=== PATIENT | male | born 1945 | race Caucasian/White ===

== ENCOUNTER 2023-06-21 08:40 | Outpatient (RCR) | payer MEDICARE, SELFPAY | END 2023-06-21 23:59 | disposition home or self-care (01) | LOC: RPT 08:40 | PROVIDERS: ATTENDING PHYSICIAN Internal Medicine | DX: M54.51 Vertebrogenic low back pain (principal); R29.6 Repeated falls; Z73.6 Limitation of activities due to disability | CPT/HCPCS: 97110; 97162 ==

== ENCOUNTER 2023-07-19 06:30 | Outpatient (RCR) | payer MEDICARE, SELFPAY | END 2023-07-19 23:59 | disposition home or self-care (01) | LOC: RPT 06:30 | PROVIDERS: ATTENDING PHYSICIAN Internal Medicine | DX: R29.6 Repeated falls (principal); M54.51 Vertebrogenic low back pain; Z73.6 Limitation of activities due to disability | CPT/HCPCS: 97110; 97112 ==

== ENCOUNTER → 2023-09-07 | Outpatient (REF) | payer MEDICARE, SELFPAY | LOC: DHSLP | PROVIDERS: ATTENDING PHYSICIAN Internal Medicine Critical Care Medicine; FAMILY PHYSICIAN Internal Medicine | DX: G47.33 Obstructive sleep apnea (adult) (pediatric) (principal) | CPT/HCPCS: 95811 ==

== ENCOUNTER → 2023-09-30 07:05 | Outpatient (REF) | payer MEDICARE, SELFPAY ==
[2023-09-30 08:20] LABS: ALT (SGPT) 47 U/L (0-50); AST (SGOT) 38 U/L (17-59); Albumin 4.3 g/dl (3.5-5.0); Alkaline Phosphatase 113 U/L (38-126); Blood Urea Nitrogen 30 mg/dl (9-20); Calcium 9.4 mg/dl (8.4-10.2); Carbon Dioxide 27 mmol/L (22-30); Chloride 102 mmol/L (98-107); Glucose 157 mg/dl (70-99); HDL Cholesterol 38 mg/dl; LDL Cholesterol, Calculated 48 mg/dl; Potassium 4.3 mmol/L (3.5-5.1); Sodium 137 mmol/L (135-145); Total Bilirubin 0.6 mg/dl (0.2-1.3); Total Cholesterol 132 mg/dl (50-199); Total Protein 7.2 g/dl (6.3-8.2); Triglyceride 230 mg/dl (10-149); Very Low Density Lipoprotein 46 mg/dl (0-30); eGFR > 60.00
== END ==
LOC: REG 07:05
PROVIDERS: ATTENDING PHYSICIAN Family Medicine
DX: E11.22 Type 2 diabetes mellitus with diabetic chronic kidney disease (principal); N18.31 Chronic kidney disease, stage 3a; E78.00 Pure hypercholesterolemia, unspecified
CPT/HCPCS: 36415; 80053; 80061; 83036

== ENCOUNTER → 2023-10-26 09:30 | Outpatient (REF) | payer MEDICARE, SELFPAY ==
[2023-10-26 11:29] LABS: NT-proBNP 474 pg/ml
[2023-10-26 11:57] LABS: TSH 3.25 uIU/ml (0.47-4.68)
== END ==
LOC: RAD 09:30
PROVIDERS: ATTENDING PHYSICIAN Internal Medicine Cardiovascular Disease; FAMILY PHYSICIAN Family Medicine
DX: R06.09 Other forms of dyspnea (principal); Z79.899 Other long term (current) drug therapy
CPT/HCPCS: 36415; 71046; 83880; 84443

== ENCOUNTER 2023-10-31 12:11 | Inpatient (IN) | payer MEDICARE, SELFPAY ==
[2023-10-31] VITALS (63 sets, daily range): BP systolic 71–160; BP diastolic 32–100; PULSE 62; BMI 29.6
--- NOTE | 2023-10-31 08:27 | ED.GENMED ---
History of Present Illness
<Bismark Damico PA-C - Last Filed: 11/01/23 09:04>
General
Chief Complaint: Dizziness
Source: patient
Exam Limitations: none
Time Seen by Provider: 10/31/23 08:15
Travel History
Have you had any contact with someone who has COVID-19?: No
Do you have any symptoms of coronavirus? Fever > 100 degrees, chills, cough, shortness of breath, sore throat, loss of taste or smell, muscle aches, or headache?: No
History of Present Illness
History of Present Illness:
77-year-old male presents from home after a fall. He has a history of valve replacement with pacer defibrillator on Coumadin follows with cardiology. He has been compliant diabetic. He states he fell forward hitting his head. He complains of
bilateral knee pain and generalized weakness. He was lightheaded prior to the fall. This fall happened after getting out of bed. His daughter notes that his color is off. Patient denies any dark or tarry stools. He notes recent chills but no
measurable fever. He denies a cough. He denies a spinning sensation. No other complaints at this time
Past History
<Bismark Damico PA-C - Last Filed: 11/01/23 09:04>
Past History
ED Past Medical History: Arrthythmia (Atrial fib/flutter), CAD, Cancer (bladder), HTN, Hypercholesterolemia, NIDDM, Valvular disease (/MR), Psychiatric (schizophrenia, Depression) and Other (AAA, GI bleeding, PVD, Diabetic neuropathy, TIA, Tardive
Dyskinesia, Sleep apnea, Diverticulitis, C-diff)
ED Past Surgical History: Bowel resection, Cardiac (Aortic and Mitral VR, Stent, Pacer/defibulator), Urological (Bladder cancer with resection) and Other (AAA, partial colectomy, bladder CA resection, Hernia, Aortic and iliac stent, Cataracts, )
Social History
Tobacco: Former smoker
Alcohol: None
Drug: None
Personal:
Living: with family
Family History
Family History: Other (Father with MO, mother with COPD)
Phy Exam
<Bismark Damico PA-C - Last Filed: 11/01/23 09:04>
Physical Exam
Physical Exam:
General: Somewhat pale appearing male no acute respiratory distress
HEENT: Normocephalic atraumatic
Heart: Regular rate and rhythm mechanical valve auscultated
Lungs: Clear no wheeze or Rales
Abdomen: Soft nontender nondistended
MSK: Bilateral knees with abrasions anteriorly and tender.
Neurologic: Alert and oriented x 3 no facial asymmetry or drift. Finger-nose intact.
Extremities: No cyanosis
Course
<Bismark Damico PA-C - Last Filed: 11/01/23 09:04>
Orders/Labs/Results
Orders:
Orders
10/31/23 08:20
Electrocardiogram (*1) Urgent
Reason for Study: Fatigue / Weakness
10/31/23 08:25
CT Head W/o Iv Contrast Urgent
Comment:
Reason For Exam: fall
10/31/23 08:34
0.9% Sodium Chloride 1000 ml [Nss] 1,000 ml IV BOLUS
10/31/23 08:35
COVID-19 Antigen Urgent
Source: Nasal Swab
Complete Blood Count/With Diff Urgent
Manual Differential Urgent
Prothrombin Time Urgent
10/31/23 08:36
Comprehensive Metabolic Panel Urgent
Creatine Phosphokinase Urgent
Comment: ADD ON
Lipase Urgent
Comment: ADD ON
Magnesium Urgent
Comment: ADD
Phosphorus Urgent
Comment: ADD
10/31/23 08:38
Blood Culture Q30M
LIYAH Source: Blood/Venous
Specimen Description:
10/31/23 08:53
CT Abd/pelvis W Iv Cont Urgent
Comment:
Reason For Exam: fall, hypotension
10/31/23 09:15
Lactic Acid Urgent
Blood Culture Q30M
LIYAH Source: Blood/Venous
Specimen Description:
10/31/23 09:23
Add On- LAB Urgent
Tests Added?: lipase
10/31/23 09:28
Piperacillin/Tazo 3.375 Gram [Zosyn] 3.375 gram in 50 ml IV NOW
10/31/23 09:33
0.9% Sodium Chloride 500 ml [Nss] 500 ml IV BOLUS
10/31/23 09:34
0.9% Sodium Chloride 1000 ml [Nss] 1,000 ml IV BOLUS
10/31/23 09:44
Urinalysis Reflex To Culture Urgent
Date Specimen was Collected: 10/31/23
Time Specimen was Collected: 09:39
Urine Microscopic Reflex Cult Urgent
Urine Culture Urgent
LIYAH Source: U
Specimen Description:
Date Specimen was Collected: 10/31/23
Time Specimen was Collected: 09:39
10/31/23 Lunch
NPO
Allow oral meds: Yes
Allow clear liquids: Sips of Clears
NPO with Ice Chips: Yes
10/31/23 10:21
Influenza A+B Rapid Molecular Routine
LIYAH Source: [facility]
Specimen Description:
Comment: recollect
10/31/23 10:49
Admit/Transfer Patient As Directed
Co-Sign Provider:
Level of Care: Inpatient admission
Assign to:: ICU
Physician / Group: hospitalist
Transfer to: ICU
Diagnosis: septic shock
Reason for Hospitalization: IV fluids, IV antibiotics, ICU management
Expected length of stay greater than two midnights?: Yes
ELOS- Estimated Length of Stay in days: 4
I certify the patient meets the requirements for IP care: Yes
10/31/23 11:15
Code Status As Directed
Resuscitation Status: Full Code
10/31/23 12:40
0.9% Sodium Chloride 1000 ml [Nss] 1,000 ml IV 125 mls/hr
Acetaminophen [Tylenol] 325 mg PO Q4HPRN PRN
NORepinephrine 4 MG/250 ML [Levophed] 4 mg in 250 ml IV PER PROTOCOL
Initial dose in mcg/min, then titrate:: 2
Titrate to keep:: MAP > 65 mmHg
Titrate by mcg/min:: 1-2 mcg/min
Frequency of titrations (minutes):: 5
Maximum dose in ICU in mcg/min:: 30
Maximum dose in IMU in mcg/min:: 8
Maximum dose in IVU in mcg/min:: 4
Begin to taper infusion when:: Remained at goal for 4hrs
Taper by mcg/min:: 1-2 mcg/min
Frequency of taper (minutes) if patient maintains goal:: 30
Taper to off?: Yes
If infusion off & no longer maintaining goal:: Contact Provider
Pantoprazole [Protonix IV] 40 mg IV DAILY
10/31/23 12:40
GASTROINTESTINAL CONSULT Routine
Consulting Provider: Miranda Betancourt
Was physician already notified: Yes
Comptometrist Consult Routine
Consulting Provider: Shira Soliman
Was physician already notified: Yes
Activity As Directed
Activity Level: Bedrest
Intake/ Output As Directed
Frequency: Per unit guidelines
Pneumatic Compression Sleeves As Directed
Type: Knee high
Vital Signs As Directed
Frequency: Per unit guidelines
DX Deep Vein Thrombosis Video Routine
10/31/23 14:05
Lactic Acid Q4H
Comment: repeat q4 hours x 4 or until less than 2 mmol/L
10/31/23 16:00
Piperacillin/Tazo 3.375 Gram [Zosyn] 3.375 gram in 50 ml IV Q6H
10/31/23 18:11
Lactic Acid Q4H
Comment: repeat q4 hours x 4 or until less than 2 mmol/L
10/31/23 22:00
Finasteride [Proscar] 5 mg PO HS
Risperidone [Risperdal] 2 mg PO HS
11/01/23 00:21
Complete Blood Count/With Diff IN AM
Comprehensive Metabolic Panel IN AM
Glycohemoglobin (HgbA1c) IN AM
11/01/23 05:25
Protime/PTT IN AM
Abnormal Lab Results
10/31/23 10/31/23 10/31/23
08:35 08:36 08:43
WBC 14.7 H 10^3/uL
(4.8-10.8)
RBC 3.99 L 10^6/uL
(4.70-6.10)
Hct 38.9 L %
(39.0-52.0)
MCV 97.5 H fL
(80.0-94.0)
MCH 33.1 H pg
(27.0-31.0)
RDW 16.2 H %
(11.5-14.5)
Plt Count 106 L 10^3/uL
(130-400)
MPV 11.7 H fL
(7.4-10.4)
Abs Neuts (Manual) 14.1 H 10^3/uL
(1.4-6.5)
Segmented Neutrophils 83 H %
(42-75)
Band Neutrophils 13 H %
(0-3)
Lymphocytes (Manual) 2 L %
(20-51)
PT 29.4 H Sec
(11.4-14.6)
Sodium 134 L mmol/L
(135-145)
Carbon Dioxide 16 L mmol/L
(22-30)
BUN 38 H mg/dl
(9-20)
Creatinine 2.1 H mg/dL
(0.7-1.3)
Glucose 307 H mg/dl
(70-99)
Lactic Acid
Total Bilirubin 6.6 H mg/dl
(0.2-1.3)
AST 1681 H* U/L
(17-59)
ALT 1909 H* U/L
(0-50)
Alkaline Phosphatase 620 H U/L
(38-126)
Creatine Kinase 341 H U/L
(55-170)
Urine Ketones
Ur Occult Blood Reflex
Urine Bilirubin
Urine Urobilinogen
Leukocyte Esterase Rfl
Urine WBC (Reflex)
Urine Bacteria (Reflex)
Urine Glucose
Urine Albumin (Reflex)
POC Glucose 316 H mg/dl
(70-99)
24 10/31/23
09:15 09:44
WBC
RBC
Hct
MCV
MCH
RDW
Plt Count
MPV
Abs Neuts (Manual)
Segmented Neutrophils
Band Neutrophils
Lymphocytes (Manual)
PT
Sodium
Carbon Dioxide
BUN
Creatinine
Glucose
Lactic Acid 8.2 H* mmol/L
(0.7-2.0)
Total Bilirubin
AST
ALT
Alkaline Phosphatase
Creatine Kinase
Urine Ketones 1+ A
(Negative)
Ur Occult Blood Reflex 2+ A
(Negative)
Urine Bilirubin 2+ A
(Negative)
Urine Urobilinogen 3+ A
(Neg - 1+)
Leukocyte Esterase Rfl Trace A
(Negative)
Urine WBC (Reflex) 11-15 A /HPF
(0-5)
Urine Bacteria (Reflex) Many A
(Negative)
Urine Glucose 2+ A
(Negative)
Urine Albumin (Reflex) 1+ A
(Neg - Trace)
POC Glucose
10/31/23 08:35
10/31/23 08:36
Vital Signs
Initial and Last Documented VS:
Initial Vital Signs
Temp Pulse Resp BP Pulse Ox
97.8 F 95 26 160/100 96
10/31/23 08:05 10/31/23 08:05 10/31/23 08:05 10/31/23 08:05 10/31/23 08:05
Last Documented Vital Signs
Temp Pulse Resp BP Pulse Ox
98.3 F 84 15 126/66 96
11/01/23 07:19 11/01/23 08:45 11/01/23 08:45 11/01/23 08:03 11/01/23 08:45
<Herman Randle MD - Last Filed: 10/31/23 09:38>
Orders/Labs/Results
Orders:
Orders
10/31/23 08:20
Electrocardiogram (*1) Urgent
Reason for Study: Fatigue / Weakness
10/31/23 08:25
CT Head W/o Iv Contrast Urgent
Comment:
Reason For Exam: fall
10/31/23 08:34
0.9% Sodium Chloride 1000 ml [Nss] 1,000 ml IV BOLUS
10/31/23 08:35
COVID-19 Antigen Urgent
Source: Nasal Swab
Complete Blood Count/With Diff Urgent
Manual Differential Urgent
Prothrombin Time Urgent
10/31/23 08:36
Comprehensive Metabolic Panel Urgent
Creatine Phosphokinase Urgent
Comment: ADD ON
Lipase Urgent
Comment: ADD ON
Magnesium Urgent
Comment: ADD
Phosphorus Urgent
Comment: ADD
10/31/23 08:38
Blood Culture Q30M
LIYAH Source: Blood/Venous
Specimen Description:
10/31/23 08:53
CT Abd/pelvis W Iv Cont Urgent
Comment:
Reason For Exam: fall, hypotension
10/31/23 09:15
Lactic Acid Urgent
Blood Culture Q30M
LIYAH Source: Blood/Venous
Specimen Description:
10/31/23 09:23
Add On- LAB Urgent
Tests Added?: lipase
10/31/23 09:28
Piperacillin/Tazo 3.375 Gram [Zosyn] 3.375 gram in 50 ml IV NOW
10/31/23 09:33
0.9% Sodium Chloride 500 ml [Nss] 500 ml IV BOLUS
10/31/23 09:34
0.9% Sodium Chloride 1000 ml [Nss] 1,000 ml IV BOLUS
10/31/23 09:44
Urinalysis Reflex To Culture Urgent
Date Specimen was Collected: 10/31/23
Time Specimen was Collected: 09:39
Urine Microscopic Reflex Cult Urgent
Urine Culture Urgent
LIYAH Source: U
Specimen Description:
Date Specimen was Collected: 10/31/23
Time Specimen was Collected: 09:39
10/31/23 Lunch
NPO
Allow oral meds: Yes
Allow clear liquids: Sips of Clears
NPO with Ice Chips: Yes
10/31/23 10:21
Influenza A+B Rapid Molecular Routine
LIYAH Source: [facility]
Specimen Description:
Comment: recollect
10/31/23 10:49
Admit/Transfer Patient As Directed
Co-Sign Provider:
Level of Care: Inpatient admission
Assign to:: ICU
Physician / Group: hospitalist
Transfer to: ICU
Diagnosis: septic shock
Reason for Hospitalization: IV fluids, IV antibiotics, ICU management
Expected length of stay greater than two midnights?: Yes
ELOS- Estimated Length of Stay in days: 4
I certify the patient meets the requirements for IP care: Yes
10/31/23 11:15
Code Status As Directed
Resuscitation Status: Full Code
10/31/23 12:40
0.9% Sodium Chloride 1000 ml [Nss] 1,000 ml IV 125 mls/hr
Acetaminophen [Tylenol] 325 mg PO Q4HPRN PRN
NORepinephrine 4 MG/250 ML [Levophed] 4 mg in 250 ml IV PER PROTOCOL
Initial dose in mcg/min, then titrate:: 2
Titrate to keep:: MAP > 65 mmHg
Titrate by mcg/min:: 1-2 mcg/min
Frequency of titrations (minutes):: 5
Maximum dose in ICU in mcg/min:: 30
Maximum dose in IMU in mcg/min:: 8
Maximum dose in IVU in mcg/min:: 4
Begin to taper infusion when:: Remained at goal for 4hrs
Taper by mcg/min:: 1-2 mcg/min
Frequency of taper (minutes) if patient maintains goal:: 30
Taper to off?: Yes
If infusion off & no longer maintaining goal:: Contact Provider
Pantoprazole [Protonix IV] 40 mg IV DAILY
10/31/23 12:40
GASTROINTESTINAL CONSULT Routine
Consulting Provider: Miranda Betancourt
Was physician already notified: Yes
Comptometrist Consult Routine
Consulting Provider: Shira Soliman
Was physician already notified: Yes
Activity As Directed
Activity Level: Bedrest
Intake/ Output As Directed
Frequency: Per unit guidelines
Pneumatic Compression Sleeves As Directed
Type: Knee high
Vital Signs As Directed
Frequency: Per unit guidelines
DX Deep Vein Thrombosis Video Routine
10/31/23 14:05
Lactic Acid Q4H
Comment: repeat q4 hours x 4 or until less than 2 mmol/L
10/31/23 16:00
Piperacillin/Tazo 3.375 Gram [Zosyn] 3.375 gram in 50 ml IV Q6H
10/31/23 18:11
Lactic Acid Q4H
Comment: repeat q4 hours x 4 or until less than 2 mmol/L
10/31/23 22:00
Finasteride [Proscar] 5 mg PO HS
Risperidone [Risperdal] 2 mg PO HS
11/01/23 00:21
Complete Blood Count/With Diff IN AM
Comprehensive Metabolic Panel IN AM
Glycohemoglobin (HgbA1c) IN AM
11/01/23 05:25
Protime/PTT IN AM
Abnormal Lab Results
10/31/23 10/31/23 10/31/23
08:35 08:36 08:43
WBC 14.7 H 10^3/uL
(4.8-10.8)
RBC 3.99 L 10^6/uL
(4.70-6.10)
Hct 38.9 L %
(39.0-52.0)
MCV 97.5 H fL
(80.0-94.0)
MCH 33.1 H pg
(27.0-31.0)
RDW 16.2 H %
(11.5-14.5)
Plt Count 106 L 10^3/uL
(130-400)
MPV 11.7 H fL
(7.4-10.4)
Abs Neuts (Manual) 14.1 H 10^3/uL
(1.4-6.5)
Segmented Neutrophils 83 H %
(42-75)
Band Neutrophils 13 H %
(0-3)
Lymphocytes (Manual) 2 L %
(20-51)
PT 29.4 H Sec
(11.4-14.6)
Sodium 134 L mmol/L
(135-145)
Carbon Dioxide 16 L mmol/L
(22-30)
BUN 38 H mg/dl
(9-20)
Creatinine 2.1 H mg/dL
(0.7-1.3)
Glucose 307 H mg/dl
(70-99)
Lactic Acid
Total Bilirubin 6.6 H mg/dl
(0.2-1.3)
AST 1681 H* U/L
(17-59)
ALT 1909 H* U/L
(0-50)
Alkaline Phosphatase 620 H U/L
(38-126)
Creatine Kinase 341 H U/L
(55-170)
Urine Ketones
Ur Occult Blood Reflex
Urine Bilirubin
Urine Urobilinogen
Leukocyte Esterase Rfl
Urine WBC (Reflex)
Urine Bacteria (Reflex)
Urine Glucose
Urine Albumin (Reflex)
POC Glucose 316 H mg/dl
(70-99)
24 10/31/23
09:15 09:44
WBC
RBC
Hct
MCV
MCH
RDW
Plt Count
MPV
Abs Neuts (Manual)
Segmented Neutrophils
Band Neutrophils
Lymphocytes (Manual)
PT
Sodium
Carbon Dioxide
BUN
Creatinine
Glucose
Lactic Acid 8.2 H* mmol/L
(0.7-2.0)
Total Bilirubin
AST
ALT
Alkaline Phosphatase
Creatine Kinase
Urine Ketones 1+ A
(Negative)
Ur Occult Blood Reflex 2+ A
(Negative)
Urine Bilirubin 2+ A
(Negative)
Urine Urobilinogen 3+ A
(Neg - 1+)
Leukocyte Esterase Rfl Trace A
(Negative)
Urine WBC (Reflex) 11-15 A /HPF
(0-5)
Urine Bacteria (Reflex) Many A
(Negative)
Urine Glucose 2+ A
(Negative)
Urine Albumin (Reflex) 1+ A
(Neg - Trace)
POC Glucose
10/31/23 08:35
10/31/23 08:36
Vital Signs
Initial and Last Documented VS:
Initial Vital Signs
Temp Pulse Resp BP Pulse Ox
97.8 F 95 26 160/100 96
10/31/23 08:05 10/31/23 08:05 10/31/23 08:05 10/31/23 08:05 10/31/23 08:05
Last Documented Vital Signs
Temp Pulse Resp BP Pulse Ox
98.3 F 84 15 126/66 96
11/01/23 07:19 11/01/23 08:45 11/01/23 08:45 11/01/23 08:03 11/01/23 08:45
<Bismark Damico PA-C - Last Filed: 11/01/23 09:04>
MDM/Problems Addressed
Differential Diagnosis Includes:
Weakness with fall. Question underlying infection versus anemia versus electrolyte abnormality. No unilateral deficit to suggest stroke. EKG shows sinus rhythm with first-degree block. No obvious acute ischemic changes
Trauma on Coumadin. Head CT pending. X-rays both knees and right hip pending.
Will check labs, blood cultures urinalysis
<Bismark Damico PA-C - Last Filed: 11/01/23 09:04>
*Critical Care Note
Total Time (30-74mins, 75-104mins- exclusive of procedures): Not Applicable
<Bismark Damico PA-C - Last Filed: 11/01/23 09:04>
Update Note
Update Note:
Patient update. Was told by nurse patient was hypotensive with a systolic in the 90s. Fluids were ordered. Shortly after this recheck and blood pressure shows systolic in the 70s. Patient sent to CT scan while getting fluids of the head and
abdomen with IV contrast. Further review of heart provides but he has had AAA repair most recently in 2020. Hemoglobin is 13.2.
9:41 AM: CT head negative for acute traumatic injury. CT of abdomen overall negative for acute findings other than diffuse dilatation of the common bile duct with possible ampullary lesion. Patient's blood pressure is responding to IV fluid. Labs
demonstrate sick acidosis with a lactic of 8 white blood cell count of 14 and a left shift. Total bilirubin is 6.6 and transaminases are pending. Lipase added. Question possible cholangitis versus choledocholithiasis versus neoplastic process.
On top of fluids he received Zosyn. Will admit to hospitalist with GI consult. ICU admit
ED Attending Note
<Bismark Damico PA-C - Last Filed: 11/01/23 09:04>
-
Portions of this chart may have been created with voice recognition software.� Occasional wrong word or��sound alike� substitutions may have occurred due to the inherent limitations of voice recognition software.
<Herman Randle MD - Last Filed: 10/31/23 09:38>
ED Attending Note
Patient seen and examined by attending physician: Yes
ED Attending Note:
Patient presents to ED secondary to 4-day history of persistent generalized weakness, associated with body ache and decreased appetite. This morning, as he was walking to restroom, patient felt lightheaded and fell to the floor. Patient required
multiple family members to assist in getting him up. Denies headache. Denies blurred vision. Denies loss of sensation or weakness. Denies coughing. Denies abdominal pain. Denies nausea, vomiting, or diarrhea. Denies difficulty urination.
Denies back pain. Denies recent travel. Denies recent illness. Denies recent change in medications or diet.
Physical Exam
General: moderate distress, acutely ill. afebrile. weak appearing
Head: nc/at. eomi
Neck: supple. no meningeal signs.
Heart: s1/s2 regular rate and rhythm, no murmur. equal radial pulses.
Lungs: no acute respiratory distress. clear bilaterally
Abdomen: normal bowel sounds. not tender.
Neuro: alert and oriented. no focal neurological deficits
Skin: no rash. jaundiced.
Psychiatric: well kept. interactive and cooperative
Extremities: no edema. no calf tenderness.
Blood work reviewed, significant for leukocytosis, thrombocytopenia as well as acute renal failure, likely secondary to potential infection associated with dehydration.
CT head: No acute findings.
Blood culture pending.
CT report reviewed.
Zosyn ordered empirically with concern for potential cholangitis. GI will be contacted via [employer]. Pt may require pressor support, if BP does not improve with IVFs.
Critical care statement: A total of 40 minutes of critical care time was provided for this patient. This includes management of unstable vital signs, evaluation of the patient at bedside, reviewing the patient's pertinent medical records, discussion
with consultants, review of old EKGs and review of pertinent medical records. This time with separate from time utilized to perform the aforementioned documented procedures
Discharge Plan
Departure
Patient Disposition: Admit
Date of Disposition: 10/31/23
Time of Disposition: 09:42
Admit to: ICU
Presentation/result/management discussed w/ accepting MD/DO: Hospitalist
Discharge Problem:
Hypotension, Elevated LFTs
Interventions
Interventions:
*General Assessment Last Done: 10/31/23 08:05
*Neglect/Abuse Screening Last Done: 10/31/23 08:05
ED- Fall Risk Assessment Last Done: 10/31/23 12:40
*ED COVID-19 Vaccine History Last Done: 10/31/23 13:12
*Nursing Disposition Last Done: 10/31/23 12:40
ED-Skin Assessment Last Done: 10/31/23 09:38
ED- Neurological Assessment Last Done: 10/31/23 09:38
ED-Musculoskeletal Assessment Last Done: 10/31/23 09:38
ED- Cardiac Assessment Last Done: 10/31/23 12:40
ED Swallowing Screen Last Done: 10/31/23 13:20
Discharge Date and Time
Discharge Date/Time: 10/31/23 12:40
[2023-10-31 08:44] LABS: Glucose - Point of Care 316 mg/dl (70-99)
[2023-10-31] MEDS: NSS 1000 IV ×4 (08:45→21:06)
[2023-10-31 08:46] LABS: Hematocrit 38.9 % (39.0-52.0); Hemoglobin 13.2 g/dL (13.0-18.0); Mean Corp Hgb Conc. 33.9 g/dL (33.0-37.0); Mean Corpuscular Hgb 33.1 pg (27.0-31.0); Mean Corpuscular Volume 97.5 fL (80.0-94.0); Mean Platelet Volume 11.7 fL (7.4-10.4); Platelet Count 106 10^3/uL (130-400); Red Blood Cell Count 3.99 10^6/uL (4.70-6.10); Red Cell Dist. Width 16.2 % (11.5-14.5); White Blood Cell Count 14.7 10^3/uL (4.8-10.8)
[2023-10-31 08:55] LABS: INR 2.79; PT 29.4 Sec (11.4-14.6)
[2023-10-31 09:09] LABS: Albumin 3.9 g/dl (3.5-5.0); Alkaline Phosphatase 620 U/L (38-126); Blood Urea Nitrogen 38 mg/dl (9-20); Calcium 8.9 mg/dl (8.4-10.2); Carbon Dioxide 16 mmol/L (22-30); Chloride 104 mmol/L (98-107); Estimated Creatinine Clearance 29 ml/min; Glucose 307 mg/dl (70-99); Potassium 4.6 mmol/L (3.5-5.1); Sodium 134 mmol/L (135-145); Total Bilirubin 6.6 mg/dl (0.2-1.3); Total Protein 6.7 g/dl (6.3-8.2); eGFR 31.43
[2023-10-31 09:14] LABS: Absolute Neutrophils -Man Diff 14.1 10^3/uL (1.4-6.5); Band Neutrophils 13 % (0-3); Lymphocytes 2 % (20-51); Monocytes 2 % (2-9); Normal RBC Morphology Yes; Platelets Checked Yes; Segmented Neutrophils 83 % (42-75); Total Cells Counted 100
[2023-10-31 09:42] LABS: COVID-19 Antigen Negative (Negative)
[2023-10-31 09:42] LABS: Lactic Acid 8.2 mmol/L (0.7-2.0)
[2023-10-31 09:52] LABS: ALT (SGPT) 1909 U/L (0-50)
[2023-10-31 09:57] LABS: Urine Albumin 1+ (Neg - Trace); Urine Bilirubin 2+ (Negative); Urine Character Clear (Clear); Urine Color Amber; Urine Glucose 2+ (Negative); Urine Ketone 1+ (Negative); Urine Leukocyte Trace (Negative); Urine Nitrite Negative (Negative); Urine Occult Blood 2+ (Negative); Urine Specific Gravity 1.015 (<1.030); Urine Urobilinogen 3+ (Neg - 1+)
[2023-10-31 10:07] LABS: Urine Bacteria Many (Negative)
[2023-10-31 10:08] LABS: Urine Red Blood Cell 0-2 /HPF (0-2)
[2023-10-31 10:09] LABS: AST (SGOT) 1681 U/L (17-59)
[2023-10-31] MEDS: ZOSYN 50 IV ×3 (10:23→22:22)
[2023-10-31 10:43] LABS: Lipase 73 U/L (23-300)
--- NOTE | 2023-10-31 13:00 | PTCARENOTE ---
Received patient from ER. Patient AAOx3, confused as to time, asked if he came to the hospital this morning, just unclear of events leading to hospitalization. Patient is able to state where he is and that it is October of 2023. Able to move all
extremities, generally weak, fell this morning and was found face down by family. Patient states he has neuropathy of lower extremities, feet are numb and tingling at baseline. Patient is on room air, clear but is a bit dyspneic on exertion. He
is sinus rhythm on monitor, AICD to left chest wall. Patient ordered SCDs. Patient is generally very yellow, some abrasions noted on right knee and hayes and will be documented in focused shift assessment. Patient has brief on, incontinence pad
in place, skin cleansed with CHG wipes. Patient is NPO, last bowel movement Monday, has been having issues with constipation. NSS started at 125 through right hand INT. will review orders and resend lactic at 1330.
--- NOTE | 2023-10-31 13:18 | HPS.HSE ---
Addendum entered and electronically signed by Luz Marina Suh MD 10/31/23 14:36:
pt seen and examined independently--agree with plan as set forth by Dr. Capellan--spoke with pt daughter at bedside
GENERAL: well developed, well nourished, male in no apparent distress--jaundiced
HEENT: NC/AT--lying on the stretcher with a towel over his eyes
HEART: regular rate and rhythm, +S1, +S2--MARGIE with click
LUNGS : clear to auscultation bilaterally
ABDOM: soft, nontender, nondistended, + bowel sounds
EXT: no cyanosis, clubbing, or edema
NEUROLOGIC: sleeping
Septic shock with lactic acidosis--likely due to cholangitis, choledocholithiasis--doubt cholecystitis--received IV bolus sepsis doses--cont maintenance IVF--pressors if needed--consult kitchen porter and GI--agree with zosyn--follow cultures--trend
lactates
Acute transaminitis--likely due to cholangitis and choledocholithiasis--ERCP vs MRCP--await GI input
Hyperbilirubinemia--Diffuse common bile duct dilation--related to obstruction at ampulla most likely--will need ERCP, biopsy and possible stent
CAD--Hold metoprolol for now--Can start on IV Lopressor
Paroxysmal afib/aneurysms/valve replacement--hold coumadin--do not reverse--will start IV heparin if needed once INR < 1.5--follow INR--hold metoprolol--IV lopressor with parameters if needed
GERD--hold famotidine--Started on IV Protonix 40
IDDM--Decreased to 5 units of Levemir given NPO status--Insulin sliding scale--Hold metformin
Essential Hypertension--hold BP meds--supportive care to keep MBP > 65
SANKET--likely due to prerenal causes given hypotension--post renal possible given finasteride--may need santos for accurate I/Os
Hyperlipidemia--Hold rosuvastatin due to elevated LFTs
Schizophrenia--Continue risperidone
DVT prophylaxis--SCD
Code status -- FULL CODE
Total Critical Care Time 45 minutes. I was immediately available to the patient and staff. I personally examined, reviewed labs, diagnostic images/reports, interpretations, treatment plans, discussed patient care with other providers and family
or caregivers (if patient is unable to make decisions), entered orders as appropriate and documented the medical record.
Original Note:
Family Physician
-
Family Physician: Driss Hendricks Jr.
Chief Complaint
-
IV fluids
IV Zosyn
Levophed
Admit to ICU
History of Present Illness
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
today from home after a fall. He fell forward hitting his head while he was going to the restroom from his bedroom. Patient has a valve replacement and a defibrillator. He has been on Coumadin for 20 years for aneurysms and arrhythmia. Patient
is in the room with his daughter today. Patient's daughter states that he has not been feeling well since Monday. He reports of decreased appetite, fatigue. Daughter states that she noted that the patient's color was off and he looked pale.
Denies any blood in the stool. No fever but admits to chills, mild abdominal pain. Denies shortness of breath chest pain palpitations.
Medical History
Past Medical History
Past Medical History: Reports Arrhythmia
Additional Past Medical History:
Arrthythmia (Atrial fib/flutter), CAD, Cancer (bladder), HTN, Hypercholesterolemia, NIDDM, Valvular disease (/MR), Psychiatric (schizophrenia, Depression) and Other (AAA, GI bleeding, PVD, Diabetic neuropathy, TIA, Tardive Dyskinesia, Sleep apnea,
Diverticulitis, C-diff), aortic aneurysm
Past Surgical History: Reports Cardiac and Orthopedic
Additional Past Surgical History:
Bowel resection, Cardiac (Aortic and Mitral VR, Stent, Pacer/defibulator), Urological (Bladder cancer with resection) and Other (AAA, partial colectomy, bladder CA resection, Hernia, Aortic and iliac stent, Cataracts, )
Social History
Tobacco: Former Smoker
Alcohol: None
Drug: None
Personal:
Living: With Family
Employment: Retired
Family History
Family History: Not pertinent
Allergies / Home Medications
Allergies reflects when Allergies were last updated in [facility].
Home Medications with original date entered in [facility]
Allergy/Medication List:
codiene - rash
Review of Systems
-
History Source: Patient and Family
Constitutional: Reports Fatigue
Cardiac: Denies Chest Pain, Diaphoresis or Palpitations
Abdomen/GI: Reports Abdominal Pain
Physical Exam
Vital Signs
Vital Signs
Temp Pulse Resp BP Pulse Ox
100.5 F H 87 13 95/64 93
10/31/23 09:36 10/31/23 12:00 10/31/23 12:00 10/31/23 12:00 10/31/23 11:45
Physical Exam
General: Other (Pale, mild drowsiness but alert and oriented)
HEENT: NormoCephalic and Anicteric
Cardiac: S1/S2 and Murmur (Systolic murmur with a click)
GI: Soft, Normal Bowel Sounds and Tender (Mild tenderness on the right side of the abdomen)
Skin: Other (Pale)
Neuro: Alert, Oriented and Other (Drowsy)
Psych: Calm
Laboratory Results
-
10/31/23 08:35
10/31/23 08:36
Laboratory Results
PT 29.4 Sec (11.4-14.6) H 10/31/23 08:35
INR 2.79 10/31/23 08:35
APTT Cancelled 10/31/23 08:35
Lactic Acid 8.2 mmol/L (0.7-2.0) H* 10/31/23 09:15
Total Bilirubin 6.6 mg/dl (0.2-1.3) H 10/31/23 08:36
AST 1681 U/L (17-59) H* 10/31/23 08:36
ALT 1909 U/L (0-50) H* 10/31/23 08:36
Alkaline Phosphatase 620 U/L (38-126) H 10/31/23 08:36
Lipase 73 U/L (23-300) 10/31/23 08:36
Data Reviewed
-
Medical Tests (Nuc Med, Echo, EKG etc): Report Reviewed by me and Discussed with Physician
Impression/Plan
-
IMPRESSION:
Septic shock secondary to infection
Lactic acidosis secondary to sepsis
Fever
Acute transaminitis
Hyperbilirubinemia
CAD
Arrhythmia / aneurysms/valve replacement
GERD
Urinary retention/BPH
IDDM
Hypertension
Hyperlipidemia
Schizophrenia
77-year-old male presented with septic shock and hypotension, baseline mental status. Patient is alert and oriented however he is drowsy .
PLAN:
Septic shock secondary to infection
Admit to ICU
Sepsis protocol
NSS maintenance dose
Levophed 2 mg to maintain blood pressure
IV Zosyn
Blood and urine culture pending
Monitor blood pressure
Trend WBC, monitor temperature curve
Lactic acidosis secondary to sepsis
Continue to monitor lactic acid levels
Continue IV antibiotics, fluids, pressors
Fever
Hold Tylenol as LFTs are elevated
Acute transaminitis
No history of personal alcohol use
Suspect 1. acute cholangitis 2. Choledocholithiasis which could be contributing to increased LFTs
Consult GI
Abdominal/pelvis CT
Diffuse common bile duct dilatation with questionable ampullary lesion. Recommend outpatient workup with dedicated MRI/MRCP abdomen without and with gadolinium contrast, versus ERCP.
Hyperbilirubinemia
Diffuse common bile duct dilation
Suspect infection or a mass
Consult GI
CAD
Hold metoprolol for now
Can start on IV Lopressor
Arrhythmia / aneurysms/valve replacement
Hold metoprolol, Coumadin
As patient's INR is 2.79 we will hold Coumadin for further risk of bleeding
As the INR is less than 1.5 then we will start patient on heparin drip
GERD
hold famotidine
Started on IV Protonix 40
IDDM
Decreased to 5 units of Levemir
Insulin sliding scale
Hold metformin
Hypertension
Currently patient is hypotensive
Creatinine 2.1
Hold TONG/ARB
Hyperlipidemia
Hold rosuvastatin due to elevated LFTs
Schizophrenia
Continue risperidone
DVT prophylaxis-SCD
--- NOTE | 2023-10-31 13:24 | CON.INTV ---
Consultation
Consultation Request
Date/Time Consultation Requested: 10/30
Date/Time Consultation Performed: 10/30
Reason for Consultation: Critical care
Medical History
-
History of Present Illness:
History obtained from the patient, outpatient records, inpatient records, and daughter. Patient with extremely complex medical history including coronary disease with stent in the past, mechanical mitral valve and aortic valve replacement, history
of ventricular tachycardia-with ICD/pacemaker on amiodarone, on Coumadin therapy. According to the patient, he has been feeling more fatigued over the past few days. Reports suggest he was found on the floor by his daughter this morning which was
confirmed by his daughter but patient cannot recall this. Patient does admit to history of falls, last fell in May. Appetite has been somewhat poor over the past few days. He denies any chest pain, nausea, abdominal pain. He started
Metamucil due to stool incontinence and has not had a bowel movement for the last few days. Upon arrival to [facility], afebrile, pulse 95, breathing at 26, blood pressure 160/100, 96%. He was found to have a hemoglobin 13.2, creatinine
2.1, white count 14.7. He subsequently developed hypotension with systolic pressure in the 70s despite IV fluids. CT abdomen was obtained which suggested possible biliary infection. He was given additional IV fluids, Zosyn therapy, admitted to
ICU for further management. Presently he feels he is much improved, less fatigued. Daughter also confirmed that he is clinically improved since being in the ED.
.
PMH: Obstructive sleep apnea with nocturnal hypoxia failed CPAP/BiPAP, requiring ASV, hx of TIAs, coronary disease, diabetes, GERD, BPH, hypertension, hypercholesterolemia, VT/atrial fibrillation on anticoagulation/amiodarone therapy, history of GI
bleed, pacemaker with ICD, chronic back pain, chronic kidney disease stage III, macular degeneration, history of's depression/schizophrenia
Past Medical History
Past Medical History: None (See above)
Past Surgical History: None (See above)
Social History
Tobacco: Former Smoker (25+ pack-year history of smoking, quit 1989)
Alcohol: None
Drug: None
Personal:
Living: With Family
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
Family History
Family History: Other (1 daughter from sarcoma at age 27. Mother with lung disease, details unclear. Father from heart attack age 55)
Allergies / Home Medications
Allergies
Allergy/AdvReac Type Severity Reaction Status Date / Time
codeine [Codeine] Allergy Itching Verified 06/13/23 15:29
acetaminophen [From Tylenol] AdvReac liver Verified 06/13/23 15:29
problems
Home Medications
�Medication �Instructions �Recorded �Confirmed �Last Taken �Type
B-complex with vitamin C 1 cap PO PURCELL Supplement 04/22/21 10/31/23 10/29/23 History
amitriptyline 50 mg tablet 100 mg PO HS Mental Health/sleep 04/22/21 10/31/23 10/30/23 History
ascorbic acid (vitamin C) 500 mg 1,000 mg PO DAILY Supplement 04/22/21 10/31/23 10/30/23 History
tablet (Vitamin C)
cholecalciferol (vitamin D3) 50 2,000 units PO SUWE Supplement 04/22/21 10/31/23 10/29/23 History
mcg (2,000 unit) tablet
famotidine 40 mg tablet 40 mg PO HS Gastrointestinal issue 04/22/21 10/31/23 10/30/23 History
magnesium oxide 400 mg PO HS Supplement 04/22/21 10/31/23 10/30/23 History
metoprolol succinate 50 mg 50 mg PO HS Blood pressure 04/22/21 10/31/23 10/30/23 History
tablet,extended release 24 hr
multivitamin with folic acid 400 1 tab PO DAILY Supplement 04/22/21 10/31/23 10/30/23 History
mcg tablet (Tab-A-David)
risperidone 2 mg tablet 2 mg PO HS Mental Health 04/22/21 10/31/23 10/30/23 History
finasteride 5 mg tablet 5 mg PO HS Urinary issue 04/28/21 10/31/23 10/30/23 History
amiodarone 200 mg tablet (Pacerone) 200 mg PO HS Arrhythmia 01/10/22 10/31/23 10/30/23 History
lecithin 518 mg capsule 518 mg PO DAILY Supplement 01/10/22 10/31/23 10/30/23 History
coenzyme Q10 100 mg capsule 100 mg PO DAILY Supplement 04/22/22 10/31/23 10/30/23 History
(CoQ-10)
rosuvastatin 5 mg tablet 5 mg PO HS High cholesterol 09/02/22 10/31/23 10/30/23 History
melatonin 10 mg tablet 10 mg PO HS Sleep #0 tabs 09/15/22 10/31/23 10/30/23 Rx
warfarin 2 mg tablet (Jantoven) 2 mg PO QPM Blood clot 09/16/22 10/31/23 10/30/23 Rx
prevention/tx #1 tab
Saccharomyces boulardii 250 mg 250 mg PO QPM probiotic 10/31/23 10/31/23 10/30/23 History
capsule (Florastor)
acetaminophen 500 mg tablet 1,000 mg PO BIDPRN PRN headaches 10/31/23 10/31/23 10/30/23 History
(Acetaminophen Extra Strength)
docusate sodium 100 mg capsule 100 mg PO DAILY Constipation 10/31/23 10/31/23 10/30/23 History
insulin detemir U-100 100 unit/mL 10 unit SC DAILY Diabetes 10/31/23 10/31/23 10/31/23 History
subcutaneous solution (Levemir
U-100 Insulin)
metformin 500 mg tablet,extended 500 mg PO DAILY Diabetes 10/31/23 10/31/23 10/30/23 History
release 24 hr
sennosides 8.6 mg tablet (senna) 17.2 mg PO HS Constipation 10/31/23 10/31/23 10/30/23 History
vitamins A,C,M-kvzd-annqfi 2,148 1 tab PO BID Supplement 05/01/1610/31/23 10/30/23 History
mcg-113 mg-45 mg-17.4 mg tablet
(PreserVision AREDS)
Review of Systems
-
History Source: Family
All other systems: Negative unless noted
Vitals / Labs / Diagnostic Testing
Vital Signs
Temp Pulse Resp BP Pulse Ox
100.5 F H 87 13 95/64 93
10/31/23 09:36 10/31/23 12:00 10/31/23 12:00 10/31/23 12:00 10/31/23 11:45
Lab Data
10/31/23 08:35
10/31/23 08:36
Laboratory Results
10/31/23
08:35
PT 29.4 H
INR 2.79
APTT Cancelled
Microbiology
10/31/23 10:21 Nasal Swab Influenza Types A & B (OZ) - Final
Negative for Influenza A & B, NAAT
Negative results must be combined with clinical observations
and patient history.
Nucleic Acid Amplification test (NAAT)performed on the
[employer] platform.
Diagnostic Testing:
Physical Exam
-
HEENT: Normocephalic and Other (Mild jaundice)
Cardiovascular: S1/S2, Irregular Rhythm, Murmur (n), Rub (n), Peripheral Edema (tr) and Other (Mechanical S1, S2)
Respiratory: Wheeze (n), Rales (Mild at base), Rhonchi (n) and Non-Labored Respirations
GI: Soft, Non Distended and Non Tender
Neurology: Awake, Alert and Oriented (Oriented to hospital)
Skin: Other (Mild jaundice) and Other (No rash)
General: Comfortable
Assessment
-
77-year-old male with complex medical history including mechanical aortic and mitral valve on chronic Coumadin therapy, history of coronary disease with coronary stent, AAA repair for aortic aneurysm, sleep apnea recently on ASV per outpatient sleep
study (failed CPAP/BiPAP), presents with fatigue, presyncope, hypotension. Workup suggest possible biliary infection. We are asked to help from critical care standpoint
Sepsis, hypotension
Responded to IV fluids
Jaundiced, biliary infection
Cholelithiasis, choledocholithiasis
Questionable biliary lesion
Leukocytosis
Elevated lactate
Acute renal insufficiency, creatinine 2.1
History of CKD
Hyperglycemia
Acute transaminitis
Prolonged QT
Conditions present prior to admission
History of ventricular tachycardia, dual-chamber ICD
On amiodarone therapy
AAA endovascular repair in the past
Status post open explant with replacement July 2019
Atrial fibrillation/atrial flutter
History of coronary disease, nonobstructive
Peripheral arterial disease
Obstructive sleep apnea
Intolerant to CPAP/BiPAP, improved with ASV per titration study
Diabetes
History of bladder cancer
Hypertension/hyperlipidemia
BPH
Macular degeneration
History of schizophrenia/depression
30+ pack-year history of smoking, quit 1999
Plan/recommendations
At this time, patient remains critically ill with marginal blood pressure, mild lethargy. History obtained from daughter by phone
Salient features include acute transaminitis with evidence of biliary dilatation, questionable ampullary lesion
Patient describes some chronic symptoms such as nausea, fatigue for few months.
Daughter states he was doing okay last week but patient has been more fatigued over the past few days. Patient also suggest possible fevers
There is no clear history of nausea/emesis, blood in urine or stool or dark tarry stool
Moving forward
Continue with supportive care, broad-spectrum antibiotics. Remains on Zosyn therapy
Continue IV fluids, follow cultures
Hyperglycemia noted. Continue insulin therapy at this time.
History of complex cardiac history including VT, ICD, mechanical mitral and aortic valve with normal biventricular function per echo 2021
He also has significant sleep apnea, has failed CPAP and BiPAP, currently awaiting initiation of ASV mode. According to daughter, has not been using his CPAP recently
EKG today with normal sinus rhythm, prolonged QT at 531
Follow daily EKG. Patient on amiodarone
GI consult has been requested given transaminitis and questionable ampullary lesion
Reviewed CODE STATUS with daughter by phone. She is not sure. She will clarify with her mother
DVT prophylaxis: Remains on Coumadin therapy, therapeutic
GI prophylaxis: Remains on Protonix
Reviewed with critical care nursing
TCCT 40 min
We will follow
[2023-10-31 13:29] LABS: Magnesium 1.9 mg/dl (1.6-2.3)
[2023-10-31] MEDS: NSS (PRESERVATIVE FREE) 10 ML IV (13:55)
[2023-10-31] MEDS: PROTONIX IV 40 MG IV (13:55)
[2023-10-31 14:29] LABS: APTT 57.3 Sec (23.4-35.0)
--- NOTE | 2023-10-31 14:31 | CON.GI ---
Addendum entered and electronically signed by Miranda Betancourt DO 10/31/23 16:07:
Discussed case again with Dr. Barber. Ideally, INR 2.0 or less for procedure, understandably, due to his mechanical aortic and mechanical valve, needs to be on the higher side. I reached out to hospitalist, Dr. Suh to discuss with cardiology if
okay with INR goal of 2.0, holding heparin gtt 6 hours prior to planned ERCP +/- EUS tomorrow.
Original Note:
Consultation
-
Date/Time Consultation Requested: 10/31/23
Date/Time Consultation Performed: 10/31/23
Requesting Provider: Bismark Damico
Performing Provider: Marge Betancourt
Reason for Consultation: Elevated LFTs, CBD Dilation, Altered mental status
Medical History
Chief Complaint / HPI
Chief Complaint: jaundice, febrile, elevated LFTs
History of Present Illness:
Sharif is a 77-year-old gentleman with past medical history of Marfan syndrome complicated by multiple aneurysms, history of AAA status post endovascular repair then expanding aneurysmal sac secondary to type II endoleak followed by open explant
with replacement in July 2019, CKD III, history of paroxysmal A-fib and flutter, history of mechanical aortic and mitral valve replacement on Coumadin, type 2 diabetes, nonobstructive CAD, hypertension, COPD, INOCENCIO, history of bladder cancer who
presents with and daughter from home after suffering a mechanical fall. History mostly provided from daughter who was at bedside. She states she saw her dad on Monday for lunch, appeared slightly jaundice, but otherwise in normal state of
health. Patient's states she found him down on the ground after falling, he has been suffering from worsening ambultatory dysfunction. notes slightly less of an appetite since monday, no unintentional weight loss over the last few months.
Recently started metamucil due to fecal incontinence, worsening constipation over the last few days.
Upon arrival, patient noted to be hypotensive, as low as 73/37, with improvement to systolics maintaining in the low 90s. Tmax 100.5 He was started on low dose lephophed.
WBC 14.7, hemoglobin 13.2, platelets 106, 13% bands, INR 2.79, sodium 134, potassium 4.6, chloride 104, CO2 16, BUN 38, creatinine 2.1, glucose 307, lactate 8.2, total bilirubin 6.6, AST 1681, ALT 1909, alk phos 620, lipase 73
-CXR: No acute disease in the chest, considering limited inspiration. Mild elevation in right hemidiaphragm, stable. Left-sided cardiac device. Postsurgical change in sternum and mediastinum.
-CT A/P w/ IV Contrast: Diffuse hepatic steatosis. Bilateral hypoattenuating renal lesions, some which are compatible with simple cysts and others that are too small to characterize. Gallbladder is without calcified stones. Diffuse common bile
duct dilation measuring up to 1.3 cm, progressed from prior. Questionable ill-defined soft tissue density at the ampulla. Aortoiliac stent graft redemonstrated without overt complication. Grossly stable bilateral proximal common iliac artery
excluded aneurysm sac measuring up to 4.6 cm on the right and 3.7 cm on the left. Mild diffuse colonic stool burden.
Past Medical History
Past Medical History: Arrhythmias, CAD, Cancer, COPD, CVA, HTN, IDDM and Valvular Disease
Past Surgical History: Cardiac
Social History
Tobacco: Former Smoker
Alcohol: None
Drug: None
Personal:
Living: With Family
Employment: Retired
Family History
Family History: Reviewed & Not Pertinent
Allergies / Home Medications
Allergy/AdvReac Type Severity Reaction Status Date / Time
codeine [Codeine] Allergy Itching Verified 06/13/23 15:29
acetaminophen [From Tylenol] AdvReac liver Verified 06/13/23 15:29
problems
�Medication �Instructions �Recorded
B-complex with vitamin C 1 cap PO PURCELL Supplement 04/22/21
amitriptyline 50 mg tablet 100 mg PO HS Mental Health/sleep 04/22/21
ascorbic acid (vitamin C) 500 mg 1,000 mg PO DAILY Supplement 04/22/21
tablet (Vitamin C)
cholecalciferol (vitamin D3) 50 2,000 units PO SUWE Supplement 04/22/21
mcg (2,000 unit) tablet
famotidine 40 mg tablet 40 mg PO HS Gastrointestinal issue 04/22/21
magnesium oxide 400 mg PO HS Supplement 04/22/21
metoprolol succinate 50 mg 50 mg PO HS Blood pressure 04/22/21
tablet,extended release 24 hr
multivitamin with folic acid 400 1 tab PO DAILY Supplement 04/22/21
mcg tablet (Tab-A-David)
risperidone 2 mg tablet 2 mg PO HS Mental Health 04/22/21
finasteride 5 mg tablet 5 mg PO HS Urinary issue 04/28/21
amiodarone 200 mg tablet (Pacerone) 200 mg PO HS Arrhythmia 01/10/22
lecithin 518 mg capsule 518 mg PO DAILY Supplement 01/10/22
coenzyme Q10 100 mg capsule 100 mg PO DAILY Supplement 04/22/22
(CoQ-10)
rosuvastatin 5 mg tablet 5 mg PO HS High cholesterol 09/02/22
melatonin 10 mg tablet 10 mg PO HS Sleep #0 tabs 09/15/22
warfarin 2 mg tablet (Jantoven) 2 mg PO QPM Blood clot 09/16/22
prevention/tx #1 tab
Saccharomyces boulardii 250 mg 250 mg PO QPM probiotic 10/31/23
capsule (Florastor)
acetaminophen 500 mg tablet 1,000 mg PO BIDPRN PRN headaches 10/31/23
(Acetaminophen Extra Strength)
docusate sodium 100 mg capsule 100 mg PO DAILY Constipation 10/31/23
insulin detemir U-100 100 unit/mL 10 unit SC DAILY Diabetes 10/31/23
subcutaneous solution (Levemir
U-100 Insulin)
metformin 500 mg tablet,extended 500 mg PO DAILY Diabetes 10/31/23
release 24 hr
sennosides 8.6 mg tablet (senna) 17.2 mg PO HS Constipation 10/31/23
vitamins A,C,Z-hmqy-sdqbxo 2,148 1 tab PO BID Supplement 10/31/23
mcg-113 mg-45 mg-17.4 mg tablet
(PreserVision AREDS)
Review of Systems
-
Unable to obtain full review of systems at this time due to: Acuity
History Source: Family
Vital Signs
Temp Pulse Resp BP Pulse Ox
100.5 F H 87 13 95/64 93
10/31/23 09:36 10/31/23 12:00 10/31/23 12:00 10/31/23 12:00 10/31/23 11:45
Physical Exam
Exam
GENERAL: Appears uncomfortable, falling asleep during exam but easily aroused
HEENT: +scleral icterus
RESP: Nonlabored respirations, clear to auscultation, b/l
CV: irregular; +mechanical S1/S2
ABDOMEN: hypoactive BS; mild distension, tender to palpation in epigastrium and LUQ >RUQ
EXT: No LE edema, b/l
SKIN: Dry, warm, +jaundice
Results
WBC 14.7 10^3/uL (4.8-10.8) H 10/31/23 08:35
Hgb 13.2 g/dL (13.0-18.0) 10/31/23 08:35
Hct 38.9 % (39.0-52.0) L 10/31/23 08:35
MCV 97.5 fL (80.0-94.0) H 10/31/23 08:35
Plt Count 106 10^3/uL (130-400) L 10/31/23 08:35
PT 29.4 Sec (11.4-14.6) H 10/31/23 08:35
INR 2.79 10/31/23 08:35
APTT 57.3 Sec (23.4-35.0) H 10/31/23 14:05
Sodium 134 mmol/L (135-145) L 10/31/23 08:36
Potassium 4.6 mmol/L (3.5-5.1) 10/31/23 08:36
Chloride 104 mmol/L (98-107) 10/31/23 08:36
Carbon Dioxide 16 mmol/L (22-30) L 10/31/23 08:36
BUN 38 mg/dl (9-20) H 10/31/23 08:36
Creatinine 2.1 mg/dL (0.7-1.3) H 10/31/23 08:36
Calcium 8.9 mg/dl (8.4-10.2) 10/31/23 08:36
Total Bilirubin 6.6 mg/dl (0.2-1.3) H 10/31/23 08:36
AST 1681 U/L (17-59) H* 10/31/23 08:36
ALT 1909 U/L (0-50) H* 10/31/23 08:36
Alkaline Phosphatase 620 U/L (38-126) H 10/31/23 08:36
Lipase 73 U/L (23-300) 10/31/23 08:36
Diagnostic Image Results:
Prior GI Procedures:
EGD:
Colonoscopy:
Assessment / Plan
-
77-year-old gentleman with past medical history of Marfan syndrome complicated by multiple aneurysms, history of AAA status post endovascular repair then expanding aneurysmal sac secondary to type II endoleak followed by open explant with
replacement in July 2019, CKD III, history of paroxysmal A-fib and flutter, hx colon resection (sigmoid resection), history of mechanical aortic and mitral valve replacement on Coumadin, type 2 diabetes, nonobstructive CAD, hypertension, COPD,
INOCENCIO, history of bladder cancer admitted after a mechanical fall with complaints of fatigue and anorexia found to have markedly elevated liver enzymes and CBD dilation with concerns for biliary sepsis.
#Elevated liver enzymes, altered mental status, fever, hypotension and CBD dilation and metabolic lactic acidosis-- clinical picture consistent with ascending cholangitis
-BP in 70/30s on arrival with subsequent improvement with IVF, maintaining pressures in 90/60s on low dose leveophed
-Lactate elevated >8 on admission -->3.8
-leukocytosis with WBC 14K, bandemia
-BCx pending, continue with zosyn
-LFTs elevated in hepatocellular pattern with transaminases >1,000, Tbili 6.6; suspect elevation is multifactorial with some degree of ischemic hepatopathy due to the degree of elevation, additionally, may have a component of DILI (patient on
chronic amiodarone) as well as takes acetaminophen regularly at home
-check acetaminophen level
-check salicylate level
-check abdominal US w/ dopplers-- no mention of vasculature on CT scan; patient has a history of acalculous cholecystitis (2020)
-INR elevated in setting of chronic coumadin for mechanical AV/MV, last dose on 10/29
-Discussed case with advanced endoscopist--please keep NPO, plan for ERCP +/- EUS with Dr. Barber tomorrow-- >check INR in AM, if subtherapeutic, okay to start heparin gtt, please d/c 4 hours prior to procedure (tenatively planned for 3 pm)
Data Reviewed
-
Radiology: Report Reviewed by me
CT Scan: Report Reviewed by me and Discussed with Family
-
-
Thank you for consultation and allowing me to participate in the patient's care. Please call the hydraulic elevator constructor GI physician during the after hours with any questions or concerns.
[2023-10-31 14:36] LABS: Lactic Acid 3.8 mmol/L (0.7-2.0)
[2023-10-31 14:50] LABS: INR 2.77; PT 29.2 Sec (11.4-14.6)
[2023-10-31 14:58] LABS: Creatine Phosphokinase 341 U/L (55-170); Phosphorus 4.2 mg/dl (2.5-4.5)
[2023-10-31] MEDS: LEVOPHED 250 IV (15:08)
[2023-10-31 15:40] LABS: Acetaminophen < 10 ug/ml (10-30); Salicylate < 1.0 mg/dl (2.0-20.0)
--- NOTE | 2023-10-31 17:19 | PTCARENOTE ---
Spoke with Dr. Suh. Because of patient's mechanical valve, will start on heparin gtt is PT INR falls below 2.5
--- NOTE | 2023-10-31 17:40 | W.PN.UPDATE ---
Update Note
Progress Note Update
Talked to Dr. Gomez about starting heparin drip with INR 2.77. As the patient has mechanical valve replacement the goal INR is between 2.5-3.5. When the INR is less than 2.5 then we could start on heparin drip. Monitor PT/INR. Discussed with
Dr. Suh
[2023-10-31 17:52] LABS: Glucose - Point of Care 184 mg/dl (70-99)
--- NOTE | 2023-10-31 18:01 | VATNOTE ---
Picc order on hold. Levophed just started. Adequate iv lines placed per primary RN. Will continue the needs for the picc placement.
[2023-10-31 18:29] LABS: Lactic Acid 1.6 mmol/L (0.7-2.0)
[2023-10-31] MEDS: NOVOLOG FLEXPEN-LOW RESISTANCE 1 UNITS SC (18:31)
--- NOTE | 2023-10-31 20:08 | PTCARENOTE ---
Pt received at 19:00. Pt lethargic, on RA. Home CPAP ineffective, pt placed on our CPAP machine with his own mask, tolerating well. Pt with multiple vtach runs--converted to paced rhythm with frequent PVCs. EKG completed, no futher runs noted. Pt
remains lethargic, responds to loud verbal stimuli, oriented to self. Respirations shallow, pulse ox 98%. Bedside Abd U/S being completed at this time.
[2023-10-31] MEDS: RISPERDAL PO (22:13)
[2023-10-31] MEDS: PROSCAR PO (22:13)
[2023-10-31 22:48] LABS: INR 3.14; PT 32.2 Sec (11.4-14.6)
[2023-11-01] VITALS (35 sets, daily range): BP systolic 112–166; BP diastolic 48–81; PULSE 73; BMI 30.3
[2023-11-01 00:46] LABS: Hematocrit 36.9 % (39.0-52.0); Hemoglobin 11.9 g/dL (13.0-18.0); Mean Corp Hgb Conc. 32.2 g/dL (33.0-37.0); Mean Corpuscular Hgb 32.7 pg (27.0-31.0); Mean Corpuscular Volume 101.4 fL (80.0-94.0); Nucleated Red Blood Cells % 0 % (-); Red Blood Cell Count 3.64 10^6/uL (4.70-6.10); Red Cell Dist. Width 16.8 % (11.5-14.5); White Blood Cell Count 11.8 10^3/uL (4.8-10.8)
[2023-11-01 00:56] LABS: Magnesium 2.3 mg/dl (1.6-2.3)
[2023-11-01 00:57] LABS: Alkaline Phosphatase 435 U/L (38-126); Blood Urea Nitrogen 39 mg/dl (9-20); Calcium 7.9 mg/dl (8.4-10.2); Carbon Dioxide 22 mmol/L (22-30); Chloride 111 mmol/L (98-107); Estimated Creatinine Clearance 42 ml/min; Glucose 124 mg/dl (70-99); Sodium 139 mmol/L (135-145); Total Bilirubin 5.6 mg/dl (0.2-1.3); Total Protein 5.7 g/dl (6.3-8.2); eGFR 43.56
[2023-11-01 01:10] LABS: ALT (SGPT) 1268 U/L (0-50); AST (SGOT) 773 U/L (17-59)
[2023-11-01] MEDS: NOVOLOG FLEXPEN-LOW RESISTANCE SC ×3 (01:39→11:53)
[2023-11-01 02:11] LABS: Mean Platelet Volume 11.2 fL (7.4-10.4); Platelet Count 82 10^3/uL (130-400)
[2023-11-01 02:12] LABS: Segmented Neutrophils 55 % (42-75)
[2023-11-01 02:13] LABS: Absolute Neutrophils -Man Diff 10.2 10^3/uL (1.4-6.5); Band Neutrophils 32 % (0-3); Lymphocytes 6 % (20-51); Metamyelocytes 3 % (-); Monocytes 4 % (2-9)
[2023-11-01 02:18] LABS: Normal RBC Morphology No; Platelets Checked Yes
[2023-11-01 02:19] LABS: Anisocytosis 1+; Macrocytosis 1+; Total Cells Counted 100; Vacuolated Segs 1+
[2023-11-01] MEDS: NSS 1000 IV ×2 (05:12→15:59)
[2023-11-01] MEDS: ZOSYN 50 IV ×4 (05:12→22:25)
[2023-11-01 05:45] LABS: INR 3.06; PT 31.6 Sec (11.4-14.6)
[2023-11-01 05:46] LABS: APTT 56.1 Sec (23.4-35.0)
[2023-11-01 05:56] LABS: Glucose - Point of Care 122 mg/dl (70-99)
--- NOTE | 2023-11-01 06:23 | PTCARENOTE ---
Pt orientation and mentation improved. Awake and alert, Ox3, pleasant. Levophed titrated off, MAP goal >65 maintained.
--- NOTE | 2023-11-01 06:51 | W.PN.INTV ---
Addendum entered and electronically signed by Shira Soliman MD 11/01/23 16:25:
Continue with nocturnal BiPAP
Recommend outpatient follow-up in sleep clinic
Patient transferred out of ICU. We will sign off. Please call with questions
Addendum entered and electronically signed by Shira Soliman MD 11/01/23 12:23:
ECG reviewed Qtc 511
continue with daily ECG
Original Note:
Today's Communication / Plan
Recommendations
Continue broad-spectrum antibiotics
Coumadin held, follow INR
Amiodarone also held, transaminitis improving
Follow-up platelets
Creatinine improved, urine output adequate
Continue IV fluids
Assessment
-
77-year-old male with complex medical history including mechanical aortic and mitral valve on chronic Coumadin therapy, history of coronary disease with coronary stent, AAA repair for aortic aneurysm, sleep apnea recently on ASV per outpatient sleep
study (failed CPAP/BiPAP), presents with fatigue, presyncope, hypotension. Workup suggest possible biliary infection. We are asked to help from critical care standpoint
Sepsis, hypotension
Responded to IV fluids
Jaundiced, biliary infection
Cholelithiasis, choledocholithiasis
Questionable biliary lesion
Leukocytosis
Elevated lactate
Acute renal insufficiency, creatinine 2.1
History of CKD
Hyperglycemia
Acute transaminitis
Prolonged QT
Thrombocytopenia
Conditions present prior to admission
History of ventricular tachycardia, dual-chamber ICD
On amiodarone therapy
AAA endovascular repair in the past
Status post open explant with replacement July 2019
Atrial fibrillation/atrial flutter
History of coronary disease, nonobstructive
Peripheral arterial disease
Obstructive sleep apnea
Intolerant to CPAP/BiPAP, improved with ASV per titration study
Diabetes
History of bladder cancer
Hypertension/hyperlipidemia
BPH
Macular degeneration
History of schizophrenia/depression
30+ pack-year history of smoking, quit 1999
Plan/recommendations
At this time, patient appears to be improved objectively and subjectively. He required norepinephrine over night, this has been weaned off this morning
Appears to be less lethargic, less jaundiced on exam
Total bilirubin 5.6
INR remains elevated at 3.06
Salient features include acute transaminitis with evidence of biliary dilatation, questionable ampullary lesion
Patient describes some chronic symptoms such as nausea, fatigue, headaches for few months.
Daughter states he was doing okay last week but patient has been more fatigued over the past few days. Patient also suggest possible fevers
There is no clear history of nausea/emesis, blood in urine or stool or dark tarry stool
Moving forward
Continue with supportive care, broad-spectrum antibiotics. Remains on Zosyn therapy
Continue IV fluids, follow cultures
Clinically appears to be improved
Initially he required norepinephrine, this has been weaned off overnight
PICC line was not placed for this reason
Lactate now normalized
Hyperglycemia noted. Continue insulin therapy at this time.
History of complex cardiac history including VT, ICD, mechanical mitral and aortic valve with normal biventricular function per echo 2021
Coumadin therapy has been held. Will start heparin therapy once INR subtherapeutic
Amiodarone as outpatient noted. This is currently being held. Transaminitis noted
EF 50% per echocardiogram 2021
He also has significant sleep apnea, has failed CPAP and BiPAP, currently awaiting initiation of ASV mode. According to daughter, has not been using his CPAP recently
His home CPAP did not work overnight, transition to hospital BiPAP, using patient's mask
This will continue during hospital stay
EKG today with normal sinus rhythm, prolonged QT at 531
Follow daily EKG. Patient on amiodarone, this is currently held
Creatinine improved from 2.1 down to 1.6
Baseline appears to be 1.2
Urine output adequate. Continue to follow
GI consult has been requested given transaminitis and questionable ampullary lesion
Eventual ERCP with ultrasound pending INR less than 2
Reviewed CODE STATUS with daughter by phone. She is not sure. She will clarify with her mother
DVT prophylaxis: Remains on Coumadin therapy, therapeutic
GI prophylaxis: Remains on Protonix
Reviewed with critical care nursing, reviewed with primary service
TCCT 31 min
Subjective Dataa
Subjective Data
Date of Service:
Date of Service: November 01, 2023
Subjective:
Patient has a variety complaints including headaches, mild chest discomfort, fatigue, abdominal pain. Overall however appears to be comfortable, currently on room air. Low-grade fever overnight noted.
Objective Data
Data Reviewed
Vital Signs / I&O / Oxygen:
Vital Signs
Temp Pulse Resp BP Pulse Ox
98.4 F 82 19 117/60 97
11/01/23 01:00 11/01/23 06:15 11/01/23 06:15 11/01/23 06:00 11/01/23 06:15
Intake and Output
10/30/23 10/31/23 11/01/23
06:59 06:59 06:59
Intake Total 2416.5 / 2416.5
Output Total 1295 / 1295
Balance 1121.5 / 1121.5
SaO2 97
Physical Exam
General: Comfortable
HEENT: Normocephalic and Other (Icterus seems to be improved)
Cardiovascular: S1-S2, Regular Rhythm, Murmur (n), Rub (n), Peripheral Edema (tr) and Calf Tenderness (n)
Respiratory: Wheeze (n), Crackles (n), Rhonchi (n) and Non-Labored Respirations
GI: Soft, Distended and Tender (Mild but no rebound or guarding)
Neurology: Awake, Alert, Oriented (Oriented to place. Gives long-winded answer for why he is here) and No Motor Deficits (Moves all extremities)
Skin: Good Color (n), Cyanosis (n) and Jaundice (Mild, improved)
Labs/Micro/Reports
Lab Data
11/01/23 00:21
11/01/23 00:21
Laboratory Results
10/31/23 10/31/23 10/31/23
08:35 14:05 16:28
PT 29.4 H 29.2 H
INR 2.79 2.77
APTT Cancelled 57.3 H Cancelled
10/31/23 11/01/23
22:21 05:25
PT 32.2 H 31.6 H
INR 3.14 3.06
APTT 56.1 H
Microbiology
10/31/23 09:15 Blood/Venous Blood Culture - Preliminary
Positive culture in progress
10/31/23 09:15 Blood/Venous Gram Stain - Preliminary
10/31/23 08:38 Blood/Venous Blood Culture - Preliminary
Positive culture in progress
10/31/23 08:38 Blood/Venous Gram Stain - Preliminary
10/31/23 10:21 Nasal Swab Influenza Types A & B (OZ) - Final
Negative for Influenza A & B, NAAT
Negative results must be combined with clinical observations
and patient history.
Nucleic Acid Amplification test (NAAT)performed on the
DDN platform.
[2023-11-01] MEDS: PROTONIX IV 40 MG IV (07:51)
[2023-11-01] MEDS: NSS (PRESERVATIVE FREE) 10 ML IV (07:51)
--- NOTE | 2023-11-01 07:52 | W.PN.HOSP.TC ---
Addendum entered and electronically signed by Edwar Capellan MD, Resident 11/01/23 17:03:
Physical exam
S1 S2 heard with mechanical valve murmur
Lungs clear to ausculate bilaterally
Abdomen - soft, tenderness present most in the epigastrium, no rebound tenderness, no guarding
No edema
Addendum entered and electronically signed by Luz Marina Suh MD 11/01/23 13:39:
pt seen and examined independently--agree with plan as set forth by Dr. Capellan--spoke with pt daughter at bedside
GENERAL: well developed, well nourished, male in no apparent distress--jaundiced
HEENT: NC/AT--lying on the stretcher with a towel over his eyes
HEART: regular rate and rhythm, +S1, +S2--MARGIE with click
LUNGS : clear to auscultation bilaterally
ABDOM: soft, nontender, nondistended, + bowel sounds
EXT: no cyanosis, clubbing, or edema
NEUROLOGIC: sleeping
Septic shock with lactic acidosis--resolved---likely due to E. coli cholangitis, choledocholithiasis--doubt cholecystitis--cont maintenance IVF--off pressors-- apprec automatic typewriter inspector and GI--agree with zosyn--follow cultures
Acute transaminitis--improved--likely due to cholangitis and choledocholithiasis--ERCP vs MRCP--apprec GI input
Hyperbilirubinemia--Diffuse common bile duct dilation--related to obstruction at ampulla most likely--will need ERCP, biopsy and possible stent
CAD--Hold metoprolol for now--Can start on IV Lopressor
Paroxysmal afib/aneurysms/valve replacement--hold coumadin--do not reverse--will start IV heparin if needed once INR < 2.5--follow INR--hold metoprolol--IV lopressor with parameters if needed
GERD--hold famotidine--Started on IV Protonix 40
IDDM--Decreased to 5 units of Levemir given NPO status--Insulin sliding scale--Hold metformin
Essential Hypertension--hold BP meds--supportive care to keep MBP > 65
SANKET--likely due to prerenal causes given hypotension--post renal possible given finasteride--improving
Hyperlipidemia--Hold rosuvastatin due to elevated LFTs
Schizophrenia--Continue risperidone
DVT prophylaxis--SCD
Code status -- FULL CODE
Ok for transfer out of ICU
Original Note:
Today's Communication/Plan
-
ERCP this afternoon mostly around 3 pm
Assessment / Plan
Assessment / Plan
IMPRESSION:
Septic shock secondary to infection
Lactic acidosis secondary to sepsis
Fever
Acute transaminitis
SANKET
Hyperbilirubinemia
CAD
Arrhythmia / aneurysms/valve replacement
GERD
Urinary retention/BPH
IDDM
Hypertension
Hyperlipidemia
Schizophrenia
77-year-old male presented with septic shock and hypotension, baseline mental status. Patient is alert and oriented however he is drowsy .
PLAN:
Septic shock secondary to infection-likely acute cholangitis
Off pressors. Blood pressure has improved
Continue IV Zosyn
Plan for ERCP this afternoon regardless of INR (3.06)
Blood blood cultures positive for E. coli
Repeat blood cultures, wait for final results
Urine culture pending
Monitor blood pressure
Trend WBC, monitor temperature curve
Downgrade to telemetry
Lactic acidosis secondary to sepsis
Lactic acid level improved-1.6
Continue IV antibiotics, fluids
Fever - resolved
Acute transaminitis
No history of personal alcohol use
Suspect 1. acute cholangitis 2. Choledocholithiasis which could be contributing to increased LFTs
AST, ALT improving
Patient complains of abdominal pain-will start on 325 mg Tylenol
Consult GI
SANKET
Suspect due to infection
Creatinine improving 1.6
Hyperbilirubinemia
Diffuse common bile duct dilation
Suspect infection or a mass
Consult GI
CAD
Hold metoprolol for now
IV Lopressor 5 mg as needed
Arrhythmia / aneurysms/valve replacement
Hold metoprolol, Coumadin
INR 3.06
Plan for ERCP this afternoon regardless
GERD
hold famotidine
Started on IV Protonix 40
IDDM
Decreased to 5 units of Levemir, continue until the procedure is done
Once the patient starts diet then we will increase Levemir to 10 units to be taken at night
Insulin sliding scale
Hold metformin
Hypertension
Hold TONG/ARB
Hyperlipidemia
Hold rosuvastatin due to elevated LFTs
Schizophrenia
Continue risperidone
DVT prophylaxis-SCD
IMAGING
Abdominal/pelvis CT
Diffuse common bile duct dilatation with questionable ampullary lesion. Recommend outpatient workup with dedicated MRI/MRCP abdomen without and with gadolinium contrast, versus ERCP.
Doppler study ultrasound of the abdomen
IMPRESSION: Duplex evaluation of the upper abdominal vasculature is within normal limits. Cholelithiasis as well as sludge. No evidence for gallbladder wall thickening or pericholecystic edema, and the patient has a negative sonographic Ibarra's
sign.
Common bile duct measures up to 8.8 mm, which is considered mildly dilated. Limited visualization of the common bile duct with no evidence for bile duct calculus.
Hepatomegaly with diffuse fatty ratio of the liver. No evidence for a focal hepatic mass lesion. The pancreas is unable to be adequately visualized. The upper abdominal aorta and the upper abdominal IVC are unable to be adequately visualized.
Anticipated Discharge: > 48 hours
Subjective/Interval History
-
Date of Service: November 01, 2023
Objective Data
-
Labs:
Laboratory Results
10/31/23 11/01/23 11/01/23
22:21 00:21 05:25
WBC 11.8 H
Hgb 11.9 L
Hct 36.9 L
Plt Count 82 L D
PT 32.2 H 31.6 H
INR 3.14 3.06
APTT 56.1 H
Sodium 139
Potassium 4.0
Chloride 111 H
Carbon Dioxide 22
BUN 39 H
Creatinine 1.6 H
Glucose 124 H
Calcium 7.9 L
Total Bilirubin 5.6 H
AST 773 H*
ALT 1268 H*
Alkaline Phosphatase 435 H
Vital Signs:
Vital Signs
Temp Pulse Resp BP Pulse Ox
98.3 F 82 19 117/60 97
11/01/23 07:19 11/01/23 06:15 11/01/23 06:15 11/01/23 06:00 11/01/23 06:15
I&O
10/31/23 11/01/23 11/02/23
06:59 06:59 06:59
Intake Total 2416.5 / 2416.5
Output Total 1295 / 1295
Balance 1121.5 / 1121.5
[2023-11-01 09:24] LABS: Glycohemoglobin (HgbA1c) 7.3 % (4.0-5.6)
--- NOTE | 2023-11-01 11:02 | CM ---
CM following re: discharge planning.
Discussed in Rounds, reviewed pt's chart, met with pt.
Pt is a 77 year old male, admitted with primary dx of Septic shock. per Rounds meeting, pt is off pressors, PT and OT to evaluate and pt will be downgraded from ICU level of care.
Pt reports he lives with spouse in a 2SH, 2 steps to enter, has 2 supportive living children, one daughter . Emotional support offered and provided. Pt reports he mostly ambulates with a cane, has 2 walkers, grab bars and Trilogy machine.
Pt reports he is known to [facility]. Pt expressed his desire to return back home at discharge with [facility].
PT and OT will evaluate the pt to determine a level of care at discharge.
PCP: Shira Cobian
Pharmacy: [facility].
D/C plan: pt feels home with [facility] and family support. PT and OT evaluations pending.
CM will follow with discharge plan updates as hospitalization progresses
[2023-11-01 11:50] LABS: Glucose - Point of Care 128 mg/dl (70-99)
--- NOTE | 2023-11-01 13:45 | W.PN.UPDATE ---
Update Note
Progress Note Update
Patient seen this morning, appears significantly improved compared to yesterday's exam, awake, alert, and oriented. He required pressors overnight which were weaned off this morning. He was afebrile overnight. He endorses diffuse myalgias and a
headache, states this is something he noticed over the last few days.
Labs are improving with T. bili 5.6, AST 773, ALT 1268, alk phos 432 WBC 11.8, hemoglobin 11.9, platelet count 82, increase in bands from 13-32 overnight. Blood cultures returned positive in 2/2 bottles for E. coli.
US w/ dopplers obtained shows patent vasculature, interestingly, CBD only mildly dilated on this imaging study to 8.8, compared to 1.[address] scan yesterday. Additionally, findings of cholelithiasis and sludge, no evidence of
cholecystitis.
INR elevated to 3.0-- discussed case with Dr. Barber. Given discordance in imaging studies, unclear if clinical picture truly represents ascending cholangitis. Plan for EUS +/- ERCP today. Plan discussed with patient and ICU team.
--- NOTE | 2023-11-01 13:54 | PTCARENOTE ---
Recd pt, assessed, aware of plans for procedure in GI lab. report given to gi lab. Pt verbalizing well, asking about constipation and about repeat CXR. Instructed about plan for the day and will follow on these issues after procedure. NPO. VS
noted. Awaiting tele bed. Malin emptied. Taken to GI lab via stretcher at 1355.
--- NOTE | 2023-11-01 15:35 | PTCARENOTE ---
report given to next nursing unit, belongings sent to new room 2121.
[2023-11-01 15:41] LABS: Glucose - Point of Care 175 mg/dl (70-99)
--- NOTE | 2023-11-01 16:35 | PTCARENOTE ---
Received patient from GI s/p ERCP into room 2121. Patient AAOx3, VSS, NSS infusing at 125 ml/hr in L wrist IV. Clear liquid diet entered for patient, blood sugar 213. Patient denies any pain at this time other than mild AZEVEDO, not new complaint per GI
nurse. Cool wet cloth provided to patient for head, patient states improvement after application. Patient oriented to room and call doolye, states no concerns at this time.
[2023-11-01 16:59] LABS: Glucose - Point of Care 213 mg/dl (70-99)
[2023-11-01] MEDS: NOVOLOG FLEXPEN-LOW RESISTANCE 2 UNITS SC (17:24)
[2023-11-01 21:31] LABS: Glucose - Point of Care 281 mg/dl (70-99)
[2023-11-01] MEDS: PROSCAR 5 MG PO (22:24)
[2023-11-01] MEDS: LANTUS 0.0500000000000000028 UNITS SC (22:24)
[2023-11-01] MEDS: RISPERDAL 2 MG PO (22:25)
[2023-11-01] MEDS: MELATONIN 10 MG PO (23:22)
[2023-11-02] VITALS (9 sets, daily range): BP systolic 135–150; BP diastolic 67–75; PULSE 68–80; O2SAT 97; BMI 29.8
[2023-11-02] MEDS: NSS 1000 IV ×3 (01:21→21:18)
[2023-11-02] MEDS: ZOSYN 50 IV ×4 (05:00→21:20)
[2023-11-02 06:56] LABS: Hematocrit 33.6 % (39.0-52.0); Mean Corp Hgb Conc. 32.7 g/dL (33.0-37.0); Mean Corpuscular Hgb 33.2 pg (27.0-31.0); Mean Corpuscular Volume 101.5 fL (80.0-94.0); Mean Platelet Volume 12.5 fL (7.4-10.4); Nucleated Red Blood Cells % 0 % (-); Platelet Count 78 10^3/uL (130-400); Red Blood Cell Count 3.31 10^6/uL (4.70-6.10); Red Cell Dist. Width 16.2 % (11.5-14.5); White Blood Cell Count 5.4 10^3/uL (4.8-10.8)
[2023-11-02 07:18] LABS: AST (SGOT) 288 U/L (17-59); Albumin 2.8 g/dl (3.5-5.0); Alkaline Phosphatase 368 U/L (38-126); Blood Urea Nitrogen 35 mg/dl (9-20); Calcium 7.9 mg/dl (8.4-10.2); Carbon Dioxide 20 mmol/L (22-30); Chloride 111 mmol/L (98-107); Estimated Creatinine Clearance 43 ml/min; Glucose 233 mg/dl (70-99); Magnesium 2.4 mg/dl (1.6-2.3); Potassium 4.6 mmol/L (3.5-5.1); Sodium 136 mmol/L (135-145); Total Bilirubin 2.2 mg/dl (0.2-1.3); Total Protein 5.3 g/dl (6.3-8.2); eGFR 51.13
[2023-11-02 07:25] LABS: INR 2.48; PT 27.2 Sec (11.4-14.6)
[2023-11-02 07:33] LABS: ALT (SGPT) 924 U/L (0-50)
[2023-11-02 07:45] LABS: Glucose - Point of Care 231 mg/dl (70-99)
[2023-11-02] MEDS: NSS (PRESERVATIVE FREE) 10 ML IV (08:55)
[2023-11-02] MEDS: PROTONIX IV 40 MG IV (08:55)
[2023-11-02] MEDS: NSS IV (08:56)
[2023-11-02] MEDS: NOVOLOG FLEXPEN-LOW RESISTANCE 2 UNITS SC ×2 (08:56→16:57)
--- NOTE | 2023-11-02 08:57 | W.PN.GI.CBS2 ---
Addendum entered and electronically signed by Miranda Betancourt DO 11/02/23 09:41:
Discussed findings from procedure and overall care plan with daughter. Office follow-up changed due to daughter's availability, now scheduled with Dr. Barber on 12/26 @ 11:30 AM. Discharge paperwork updated to reflect change.
Original Note:
Today's Communication / Plan
-
s/p diagnostic EUS followed by ERCP with sphincterotomy and plastic stent placed in CBD. Surgical consult vs. IR perc geneva? Clinically improving, repeat Bcx 1/2+. GI will sign off, please call with questions.
Assessment / Plan
-
77-year-old gentleman with past medical history of Marfan syndrome complicated by multiple aneurysms, history of AAA status post endovascular repair then expanding aneurysmal sac secondary to type II endoleak followed by open explant with
replacement in July 2019, CKD III, history of paroxysmal A-fib and flutter, hx colon resection (sigmoid resection), history of mechanical aortic and mitral valve replacement on Coumadin, type 2 diabetes, nonobstructive CAD, hypertension, COPD,
INOCENCIO, history of bladder cancer admitted after a mechanical fall with complaints of fatigue and anorexia found to have markedly elevated liver enzymes and CBD dilation with concerns for biliary sepsis.
#Elevated liver enzymes, altered mental status, fever, hypotension and CBD dilation and metabolic lactic acidosis--2/2 ascending cholangitis in setting of choledocholithiasis
-s/p diagnostic EUS followed by ERCP with sphincterotomy and placement of plastic stent in CBD w/ Dr. Barber on 10/31
-Bcx 2/2 positive for E.coli, repeat Bcx on 10/31 with 1/2 prelim positive for gram neg. bacilli--clinically improving and now with source control, t/c discussion with ID on abx
-Outpatient follow-up with Dr. Barber in 6 weeks, scheduled on 12/17 @ 10 AM
-LFTs improving, continue to trend
-recommend surgical consult-- likely not a candidate for cholecystectomy, may require perc geneva, however, difficult with INR
Subjective
Subjective
Date of Service: November 02, 2023
Sharif seen in follow-up today. Clinically, looks well, endorses resolution of headache and myalgias he was experiencing over the last few days. All labs improving. He is s/p diagnostic EUS followed by ERCP with Dr. Barber yesterday, with findings of
choledocholithiasis and successful sphincterotomy and balloon extraction w/ placement of a plastic stent into the CBD.
Objective
Data Reviewed
Laboratory Data:
Laboratory Results
11/02/23 05:16
11/02/23 05:16
Laboratory Results
PT 27.2 Sec (11.4-14.6) H 11/02/23 07:06
INR 2.48 11/02/23 07:06
APTT 56.1 Sec (23.4-35.0) H 11/01/23 05:25
Phosphorus 4.2 mg/dl (2.5-4.5) 10/31/23 08:36
Magnesium 2.4 mg/dl (1.6-2.3) H 11/02/23 05:16
Total Bilirubin 2.2 mg/dl (0.2-1.3) H D 11/02/23 05:16
AST 288 U/L (17-59) H 11/02/23 05:16
ALT 924 U/L (0-50) H* 11/02/23 05:16
Alkaline Phosphatase 368 U/L (38-126) H 11/02/23 05:16
Lipase 73 U/L (23-300) 10/31/23 08:36
Vital Signs and I&O:
Vital Signs
Temp Pulse Resp BP Pulse Ox
98.2 F 69 20 141/73 98
11/02/23 08:00 11/02/23 08:00 11/02/23 08:00 11/02/23 08:00 11/02/23 08:00
I&O
11/01/23 11/02/23 11/03/23
06:59 06:59 06:59
Intake Total 2416.5 / 2541.5 3105 / 3105
Output Total 1295 / 1295 1825 / 1825
Balance 1121.5 / 1246.5 1280 / 1280
Physical Exam
Physical Exam
GEN: Appears comfortable, nontoxic
HEENT: +scleral icterus
RESP: Nonlabored respirations, clear to auscultation, b/l
CV: irregular; +mechanical S1/S2
ABDOMEN: +BS. Mild TTP in epigastrium, no rebound or guarding
EXT: No LE edema, b/l
SKIN: Dry, warm, +jaundice
--- NOTE | 2023-11-02 09:37 | W.PN.HOSP.TC ---
Addendum entered and electronically signed by Luz Marina Suh MD 11/02/23 15:39:
pt seen and examined independently--agree with plan as set forth by Dr. Capellan
GENERAL: well developed, well nourished, male in no apparent distress
HEENT: NC/AT--much brighter and improved
HEART: regular rate and rhythm, +S1, +S2--MARGIE with click
LUNGS : clear to auscultation bilaterally
ABDOM: soft, nontender, nondistended, + bowel sounds
EXT: no cyanosis, clubbing, or edema
NEUROLOGIC: grossly intact
Septic shock with lactic acidosis--resolved---likely due to E. coli cholangitis, choledocholithiasis--doubt cholecystitis--cont maintenance IVF--off pressors-- apprec tie inspector and GI--agree with zosyn--blood culture 10/30 positive for E. coli, Kleb
pneumonia, Enterococcus and 10/31 positive for gm neg bacilli--cont zosyn
Acute transaminitis--improved--likely due to cholangitis and choledocholithiasis--s/p ERCP and EUS--apprec GI input--consult surgery
Hyperbilirubinemia--improving--Diffuse common bile duct dilation--related to obstruction at ampulla and choledocholithiasis
CAD--restart meds
Paroxysmal afib/aneurysms/valve replacement--hold coumadin--do not reverse--will start IV heparin if needed once INR < 2.5--follow INR--hold metoprolol--IV lopressor with parameters if needed
GERD--hold famotidine--Started on IV Protonix 40
IDDM--Decreased to 5 units of Levemir given NPO status--Insulin sliding scale--Hold metformin
Essential Hypertension--hold BP meds--supportive care to keep MBP > 65
SANKET--likely due to prerenal causes given hypotension--post renal possible given finasteride--improving--d/c santos
Hyperlipidemia--Hold rosuvastatin due to elevated LFTs
Schizophrenia--Continue risperidone
DVT prophylaxis--SCD
Code status -- FULL CODE
Original Note:
Today's Communication/Plan
-
Consult general surgery
Heparin drip
Santos out
Assessment / Plan
Assessment / Plan
IMPRESSION:
Septic shock secondary to infection
Choledocholithiasis s/p ERCP with sphincterectomy, placement of stent in the common bile duct
Lactic acidosis secondary to sepsis
Fever
Acute transaminitis
SANKET
Hyperbilirubinemia
CAD
Arrhythmia / aneurysms/valve replacement
GERD
Urinary retention/BPH
IDDM
Hypertension
Hyperlipidemia
Schizophrenia
77-year-old male presented with septic shock and hypotension, baseline mental status. Patient is alert and oriented however he is drowsy .
PLAN:
Septic shock secondary to infection likely acute cholangitis --- resolved
off pressors. Blood pressure has improved
Continue IV Zosyn , GI agree
Appreciate GI input
2/2 BC positive for E. coli, Klebsiella pneumonia, Enterococcus . 1/2 BC positive for gram-negative bacilli
Repeat blood cultures until they are negative
Urine culture no growth
Plan to discharge
Choledocholithiasis s/p ERCP with sphincterectomy, placement of stent in the common bile duct
Follow-up outpatient with GI, scheduled on 12/[address] Barber
Will continue IV Zosyn
Plan to discharge oral antibiotics continue
Patient would need percutaneous cholecystotomy, poor candidate for cholecystectomy due to difficult INR
Consults general surgery
Remove Santos
Lactic acidosis secondary to sepsis--resolved
Lactic acid level improved-1.6
Continue IV antibiotics, fluids
Fever - resolved
Acute transaminitis--improving
No history of personal alcohol use
Suspect 1. acute cholangitis 2. Choledocholithiasis which could be contributing to increased LFTs
AST, ALT improving
Patient complains of abdominal pain-will start on 325 mg Tylenol
Appreciate GI input
SANKET
Suspect due to infection
Creatinine improving 1.6
Hyperbilirubinemia
Diffuse common bile duct dilation
Suspect infection or a mass
Consult GI
CAD
Hold metoprolol for now
IV Lopressor 5 mg as needed
Arrhythmia / aneurysms/valve replacement
Hold metoprolol, Coumadin
INR 2.48, restart heparin
Will order Echo with history of mechanical valve, bacteremia with positive Enterococcus there are chances of endocarditis
GERD
hold famotidine
Started on IV Protonix 40
IDDM
Increase to 10 units of Levemir
Once the patient starts diet then we will increase Levemir to 10 units to be taken at night
Insulin sliding scale
Hold metformin
Hypertension
Hold TONG/ARB
Hyperlipidemia
Hold rosuvastatin due to elevated LFTs
Schizophrenia
Continue risperidone
DVT prophylaxis-SCD
IMAGING
Abdominal/pelvis CT
Diffuse common bile duct dilatation with questionable ampullary lesion. Recommend outpatient workup with dedicated MRI/MRCP abdomen without and with gadolinium contrast, versus ERCP.
Doppler study ultrasound of the abdomen
IMPRESSION: Duplex evaluation of the upper abdominal vasculature is within normal limits. Cholelithiasis as well as sludge. No evidence for gallbladder wall thickening or pericholecystic edema, and the patient has a negative sonographic Ibarra's
sign.
Common bile duct measures up to 8.8 mm, which is considered mildly dilated. Limited visualization of the common bile duct with no evidence for bile duct calculus.
Hepatomegaly with diffuse fatty ratio of the liver. No evidence for a focal hepatic mass lesion. The pancreas is unable to be adequately visualized. The upper abdominal aorta and the upper abdominal IVC are unable to be adequately visualized.
Anticipated Discharge: > 48 hours
Subjective/Interval History
-
Date of Service: November 02, 2023
Patient denies abdominal pain, chest pain, shortness of breath. He feels better than yesterday
Objective Data
-
Labs:
Laboratory Results
11/02/23 11/02/23 11/02/23
05:16 07:06 09:19
WBC 5.4
Hgb 11.0 L
Hct 33.6 L
Plt Count 78 L
PT 27.2 H
INR 2.48
APTT Pending
Sodium 136
Potassium 4.6
Chloride 111 H
Carbon Dioxide 20 L
BUN 35 H
Creatinine 1.4 H
Glucose 233 H
Calcium 7.9 L
Total Bilirubin 2.2 H D
AST 288 H
ALT 924 H*
Alkaline Phosphatase 368 H
Vital Signs:
Vital Signs
Temp Pulse Resp BP Pulse Ox
98.2 F 69 20 141/73 98
11/02/23 08:00 11/02/23 08:00 11/02/23 08:00 11/02/23 08:00 11/02/23 08:00
I&O
11/01/23 11/02/23 11/03/23
06:59 06:59 06:59
Intake Total 2416.5 / 2541.5 3105 / 3105
Output Total 1295 / 1295 1825 / 1825
Balance 1121.5 / 1246.5 1280 / 1280
Review of Systems
-
History Source: Patient
All other systems: Reviewed and negative
Physical Exam
-
General: Comfortable and Conversant
HEENT: Normocephalic and Atraumatic
Respiratory: Clear to Auscultation
Cardiac: Regular Rhythm, S1/S2 and Murmur (Mechanical valve click)
GI: Soft, Nondistended, Normal Bowel Sounds and Tender (Very mild)
Genito-urinary: Santos
Musculoskeletal: No Edema
Neuro: AO x 3
Psych: Calm
Data Reviewed
-
Medical Tests (Nuc Med, Echo etc): Report Reviewed by me and Discussed with Physician
Labs: Labs Reviewed by me and Discussed with Physician
[2023-11-02 10:16] LABS: APTT 59.6 Sec (23.4-35.0)
[2023-11-02] MEDS: HEPARIN 25000 UNITS/250 ML IV (10:45)
[2023-11-02 10:51] LABS: Absolute Neutrophils -Man Diff 4.8 10^3/uL (1.4-6.5); Band Neutrophils 13 % (0-3); Lymphocytes 7 % (20-51); Monocytes 4 % (2-9); Segmented Neutrophils 76 % (42-75)
[2023-11-02 10:52] LABS: Anisocytosis Slight; Normal RBC Morphology No; Platelets Checked YES
[2023-11-02 10:53] LABS: Macrocytosis Slight; Ovalocytes FEW
[2023-11-02 10:54] LABS: Total Cells Counted 100
[2023-11-02 11:01] LABS: Glucose - Point of Care 293 mg/dl (70-99)
[2023-11-02] MEDS: NOVOLOG FLEXPEN-LOW RESISTANCE 3 UNITS SC (12:15)
--- NOTE | 2023-11-02 13:30 | CON.GS ---
Addendum entered and electronically signed by Daron Burdick MD 11/02/23 17:02:
Patient seen and examined with surgical nurse practitioner. Agree with documented consultation.
HPI: 77-year-old male with multiple medical comorbidities/significant past surgical history including diabetes mellitus, marfanoid, mechanical aortic valve and mitral valve replacement on Coumadin, open AAA repair 2019, PAF, CAD, previous history of
bladder cancer who was admitted with weakness and worsening abdominal pain. Admitted with ascending cholangitis found to have choledocholithiasis. He underwent ERCP sphincterotomy and stone extraction yesterday which she tolerated well and is now
on the medical surgical floors.
Patient states that overall he is feeling better. Some mild lingering abdominal discomfort but no significant pain. No nausea. His diet is advancing as tolerated.
He was unaware of the presence of gallstones.
AFVSS
ABD: Soft, protuberant but not distended. Minimal tenderness epigastrium right side. No rebound rigidity or guarding. Negative Ibarra's
Ultrasound confirms stones and sludge. CT with distended gallbladder and pericholecystic inflammatory changes.
Assessment/plan: 77-year-old male admitted with cholangitis, bacteremia and choledocholithiasis with confirmed gallstones. Clinically improving status post ERCP.
Reviewed with patient indications for cholecystectomy. Offered patient cholecystectomy although clearly he would be of higher risk. Risks as outlined below estimated with the [employer] NSQIP risk calculator score. Without
cholecystectomy would suggest about a 30% or possibly higher risk for recurrent gallstone mediated complications after ERCP alone for choledocholithiasis.
Patient would like to proceed with cholecystectomy.
Updated hospitalist and requested preoperative cardiovascular risk assessment with cardiology.
Continue to allow INR to normalize with drift
Monitor thrombocytopenia
Currently on Zosyn
Timing of laparoscopic cholecystectomy to be determined pending cardiac evaluation, normalization of INR and stable thrombocytopenia. Given the above factors he would likely be early next week rather than in the next 24 to 48 hours.
ACS NSQIP risk calculator for laparoscopic cholecystectomy
Patient risk factors: Age 77, partially dependent functional status, ASA 4, diabetes, dyspnea with exertion, hypertension, BMI 29, mobility 8, supported at home, history of falls
Risk of any complication 18%
Risk of cardiac complication 4%
Readmission 17.2%
Return to the OR 1.6%
30-day mortality 3.4%
Discharged to nursing, rehab facility 35%
Postoperative delirium 11.6%
Mobility aid use 42%
Discussed in detail with pts as well via phone call.
Original Note:
Consultation
-
Date/Time Consultation Requested: 11/02/23 8094
Requesting Provider: alejandra
Medical History
-
Chief Complaint: Abdominal pain
History of Present Illness:
This is a 77 yo male with a history of NIDDM, marfanoid syndrome, mechanical AV and MV replacement on chronic warfarin, AAA repair, PAF, COPD, CAD, bladder ca with TURBT, and diverticulitis with prior partial colectomy who presents with several
weeks of worsening abdominal pain. He notes that his pain acutely worsened on Monday but denies nausea or vomiting although he had no appetite. He was feeling weaker as time went on and he eventually fell on his way to the restroom causing him to
present for evaluation. He was admitted for septic shock and cholangitis with SANKET to the ICU. Blood cx positive x1 set with GNB with leukocytosis and LFT's noted to be markedly elevated on presentation with CT showing with cbd dilation and
questionable ampullary lesion. He is now post ERCP with gastroenterology yesterday with choledocholithiasis noted at the area of concern with stone removed and stent placement. Labs and pain much improved post procedure. He is now stable and
transferred out of the ICU with continued treatment in the telemetry unit. Grossly nontender on exam, abdomen is distended with c/o constipation. Notes his last BM was >4-5 days ago.
Past Medical History
Past Medical History: Arrhythmias (pAfib, VT (ICD placed)), CAD, Cancer (bladder), COPD, CVA, Diverticulitis, HTN, Hypercholesterolemia, NIDDM, Psychiatric (depression, schizophrenia, tardive dyskinesia), Valvular Disease and Other (INOCENCIO, Marfanoid
syndrome)
Past Surgical History: Bowel Resection (partial colectomy 2000), Cardiac (Mechanical AV & MV 2001, ICD), Hernia Repair (inguinal as a child), Orthopedic (Right JESSICA), Urological (TURBT and cystolitholopaxy) and Other (AAA endovascular repair 2018,
subsequent open repair 2019, iliac stent 2005)
Social History
Tobacco: Non-Smoker (quit 1985)
Drug: None
Personal:
Living: With Family
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
Family History
Family History: Early CAD (Father passed at 55 yo)
Allergies / Home Medications
Allergy/AdvReac Type Severity Reaction Status Date / Time
codeine [Codeine] Allergy Itching Verified 06/13/23 15:29
acetaminophen [From Tylenol] AdvReac liver Verified 06/13/23 15:29
problems
�Medication �Instructions �Recorded �Confirmed �Type
B-complex with vitamin C 1 cap PO PURCELL Supplement 04/22/21 10/31/23 History
amitriptyline 50 mg tablet 100 mg PO HS Mental Health/sleep 04/22/21 10/31/23 History
ascorbic acid (vitamin C) 500 mg 1,000 mg PO DAILY Supplement 04/22/21 10/31/23 History
tablet (Vitamin C)
cholecalciferol (vitamin D3) 50 2,000 units PO SUWE Supplement 04/22/21 10/31/23 History
mcg (2,000 unit) tablet
famotidine 40 mg tablet 40 mg PO HS Gastrointestinal issue 04/22/21 10/31/23 History
magnesium oxide 400 mg PO HS Supplement 04/22/21 10/31/23 History
metoprolol succinate 50 mg 50 mg PO HS Blood pressure 04/22/21 10/31/23 History
tablet,extended release 24 hr
multivitamin with folic acid 400 1 tab PO DAILY Supplement 04/22/21 10/31/23 History
mcg tablet (Tab-A-David)
risperidone 2 mg tablet 2 mg PO HS Mental Health 04/22/21 10/31/23 History
finasteride 5 mg tablet 5 mg PO HS Urinary issue 04/28/21 10/31/23 History
amiodarone 200 mg tablet (Pacerone) 200 mg PO HS Arrhythmia 01/10/22 10/31/23 History
lecithin 518 mg capsule 518 mg PO DAILY Supplement 01/10/22 10/31/23 History
coenzyme Q10 100 mg capsule 100 mg PO DAILY Supplement 04/22/22 10/31/23 History
(CoQ-10)
rosuvastatin 5 mg tablet 5 mg PO HS High cholesterol 09/02/22 10/31/23 History
melatonin 10 mg tablet 10 mg PO HS Sleep #0 tabs 09/15/22 10/31/23 Rx
warfarin 2 mg tablet (Jantoven) 2 mg PO QPM Blood clot 09/16/22 10/31/23 Rx
prevention/tx #1 tab
Saccharomyces boulardii 250 mg 250 mg PO QPM probiotic 10/31/23 10/31/23 History
capsule (Florastor)
acetaminophen 500 mg tablet 1,000 mg PO BIDPRN PRN headaches 10/31/23 10/31/23 History
(Acetaminophen Extra Strength)
docusate sodium 100 mg capsule 100 mg PO DAILY Constipation 10/31/23 10/31/23 History
insulin detemir U-100 100 unit/mL 10 unit SC DAILY Diabetes 10/31/23 10/31/23 History
subcutaneous solution (Levemir
U-100 Insulin)
metformin 500 mg tablet,extended 500 mg PO DAILY Diabetes 10/31/23 10/31/23 History
release 24 hr
sennosides 8.6 mg tablet (senna) 17.2 mg PO HS Constipation 10/31/23 10/31/23 History
vitamins A,C,D-meii-fhffzb 2,148 1 tab PO BID Supplement 10/31/23 10/31/23 History
mcg-113 mg-45 mg-17.4 mg tablet
(PreserVision AREDS)
Metamucil 11/01/23 History
Review of Systems
-
History Source: Patient
All other systems: Negative unless noted
A 10 point review of systems was completed, and was negative except as per HPI.
Physical Exam
Vital Signs
Temp Pulse Resp BP Pulse Ox
97.8 F 64 18 135/72 96
11/02/23 11:00 11/02/23 11:00 11/02/23 11:00 11/02/23 11:00 11/02/23 11:00
11/01/23 11/02/23 11/03/23
06:59 06:59 06:59
Actual Weight 93 kg 91.399 kg
Body Mass Index (BMI) 29.8
Lab Results
11/02/23 05:16
11/02/23 05:16
WBC 5.4 10^3/uL (4.8-10.8) 11/02/23 05:16
Hgb 11.0 g/dL (13.0-18.0) L 11/02/23 05:16
Hct 33.6 % (39.0-52.0) L 11/02/23 05:16
Plt Count 78 10^3/uL (130-400) L 11/02/23 05:16
Physical Exam
General: Well Developed, Well Nourished and No Apparent Distress
HEENT: Moist Mucous Membranes
Respiratory: Non Labored Respirations
GI: Soft, Tender (mild epigastric tenderness) and Distended
Skin: Warm
Neuro: Awake, Alert and AO x 3
Psych: Calm
Data Reviewed
-
CT Scan: Image Personally Visualized and interpreted, Report Reviewed by me, Discussed with Physician and Discussed with Patient
Labs: Labs Reviewed by me, Discussed with Physician and Discussed with Patient
Old Records: Reviewed
Assessment / Plan
-
Assessment:
77 yo male with history of NIDDM, marfanoid syndrome, mechanical AV and MV replacement on chronic warfarin, AAA repair, PAF, COPD, CAD, bladder ca with TURBT, and diverticulitis with prior partial colectomy who presents with several weeks of
worsening abdominal pain. Septic shock present on admission now resolved. Blood cultures initially positive for ecoli, klebsiella and enterococcus species. Repeat cultures yesterday positive x1 bottle for GNR. Clinic picture consistent with
cholangitis. CT showing with cbd dilation and questionable ampullary lesion on presentation. US with cholelithiasis without cholecystitis. Now PPD #1 ERCP with stone removal and stent placement. No fevers since ERCP. SANKET on admission, now improving
with hydration. LFT's trending down s/p ERCP. No further leukocytosis. INR is 2.48 today, on Heparin gtt as bridge.
Plan:
Would recommend cholecystectomy to prevent future occurrence
Will follow INR trend, continue to hold warfarin for tentative OR later this admission. Goal <1.6 prior to OR. Continue heparin gtt.
Cardiac clearance prior to surgery
Continue abx
Add bowel regimen with miralax
[2023-11-02] MEDS: MIRALAX 17 GRAMS PO (15:15)
--- NOTE | 2023-11-02 15:59 | CM ---
Discharge Plan of Care: Therapy recommendation for STR. Will discuss with patient and provide [employer] list.
--- NOTE | 2023-11-02 16:00 | PTCARENOTE ---
Malin removed per MD order, patient tolerated procedure, brief placed on patient and patient assisted into chair with x1 assist and RW. Patient due to void by 2140 tonight.
[2023-11-02 16:21] LABS: Glucose - Point of Care 229 mg/dl (70-99)
[2023-11-02 16:47] LABS: Folate > 20.0 ng/ml (2.76-20); Vitamin B12 967 pg/ml (239-931)
[2023-11-02] MEDS: FLORASTOR 250 MG PO (17:01)
[2023-11-02 17:17] LABS: APTT 124.9 Sec (23.4-35.0)
[2023-11-02] MEDS: RISPERDAL 2 MG PO (21:12)
[2023-11-02] MEDS: PROSCAR 5 MG PO (21:12)
[2023-11-02] MEDS: TOPROL XL 50 MG PO (21:19)
[2023-11-02] MEDS: ELAVIL 100 MG PO (21:19)
[2023-11-02] MEDS: PACERONE 200 MG PO (21:20)
[2023-11-02 21:35] LABS: Glucose - Point of Care 189 mg/dl (70-99)
[2023-11-02] MEDS: LANTUS 0.100000000000000006 UNITS SC (21:37)
[2023-11-03] VITALS (7 sets, daily range): BP systolic 144–159; BP diastolic 72–81; PULSE 77; BMI 31.6
[2023-11-03 01:00] LABS: Hepatitis B Surface Antigen Negative (Negative)
[2023-11-03 01:02] LABS: Hepatitis A IgM Antibody Negative (Negative); Hepatitis B Core Ab, IgM Negative (Negative)
[2023-11-03 01:17] LABS: Hepatitis B Surface Antibody Negative; Hepatitis C Antibody Negative (Negative)
[2023-11-03 01:19] LABS: Hepatitis A Antibody, Total Negative (Negative)
[2023-11-03 02:23] LABS: Hepatitis B Core Ab, Total Negative (Negative)
[2023-11-03] MEDS: NSS 1000 IV ×3 (04:04→23:48)
[2023-11-03] MEDS: ZOSYN 50 IV ×4 (04:04→23:01)
[2023-11-03 06:16] LABS: Glucose - Point of Care 143 mg/dl (70-99)
[2023-11-03] MEDS: NOVOLOG FLEXPEN-LOW RESISTANCE SC ×3 (06:36→16:38)
--- NOTE | 2023-11-03 07:37 | W.PN.HOSP.TC ---
Addendum entered and electronically signed by Luz Marina Suh MD 11/03/23 14:27:
pt seen and examined independently--agree with plan as set forth by Dr. Capellan
GENERAL: well developed, well nourished, male in no apparent distress
HEENT: NC/AT--much brighter and improved
HEART: regular rate and rhythm, +S1, +S2--MARGIE with click
LUNGS : clear to auscultation bilaterally
ABDOM: soft, nontender, nondistended, + bowel sounds
EXT: no cyanosis, clubbing, or edema
NEUROLOGIC: grossly intact
Septic shock with lactic acidosis--resolved---likely due to E. 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 coli, Kleb
pneumonia, Enterococcus and /8 positive for Klebsiella, 5/9 pending-cont zosyn
hypocalcemia/anemia/thrombocytopenia--suspect lab error as blood drawn above IVF infusion--repeat
Acute transaminitis--improved--likely due to cholangitis and choledocholithiasis--s/p ERCP and EUS--apprec GI input--apprec surgery
Hyperbilirubinemia--improving--Diffuse common bile duct dilation--related to obstruction at ampulla and choledocholithiasis
CAD--restart meds
Paroxysmal afib/aneurysms/valve replacement--hold coumadin--do not reverse--IV heparin INR < 2.5--follow INR--hold metoprolol--IV lopressor with parameters if needed
GERD--hold famotidine--Started on IV Protonix 40
IDDM--Decreased to 5 units of Levemir given NPO status--Insulin sliding scale--Hold metformin--adjust as needed
Essential Hypertension--hold BP meds--supportive care to keep MBP > 65
SANKET--likely due to prerenal causes given hypotension--post renal possible given finasteride--improving--d/c santos
Hyperlipidemia--Hold rosuvastatin due to elevated LFTs
Schizophrenia--Continue risperidone
DVT prophylaxis--SCD
Code status -- FULL CODE
Original Note:
Today's Communication/Plan
-
Planning for lap [place]
Patient is n.p.o.
waiting for cardiac evaluation
Continue IV Zosyn
Repeat blood cultures until negative
On heparin
Monitor INR
Assessment / Plan
Assessment / Plan
IMPRESSION:
Septic shock secondary to infection
Choledocholithiasis s/p ERCP with sphincterectomy, placement of stent in the common bile duct
Lactic acidosis secondary to sepsis
Fever
Acute transaminitis
SANKET
Hyperbilirubinemia
CAD
Arrhythmia / aneurysms/valve replacement
GERD
Urinary retention/BPH
IDDM
Hypertension
Hyperlipidemia
Schizophrenia
77-year-old male presented with septic shock and hypotension, baseline mental status. Patient is alert and oriented however he is drowsy .
PLAN:
Septic shock secondary to infection likely acute cholangitis --- resolved
off pressors. Blood pressure has improved
Continue IV Zosyn , GI agree
Appreciate GI input
2/2 BC positive for E. coli, Klebsiella pneumonia, Enterococcus . 1/2 BC positive for gram-negative bacilli
Repeat blood cultures until they are negative
Urine culture no growth
Plan to discharge
Choledocholithiasis s/p ERCP with sphincterectomy, placement of stent in the common bile duct
Follow-up outpatient with GI, scheduled on 12/[address] Barber
N.p.o. for lap geneva
Will continue IV Zosyn until the blood cultures are negative
Timing of laparoscopic cholecystectomy to be determined pending cardiac evaluation, normalization of INR and stable thrombocytopenia. Given the above factors he would likely be early next week rather than in the next 24 to 48 hours.
Would continue to monitor INR--on heparin
Appreciate general surgery input
Santos out
Lactic acidosis secondary to sepsis--resolved
Lactic acid level improved-1.6
Continue IV antibiotics, fluids
Fever - resolved
Acute transaminitis--improving
No history of personal alcohol use
Suspect 1. acute cholangitis 2. Choledocholithiasis which could be contributing to increased LFTs
AST, ALT improving
Patient complains of abdominal pain-will start on 325 mg Tylenol
Appreciate GI input
SANKET
Suspect due to infection
Creatinine improving 1.6
Hyperbilirubinemia
Diffuse common bile duct dilation
Suspect infection or a mass
Consult GI
CAD
Hold metoprolol for now
IV Lopressor 5 mg as needed
Arrhythmia / aneurysms/valve replacement
Hold metoprolol, Coumadin
INR 2.48, restart heparin
Will order Echo with history of mechanical valve, bacteremia with positive Enterococcus there are chances of endocarditis
GERD
hold famotidine
Started on IV Protonix 40
IDDM
Increase to 10 units of Levemir
Once the patient starts diet then we will increase Levemir to 10 units to be taken at night
Insulin sliding scale
Hold metformin
Hypertension
Hold TONG/ARB
Hyperlipidemia
Hold rosuvastatin due to elevated LFTs
Schizophrenia
Continue risperidone
DVT prophylaxis-SCD
IMAGING
Abdominal/pelvis CT
Diffuse common bile duct dilatation with questionable ampullary lesion. Recommend outpatient workup with dedicated MRI/MRCP abdomen without and with gadolinium contrast, versus ERCP.
Doppler study ultrasound of the abdomen
IMPRESSION: Duplex evaluation of the upper abdominal vasculature is within normal limits. Cholelithiasis as well as sludge. No evidence for gallbladder wall thickening or pericholecystic edema, and the patient has a negative sonographic Ibarra's
sign.
Common bile duct measures up to 8.8 mm, which is considered mildly dilated. Limited visualization of the common bile duct with no evidence for bile duct calculus.
Hepatomegaly with diffuse fatty ratio of the liver. No evidence for a focal hepatic mass lesion. The pancreas is unable to be adequately visualized. The upper abdominal aorta and the upper abdominal IVC are unable to be adequately visualized.
Anticipated Discharge: > 48 hours
Subjective/Interval History
-
Date of Service: November 03, 2023
Patient denies abdominal pain, chest pain. He had a bowel movement yesterday
Objective Data
-
Labs:
Laboratory Results
11/03/23 11/03/23 11/03/23
00:21 05:00 07:10
WBC Pending
Hgb Pending
Hct Pending
Plt Count Pending
PT Cancelled Pending
INR Cancelled Pending
APTT 58.0 H Pending
Sodium Pending
Potassium Pending
Chloride Pending
Carbon Dioxide Pending
BUN Pending
Creatinine Pending
Glucose Pending
Calcium Pending
Total Bilirubin Pending
AST Pending
ALT Pending
Alkaline Phosphatase Pending
Vital Signs:
Vital Signs
Temp Pulse Resp BP Pulse Ox
97.6 F 61 18 152/81 98
11/03/23 03:16 11/03/23 03:16 11/03/23 03:16 11/03/23 03:16 11/03/23 03:16
I&O
11/02/23 11/03/23 11/04/23
06:59 06:59 06:59
Intake Total 3105 / 3105 5215 / 5215
Output Total 1825 / 1825 3400 / 3400
Balance 1280 / 1280 1815 / 1815
Review of Systems
-
History Source: Patient
All other systems: Reviewed and negative
Physical Exam
-
General: Comfortable, Conversant and Obese
HEENT: Normocephalic and Atraumatic
Cardiac: Regular Rhythm, S1/S2 and Murmur
GI: Soft, Nontender, Nondistended and Normal Bowel Sounds
Genito-urinary: Negative Santos
Musculoskeletal: No Edema
Neuro: AO x 3
Psych: Calm
Data Reviewed
-
Labs: Labs Reviewed by me and Discussed with Physician
[2023-11-03 07:43] LABS: Glucose - Point of Care 132 mg/dl (70-99)
--- NOTE | 2023-11-03 07:55 | CON.CAR ---
Addendum entered and electronically signed by Tanja Brantley DO 11/03/23 15:40:
I saw and examined the patient.
The [employer] Professor's note was reviewed and I agree with the note.
Comment: Patient seen and examined with cardiac PA. Sharif is a 77 year old male with PMH of nonobstructive CAD, ICD, paroxysmal atrial fibrillation, atrial flutter, NSVT, mechanical MVR/AVR, PAD, Type 2 DM, HTN, HLD, COPD, INOCENCIO, and bladder cancer
who presented to [facility] for evaluation after a fall. He was in septic shock on arrival and was noted to have acute transaminitis and was diagnosed with acute cholangitis. He was found to have choledocholithiasis and underwent ERCP with placement of
stent in the common bile duct. He was then seen by general surgery and plan is for eventual cholecystectomy. Timing is TBD. Cardiology consulted for preop evaluation. Patient reports he has been feeling well from a cardiac standpoint and denies any
chest pain, palpitations, or SOB currently. He has history of mechanical MVR/AVR and his coumadin has been on hold, bridging with heparin. INR pending this AM. Echo was completed 11/01 and showed EF stable at 50% with stable valves. At this time he
notes his only complaint is mild abdominal pain when he presses on his stomach. He has had no fevers. BP and HR are stable.
General: No acute distress, AAOX3
Heart: Regular, Negative S3 positive S1/S2, + click of ACVR/MVR,07/01 SM. +device
Lungs: CTA b/l, negative wheezes/rales/rhonchi
Abd: Positive BS, NT/ND, neg rebound/rigidity/guarding
Ext: No edema
Neuro: nonfocal
Echo 11/02/2023: EF 50% mild cLVH, thickened mechanical MVR w/ peak/mean gradients 12/7 mmHg, mechanical AVR w/ peak/mean gradients 18/10 mmHg, mild possible paravalvular AI, mild TR, estimated PAP 30 mmHg
Plan:
-Presented with septic shock in the setting of acute choledocholithiasis
-Blood cultures positive for Klebsiella pneumonia 11/01/2023. Blood culture positive for E. coli and Klebsiella pneumonia 10/31/2023. Urine culture no growth to date. Influenza negative. Blood cultures from 11/01 pending
-Continue broad-spectrum IV antibiotics
-Follow blood cultures
-Briefly required ICU level care with norepinephrine weaned off 11/01/2023
-s/p ERCP w/ stent placement in common bile duct 11/01/2023
-General surgery and GI consulted and plans reviewed. Plan is for eventual cholecystectomy, probably early next week
-Warfarin discontinued, INR today 2.44. Patient requires bridge off warfarin therapy; currently on IV heparin drip
-Hemoglobin drop with labs today; repeat CBC pending
-Cardiology asked for preop evaluation.
-He has been feeling well from a cardiac standpoint and denies any chest pain or SOB.
-Echo 11/01 with EF 50%.
-Stable mechanical mitral and aortic valves.
-He had recent cardiac catheterization 07/2021 which revealed stable coronary aneurysms with no obstructive coronary disease.
-EKG reviewed. SR with 1st degree AV block; monitor telemetry
-He has known h/o VT status post Medtronic ICD in 2021: Device interrogation last on October 26, 2023 in the office. Normal function and good battery life. No atrial fibrillation. He does have slow VT and VT detection settings were decreased to 140
bpm. From March to October he had 8 episodes of slow VT which were asymptomatic and terminated by [facility]. He has never had any shocks. His most recent episode of VT was October 03, 2023.
-He has increased cardiovascular risk factors however he is stable and may proceed with surgery as planned
History of slow VT status post Medtronic ICD July 2021
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
-Continue amiodarone 200 mg nightly and metoprolol succinate 50 mg nightly.
-Keep K greater than 4, mag greater than 2
-Monitor on telemetry
History of [place] mechanical MVR/AVR in 2001
-Stable AVR/MVR on recent echocardiogram
-On Coumadin anticoagulation with goal INR 2.5�3.5 monitored by [facility] Coumadin clinic.
-Requires IV heparin bridge
-Coumadin discontinued with plans for surgery next week. INR today 2.44. Will allow INR to drift down for goal INR less than 1.6 for surgery
History of paroxysmal atrial fibrillation/flutter with no recent atrial fibrillation by device interrogation
PAD with history of iliac stent in 2005�no active symptoms
AAA s/p endograft with persistent type [address] 11/2018, with open AAA repair (revision from previous endovascular repair) 08/01/2019. CT scan 10/31/2023' aortobiiliac stent graft redemonstrated without overt complication. Grossly stable
bilateral proximal common iliac artery excluded aneurysm sacs measuring up to 4.6 cm on the right and 3.7 cm on the left.'
-Outpatient vascular follow-up
Diabetes mellitus on insulin with hemoglobin A1c 7.3% on 11/01/2023
-Management per hospitalist
Will follow with you
Original Note:
Consultation
Consultation Request
Date/Time Consultation Requested: 11/02/2023
Date/Time Consultation Performed: 11/03/2023 at 0745
Requesting Provider: Dr. Suh
Performing Provider: Dr. Brantley
Reason for Consultation: Preop eval
Medical History
-
History of Present Illness:
HPI: Sharif is a 77 year old male with PMH of nonobstructive CAD, ICD, paroxysmal atrial fibrillation, atrial flutter, NSVT, mechanical MVR/AVR, PAD, Type 2 DM, HTN, HLD, COPD, INOCENCIO, and bladder cancer who presented to [facility] for evaluation after a
fall. He was in septic shock on arrival and was noted to have acute transaminitis and was diagnosed with acute cholangitis. He was found to have choledocholithiasis and underwent ERCP with placement of stent in the common bile duct. He was then seen
by general surgery and plan is for eventual cholecystectomy. Timing is TBD. Cardiology consulted for preop evaluation. Patient reports he has been feeling well from a cardiac standpoint and denies any chest pain, palpitations, or SOB currently. He
has history of mechanical MVR/AVR and his coumadin has been on hold, bridging with heparin. INR pending this AM. Echo was completed 11/01 and showed EF stable at 50% with stable valves. At this time he notes his only complaint is mild abdominal pain
when he presses on his stomach. He has had no fevers. BP and HR are stable.
PMH:
h/o sustained monomorphic ventricular tachycardia
Chronic amiodarone therapy
Nonobstructive CAD by cath 07/2021
Coronary aneurysms are unchanged angiographically from cath in 2009
Medtronic DC ICD 07/2021
Paroxysmal atrial fibrillation/atrial flutter
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
Chronic Coumadin anticoagulation (goal INR 2.5-3.5)
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
PAD with h/o iliac stent 2005
Type 2 diabetes
COPD
orthostatic hypotension
PVCs
HTN
HLD
INOCENCIO on CPAP
depression
schizophrenia
h/o bladder cancer s/p TURBT and cystolitholapaxy 2009
spinal stenosis
h/o large bowel resection 2000 in setting of diverticulitis per pt
Charcot joint
anemia
h/o epistaxis
Past Medical History
Past Medical History: Other (In HPI)
Past Surgical History: Bowel Resection, Cardiac (mechanical MVR/AVR 2001, ICD implant 2021) and Other (inguinal hernia, TURBT, AAA repair, cataract surgery, R JESSICA)
Social History
Tobacco: Former Smoker
Alcohol: None
Drug: None
Living: With Family
Employment: Retired
Family History
Family History: CAD and Cancer
Allergies / Home Medications
Allergy/AdvReac Type Severity Reaction Status Date / Time
codeine [Codeine] Allergy Itching Verified 06/13/23 15:29
acetaminophen [From Tylenol] AdvReac liver Verified 06/13/23 15:29
problems
�Medication �Instructions �Recorded �Confirmed �Type
B-complex with vitamin C 1 cap PO PURCELL Supplement 04/22/21 10/31/23 History
amitriptyline 50 mg tablet 100 mg PO HS Mental Health/sleep 04/22/21 10/31/23 History
ascorbic acid (vitamin C) 500 mg 1,000 mg PO DAILY Supplement 04/22/21 10/31/23 History
tablet (Vitamin C)
cholecalciferol (vitamin D3) 50 2,000 units PO SUWE Supplement 04/22/21 10/31/23 History
mcg (2,000 unit) tablet
famotidine 40 mg tablet 40 mg PO HS Gastrointestinal issue 04/22/21 10/31/23 History
magnesium oxide 400 mg PO HS Supplement 04/22/21 10/31/23 History
metoprolol succinate 50 mg 50 mg PO HS Blood pressure 04/22/21 10/31/23 History
tablet,extended release 24 hr
multivitamin with folic acid 400 1 tab PO DAILY Supplement 04/22/21 10/31/23 History
mcg tablet (Tab-A-David)
risperidone 2 mg tablet 2 mg PO HS Mental Health 04/22/21 10/31/23 History
finasteride 5 mg tablet 5 mg PO HS Urinary issue 04/28/21 10/31/23 History
amiodarone 200 mg tablet (Pacerone) 200 mg PO HS Arrhythmia 01/10/22 10/31/23 History
lecithin 518 mg capsule 518 mg PO DAILY Supplement 01/10/22 10/31/23 History
coenzyme Q10 100 mg capsule 100 mg PO DAILY Supplement 04/22/22 10/31/23 History
(CoQ-10)
rosuvastatin 5 mg tablet 5 mg PO HS High cholesterol 09/02/22 10/31/23 History
melatonin 10 mg tablet 10 mg PO HS Sleep #0 tabs 09/15/22 10/31/23 Rx
warfarin 2 mg tablet (Jantoven) 2 mg PO QPM Blood clot 09/16/22 10/31/23 Rx
prevention/tx #1 tab
Saccharomyces boulardii 250 mg 250 mg PO QPM probiotic 10/31/23 10/31/23 History
capsule (Florastor)
acetaminophen 500 mg tablet 1,000 mg PO BIDPRN PRN headaches 10/31/23 10/31/23 History
(Acetaminophen Extra Strength)
docusate sodium 100 mg capsule 100 mg PO DAILY Constipation 10/31/23 10/31/23 History
insulin detemir U-100 100 unit/mL 10 unit SC DAILY Diabetes 10/31/23 10/31/23 History
subcutaneous solution (Levemir
U-100 Insulin)
metformin 500 mg tablet,extended 500 mg PO DAILY Diabetes 10/31/23 10/31/23 History
release 24 hr
sennosides 8.6 mg tablet (senna) 17.2 mg PO HS Constipation 10/31/23 10/31/23 History
vitamins A,C,P-jett-qzljye 2,148 1 tab PO BID Supplement 10/31/23 10/31/23 History
mcg-113 mg-45 mg-17.4 mg tablet
(PreserVision AREDS)
Metamucil 11/01/23 History
Review of Systems
-
History Source: Patient
All other systems: Negative unless noted
Physical Exam
Vital Signs
Temp Pulse Resp BP Pulse Ox
97.6 F 61 18 152/81 98
11/03/23 03:16 11/03/23 03:16 11/03/23 03:16 11/03/23 03:16 11/03/23 03:16
Physical Exam
General: Well Developed, Well Nourished and No Apparent Distress
HEENT: Normocephalic, Anicteric and Moist Mucous Membranes
Respiratory: Clear and Non Labored Respirations
Cardiac: S1/S2, Regular Rhythm and Murmur (mechanical click)
Musculoskeletal: No Clubbing, No Cyanosis and Edema
Skin: Warm and Dry
Neuro: AO x 3 and Nonfocal/Grossly Intact
Psych: Calm
Impression / Plan
-
PCP: Dr. Hendricks
Wedding Planning Internship: Dr. SHANNON Mcintyre
Impression:
Septic shock, resolved
Acute cholangitis
choledocholithiasis s/p ERCP w/ sphincterectomy and placement of stent in common bile duct
h/o sustained monomorphic ventricular tachycardia
Chronic amiodarone therapy
Medtronic DC ICD 07/2021
Nonobstructive CAD by cath 07/2021
Coronary aneurysms are unchanged angiographically from cath in 2009
Paroxysmal atrial fibrillation/atrial flutter
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
Chronic Coumadin anticoagulation (goal INR 2.5-3.5)
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
PAD with h/o iliac stent 2005
Type 2 diabetes
COPD
orthostatic hypotension
PVCs
HTN
HLD
INOCENCIO on CPAP
depression
schizophrenia
h/o bladder cancer s/p TURBT and cystolitholapaxy 2009
spinal stenosis
h/o large bowel resection 2000 in setting of diverticulitis per pt
Charcot joint
anemia
h/o epistaxis
Echo 11/02/2023: EF 50% mild cLVH, thickened mechanical MVR w/ peak/mean gradients 12/7 mmHg, mechanical AVR w/ peak/mean gradients 18/10 mmHg, mild possible paravalvular AI, mild TR, estimated PAP 30 mmHg
Plan:
-Presented with septic shock in the setting of acute choledocholithiasis. s/p ERCP w/ stent placement in common bile duct.
-General surgery following and plan is for eventual cholecystectomy. Timing TBD.
-Cardiology asked for preop evaluation. He has been feeling well from a cardiac standpoint and denies any chest pain or SOB.
-Echo 11/01 with EF 50%. Stable mechanical mitral and aortic valves.
-He had recent cardiac catheterization 07/2021 which revealed coronary aneurysms with no obstructive coronary disease.
-EKG reviewed. SR with 1st degree AV block.
-INR trending down to 2.44 11/02. Continue to follow.
-Continue heparin drip. Hgb down to 8.9, follow for now.
-BP and HR stable.
-He has known h/o VT. Continue to follow on telemetry perioperatively.
HPI: Sharif is a 77 year old male with PMH of nonobstructive CAD, ICD, paroxysmal atrial fibrillation, atrial flutter, NSVT, mechanical MVR/AVR, PAD, Type 2 DM, HTN, HLD, COPD, INOCENCIO, and bladder cancer who presented to [facility] for evaluation after a
fall. He was in septic shock on arrival and was noted to have acute transaminitis and was diagnosed with acute cholangitis. He was found to have choledocholithiasis and underwent ERCP with placement of stent in the common bile duct. He was then seen
by general surgery and plan is for eventual cholecystectomy. Timing is TBD. Cardiology consulted for preop evaluation. Patient reports he has been feeling well from a cardiac standpoint and denies any chest pain, palpitations, or SOB currently. He
has history of mechanical MVR/AVR and his coumadin has been on hold, bridging with heparin. INR pending this AM. Echo was completed 11/01 and showed EF stable at 50% with stable valves. At this time he notes his only complaint is mild abdominal pain
when he presses on his stomach. He has had no fevers. BP and HR are stable.
Data Reviewed
-
EKG: Tracing Personally Visualized and interpreted
Radiology: Report Reviewed by me
CT Scan: Report Reviewed by me
Ultrasound: Report Reviewed by me
Medical Tests (Nuc Med, Echo etc): Report Reviewed by me
Labs: Labs Reviewed by me
Old Records: Reviewed
--- NOTE | 2023-11-03 08:10 | W.PN.GS2 ---
Today's Communication / Plan
-
Await am labs, timing of surgery TBD
Assessment / Plan
-
77-year-old male with multiple medical comorbidities/significant past surgical history including diabetes mellitus, marfanoid, mechanical aortic valve and mitral valve replacement on Coumadin, open AAA repair 2019, PAF, CAD, previous history of
bladder cancer who was admitted with weakness and worsening abdominal pain with noted bacteremia, ascending cholangitis and choledocholithiasis. Ultrasound confirms stones and sludge. CT with distended gallbladder and pericholecystic inflammatory
changes. Clinically improving since ERCP.
PPD #2 ERCP sphincterotomy
Plan for cholecystectomy, timing TBD. Await INR drift to <1.6 and cardiac clearance. Anticipate early next week, NPO this am pending INR level.
AFVSS
Labs this am
--Medical management as per primary team
--Continued on Zosyn
--Await Am labs, if INR remains too high for surgery ok to ADAT
Subjective Data
-
Date of Service: November 03, 2023
Patient seen and examined at bedside. Mild epigastric discomfort, otherwise comfortable. Denies n/v.
Objective Data
-
Intake and Output
11/02/23 11/03/23 11/04/23
06:59 06:59 06:59
Intake Total 3105 / 3105 5215 / 5215
Output Total 1825 / 1825 3400 / 3400
Balance 1280 / 1280 1815 / 1815
Intake:
Oral fluids 480 / 480 2140 / 2140
IV fluids (Total) 2475 / 2475 2875 / 2875
Levo 0 / 0
Nss 1,000 ml @ 125 mls/hr IV . 875 / 875
Q8H GENEVA Rx#:[id number]
normal saline 100 / 100
IV piggybacks 150 / 150 200 / 200
Output:
Urine, Malin 1825 / 1825 1300 / 1300
Urine, Voided 2099 / 2099
Other:
Number of approximated LARGE 2
amounts of urine
Number of unmeasured liquid
stools
Rectum 1
Vital Signs
Temp Pulse Resp BP Pulse Ox
97.6 F 61 18 152/81 98
11/03/23 03:16 11/03/23 03:16 11/03/23 03:16 11/03/23 03:16 11/03/23 03:16
Calcium Cancelled 11/03/23 07:10
Phosphorus 4.2 mg/dl (2.5-4.5) 10/31/23 08:36
Magnesium 2.4 mg/dl (1.6-2.3) H 11/02/23 05:16
Total Bilirubin Cancelled 11/03/23 07:10
AST Cancelled 11/03/23 07:10
ALT Cancelled 11/03/23 07:10
Alkaline Phosphatase Cancelled 11/03/23 07:10
Total Protein Cancelled 11/03/23 07:10
Albumin Cancelled 11/03/23 07:10
Physical Exam
-
NAD
ABD soft, mild epigastric tenderness, ND
[2023-11-03] MEDS: MIRALAX PO (08:14)
[2023-11-03] MEDS: PROTONIX IV 40 MG IV (08:15)
[2023-11-03] MEDS: NSS (PRESERVATIVE FREE) 10 ML IV (08:18)
[2023-11-03 08:40] LABS: % Basophils 0.2 % (0-2); % Eosinophils 1.2 % (0-6); % Immature Granulocytes 0.8 % (0-0.5); % Lymphocytes 9.5 % (20.5-51.1); % Monocytes 6.9 % (1.7-9.3); % Neutrophils 81.4 % (42.2-75.2); Absolute Eosinophils 0.1 10^3/uL (0-0.7); Absolute Lymphocytes 0.5 10^3/uL (1.2-3.4); Absolute Monocytes 0.3 10^3/uL (0.1-0.6); Hematocrit 26.2 % (39.0-52.0); Hemoglobin 8.9 g/dL (13.0-18.0); Mean Corpuscular Hgb 33.5 pg (27.0-31.0); Mean Corpuscular Volume 98.5 fL (80.0-94.0); Mean Platelet Volume 11.7 fL (7.4-10.4); Nucleated Red Blood Cells % 0 % (-); Platelet Count 80 10^3/uL (130-400); Red Blood Cell Count 2.66 10^6/uL (4.70-6.10); Red Cell Dist. Width 16.1 % (11.5-14.5); White Blood Cell Count 4.9 10^3/uL (4.8-10.8)
[2023-11-03 08:50] LABS: INR 2.44; PT 26.4 Sec (11.4-14.6)
[2023-11-03 08:52] LABS: APTT 104.8 Sec (23.4-35.0)
[2023-11-03 09:06] LABS: ALT (SGPT) 449 U/L (0-50); AST (SGOT) 83 U/L (17-59); Albumin 2.1 g/dl (3.5-5.0); Alkaline Phosphatase 266 U/L (38-126); Blood Urea Nitrogen 22 mg/dl (9-20); Calcium 6.7 mg/dl (8.4-10.2); Carbon Dioxide 21 mmol/L (22-30); Chloride 115 mmol/L (98-107); Estimated Creatinine Clearance 69 ml/min; Glucose 110 mg/dl (70-99); Potassium 3.5 mmol/L (3.5-5.1); Sodium 138 mmol/L (135-145); Total Bilirubin 1.3 mg/dl (0.2-1.3); Total Protein 4.4 g/dl (6.3-8.2); eGFR > 60.00
[2023-11-03] MEDS: HEPARIN 25000 UNITS/250 ML IV (10:31)
[2023-11-03 12:17] LABS: Glucose - Point of Care 148 mg/dl (70-99)
[2023-11-03 14:51] LABS: APTT 109.5 Sec (23.4-35.0)
[2023-11-03 15:12] LABS: % Basophils 0.4 % (0-2); % Immature Granulocytes 1.3 % (0-0.5); % Lymphocytes 10.3 % (20.5-51.1); % Monocytes 7.6 % (1.7-9.3); % Neutrophils 78.4 % (42.2-75.2); Absolute Eosinophils 0.1 10^3/uL (0-0.7); Absolute Immature Granulocytes 0.1 10^3/uL (0-0.05); Absolute Lymphocytes 0.6 10^3/uL (1.2-3.4); Absolute Monocytes 0.4 10^3/uL (0.1-0.6); Absolute Neutrophils 4.3 10^3/uL (1.4-6.5); Hematocrit 33.5 % (39.0-52.0); Hemoglobin 10.7 g/dL (13.0-18.0); Mean Corp Hgb Conc. 31.9 g/dL (33.0-37.0); Mean Corpuscular Hgb 31.9 pg (27.0-31.0); Nucleated Red Blood Cells % 0 % (-); Platelet Count 88 10^3/uL (130-400); Red Blood Cell Count 3.35 10^6/uL (4.70-6.10); Red Cell Dist. Width 15.8 % (11.5-14.5); White Blood Cell Count 5.4 10^3/uL (4.8-10.8)
--- NOTE | 2023-11-03 15:36 | CM ---
Therapy has recommended STR for patient. This CM provided [employer] list to patient. We discussed today and he does not want STR services. His is an RN and cares for him at home. He prefers to have outpatient PT which he has had in the
past. Will notify therapy and MD.
[2023-11-03 16:17] LABS: Glucose - Point of Care 127 mg/dl (70-99)
[2023-11-03 16:30] LABS: ALT (SGPT) 473 U/L (0-50); AST (SGOT) 107 U/L (17-59); Albumin 2.9 g/dl (3.5-5.0); Alkaline Phosphatase 329 U/L (38-126); Blood Urea Nitrogen 27 mg/dl (9-20); Calcium 8.5 mg/dl (8.4-10.2); Carbon Dioxide 22 mmol/L (22-30); Chloride 107 mmol/L (98-107); Estimated Creatinine Clearance 57 ml/min; Glucose 129 mg/dl (70-99); Potassium 4.2 mmol/L (3.5-5.1); Sodium 135 mmol/L (135-145); Total Bilirubin 1.6 mg/dl (0.2-1.3); Total Protein 5.5 g/dl (6.3-8.2); eGFR > 60.00
[2023-11-03] MEDS: FLORASTOR 250 MG PO (17:38)
[2023-11-03] MEDS: RISPERDAL 2 MG PO (20:45)
[2023-11-03] MEDS: ELAVIL 100 MG PO (20:48)
[2023-11-03] MEDS: PACERONE 200 MG PO (20:53)
[2023-11-03] MEDS: TOPROL XL 50 MG PO (20:54)
[2023-11-03] MEDS: PROSCAR 5 MG PO (20:54)
[2023-11-03 21:30] LABS: Glucose - Point of Care 118 mg/dl (70-99)
[2023-11-03] MEDS: LANTUS 0.100000000000000006 UNITS SC (23:01)
[2023-11-04 00:29] VITALS: BMI 30.5
[2023-11-04 03:15] VITALS: BP 153/76
[2023-11-04] MEDS: ZOSYN 50 IV ×4 (04:58→21:25)
[2023-11-04 06:00] VITALS: BMI 30.5
[2023-11-04 07:05] VITALS: BP 150/70
[2023-11-04 07:13] LABS: Glucose - Point of Care 109 mg/dl (70-99)
--- NOTE | 2023-11-04 07:31 | W.PN.HOSP.TC ---
Addendum entered and electronically signed by Luz Marina Suh MD 11/04/23 13:31:
pt seen and examined independently--agree with plan as set forth by Dr. Capellan
GENERAL: well developed, well nourished, male in no apparent distress
HEENT: NC/AT--much brighter and improved
HEART: regular rate and rhythm, +S1, +S2--MARGIE with click
LUNGS : clear to auscultation bilaterally
ABDOM: soft, nontender, nondistended, + bowel sounds
EXT: no cyanosis, clubbing, or edema
NEUROLOGIC: grossly intact
Septic shock with lactic acidosis--resolved---likely due to E. coli cholangitis, choledocholithiasis--stop maintenance IVF--off pressors-- apprec caption writer and GI--cont zosyn--blood culture 10/30 positive for E. coli, Kleb pneumonia, Enterococcus
and 10/31 positive for Klebsiella, 11/01 negative--apprec surgery, likely lap [place] Monday
hypocalcemia/anemia/thrombocytopenia--suspect lab error as blood drawn above IVF infusion--repeat normal
Acute transaminitis--improved--likely due to cholangitis and choledocholithiasis--s/p ERCP and EUS--apprec GI input--apprec surgery
Hyperbilirubinemia--improving--Diffuse common bile duct dilation--related to obstruction at ampulla and choledocholithiasis
CAD--restart meds
Paroxysmal afib/aneurysms/valve replacement--hold coumadin--do not reverse--IV heparin INR < 2.5--follow INR--hold metoprolol--IV lopressor with parameters if needed
GERD--hold famotidine--Started on IV Protonix 40
IDDM--Decreased to 5 units of Levemir given NPO status--Insulin sliding scale--Hold metformin--adjust as needed
Essential Hypertension--hold BP meds--supportive care to keep MBP > 65
SANKET--likely due to prerenal causes given hypotension--post renal possible given finasteride--improving--d/c santos
Hyperlipidemia--Hold rosuvastatin due to elevated LFTs
Schizophrenia--Continue risperidone
DVT prophylaxis--SCD
Code status -- FULL CODE
Original Note:
Today's Communication/Plan
-
Hold fluids for today
Monitor INR
Advance diet to low-fat
Continue IV Zosyn
Assessment / Plan
Assessment / Plan
IMPRESSION:
Septic shock secondary to infection
Choledocholithiasis s/p ERCP with sphincterectomy, placement of stent in the common bile duct
Lactic acidosis secondary to sepsis
Fever
Acute transaminitis
SANKET
Hyperbilirubinemia
CAD
Arrhythmia / aneurysms/valve replacement
GERD
Urinary retention/BPH
IDDM
Hypertension
Hyperlipidemia
Schizophrenia
77-year-old male presented with septic shock and hypotension, baseline mental status. Patient is alert and oriented however he is drowsy .
PLAN:
Septic shock secondary to infection likely acute cholangitis --- resolved
off pressors. Blood pressure has improved
Continue IV Zosyn , GI agree
Appreciate GI input2/2 BC positive for E. coli, Klebsiella pneumonia, Enterococcus . 1/2 BC positive for gram-negative bacilli
Repeat blood cultures negative prelim
Urine culture no growth
Choledocholithiasis s/p ERCP with sphincterectomy, placement of stent in the common bile duct
Follow-up outpatient with GI, scheduled on 12/[address] Barber
Will continue IV Zosyn until the blood cultures are negative
Timing of laparoscopic cholecystectomy to be determined.
Goal INR for surgery 1.6.
Would continue to monitor INR--on heparin
Appreciate general surgery input and cardiology input
Hypercalcemia/anemia/thrombocytopenia -suspect lab�suspect lab error�repeat labs normal
Lactic acidosis secondary to sepsis--resolved
Lactic acid level improved-1.6
Continue IV antibiotics, fluids
Fever - resolved
Acute transaminitis--improving
No history of personal alcohol use
Suspect 1. acute cholangitis 2. Choledocholithiasis which could be contributing to increased LFTs
AST, ALT improving
SANKET-- resolved
Suspect due to infection
Creatinine 1.2
Hyperbilirubinemia
Diffuse common bile duct dilation
Suspect infection or a mass
Consult GI
CAD
Resume metoprolol
Arrhythmia / aneurysms/valve replacement
Hold metoprolol, Coumadin
Continue heparin, waiting for the INR to reach 1.6 for surgery
Echo 11/01 mild concentric left ventricle hypertrophy, left ventricular ejection fraction 50%, mildly dilated right atrium, mild possible paravalvular AR, mild TR, PA pressure 30 mmHg.
GERD
hold famotidine
Started on IV Protonix 40
IDDM
Increase to 10 units of Levemir
Once the patient starts diet then we will increase Levemir to 10 units to be taken at night
Insulin sliding scale
Hold metformin
Hypertension
Hold TONG/ARB
Hyperlipidemia
Hold rosuvastatin due to elevated LFTs
Schizophrenia
Continue risperidone
-Advance diet to low-fat
-Hold fluids for today
DVT prophylaxis-SCD
IMAGING
Abdominal/pelvis CT
Diffuse common bile duct dilatation with questionable ampullary lesion. Recommend outpatient workup with dedicated MRI/MRCP abdomen without and with gadolinium contrast, versus ERCP.
Doppler study ultrasound of the abdomen
IMPRESSION: Duplex evaluation of the upper abdominal vasculature is within normal limits. Cholelithiasis as well as sludge. No evidence for gallbladder wall thickening or pericholecystic edema, and the patient has a negative sonographic Ibarra's
sign.
Common bile duct measures up to 8.8 mm, which is considered mildly dilated. Limited visualization of the common bile duct with no evidence for bile duct calculus.
Hepatomegaly with diffuse fatty ratio of the liver. No evidence for a focal hepatic mass lesion. The pancreas is unable to be adequately visualized. The upper abdominal aorta and the upper abdominal IVC are unable to be adequately visualized.
Anticipated Discharge: > 48 hours
Subjective/Interval History
-
Date of Service: November 04, 2023
Patient is complaining of increased urinary frequency almost every hour. He denies feeling of not emptying the bladder. He denies burning with urination or pain.
Objective Data
-
Labs:
Laboratory Results
11/04/23 11/04/23
05:14 07:23
WBC Pending
Hgb Pending
Hct Pending
Plt Count Pending
PT Pending
INR Pending
APTT Pending
Vital Signs:
Vital Signs
Temp Pulse Resp BP Pulse Ox
99.3 F 67 18 153/76 96
11/04/23 03:15 11/04/23 03:15 11/04/23 03:15 11/04/23 03:15 11/04/23 03:15
I&O
11/03/23 11/04/23 11/05/23
06:59 06:59 06:59
Intake Total 5215 / 5215 3513 / 3513
Output Total 3400 / 3400 900 / 900
Balance 1815 / 1815 2613 / 2613
Review of Systems
-
All other systems: Reviewed and negative (Except mentioned)
Genitourinary: Reports Frequency; Denies Urgency
Physical Exam
-
General: Comfortable and Conversant
HEENT: Normocephalic and Atraumatic
Respiratory: Clear to Auscultation
Cardiac: Regular Rhythm, S1/S2 and Murmur
GI: Soft, Nondistended and Tender (Very mild tenderness on palpation)
Musculoskeletal: No Edema
Neuro: AO x 3
Psych: Calm
Data Reviewed
-
Labs: Labs Reviewed by me and Discussed with Physician
[2023-11-04] MEDS: NSS IV (08:16)
[2023-11-04 08:18] LABS: Hematocrit 28.4 % (39.0-52.0); Hemoglobin 9.4 g/dL (13.0-18.0); Mean Corp Hgb Conc. 33.1 g/dL (33.0-37.0); Mean Corpuscular Hgb 32.8 pg (27.0-31.0); Mean Platelet Volume 11.2 fL (7.4-10.4); Platelet Count 86 10^3/uL (130-400); Red Blood Cell Count 2.87 10^6/uL (4.70-6.10); Red Cell Dist. Width 15.9 % (11.5-14.5); White Blood Cell Count 4.3 10^3/uL (4.8-10.8)
[2023-11-04] MEDS: MIRALAX 17 GRAMS PO (08:18)
[2023-11-04] MEDS: NOVOLOG FLEXPEN-LOW RESISTANCE SC ×3 (08:18→17:13)
[2023-11-04] MEDS: NSS (PRESERVATIVE FREE) 10 ML IV (08:18)
[2023-11-04] MEDS: PROTONIX IV 40 MG IV (08:18)
[2023-11-04 08:20] LABS: APTT 107.9 Sec (23.4-35.0)
[2023-11-04] MEDS: HEPARIN 25000 UNITS/250 ML IV (08:51)
[2023-11-04 09:19] LABS: INR 1.86; PT 21.3 Sec (11.4-14.6)
[2023-11-04] MEDS: FLUSH (NSS) 2 FLUSH IV ×2 (11:03→17:06)
[2023-11-04 11:05] VITALS: BP 143/66
[2023-11-04 11:38] LABS: Glucose - Point of Care 137 mg/dl (70-99)
[2023-11-04 12:24] LABS: Magnesium 1.7 mg/dl (1.6-2.3)
[2023-11-04 15:05] VITALS: BP 135/63
[2023-11-04] MEDS: FLORASTOR 250 MG PO (17:06)
[2023-11-04 17:12] LABS: Glucose - Point of Care 129 mg/dl (70-99)
[2023-11-04] MEDS: RISPERDAL 2 MG PO (20:11)
[2023-11-04 21:24] LABS: Glucose - Point of Care 173 mg/dl (70-99)
[2023-11-04] MEDS: ELAVIL 100 MG PO (21:25)
[2023-11-04] MEDS: PROSCAR 5 MG PO (21:25)
[2023-11-04] MEDS: LANTUS 0.100000000000000006 UNITS SC (21:26)
[2023-11-04] MEDS: PACERONE 200 MG PO (21:28)
[2023-11-04] MEDS: TOPROL XL 50 MG PO (21:28)
[2023-11-04 22:15] VITALS: PULSE 84
[2023-11-04 23:16] VITALS: BP 137/75
[2023-11-05] VITALS (7 sets, daily range): BP systolic 119–157; BP diastolic 57–80; PULSE 80; BMI 30.7
[2023-11-05] MEDS: ZOSYN 50 IV ×4 (03:49→22:22)
--- NOTE | 2023-11-05 07:12 | W.PN.HOSP.TC ---
Addendum entered and electronically signed by Luz Marina Suh MD 11/05/23 13:05:
pt seen and examined independently--agree with plan as set forth by Dr. Capellan
GENERAL: well developed, well nourished, male in no apparent distress
HEENT: NC/AT--much brighter and improved
HEART: regular rate and rhythm, +S1, +S2--MARGIE with click
LUNGS : clear to auscultation bilaterally
ABDOM: soft, nontender, nondistended, + bowel sounds
EXT: no cyanosis, clubbing, or edema
NEUROLOGIC: grossly intact
Septic shock with lactic acidosis--resolved---likely due to E. coli cholangitis, choledocholithiasis--stop maintenance IVF--off pressors-- apprec linux devops engineer and GI--cont zosyn--blood culture 10/30 positive for E. coli, Kleb pneumonia, Enterococcus
and 10/31 positive for Klebsiella-- repeat negative--apprec surgery, likely lap [place] Monday, heparin to stop by surgery
hypocalcemia/anemia/thrombocytopenia--suspect lab error as blood drawn above IVF infusion--repeat normal
Acute transaminitis--improved--likely due to cholangitis and choledocholithiasis--s/p ERCP and EUS--apprec GI input--apprec surgery
Hyperbilirubinemia--improving--Diffuse common bile duct dilation--related to obstruction at ampulla and choledocholithiasis
CAD--restart meds
Paroxysmal afib/aneurysms/valve replacement--hold coumadin--do not reverse--IV heparin INR 1.38--follow INR--hold metoprolol--IV lopressor with parameters if needed
GERD--hold famotidine--Started on IV Protonix 40
IDDM--cont lantus 10 units SC--5 units if NPO--Insulin sliding scale--Hold metformin--adjust as needed
Essential Hypertension--hold BP meds--supportive care to keep MBP > 65
SANKET--likely due to prerenal causes given hypotension--post renal possible given finasteride--improving--d/c santos
Hyperlipidemia--Hold rosuvastatin due to elevated LFTs
Schizophrenia--Continue risperidone
DVT prophylaxis--SCD
Code status -- FULL CODE
Original Note:
Today's Communication/Plan
-
lap [place] possibly on Monday
INR today 1.38
off fluids
would stop heparin 4 hours prior to procedure
Assessment / Plan
Assessment / Plan
IMPRESSION:
Septic shock secondary to infection
Choledocholithiasis s/p ERCP with sphincterectomy, placement of stent in the common bile duct
Lactic acidosis secondary to sepsis
Fever
Acute transaminitis
SANKET
Hyperbilirubinemia
CAD
Arrhythmia / aneurysms/valve replacement
GERD
Urinary retention/BPH
IDDM
Hypertension
Hyperlipidemia
Schizophrenia
77-year-old male presented with septic shock and hypotension, baseline mental status. Patient is alert and oriented however he is drowsy .
PLAN:
Septic shock secondary to infection likely acute cholangitis --- resolved
off pressors. Blood pressure has improved
Continue IV Zosyn , GI agree
Appreciate GI input2/2 BC positive for E. coli, Klebsiella pneumonia, Enterococcus . 1/2 BC positive for gram-negative bacilli
Repeat blood cultures negative prelim
Urine culture no growth
Choledocholithiasis s/p ERCP with sphincterectomy, placement of stent in the common bile duct
Follow-up outpatient with GI, scheduled on 12/[address] Barber
Will continue IV Zosyn until the blood cultures are negative
Plan of surgery possibly on Monday , INR 1.38 today
Goal INR for surgery 1.6.
Would continue to monitor INR--on heparin
Appreciate general surgery input and cardiology input
Would stop heparin 4 hours prior to the procedure
Hypercalcemia/anemia/thrombocytopenia -suspect lab error�repeat labs normal
Lactic acidosis secondary to sepsis--resolved
Fever - resolved
Acute transaminitis--improving
No history of personal alcohol use
Suspect 1. acute cholangitis 2. Choledocholithiasis which could be contributing to increased LFTs
AST, ALT improving
SANKET-- resolved
Suspect due to infection
Creatinine 1.2
Hyperbilirubinemia
Diffuse common bile duct dilation
Suspect infection or a mass
Consult GI
CAD
Resume metoprolol
Arrhythmia / aneurysms/valve replacement
Hold metoprolol, Coumadin
Continue heparin, waiting for the INR to reach 1.6 for surgery
Echo 11/01 mild concentric left ventricle hypertrophy, left ventricular ejection fraction 50%, mildly dilated right atrium, mild possible paravalvular AR, mild TR, PA pressure 30 mmHg.
GERD
hold famotidine
Started on IV Protonix 40
IDDM
Increase to 10 units of Levemir
Once the patient starts diet then we will increase Levemir to 10 units to be taken at night
Insulin sliding scale
Hold metformin
Hypertension
Hold TONG/ARB
Hyperlipidemia
Hold rosuvastatin due to elevated LFTs
Schizophrenia
Continue risperidone
Polyuria -- improved
BG 132
Possibly due to fluids
-Advance diet to low-fat
-Hold fluids for today---- improved urine frequency.
DVT prophylaxis-SCD
IMAGING
Abdominal/pelvis CT
Diffuse common bile duct dilatation with questionable ampullary lesion. Recommend outpatient workup with dedicated MRI/MRCP abdomen without and with gadolinium contrast, versus ERCP.
Doppler study ultrasound of the abdomen
IMPRESSION: Duplex evaluation of the upper abdominal vasculature is within normal limits. Cholelithiasis as well as sludge. No evidence for gallbladder wall thickening or pericholecystic edema, and the patient has a negative sonographic Ibarra's
sign.
Common bile duct measures up to 8.8 mm, which is considered mildly dilated. Limited visualization of the common bile duct with no evidence for bile duct calculus.
Hepatomegaly with diffuse fatty ratio of the liver. No evidence for a focal hepatic mass lesion. The pancreas is unable to be adequately visualized. The upper abdominal aorta and the upper abdominal IVC are unable to be adequately visualized.
Anticipated Discharge: > 48 hours
Subjective/Interval History
-
Date of Service: November 05, 2023
Patient's urine frequency improved
Objective Data
-
Labs:
Laboratory Results
11/05/23 11/05/23
06:46 06:47
PT Pending
INR Pending
APTT Pending
Sodium Pending
Potassium Pending
Chloride Pending
Carbon Dioxide Pending
BUN Pending
Creatinine Pending
Glucose Pending
Calcium Pending
Total Bilirubin Pending
AST Pending
ALT Pending
Alkaline Phosphatase Pending
Vital Signs:
Vital Signs
Temp Pulse Resp BP Pulse Ox
98.1 F 61 16 141/74 96
11/05/23 03:28 11/05/23 03:28 11/05/23 03:28 11/05/23 03:28 11/05/23 03:28
I&O
11/04/23 11/05/23 11/06/23
06:59 06:59 06:59
Intake Total 3513 / 3513 1870 / 1870
Output Total 900 / 900 1275 / 1275
Balance 2613 / 2613 595 / 595
Review of Systems
-
All other systems: Reviewed and negative
Physical Exam
-
General: Comfortable
HEENT: Normocephalic and Atraumatic
Respiratory: Clear to Auscultation
Cardiac: Regular Rhythm, S1/S2 and Murmur
GI: Soft, Nontender and Nondistended
Musculoskeletal: No Edema
Neuro: AO x 3
Psych: Calm
Data Reviewed
-
Labs: Labs Reviewed by me and Discussed with Physician
[2023-11-05 07:19] LABS: INR 1.38; PT 16.8 Sec (11.4-14.6)
[2023-11-05 07:21] LABS: APTT 71.2 Sec (23.4-35.0)
[2023-11-05 07:30] LABS: ALT (SGPT) 282 U/L (0-50); AST (SGOT) 59 U/L (17-59); Albumin 2.7 g/dl (3.5-5.0); Alkaline Phosphatase 249 U/L (38-126); Blood Urea Nitrogen 26 mg/dl (9-20); Calcium 8.3 mg/dl (8.4-10.2); Carbon Dioxide 26 mmol/L (22-30); Chloride 107 mmol/L (98-107); Estimated Creatinine Clearance 52 ml/min; Glucose 132 mg/dl (70-99); Potassium 4.4 mmol/L (3.5-5.1); Sodium 134 mmol/L (135-145); Total Bilirubin 1.2 mg/dl (0.2-1.3); Total Protein 5.4 g/dl (6.3-8.2); eGFR 55.88
[2023-11-05] MEDS: HEPARIN 25000 UNITS/250 ML IV (07:43)
[2023-11-05 08:22] LABS: Glucose - Point of Care 131 mg/dl (70-99)
[2023-11-05] MEDS: NSS (PRESERVATIVE FREE) 10 ML IV (08:23)
[2023-11-05] MEDS: PROTONIX IV 40 MG IV (08:23)
[2023-11-05] MEDS: MIRALAX 17 GRAMS PO (08:23)
[2023-11-05] MEDS: FLUSH (NSS) 2 FLUSH IV ×2 (08:24→10:25)
[2023-11-05] MEDS: NOVOLOG FLEXPEN-LOW RESISTANCE SC ×2 (08:31→16:52)
[2023-11-05 10:59] LABS: Glucose - Point of Care 228 mg/dl (70-99)
[2023-11-05] MEDS: NOVOLOG FLEXPEN-LOW RESISTANCE 2 UNITS SC (11:02)
[2023-11-05 11:17] LABS: Glycohemoglobin (HgbA1c) 7.4 % (4.0-5.6)
--- NOTE | 2023-11-05 13:40 | W.PN.GS2 ---
Today's Communication / Plan
-
NPO after MN for tentative OR tomorrow
Assessment / Plan
-
77-year-old male with multiple medical comorbidities/significant past surgical history including diabetes mellitus, marfanoid, mechanical aortic valve and mitral valve replacement on chronic Coumadin, open AAA repair 2019, PAF, CAD, previous history
of bladder cancer who was admitted with weakness and worsening abdominal pain with noted bacteremia, ascending cholangitis and choledocholithiasis. Ultrasound confirms stones and sludge. CT with distended gallbladder and pericholecystic
inflammatory changes. Clinically improving since ERCP.
PPD #4 ERCP sphincterotomy
INR has drifted down to 1.38, No leukocytosis. Bilirubin normalized.
AFVSS
Laparoscopic cholecystectomy this admission. Appreciate cardiology for evaluating patient preop. He has increased but not prohibitive cardiovascular risk factors
--Medical management as per primary team
--Continued on Zosyn
--NPO after MN for tentative OR in the afternoon
--Hold heparin gtt 6 hours preop
Subjective Data
-
Date of Service: November 05, 2023
Patient seen and examined at bedside. Denies n/v. Poor appetite. Denies pain.
Objective Data
-
Intake and Output
11/04/23 11/05/23 11/06/23
06:59 06:59 06:59
Intake Total 3513 / 3513 1870 / 1870
Output Total 900 / 900 1275 / 1275
Balance 2613 / 2613 595 / 595
Intake:
Oral fluids 1950 / 1950 1470 / 1470
IV fluids (Total) 1563 / 1563 100 / 100
IV piggybacks 300 / 300
Output:
Urine, Voided 900 / 900 1275 / 1275
Other:
How many times incontinent 1
SMALL amount urine
How many times incontinent 1
MODERATE amount urine
How many times incontinent 1
SATURATED amount urine
Vital Signs
Temp Pulse Resp BP Pulse Ox
98 F 61 16 119/57 97
11/05/23 11:05 11/05/23 11:05 11/05/23 11:05 11/05/23 11:05 11/05/23 11:05
Lab Results
11/05/23 08:42
11/05/23 06:47
Calcium 8.3 mg/dl (8.4-10.2) L 11/05/23 06:47
Phosphorus 4.2 mg/dl (2.5-4.5) 10/31/23 08:36
Magnesium 1.7 mg/dl (1.6-2.3) 11/04/23 05:14
Total Bilirubin 1.2 mg/dl (0.2-1.3) 11/05/23 06:47
AST 59 U/L (17-59) 11/05/23 06:47
ALT 282 U/L (0-50) H 11/05/23 06:47
Alkaline Phosphatase 249 U/L (38-126) H 11/05/23 06:47
Total Protein 5.4 g/dl (6.3-8.2) L 11/05/23 06:47
Albumin 2.7 g/dl (3.5-5.0) L 11/05/23 06:47
Physical Exam
-
NAD
ABD soft, mild epigastric tenderness, ND
--- NOTE | 2023-11-05 15:57 | PTCARENOTE ---
Report given to [facility] RUBINA Berg. Pt transferred in his bed to room 2106 with all his belongings and cpap machine.
[2023-11-05 16:48] LABS: Glucose - Point of Care 127 mg/dl (70-99)
[2023-11-05] MEDS: FLORASTOR 250 MG PO (17:00)
--- NOTE | 2023-11-05 19:18 | W.PN.CARDCBS ---
Today's Communication / Plan
-
On heparin, INR 1.3 today
Tentative OR tomorrow with general surgery
Monitor on telemetry, will follow
Impression / Plan
-
PCP: Dr. Hendricks
Shot Examiner: Dr. SHANNON Mcintyre
Impression:
Septic shock, resolved
Acute cholangitis
choledocholithiasis s/p ERCP w/ sphincterectomy and placement of stent in common bile duct
h/o sustained monomorphic ventricular tachycardia
Chronic amiodarone therapy
Medtronic DC ICD 07/2021
Nonobstructive CAD by cath 07/2021
Coronary aneurysms are unchanged angiographically from cath in 2009
Paroxysmal atrial fibrillation/atrial flutter
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
Chronic Coumadin anticoagulation (goal INR 2.5-3.5)
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
PAD with h/o iliac stent 2005
Type 2 diabetes
COPD
orthostatic hypotension
PVCs
HTN
HLD
INOECNCIO on CPAP
depression
schizophrenia
h/o bladder cancer s/p TURBT and cystolitholapaxy 2009
spinal stenosis
h/o large bowel resection 2000 in setting of diverticulitis per pt
Charcot joint
anemia
h/o epistaxis
Echo 11/02/2023: EF 50% mild cLVH, thickened mechanical MVR w/ peak/mean gradients 12/7 mmHg, mechanical AVR w/ peak/mean gradients 18/10 mmHg, mild possible paravalvular AI, mild TR, estimated PAP 30 mmHg
Plan:
-Presented with septic shock in the setting of acute choledocholithiasis. s/p ERCP w/ stent placement in common bile duct.
-General surgery following and plan is for eventual cholecystectomy. Timing TBD, tentatively 11/06/2023
-Cardiology asked for preop evaluation. He has been feeling well from a cardiac standpoint and denies any chest pain or SOB. He has increased cardiovascular risk factors however he is stable and may proceed with surgery as planned
-Echo 11/01 with EF 50%. Stable mechanical mitral and aortic valves.
-He had recent cardiac catheterization 07/2021 which revealed coronary aneurysms with no obstructive coronary disease.
-EKG reviewed. SR with 1st degree AV block.
-INR trending down to 2.44 11/02 -> 1.38 11/04
-Continue heparin drip. Hgb down to 8.9, follow for now.
-BP and HR stable.
-He has known h/o VT status post Medtronic ICD in 2021: Device interrogation last on October 26, 2023 in the office. Normal function and good battery life. No atrial fibrillation. He does have slow VT and VT detection settings were decreased to 140
bpm. From March to October he had 8 episodes of slow VT which were asymptomatic and terminated by [employer]. He has never had any shocks. His most recent episode of VT was October 03, 2023. Continue to follow on telemetry perioperatively.
HPI: Sharif is a 77 year old male with PMH of nonobstructive CAD, ICD, paroxysmal atrial fibrillation, atrial flutter, NSVT, mechanical MVR/AVR, PAD, Type 2 DM, HTN, HLD, COPD, INOCENCIO, and bladder cancer who presented to [facility] for evaluation after a
fall. He was in septic shock on arrival and was noted to have acute transaminitis and was diagnosed with acute cholangitis. He was found to have choledocholithiasis and underwent ERCP with placement of stent in the common bile duct. He was then seen
by general surgery and plan is for eventual cholecystectomy. Timing is TBD. Cardiology consulted for preop evaluation. Patient reports he has been feeling well from a cardiac standpoint and denies any chest pain, palpitations, or SOB currently. He
has history of mechanical MVR/AVR and his coumadin has been on hold, bridging with heparin. INR pending this AM. Echo was completed 11/01 and showed EF stable at 50% with stable valves. At this time he notes his only complaint is mild abdominal pain
when he presses on his stomach. He has had no fevers. BP and HR are stable.
Progress Note - Shot Examiner
Subjective
Date of Service: November 05, 2023
Patient seen and examined. No acute events overnight. Patient resting comfortably in bed. Patient denies chest pain, shortness of breath, palpitations, or weakness. Notes mild abdominal discomfort with palpation.
Objective
Labs:
11/05/23 08:42
11/05/23 06:47
Labs
Hgb 9.4 g/dL (13.0-18.0) L 11/04/23 05:14
Hct 33.0 % (39.0-52.0) L 11/05/23 08:42
Plt Count 86 10^3/uL (130-400) L 11/04/23 05:14
PT 16.8 Sec (11.4-14.6) H 11/05/23 06:46
INR 1.38 11/05/23 06:46
APTT 55.0 Sec (23.4-35.0) H 11/05/23 14:52
Sodium 134 mmol/L (135-145) L 11/05/23 06:47
Potassium 4.4 mmol/L (3.5-5.1) 11/05/23 06:47
BUN 26 mg/dl (9-20) H 11/05/23 06:47
Creatinine 1.3 mg/dL (0.7-1.3) 11/05/23 06:47
Glucose 132 mg/dl (70-99) H 11/05/23 06:47
Vital Signs and I&O:
Vital Signs
Temp Pulse Resp BP Pulse Ox
97.9 F 64 18 144/70 97
11/05/23 15:47 11/05/23 15:47 11/05/23 15:47 11/05/23 15:47 11/05/23 15:47
Vital Signs
Temp Pulse Resp BP Pulse Ox
97.9 F 64 18 144/70 97
11/05/23 15:47 11/05/23 15:47 11/05/23 15:47 11/05/23 15:47 11/05/23 15:47
Intake & Output
11/03/23 11/04/23 11/05/23 11/06/23
06:59 06:59 06:59 06:59
Intake Total 5215 / 5215 3513 / 3513 1870 / 1870 300 / 300
Output Total 3400 / 3400 900 / 900 1275 / 1275 550 / 550
Balance 1815 / 1815 2613 / 2613 595 / 595 -250 / -250
Physical Exam
Physical Exam
General: No acute distress, AAOX3
Heart: Regular, Negative S3 positive S1/S2, + click of ACVR/MVR,/6 SM. +device
Lungs: CTA b/l, negative wheezes/rales/rhonchi
Abd: Positive BS, NT/ND, neg rebound/rigidity/guarding
Ext: No edema
Neuro: nonfocal
[2023-11-05 21:53] LABS: Glucose - Point of Care 124 mg/dl (70-99)
[2023-11-05] MEDS: RISPERDAL 2 MG PO (22:18)
[2023-11-05] MEDS: PROSCAR 5 MG PO (22:18)
[2023-11-05] MEDS: TOPROL XL 50 MG PO (22:20)
[2023-11-05] MEDS: ELAVIL 100 MG PO (22:20)
[2023-11-05] MEDS: LANTUS 0.100000000000000006 UNITS SC (22:21)
[2023-11-05] MEDS: PACERONE 200 MG PO (22:21)
[2023-11-05 22:25] LABS: APTT 57.7 Sec (23.4-35.0)
[2023-11-06] VITALS (16 sets, daily range): BP systolic 115–149; BP diastolic 49–73; PULSE 62
[2023-11-06] MEDS: ZOSYN 50 IV ×4 (04:03→22:23)
[2023-11-06] MEDS: HEPARIN 25000 UNITS/250 ML IV ×2 (04:37→22:24)
[2023-11-06 05:44] LABS: Hematocrit 32.2 % (39.0-52.0); Hemoglobin 10.8 g/dL (13.0-18.0); Mean Corp Hgb Conc. 33.5 g/dL (33.0-37.0); Mean Corpuscular Hgb 33.3 pg (27.0-31.0); Mean Corpuscular Volume 99.4 fL (80.0-94.0); Mean Platelet Volume 11.3 fL (7.4-10.4); Platelet Count 140 10^3/uL (130-400); Red Blood Cell Count 3.24 10^6/uL (4.70-6.10); White Blood Cell Count 7.2 10^3/uL (4.8-10.8)
[2023-11-06 05:59] LABS: INR 1.23; PT 15.3 Sec (11.4-14.6)
[2023-11-06 06:00] LABS: APTT 58.5 Sec (23.4-35.0); INR 1.23; PT 15.3 Sec (11.4-14.6)
[2023-11-06 06:01] LABS: APTT 60.2 Sec (23.4-35.0)
[2023-11-06 06:15] LABS: ALT (SGPT) 193 U/L (0-50); AST (SGOT) 51 U/L (17-59); Albumin 2.8 g/dl (3.5-5.0); Alkaline Phosphatase 225 U/L (38-126); Blood Urea Nitrogen 23 mg/dl (9-20); Calcium 8.6 mg/dl (8.4-10.2); Carbon Dioxide 23 mmol/L (22-30); Chloride 107 mmol/L (98-107); Estimated Creatinine Clearance 49 ml/min; Glucose 119 mg/dl (70-99); Potassium 4.4 mmol/L (3.5-5.1); Sodium 137 mmol/L (135-145); Total Bilirubin 1.4 mg/dl (0.2-1.3); Total Protein 5.6 g/dl (6.3-8.2); eGFR 51.13
[2023-11-06 08:31] LABS: Glucose - Point of Care 131 mg/dl (70-99)
[2023-11-06] MEDS: NOVOLOG FLEXPEN-LOW RESISTANCE SC ×3 (08:31→17:21)
[2023-11-06] MEDS: PROTONIX IV 40 MG IV (08:33)
[2023-11-06] MEDS: NSS (PRESERVATIVE FREE) 10 ML IV (08:33)
[2023-11-06] MEDS: FLUSH (NSS) 2 FLUSH IV (08:34)
[2023-11-06] MEDS: MIRALAX 17 GRAMS PO (08:34)
--- NOTE | 2023-11-06 09:04 | W.PN.CARDCBS ---
Today's Communication / Plan
-
Pt remains compensated from cardiac standpoint for cholecystectomy 11/06/2023
Cardiac risk remains but he is compensated to proceed.
Recent cardiac catheterization 07/2021 revealed coronary aneurysms with no obstructive coronary disease.
Recent echo reviewed and EF is stable from november 01 with well functioning mech MVR and AVR [facility]
Remains SR
Resume IV heparin post op when ok with surgery and then eventually resume coumadin.
Impression / Plan
-
.
PCP: Dr. Hendricks
Logistics Assistant: Dr. SHANNON Mcintyre
Impression:
s/p Septic shock, resolved
Acute cholangitis
choledocholithiasis s/p ERCP w/ sphincterectomy and placement of stent in common bile duct
Hx sustained monomorphic ventricular tachycardia
Chronic amiodarone therapy
Medtronic DC ICD 07/2021
Nonobstructive CAD by cath 07/2021
Coronary aneurysms are unchanged angiographically from cath in 2009
Paroxysmal atrial fibrillation/atrial flutter
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
Chronic Coumadin anticoagulation (goal INR 2.5-3.5)
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
PAD with h/o iliac stent 2005
Type 2 diabetes
COPD
orthostatic hypotension
PVCs
HTN
HLD
INOCENCIO on CPAP
depression
schizophrenia
h/o bladder cancer s/p TURBT and cystolitholapaxy 2009
spinal stenosis
h/o large bowel resection 2000 in setting of diverticulitis per pt
Charcot joint
anemia
h/o epistaxis
Echo 11/02/2023: EF 50% mild cLVH, thickened mechanical MVR w/ peak/mean gradients 12/7 mmHg, mechanical AVR w/ peak/mean gradients 18/10 mmHg, mild possible paravalvular AI, mild TR, estimated PAP 30 mmHg
Plan:
-Presented with septic shock in the setting of acute choledocholithiasis. s/p ERCP w/ stent placement in common bile duct.
Pt remains compensated from cardiac standpoint for cholecystectomy 11/06/2023
Cardiac risk remains but he is compensated to proceed.
Recent cardiac catheterization 07/2021 revealed coronary aneurysms with no obstructive coronary disease.
Recent echo reviewed and EF is stable from november 01 with well functioning [facility] MVR and AVR [facility]
Remains SR
Resume IV heparin post op when ok with surgery and then eventually resume coumadin.
Monitor H/H
HR and bp remains stable
Pt has known h/o VT status post Medtronic ICD in 2021: Device interrogation last on October 26, 2023 in the office. Normal function and good battery life. No atrial fibrillation. He does have slow VT and VT detection settings were decreased to 140
bpm. From March to October he had 8 episodes of slow VT which were asymptomatic and terminated by ATP. He has never had any shocks. His most recent episode of VT was October 03, 2023. Continue to follow on telemetry perioperatively.
HPI: Sharif is a 77 year old male with PMH of nonobstructive CAD, ICD, paroxysmal atrial fibrillation, atrial flutter, NSVT, mechanical MVR/AVR, PAD, Type 2 DM, HTN, HLD, COPD, INOCENCIO, and bladder cancer who presented to [facility] for evaluation after a
fall. He was in septic shock on arrival and was noted to have acute transaminitis and was diagnosed with acute cholangitis. He was found to have choledocholithiasis and underwent ERCP with placement of stent in the common bile duct. He was then seen
by general surgery and plan is for eventual cholecystectomy. Timing is TBD. Cardiology consulted for preop evaluation. Patient reports he has been feeling well from a cardiac standpoint and denies any chest pain, palpitations, or SOB currently. He
has history of mechanical MVR/AVR and his coumadin has been on hold, bridging with heparin. INR pending this AM. Echo was completed 11/01 and showed EF stable at 50% with stable valves. At this time he notes his only complaint is mild abdominal pain
when he presses on his stomach. He has had no fevers. BP and HR are stable.
Progress Note - Logistics Assistant
Subjective
Date of Service: November 06, 2023
Pt seen and examined. No cp or dyspnea.
Objective
Labs:
11/06/23 04:57
11/06/23 04:57
Labs
Hgb 10.8 g/dL (13.0-18.0) L 11/06/23 04:57
Hct 32.2 % (39.0-52.0) L 11/06/23 04:57
Plt Count 140 10^3/uL (130-400) D 11/06/23 04:57
PT 15.3 Sec (11.4-14.6) H 11/06/23 04:57
PT 15.3 Sec (11.4-14.6) H 11/06/23 04:57
INR 1.23 11/06/23 04:57
INR 1.23 11/06/23 04:57
APTT 58.5 Sec (23.4-35.0) H 11/06/23 04:57
APTT 60.2 Sec (23.4-35.0) H 11/06/23 04:57
Sodium 137 mmol/L (135-145) 11/06/23 04:57
Potassium 4.4 mmol/L (3.5-5.1) 11/06/23 04:57
BUN 23 mg/dl (9-20) H 11/06/23 04:57
Creatinine 1.4 mg/dL (0.7-1.3) H 11/06/23 04:57
Glucose 119 mg/dl (70-99) H 11/06/23 04:57
Vital Signs and I&O:
Vital Signs
Temp Pulse Resp BP Pulse Ox
98.5 F 62 17 149/70 95
11/06/23 07:20 11/06/23 07:20 11/06/23 07:20 11/06/23 07:20 11/06/23 07:20
Vital Signs
Temp Pulse Resp BP Pulse Ox
98.5 F 62 17 149/70 95
11/06/23 07:20 11/06/23 07:20 11/06/23 07:20 11/06/23 07:20 11/06/23 07:20
Intake & Output
11/04/23 11/05/23 11/06/23 11/07/23
06:59 06:59 06:59 06:59
Intake Total 3513 / 3513 1870 / 1870 810 / 810
Output Total 900 / 900 1275 / 1275 2030 / 2030
Balance 2613 / 2613 595 / 595 -1220 / -1220
Physical Exam
Physical Exam
General: No acute distress, AAOX3
Neck: Negative JVD
Heart: Regular, Negative S3 positive metallic click S1/S2, Negative S4, No murmur
Lungs: CTA b/l, negative wheezes/rales/rhonchi
Abd: Positive BS, NT/ND, neg rebound/rigidity/guarding
Ext: Negative cyanosis/clubbing/edema
Neuro: nonfocal
--- NOTE | 2023-11-06 09:31 | W.PN.GS2 ---
Addendum entered and electronically signed by Alessio Emanuel MD 11/06/23 14:44:
I saw and examined the patient independently.
The Commercial Specialist's note was reviewed and I agree with the note, assessment and plan except where noted below.
Comment: This is a 77-year-old male with multiple medical comorbidities including mechanical mitral and aortic valves on Coumadin, open AAA repair in 2019, previous bowel resection, bladder cancer, presents with abdominal pain and bacteremia found
to have ascending cholangitis with choledocholithiasis status post ERCP (PPD #5). INR has normalized.
Will plan for laparoscopic cholecystectomy today.
Heparin drip turned off at 6 AM will plan for surgery around noon
Risks/Benefits/Alternatives, expected postoperative course and possible complications (bleeding, infection, injury to surrounding structures, acute/chronic pain) discussed at length. Patient wishes to proceed with surgery. All questions answered.
Consent obtained.
I spent roughly 60 minutes in total for the care of this patient today including direct patient care and counseling, reviewing labs, imaging, coordination of care, as well as documentation.
Original Note:
Today's Communication / Plan
-
OR today
Assessment / Plan
-
77-year-old male with multiple medical comorbidities/significant past surgical history including diabetes mellitus, marfanoid, mechanical aortic valve and mitral valve replacement on chronic Coumadin, open AAA repair 2019, PAF, CAD, previous history
of bladder cancer who was admitted with weakness and worsening abdominal pain with noted bacteremia, ascending cholangitis and choledocholithiasis. Ultrasound confirms stones and sludge. CT with distended gallbladder and pericholecystic
inflammatory changes. Clinically improving since ERCP.
PPD #5 ERCP sphincterotomy
INR has drifted down to 1.23, No leukocytosis. LFT's.
AFVSS
OR today Laparoscopic cholecystectomy,
Appreciate cardiology for evaluating patient preop. He has increased but not prohibitive cardiovascular risk factors
--Medical management as per primary team
--Continued on Zosyn
--NPO for tentative OR in the afternoon
--Hold heparin gtt preop
Subjective Data
-
Date of Service: November 06, 2023
Patient seen and examined at bedside with Dr. Philip. Man pain. No n/v.
Objective Data
-
Intake and Output
11/05/23 11/06/23 11/07/23
06:59 06:59 06:59
Intake Total 1870 / 1870 810 / 810
Output Total 1275 / 1275 2029
Balance 595 / 595 -1220 / -1220
Intake:
Oral fluids 1470 / 1470 540 / 540
IV fluids (Total) 100 / 100 170 / 170
IV piggybacks 300 / 300 100 / 100
Output:
Urine, Voided 1275 / 1275 2029
Other:
How many times incontinent 1
SMALL amount urine
Vital Signs
Temp Pulse Resp BP Pulse Ox
98.5 F 62 17 149/70 95
11/06/23 07:20 11/06/23 07:20 11/06/23 07:20 11/06/23 07:20 11/06/23 07:20
Lab Results
11/06/23 04:57
11/06/23 04:57
Calcium 8.6 mg/dl (8.4-10.2) 11/06/23 04:57
Phosphorus 4.2 mg/dl (2.5-4.5) 10/31/23 08:36
Magnesium 1.7 mg/dl (1.6-2.3) 11/04/23 05:14
Total Bilirubin 1.4 mg/dl (0.2-1.3) H 11/06/23 04:57
AST 51 U/L (17-59) 11/06/23 04:57
ALT 193 U/L (0-50) H 11/06/23 04:57
Alkaline Phosphatase 225 U/L (38-126) H 11/06/23 04:57
Total Protein 5.6 g/dl (6.3-8.2) L 11/06/23 04:57
Albumin 2.8 g/dl (3.5-5.0) L 11/06/23 04:57
Physical Exam
-
NAD
ABD soft, mild epigastric tenderness, ND
--- NOTE | 2023-11-06 09:44 | W.PN.HOSP.TC ---
Today's Communication/Plan
-
surgery today
Assessment / Plan
Assessment / Plan
pt is a 77 year old male
Septic shock with lactic acidosis--resolved---likely due to E. coli cholangitis, choledocholithiasis--stop maintenance IVF--off pressors-- apprec GI/surgery--cont zosyn--blood culture 10/30 positive for E. coli, Kleb pneumonia, Enterococcus and 10/31
positive for Klebsiella-- repeat negative--lap [place] Monday, heparin stopped
Acute transaminitis--improved--likely due to cholangitis and choledocholithiasis--s/p ERCP and EUS--apprec GI input--apprec surgery
Hyperbilirubinemia--improving--Diffuse common bile duct dilation--related to obstruction at ampulla and choledocholithiasis
CAD--restart meds
Paroxysmal afib/aneurysms/valve replacement--holding coumadin--do not reverse--IV heparin INR 1.38--follow INR--hold metoprolol--IV lopressor with parameters if needed--restart IV heparin when cleared by surgery, will then eventually need coumadin
restarted
GERD--hold famotidine--Started on IV Protonix 40
IDDM--cont lantus 10 units SC--5 units if NPO--Insulin sliding scale--Hold metformin--adjust as needed
Essential Hypertension--hold BP meds--supportive care to keep MBP > 65
SANKET--likely due to prerenal causes given hypotension--post renal possible given finasteride--improving--d/c santos
Hyperlipidemia--Hold rosuvastatin due to elevated LFTs
Schizophrenia--Continue risperidone
hypocalcemia/anemia/thrombocytopenia-- lab error as blood drawn above IVF infusion--repeat normal
DVT prophylaxis--SCD
Code status -- FULL CODE
Anticipated Discharge: > 48 hours
Subjective/Interval History
-
Date of Service: November 06, 2023
pt waiting for surgery
Objective Data
-
Labs:
Laboratory Results
11/05/23 11/06/23 11/06/23
22:08 04:57 04:57
WBC 7.2
Hgb 10.8 L
Hct 32.2 L
Plt Count 140 D
PT 15.3 H 15.3 H
INR 1.23
APTT 57.7 H
Sodium
Potassium
Chloride
Carbon Dioxide
BUN
Creatinine
Glucose
Calcium
Total Bilirubin
AST
ALT
Alkaline Phosphatase
11/06/23 11/06/23
04:57 04:57
WBC
Hgb
Hct
Plt Count
PT
INR 1.23
APTT 58.5 H 60.2 H
Sodium 137
Potassium 4.4
Chloride 107
Carbon Dioxide 23
BUN 23 H
Creatinine 1.4 H
Glucose 119 H
Calcium 8.6
Total Bilirubin 1.4 H
AST 51
ALT 193 H
Alkaline Phosphatase 225 H
Vital Signs:
max temp for 24 hours
11/05/23
19:10
Temp 98.9 F
Vital Signs
Temp Pulse Resp BP Pulse Ox
98.5 F 62 17 149/70 95
11/06/23 07:20 11/06/23 07:20 11/06/23 07:20 11/06/23 07:20 11/06/23 07:20
I&O
11/05/23 11/06/23 11/07/23
06:59 06:59 06:59
Intake Total 1870 / 1870 810 / 810
Output Total 1275 / 1275 2029 / 2029 550 / 550
Balance 595 / 595 -1220 / -1220 -550 / -550
Review of Systems
-
All other systems: Reviewed and negative
Abdomen/GI: Reports Abdominal Pain
Physical Exam
-
General: Well Developed, Well Nourished and No Apparent Distress
HEENT: Normocephalic and Atraumatic
Respiratory: Clear to Auscultation; Negative Wheezes or Rhonchi
Cardiac: Regular Rhythm, S1/S2 and Murmur (click)
GI: Soft, Nondistended, Normal Bowel Sounds and Tender (minimal RUQ)
Musculoskeletal: No Clubbing, No Cyanosis and No Edema
Neuro: Awake and Alert
[2023-11-06] MEDS: FLUSH (NSS) 1 FLUSH IV (09:52)
--- NOTE | 2023-11-06 11:17 | CM ---
CM following re: discharge planning.
Reviewed pt's chart, met with pt.
Pt is PPD #5 ERCP sphincterotomy. Per General surgery, OR today Laparoscopic cholecystectomy.
Pt is aware that PT and OT have been recommending SNF level of care and pt stated that he and his agree with returning back home with [facility]. Pt politely declined SNF level of care. CM explained the benefits of SNF level of care and pt insisted
to return back home with [facility].
A referral to [facility] made.
IMM reviewed, placed on chart, pt has a copy.
D/C plan: home with [facility] and family support.
CM will follow with discharge plan updates as hospitalization progresses.
--- NOTE | 2023-11-06 14:32 | W.SUR.PREOP ---
Pre-Operative Surgical Note
-
I have examined this patient prior to the performance of the scheduled procedure.
The patient's condition is unchanged from the time of the current History and
Physical and the patient is able to undergo the scheduled procedure.
--- NOTE | 2023-11-06 14:32 | W.IMMPOSTOP ---
Addendum entered and electronically signed by Alessio Emanuel MD 11/06/23 14:45:
Okay to resume heparin drip tonight at 10 PM.
A.m. CBC and CMP.
Original Note:
Surgical Immed Post Op Note
-
Primary Surgeon: Alessio Emanuel MD
Vice President Of Academic Affairs: TIANNA Gomez
Pre-op Diagnosis: Choledocholithiasis
Post-op Diagnosis: Choledocholithiasis, chronic cholecystitis
Procedure Performed: Laparoscopic cholecystectomy with cholangiogram
Anesthesia Type: General
Specimen / Cultures: Gallbladder and contents
Estimated Blood Loss: 7 cc
Complications: None
Operative Findings: Chronically inflamed gallbladder particularly in the cystic triangle. Critical view of safety obtained prior to a cholangiogram which demonstrated no distal filling defects, flow of contrast into the duodenum, dilated CBD and
CHD but otherwise normal biliary anatomy. There was some spillage of bile but no stones. There was a single midline adhesion of small bowel that was lysed.
POST OP PLAN:
Imaging: None
Labs: Routine AM
Diet: Advance to Regular as tolerated
Analgesia: Tylenol 650mg q6 Brigette, Prisca 5mg q6 PRN, Dilaudid 0.5mg q2h PRN
Neuro/vascular checks: q4h
AC/AP: Hold Therapeutic AC, Ok for DVT PPx
Activity: Ad Katelyn
Wound/Incisions/Drains: Routine
Abx: Continue antibiotics per primary
Dispo: RNF
--- NOTE | 2023-11-06 14:44 | OR.RPT ---
Operative Report
Operative Report
Patient Name: Sharif Sarkar
: 1945
Date of Operation: 11/06/2019
Preoperative Diagnosis: Choledocholithiasis
Postoperative Diagnosis: Choledocholithiasis, cholecystitis
Procedure(s):
Laparoscopic Cholecystectomy with Cholangiogram
Surgeon(s):
Dr. Emanuel
Poly Packer And Heat Sealer(s):
TIANNA Gomez
Anesthesia: General
Estimated Blood Loss: 7 cc
Urine Output: None
Drains/Lines/Implants: None
Specimens:
1. Gallbladder and contents
HPI/Surgical Indications:
This is a 77-year-old male who presents from home after a fall. His history is significant for both aortic and mitral mechanical valve replacements on Coumadin, diabetes, prior open AAA repair, bowel resection, bladder cancer was found to have
bacteremia and elevated LFTs. He was diagnosed with ascending cholangitis secondary to choledocholithiasis and was taken for an ERCP on 11/01/2023. He was switched to a heparin drip and after allowing his INR to come down naturally we discussed the
options of interval cholecystectomy as definitive treatment for his choledocholithiasis. Risks/Benefits/Alternatives were discussed at length, and the patient agreed to proceed with surgery.
Operative Findings:
Chronically inflamed gallbladder particularly in the cystic triangle. Critical view of safety obtained prior to a cholangiogram which demonstrated no distal filling defects, flow of contrast into the duodenum, dilated CBD and CHD but otherwise
normal biliary anatomy. There was some spillage of bile but no stones. There was a single midline adhesion of small bowel that was lysed.
Procedure Description:
The patient was brought to the Operating Room and placed in the supine position with the arms out. Following uneventful induction of general endotracheal anesthesia, an orogastric tube was placed. The abdomen was prepped and draped in the usual
sterile fashion. A timeout was performed confirming the procedure, consent, and that IV antibiotics were infused and sequential compression devices were confirmed to be on. The abdomen was entered using a right upper quadrant Veress technique which
required 2 passes followed by a right upper quadrant 5 mm Optiview trochar. Pneumoperitoneum to 15 mmHg pressure was obtained without difficulty and we confirmed that no injury had occurred during our entry. The patient was positioned in reverse
Trendelenberg and rotated with the right side up slightly. Two, and a 12 mm port in the epigastrium 5mm trocars were then placed along the right subcostal margin and a 12 mm port in the epigastrium. A locking grasping forceps was placed on the
fundus of the gallbladder where it was then retracted cephalad and to the right. Using appropriate grasping instruments, the peritoneum overlying the triangle of Calot was incised and extended superiorly on both the anterior and posterior
gallbladder medina. This area was fairly inflamed consistent with chronic cholecystitis. The infundibulum was dissected off the cystic plate. The cystic triangle was dissected until a critical view of safety was achieved. The cystic artery was
medialized, dissected and controlled with 2 proximal clips and 1 distal. The cystic duct/gallbladder junction in turn was identified, dissected circumferentially and a clip was placed. A ductotomy was made and a cholangiocatheter on an Saucedo clamp
was inserted into the cystic duct. A C-arm was draped and brought into the field. An intra-operative cholangiogram was performed and was noted to have:
No filling defects in the biliary tree
Dilated CHD and CBD with a stent in place.
Brisk flow of contrast into the duodenum
Normal biliary anatomy
The catheter was then removed and the cystic duct was controlled with a 5 mm titanium clip followed by a 0 PDS Endoloop. After ensuring both the artery and duct were divided, the gallbladder was freed from the liver using electrocautery. There was
some spillage of bile, but no spillage of stones. There was a posterior cystic artery that was ligated with a 5 mm titanium clip on the lateral aspect of the gallbladder fossa about fpc up. The gallbladder bed was inspected and excellent
hemostasis was obtained. Out of an abundance of caution some Surgiflo was placed in the gallbladder bed and fossa just to ensure hemostasis as the patient's heparin drip would be restarted later tonight. The gallbladder was extracted through the 12
mm trocar site using an endocatch bag. The abdomen was again irrigated and excellent hemostasis was assured. There was a single adhesion of small bowel tethered to the midline anterior abdominal wall. This was lysed close to the abdominal wall far
from the underlying bowel with sharp dissection. All remaining trocars were then removed and the pneumoperitoneum was evacuated. The 12 mm trocar site was closed using 0 PDS suture. All trocar sites were closed at the skin level using 4-0
Monocryl followed by Dermabond. Overall, the patient tolerated the procedure well and was taken to the Recovery Room postoperatively in stable condition.
I was the attending physician and performed the procedure with assistance from the TELEVISION PICTURE TUBE REBUILDER above. I was present for all portions of the case
Alessio Emanuel MD
[2023-11-06] MEDS: DILAUDID 0.5 MG IV (14:56)
[2023-11-06 15:03] LABS: Glucose - Point of Care 160 mg/dl (70-99)
--- NOTE | 2023-11-06 15:10 | SUR.PHASEI ---
Dr. Kaiser notified about chest pain. At bedside, no new orders. Glucose of 160 also relayed and no new orders. Will continue to monitor pt. closely
[2023-11-06] MEDS: DILAUDID 0.25 MG IV (15:18)
--- NOTE | 2023-11-06 16:30 | PTCARENOTE ---
Patient returned to his room from pacu post laparoscopic cholecystectomy.The patient rates his pain at a 4-5 out of 10.All 5 lap sites are clean and dry without drainage.Vital signs are stable.The patient is in his bed with the call dooley in reach.
[2023-11-06] MEDS: FLORASTOR 250 MG PO (17:13)
[2023-11-06] MEDS: RISPERDAL 2 MG PO (20:12)
[2023-11-06] MEDS: ELAVIL 100 MG PO (20:13)
[2023-11-06] MEDS: PROSCAR 5 MG PO (20:13)
[2023-11-06] MEDS: PACERONE 200 MG PO (20:13)
[2023-11-06] MEDS: TOPROL XL 50 MG PO (20:13)
[2023-11-06 21:33] LABS: Glucose - Point of Care 214 mg/dl (70-99)
[2023-11-06] MEDS: LANTUS 0.100000000000000006 UNITS SC (22:23)
[2023-11-06 22:37] LABS: APTT 30.9 Sec (23.4-35.0)
[2023-11-07] VITALS (7 sets, daily range): BP systolic 109–140; BP diastolic 56–66; PULSE 61; BMI 30.2
[2023-11-07] MEDS: ZOSYN 50 IV ×2 (03:22→09:00)
[2023-11-07] MEDS: TYLENOL 325 MG PO (04:53)
[2023-11-07] MEDS: MYLICON 80 MG PO (04:53)
[2023-11-07 05:15] LABS: Hematocrit 32.5 % (39.0-52.0); Hemoglobin 10.7 g/dL (13.0-18.0); Mean Corp Hgb Conc. 32.9 g/dL (33.0-37.0); Mean Corpuscular Hgb 32.7 pg (27.0-31.0); Mean Corpuscular Volume 99.4 fL (80.0-94.0); Mean Platelet Volume 10.8 fL (7.4-10.4); Platelet Count 163 10^3/uL (130-400); Red Blood Cell Count 3.27 10^6/uL (4.70-6.10); Red Cell Dist. Width 15.8 % (11.5-14.5); White Blood Cell Count 11.1 10^3/uL (4.8-10.8)
[2023-11-07 05:27] LABS: INR 1.29
[2023-11-07 05:29] LABS: APTT 97.2 Sec (23.4-35.0)
[2023-11-07 06:21] LABS: ALT (SGPT) 154 U/L (0-50); AST (SGOT) 54 U/L (17-59); Albumin 2.8 g/dl (3.5-5.0); Alkaline Phosphatase 200 U/L (38-126); Blood Urea Nitrogen 30 mg/dl (9-20); Calcium 8.5 mg/dl (8.4-10.2); Carbon Dioxide 21 mmol/L (22-30); Chloride 106 mmol/L (98-107); Estimated Creatinine Clearance 45 ml/min; Glucose 178 mg/dl (70-99); Magnesium 2.2 mg/dl (1.6-2.3); Potassium 4.6 mmol/L (3.5-5.1); Sodium 136 mmol/L (135-145); Total Protein 5.5 g/dl (6.3-8.2); eGFR 47.06
[2023-11-07 07:11] LABS: Glucose - Point of Care 179 mg/dl (70-99)
--- NOTE | 2023-11-07 08:12 | W.PN.GS2 ---
Today's Communication / Plan
-
--Regular diet
--Pain control: Tylenol, Tramadol
--OK for Hep gtt and to begin transition to Coumadin
--Call with questions or concerns, DC instructions updated
Assessment / Plan
-
77-year-old male with multiple medical comorbidities/significant past surgical history including diabetes mellitus, marfanoid, mechanical aortic valve and mitral valve replacement on chronic Coumadin, open AAA repair 2019, PAF, CAD, previous history
of bladder cancer who was admitted with weakness and worsening abdominal pain with noted bacteremia, ascending cholangitis and choledocholithiasis. Ultrasound confirms stones and sludge. CT with distended gallbladder and pericholecystic
inflammatory changes. Clinically improving since ERCP.
PPD #6 ERCP sphincterotomy
POD#1 Laparoscopic cholecystectomy with IOC
No post-operative concerns. Hb stable, LFTs and bilirubin trending down. OK to resume oral therapeutic anticoagulation today, bridge with hep gtt per primary.
--Regular diet
--Pain control: Tylenol, Tramadol
--OK for Hep gtt and to begin transition to Coumadin
--Abx per GI and primary
--Medical management as per primary team
--Call with questions or concerns, DC instructions updated
Subjective Data
-
Date of Service: November 07, 2023
Reports some RUQ and RIGHT shoulder soreness. Tolerated diet, no nausea or vomiting. No fevers or chills. Minimal ambulation. No dizziness or lightheadedness.
Objective Data
-
Intake and Output
11/06/23 11/07/23 11/08/23
06:59 06:59 06:59
Intake Total 810 / 810 920 / 920
Output Total 2029 1200 / 1200
Balance -1220 / -1220 -280 / -280
Intake:
Oral fluids 540 / 540 720 / 720
IV fluids (Total) 170 / 170 100 / 100
normosol 100 / 100
IV piggybacks 100 / 100 100 / 100
Output:
Urine, Voided 2029 / 2029 1200 / 1200
Vital Signs
Temp Pulse Resp BP Pulse Ox
97.2 F 61 16 118/62 98
11/07/23 03:15 11/07/23 03:15 11/07/23 03:15 11/07/23 03:15 11/07/23 03:15
Lab Results
11/07/23 04:45
11/07/23 04:45
Calcium 8.5 mg/dl (8.4-10.2) 11/07/23 04:45
Phosphorus 4.2 mg/dl (2.5-4.5) 10/31/23 08:36
Magnesium 2.2 mg/dl (1.6-2.3) 11/07/23 04:45
Total Bilirubin 1.0 mg/dl (0.2-1.3) 11/07/23 04:45
AST 54 U/L (17-59) 11/07/23 04:45
ALT 154 U/L (0-50) H 11/07/23 04:45
Alkaline Phosphatase 200 U/L (38-126) H 11/07/23 04:45
Total Protein 5.5 g/dl (6.3-8.2) L 11/07/23 04:45
Albumin 2.8 g/dl (3.5-5.0) L 11/07/23 04:45
Physical Exam
-
Gen: NAD
Abd: soft, mild/moderate tenderness in RUQ, ND, non-peritoneal, incisions c/d/i - no erythema, ecchymosis or drainage
[2023-11-07] MEDS: ULTRAM 25 MG PO ×2 (08:56→20:14)
[2023-11-07] MEDS: PROTONIX IV 40 MG IV (08:58)
[2023-11-07] MEDS: MIRALAX 17 GRAMS PO (08:58)
[2023-11-07] MEDS: NSS (PRESERVATIVE FREE) 10 ML IV (08:58)
[2023-11-07] MEDS: NOVOLOG FLEXPEN-LOW RESISTANCE 1 UNITS SC ×2 (08:59→13:08)
--- NOTE | 2023-11-07 09:04 | W.PN.HOSP.TC ---
Today's Communication/Plan
-
Heparin bridge to coumadin
PT/OT
IV Unasyn
monitor renal function - follow up bladder scan and urine studies
stop running IVF
Assessment / Plan
Assessment / Plan
pt is a 77 year old male
Septic shock with lactic acidosis--resolved
E. coli cholangitis, choledocholithiasis
Bacteremia with blood culture 10/30 positive for E. coli, Kleb pneumonia, Enterococcus and 10/31 positive for Klebsiella
-now off pressors-
-apprec GI/surgery
-s/p ERCP and EUS
-now s/p lap [place] 11/05
-s/p IV Zosyn - change to IV Unasyn - continue antibiotics through at least 11/13
CAD-
Paroxysmal afib/aneurysms/valve replacement
-coumadin was on hold; resume this evening. Patient takes 2mg qhs at home - start with 4mg this evening
-IV heparin gtt resumed
-continue WARDROBE SUPERVISOR metoprolol
-WARDROBE SUPERVISOR Amiodarone
GERD-
-WARDROBE SUPERVISOR Pepcid resume
IDDM--cont lantus 10 units SC-
-ISS
-hold PRA metformin
Essential Hypertension--
-WARDROBE SUPERVISOR metoprolol
SANKET-
-bladder scan
-urine studies
Hyperlipidemia--Hold rosuvastatin due to elevated LFTs
Schizophrenia--Continue risperidone
hypocalcemia/anemia/thrombocytopenia-- lab error as blood drawn above IVF infusion--repeat normal
DVT prophylaxis--IV heparin gtt
Code status -- FULL CODE
Anticipated Discharge: 24 - 48 hours
Subjective/Interval History
-
Date of Service: November 07, 2023
feeling well
some abdominal pain, just took Tramadol
ate breakfast this morning
Objective Data
-
Labs:
Laboratory Results
11/06/23 11/07/23 11/07/23
22:21 04:45 06:00
WBC 11.1 H
Hgb 10.7 L
Hct 32.5 L
Plt Count 163
PT 16.0 H Cancelled
INR 1.29 Cancelled
APTT 30.9 97.2 H
Sodium 136
Potassium 4.6
Chloride 106
Carbon Dioxide 21 L
BUN 30 H
Creatinine 1.5 H
Glucose 178 H
Calcium 8.5
Total Bilirubin 1.0
AST 54
ALT 154 H
Alkaline Phosphatase 200 H
11/07/23
10:45
WBC
Hgb
Hct
Plt Count
PT
INR
APTT Pending
Sodium
Potassium
Chloride
Carbon Dioxide
BUN
Creatinine
Glucose
Calcium
Total Bilirubin
AST
ALT
Alkaline Phosphatase
Vital Signs:
Vital Signs
Temp Pulse Resp BP Pulse Ox
97.2 F 61 16 118/62 98
11/07/23 03:15 11/07/23 03:15 11/07/23 03:15 11/07/23 03:15 11/07/23 03:15
I&O
11/06/23 11/07/23 11/08/23
06:59 06:59 06:59
Intake Total 810 / 810 920 / 920
Output Total 2029 / 2029 1200 / 1200
Balance -1220 / -1220 -280 / -280
Review of Systems
-
History Source: Patient
All other systems: Reviewed and negative
Physical Exam
-
General: Well Developed, Well Nourished and No Apparent Distress
HEENT: Normocephalic and Atraumatic
Respiratory: Clear to Auscultation; Negative Wheezes or Rhonchi
Cardiac: Regular Rhythm, S1/S2 and Murmur (click)
GI: Soft, Nondistended, Normal Bowel Sounds, Tender (minimal RUQ) and Other (incisions c/d/i)
Musculoskeletal: No Clubbing, No Cyanosis and No Edema
Neuro: Awake and Alert
Psych: Calm
Data Reviewed
-
Diagnostic Radiology: Report Reviewed by me
Labs: Labs Reviewed by me
--- NOTE | 2023-11-07 09:09 | W.PN.CARDCBS ---
Today's Communication / Plan
-
IV Heparin to coumadin bridge.
Coumadin 4 mg PO X 1 today
Impression / Plan
-
.
PCP: Dr. Hendricks
Glassblower: Dr. SHANNON Mcintyre
Impression:
s/p cholecystecomy 11/06/2023
s/p Septic shock, resolved
Acute cholangitis
choledocholithiasis s/p ERCP w/ sphincterectomy and placement of stent in common bile duct
Hx sustained monomorphic ventricular tachycardia
Chronic amiodarone therapy
Medtronic DC ICD 07/2021
Nonobstructive CAD by cath 07/2021
Coronary aneurysms are unchanged angiographically from cath in 2009
Paroxysmal atrial fibrillation/atrial flutter
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
Chronic Coumadin anticoagulation (goal INR 2.5-3.5)
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
PAD with h/o iliac stent 2005
Type 2 diabetes
COPD
orthostatic hypotension
PVCs
HTN
HLD
INOCENCIO on CPAP
depression
schizophrenia
h/o bladder cancer s/p TURBT and cystolitholapaxy 2009
spinal stenosis
h/o large bowel resection 2000 in setting of diverticulitis per pt
Charcot joint
anemia
h/o epistaxis
Echo 11/02/2023: EF 50% mild cLVH, thickened mechanical MVR w/ peak/mean gradients 12/7 mmHg, mechanical AVR w/ peak/mean gradients 18/10 mmHg, mild possible paravalvular AI, mild TR, estimated PAP 30 mmHg
Plan:
-Presented with septic shock in the setting of acute choledocholithiasis. s/p ERCP w/ stent placement in common bile duct.
Remains compensated from cardiac standpoint s/p cholecystectomy 11/06/2023
Recent cardiac catheterization 07/2021 revealed coronary aneurysms with no obstructive coronary disease.
Recent echo reviewed and EF is stable from november 01 [facility] and AVR [facility]
Remains SR
Cont IV heparin to coumadin bridge. INR goal 2.5-3 given [facility] and AVR.
Coumadin 4 mg PO X 1 November 06
Cont to monitor H/H
HR and bp remains stable
Discussed with at bedside and nursing
Pt has known h/o VT status post Medtronic ICD in 2021: Device interrogation last on October 26, 2023 in the office. Normal function and good battery life. No atrial fibrillation. He does have slow VT and VT detection settings were decreased to 140
bpm. From March to October he had 8 episodes of slow VT which were asymptomatic and terminated by ATP. He has never had any shocks. His most recent episode of VT was October 03, 2023. Continue to follow on telemetry perioperatively.
HPI: Sharif is a 77 year old male with PMH of nonobstructive CAD, ICD, paroxysmal atrial fibrillation, atrial flutter, NSVT, mechanical MVR/AVR, PAD, Type 2 DM, HTN, HLD, COPD, INOCENCIO, and bladder cancer who presented to [facility] for evaluation after a
fall. He was in septic shock on arrival and was noted to have acute transaminitis and was diagnosed with acute cholangitis. He was found to have choledocholithiasis and underwent ERCP with placement of stent in the common bile duct. He was then seen
by general surgery and plan is for eventual cholecystectomy. Timing is TBD. Cardiology consulted for preop evaluation. Patient reports he has been feeling well from a cardiac standpoint and denies any chest pain, palpitations, or SOB currently. He
has history of mechanical MVR/AVR and his coumadin has been on hold, bridging with heparin. INR pending this AM. Echo was completed 11/01 and showed EF stable at 50% with stable valves. At this time he notes his only complaint is mild abdominal pain
when he presses on his stomach. He has had no fevers. BP and HR are stable.
Progress Note - Glassblower
Subjective
Date of Service: November 07, 2023
Pt seen and examined. No complaints. No chest pain or shortness of breath.
Objective
Labs:
11/07/23 04:45
11/07/23 04:45
Labs
Hgb 10.7 g/dL (13.0-18.0) L 11/07/23 04:45
Hct 32.5 % (39.0-52.0) L 11/07/23 04:45
Plt Count 163 10^3/uL (130-400) 11/07/23 04:45
PT Cancelled 11/07/23 06:00
INR Cancelled 11/07/23 06:00
APTT 97.2 Sec (23.4-35.0) H 11/07/23 04:45
Sodium 136 mmol/L (135-145) 11/07/23 04:45
Potassium 4.6 mmol/L (3.5-5.1) 11/07/23 04:45
BUN 30 mg/dl (9-20) H 11/07/23 04:45
Creatinine 1.5 mg/dL (0.7-1.3) H 11/07/23 04:45
Glucose 178 mg/dl (70-99) H 11/07/23 04:45
Vital Signs and I&O:
Vital Signs
Temp Pulse Resp BP Pulse Ox
97.7 F 61 16 134/65 99
11/07/23 07:06 11/07/23 07:06 11/07/23 07:06 11/07/23 07:06 11/07/23 07:06
Vital Signs
Temp Pulse Resp BP Pulse Ox
97.7 F 61 16 134/65 99
11/07/23 07:06 11/07/23 07:06 11/07/23 07:06 11/07/23 07:06 11/07/23 07:06
Intake & Output
0511/06/23 11/07/23 11/08/23
06:59 06:59 06:59 06:59
Intake Total 1870 / 1870 810 / 810 920 / 920
Output Total 1275 / 1275 2029 / 2029 1200 / 1200
Balance 595 / 595 -1220 / -1220 -280 / -280
Physical Exam
Physical Exam
General: No acute distress, awake and alert
Neck: Negative JVD
Heart: Regular, Negative S3 positive metallic click S1/S2, Negative S4, No murmur
Lungs: CTA b/l, negative wheezes/rales/rhonchi
Abd: Positive BS, NT/ND, neg rebound/rigidity/guarding
Ext: Negative cyanosis/clubbing/edema
Neuro: nonfocal
--- NOTE | 2023-11-07 11:01 | CM ---
CM following re: discharge planning.
Reviewed pt's chart, met with pt.
Pt is PPD 63 ERCP sphincterotomy. Per General surgery, OR today Laparoscopic cholecystectomy.
Discharge plan remains unchanged - home with [facility] and family support.
A referral to [facility] made yesterday
Please fax discharge instructions to [facility] at [phone].
D/C plan: home with [facility] and family support.
CM will follow with discharge plan updates as hospitalization progresses.
[2023-11-07] MEDS: HEPARIN 25000 UNITS/250 ML IV (11:38)
[2023-11-07 13:04] LABS: Glucose - Point of Care 199 mg/dl (70-99)
[2023-11-07 13:15] LABS: Urine Sodium 77 mmol/L (30-90)
--- NOTE | 2023-11-07 13:47 | W.PN.UPDATE ---
Update Note
Progress Note Update
FeNa 0.9%; pre-renal etiology; no e/o heart failure on exam
will trial small bolus
repeat labs tomorrow
[2023-11-07] MEDS: NSS 500 IV (14:16)
[2023-11-07] MEDS: UNASYN IV ×2 (15:07→20:09)
[2023-11-07 17:33] LABS: Glucose - Point of Care 149 mg/dl (70-99)
[2023-11-07] MEDS: NOVOLOG FLEXPEN-LOW RESISTANCE SC (17:33)
[2023-11-07] MEDS: FLORASTOR 250 MG PO (17:33)
[2023-11-07 17:46] LABS: APTT 131.1 Sec (23.4-35.0)
[2023-11-07] MEDS: COUMADIN 4 MG PO (18:46)
[2023-11-07] MEDS: TOPROL XL 50 MG PO (20:06)
[2023-11-07] MEDS: ELAVIL 100 MG PO (20:06)
[2023-11-07] MEDS: PACERONE 200 MG PO (20:06)
[2023-11-07] MEDS: PROSCAR 5 MG PO (20:06)
[2023-11-07] MEDS: RISPERDAL 2 MG PO (20:06)
[2023-11-07] MEDS: MELATONIN 10 MG PO (20:07)
[2023-11-07] MEDS: PEPCID 40 MG PO (20:09)
[2023-11-07 21:13] LABS: Glucose - Point of Care 182 mg/dl (70-99)
[2023-11-07] MEDS: LANTUS 0.100000000000000006 UNITS SC (21:31)
[2023-11-08] VITALS (7 sets, daily range): BP systolic 111–144; BP diastolic 52–65; PULSE 60; O2SAT 95; BMI 31.6
[2023-11-08 03:00] LABS: APTT 83.1 Sec (23.4-35.0)
[2023-11-08] MEDS: FLUSH (NSS) 1 FLUSH IV ×2 (03:26→20:36)
[2023-11-08] MEDS: UNASYN IV ×4 (03:26→20:32)
[2023-11-08] MEDS: ULTRAM 25 MG PO (03:40)
--- NOTE | 2023-11-08 04:12 | DOWNTIME ---
There was a [employer] Client Supplier Quality Engineering Manager Downtime on 11/07/2023 from 0100 to 11/08/2023 at 0300. Downtime documentation of patient's care, including medication administrations, has been reconciled in the electronic record per guidelines. Refer to the
patient's paper chart under the miscellaneous tab to see printed paper medication records and downtime forms.
[2023-11-08 06:54] LABS: Glucose - Point of Care 135 mg/dl (70-99)
[2023-11-08] MEDS: NOVOLOG FLEXPEN-LOW RESISTANCE SC (06:55)
[2023-11-08 07:04] LABS: Hematocrit 32.6 % (39.0-52.0); Hemoglobin 10.3 g/dL (13.0-18.0); Mean Corp Hgb Conc. 31.6 g/dL (33.0-37.0); Mean Corpuscular Hgb 32.6 pg (27.0-31.0); Mean Corpuscular Volume 103.2 fL (80.0-94.0); Mean Platelet Volume 11.4 fL (7.4-10.4); Platelet Count 169 10^3/uL (130-400); Red Blood Cell Count 3.16 10^6/uL (4.70-6.10); Red Cell Dist. Width 16.1 % (11.5-14.5); White Blood Cell Count 11.2 10^3/uL (4.8-10.8)
[2023-11-08] MEDS: HEPARIN 25000 UNITS/250 ML IV (07:08)
[2023-11-08 07:13] LABS: INR 1.12; PT 14.3 Sec (11.4-14.6)
[2023-11-08] MEDS: MIRALAX 17 GRAMS PO (07:29)
[2023-11-08 07:37] LABS: ALT (SGPT) 120 U/L (0-50); AST (SGOT) 44 U/L (17-59); Albumin 2.9 g/dl (3.5-5.0); Alkaline Phosphatase 178 U/L (38-126); Blood Urea Nitrogen 32 mg/dl (9-20); Calcium 8.4 mg/dl (8.4-10.2); Carbon Dioxide 24 mmol/L (22-30); Chloride 106 mmol/L (98-107); Estimated Creatinine Clearance 49 ml/min; Glucose 123 mg/dl (70-99); Potassium 4.8 mmol/L (3.5-5.1); Sodium 136 mmol/L (135-145); Total Bilirubin 0.9 mg/dl (0.2-1.3); Total Protein 5.7 g/dl (6.3-8.2); eGFR 51.13
--- NOTE | 2023-11-08 10:13 | W.PN.CARDCBS ---
Today's Communication / Plan
-
Continue heparin bridge to therapeutic INR
Recommend additional dose of 4 mg warfarin this evening
Impression / Plan
-
PCP: Dr. Hendricks
Client Renewal Specialist: Dr. SHANNON Mcintyre
Impression:
s/p cholecystecomy 11/06/2023
s/p Septic shock, resolved
Acute cholangitis
choledocholithiasis s/p ERCP w/ sphincterectomy and placement of stent in common bile duct
Hx sustained monomorphic ventricular tachycardia
Chronic amiodarone therapy
Medtronic DC ICD 07/2021
Nonobstructive CAD by cath 07/2021
Coronary aneurysms are unchanged angiographically from cath in 2009
Paroxysmal atrial fibrillation/atrial flutter
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
Chronic Coumadin anticoagulation (goal INR 2.5-3.5)
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
PAD with h/o iliac stent 2005
Type 2 diabetes
COPD
orthostatic hypotension
PVCs
HTN
HLD
INOCENCIO on CPAP
depression
schizophrenia
h/o bladder cancer s/p TURBT and cystolitholapaxy 2009
spinal stenosis
h/o large bowel resection 2000 in setting of diverticulitis per pt
Charcot joint
anemia
h/o epistaxis
Echo 11/02/2023: EF 50% mild cLVH, thickened mechanical MVR w/ peak/mean gradients 12/7 mmHg, mechanical AVR w/ peak/mean gradients 18/10 mmHg, mild possible paravalvular AI, mild TR, estimated PAP 30 mmHg
Plan:
-Presented with septic shock in the setting of acute choledocholithiasis. s/p ERCP w/ stent placement in common bile duct.
Remains compensated from cardiac standpoint s/p cholecystectomy 11/06/2023
Recent cardiac catheterization 07/2021 revealed coronary aneurysms with no obstructive coronary disease.
Recent echo reviewed and EF is stable from november 01 with well functioning [facility] MVR and AVR [facility]
Remains SR
Cont IV heparin to coumadin bridge. INR goal 2.5-[address] [facility].
Coumadin 4 mg PO X 1 November 07
Cont to monitor H/H and INR
HR and bp remains stable
Discussed with at bedside
Pt has known h/o VT status post Medtronic ICD in 2021: Device interrogation last on October 26, 2023 in the office. Normal function and good battery life. No atrial fibrillation. He does have slow VT and VT detection settings were decreased to 140
bpm. From March to October he had 8 episodes of slow VT which were asymptomatic and terminated by ATP. He has never had any shocks. His most recent episode of VT was October 03, 2023. Continue to follow on telemetry perioperatively.
HPI: Sharif is a 77 year old male with PMH of nonobstructive CAD, ICD, paroxysmal atrial fibrillation, atrial flutter, NSVT, mechanical MVR/AVR, PAD, Type 2 DM, HTN, HLD, COPD, INOCENCIO, and bladder cancer who presented to [facility] for evaluation after a
fall. He was in septic shock on arrival and was noted to have acute transaminitis and was diagnosed with acute cholangitis. He was found to have choledocholithiasis and underwent ERCP with placement of stent in the common bile duct. He was then seen
by general surgery and plan is for eventual cholecystectomy. Timing is TBD. Cardiology consulted for preop evaluation. Patient reports he has been feeling well from a cardiac standpoint and denies any chest pain, palpitations, or SOB currently. He
has history of mechanical MVR/AVR and his coumadin has been on hold, bridging with heparin. INR pending this AM. Echo was completed 11/01 and showed EF stable at 50% with stable valves. At this time he notes his only complaint is mild abdominal pain
when he presses on his stomach. He has had no fevers. BP and HR are stable.
Progress Note - Client Renewal Specialist
Subjective
Date of Service: November 08, 2023
No acute overnight events. Resting comfortably in bed with family at bedside. Does report right upper quadrant pain with radiation. Otherwise no cardiac complaints.
Objective
Labs:
11/08/23 06:22
11/08/23 06:22
Labs
Hgb 10.3 g/dL (13.0-18.0) L 11/08/23 06:22
Hct 32.6 % (39.0-52.0) L 11/08/23 06:22
Plt Count 169 10^3/uL (130-400) 11/08/23 06:22
PT 14.3 Sec (11.4-14.6) 11/08/23 06:22
INR 1.12 11/08/23 06:22
APTT 91.0 Sec (23.4-35.0) H 11/08/23 06:22
Sodium 136 mmol/L (135-145) 11/08/23 06:22
Potassium 4.8 mmol/L (3.5-5.1) 11/08/23 06:22
BUN 32 mg/dl (9-20) H 11/08/23 06:22
Creatinine 1.4 mg/dL (0.7-1.3) H 11/08/23 06:22
Glucose 123 mg/dl (70-99) H 11/08/23 06:22
Vital Signs and I&O:
Vital Signs
Temp Pulse Resp BP Pulse Ox
99.9 F 61 16 122/52 98
11/08/23 07:36 11/08/23 07:36 11/08/23 07:36 11/08/23 07:36 11/08/23 08:00
Vital Signs
Temp Pulse Resp BP Pulse Ox
99.9 F 61 16 122/52 98
11/08/23 07:36 11/08/23 07:36 11/08/23 07:36 11/08/23 07:36 11/08/23 08:00
Intake & Output
11/06/23 11/07/23 11/08/23 11/09/23
06:59 06:59 06:59 06:59
Intake Total 810 / 810 920 / 920 190 / 1901
Output Total 2029 / 2029 1200 / 1200 1000 / 1000 600 / 600
Balance -1220 / -1220 -280 / -280 901 / 901 -600 / -600
Physical Exam
Physical Exam
Gen: NAD, AAOx3
HEENT: NC/AT, sclera anicteric
Neck: No JVD
CV: RRR, mechanical s1/s2
Lungs: CTAB
Abd: S/ND
Ext: No LE edema
Skin: Warm, dry
Neuro: Non-focal
--- NOTE | 2023-11-08 10:13 | W.PN.HOSP.TC ---
Today's Communication/Plan
-
IV Unasyn
continue IV heparin bridge; Coumadin 4mg this evening
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
Assessment / Plan
Assessment / Plan
pt is a 77 year old male
Septic shock with lactic acidosis--resolved
E. coli cholangitis, choledocholithiasis
Bacteremia with blood culture 10/30 positive for E. coli, Kleb pneumonia, Enterococcus and 10/31 positive for Klebsiella
-now off pressors
-apprec GI/surgery
-s/p ERCP and EUS
-now s/p lap [place] 11/05
-s/p IV Zosyn - change to IV Unasyn - continue antibiotics through at least 11/13
CAD-
Paroxysmal afib/aneurysms/valve replacement
-coumadin now resumed post procedures
-IV heparin gtt resumed - continue bridging
-continue FILTERING MACHINE TENDER HELPER metoprolol
-FILTERING MACHINE TENDER HELPER Amiodarone
GERD-
-FILTERING MACHINE TENDER HELPER Pepcid resume
IDDM--cont lantus 10 units SC-
-ISS
-hold FILTERING MACHINE TENDER HELPER metformin
Essential Hypertension--
-FILTERING MACHINE TENDER HELPER metoprolol
SANKET-
-bladder scan
-urine studies
Hyperlipidemia--Hold rosuvastatin due to elevated LFTs
Schizophrenia--Continue risperidone
hypocalcemia/anemia/thrombocytopenia-- lab error as blood drawn above IVF infusion--repeat normal
DVT prophylaxis--IV heparin gtt
Code status -- FULL CODE
Anticipated Discharge: > 48 hours
Subjective/Interval History
-
Date of Service: November 08, 2023
he is feeling well
does not want to go to SNF
Objective Data
-
Labs:
Laboratory Results
11/08/23 11/08/23
00:59 06:22
WBC 11.2 H
Hgb 10.3 L
Hct 32.6 L
Plt Count 169
PT 14.3
INR 1.12
APTT 83.1 H 91.0 H
Sodium 136
Potassium 4.8
Chloride 106
Carbon Dioxide 24
BUN 32 H
Creatinine 1.4 H
Glucose 123 H
Calcium 8.4
Total Bilirubin 0.9
AST 44
ALT 120 H
Alkaline Phosphatase 178 H
Vital Signs:
Vital Signs
Temp Pulse Resp BP Pulse Ox
99.9 F 61 16 122/52 98
11/08/23 07:36 11/08/23 07:36 11/08/23 07:36 11/08/23 07:36 11/08/23 08:00
I&O
11/07/23 11/08/23 11/09/23
06:59 06:59 06:59
Intake Total 920 / 920 1901 / 1901
Output Total 1200 / 1200 1000 / 1000 600 / 600
Balance -280 / -280 901 / 901 -600 / -600
Review of Systems
-
History Source: Patient
All other systems: Reviewed and negative
Physical Exam
-
General: Well Developed, Well Nourished and No Apparent Distress
HEENT: Normocephalic and Atraumatic
Respiratory: Clear to Auscultation; Negative Wheezes or Rhonchi
Cardiac: Regular Rhythm, S1/S2 and Murmur (click)
GI: Soft, Nondistended, Normal Bowel Sounds, Tender (minimal RUQ) and Other (incisions c/d/i)
Musculoskeletal: No Clubbing, No Cyanosis and No Edema
Neuro: Awake and Alert
Psych: Calm
Data Reviewed
-
Diagnostic Radiology: Report Reviewed by me
Labs: Labs Reviewed by me
--- NOTE | 2023-11-08 10:59 | VNURNOTE ---
Home Health Liaison met with patient at 1030 to discuss [facility] nurse/therapy, visits, schedule and homebound status. Patient is agreeable and understands that visits at home will be 2-3 x per week to assess and teach medical management.
[facility] brochure provided with contact information. Patient is aware that [facility] will contact him for start of care in 1-2 days after discharge from .
[facility] referral completed in [facility].
[2023-11-08 11:35] LABS: Glucose - Point of Care 178 mg/dl (70-99)
[2023-11-08] MEDS: NOVOLOG FLEXPEN-LOW RESISTANCE 1 UNITS SC ×2 (11:46→17:22)
--- NOTE | 2023-11-08 14:20 | CM ---
Patient seen in chair, discussed PT/OT recommendations continue to be SNF. 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 CM will continue to follow for discharge
planning needs.
Plan; home with [facility] when medically stable.
[2023-11-08 17:03] LABS: Glucose - Point of Care 183 mg/dl (70-99)
[2023-11-08] MEDS: FLORASTOR 250 MG PO (17:21)
[2023-11-08] MEDS: COUMADIN 4 MG PO (17:21)
[2023-11-08] MEDS: ELAVIL 100 MG PO (20:33)
[2023-11-08] MEDS: RISPERDAL 2 MG PO (20:33)
[2023-11-08] MEDS: TOPROL XL 50 MG PO (20:33)
[2023-11-08] MEDS: PACERONE 200 MG PO (20:33)
[2023-11-08] MEDS: MELATONIN 10 MG PO (20:33)
[2023-11-08] MEDS: PEPCID 40 MG PO (20:33)
[2023-11-08] MEDS: PROSCAR 5 MG PO (20:34)
[2023-11-08] MEDS: LANTUS 0.100000000000000006 UNITS SC (21:37)
[2023-11-08 21:40] LABS: Glucose - Point of Care 192 mg/dl (70-99)
[2023-11-09] VITALS (7 sets, daily range): BP systolic 116–159; BP diastolic 48–71; BMI 30.9
[2023-11-09] MEDS: UNASYN IV ×4 (03:19→21:11)
[2023-11-09] MEDS: HEPARIN 25000 UNITS/250 ML IV (04:16)
[2023-11-09 06:33] LABS: Hematocrit 30.4 % (39.0-52.0); Hemoglobin 9.9 g/dL (13.0-18.0); Mean Corp Hgb Conc. 32.6 g/dL (33.0-37.0); Mean Corpuscular Hgb 32.6 pg (27.0-31.0); Mean Platelet Volume 10.8 fL (7.4-10.4); Platelet Count 166 10^3/uL (130-400); Red Blood Cell Count 3.04 10^6/uL (4.70-6.10); Red Cell Dist. Width 16.2 % (11.5-14.5); White Blood Cell Count 9.2 10^3/uL (4.8-10.8)
[2023-11-09 06:36] LABS: INR 1.27
[2023-11-09 06:38] LABS: APTT 109.8 Sec (23.4-35.0)
[2023-11-09 07:21] LABS: Glucose - Point of Care 132 mg/dl (70-99)
[2023-11-09] MEDS: NOVOLOG FLEXPEN-LOW RESISTANCE SC ×2 (07:30→13:40)
[2023-11-09] MEDS: MIRALAX 17 GRAMS PO (09:27)
[2023-11-09] MEDS: TYLENOL 325 MG PO (09:37)
--- NOTE | 2023-11-09 10:11 | W.PN.HOSP.TC ---
Today's Communication/Plan
-
continue bridging
coumadin 4mg this evning
Assessment / Plan
Assessment / Plan
pt is a 77 year old male
Septic shock with lactic acidosis--resolved
E. coli cholangitis, choledocholithiasis
Bacteremia with blood culture 5/7 positive for E. coli, Kleb pneumonia, Enterococcus and 8 positive for Klebsiella
-now off pressors
-apprec GI/surgery
-s/p ERCP and EUS
-now s/p lap [place] 11/05
-s/p IV Zosyn - change to IV Unasyn - continue antibiotics through at least 11/13; when ready for DC will change to oral Augmentin
CAD-
Paroxysmal afib/aneurysms/valve replacement
-coumadin now resumed post procedures
-IV heparin gtt resumed - continue bridging
-continue PUTTY WORKER metoprolol
-PUTTY WORKER Amiodarone
GERD-
-PUTTY WORKER Pepcid resume
IDDM--cont lantus 10 units SC-
-ISS
-hold PUTTY WORKER metformin
Essential Hypertension--
-PUTTY WORKER metoprolol
SANKET-
-bladder scan
-urine studies
Hyperlipidemia--Hold rosuvastatin due to elevated LFTs
Schizophrenia--Continue risperidone
hypocalcemia/anemia/thrombocytopenia-- lab error as blood drawn above IVF infusion--repeat normal
DVT prophylaxis--IV heparin gtt
Code status -- FULL CODE
Anticipated Discharge: 24 - 48 hours
Subjective/Interval History
-
Date of Service: November 09, 2023
feeling well
mobilized better with PT this morning
Objective Data
-
Labs:
Laboratory Results
11/09/23
05:43
WBC 9.2
Hgb 9.9 L
Hct 30.4 L
Plt Count 166
PT 16.0 H
INR 1.27
APTT 109.8 H
Vital Signs:
Vital Signs
Temp Pulse Resp BP Pulse Ox
98.7 F 62 18 144/64 97
11/09/23 07:05 11/09/23 07:05 11/09/23 07:05 11/09/23 07:05 11/09/23 07:05
I&O
11/08/23 11/09/23 11/10/23
06:59 06:59 06:59
Intake Total 1901 / 1901 1236 / 1236
Output Total 1000 / 1000 2325 / 2325
Balance 901 / 901 -1089 / -1089
Review of Systems
-
History Source: Patient
All other systems: Reviewed and negative
Physical Exam
-
General: Well Developed, Well Nourished and No Apparent Distress
HEENT: Normocephalic and Atraumatic
Respiratory: Clear to Auscultation; Negative Wheezes or Rhonchi
Cardiac: Regular Rhythm, S1/S2 and Murmur (click)
GI: Soft, Nondistended, Normal Bowel Sounds, Tender (minimal RUQ) and Other (incisions c/d/i)
Musculoskeletal: No Clubbing, No Cyanosis and No Edema
Neuro: Awake and Alert
Psych: Calm
Data Reviewed
-
Diagnostic Radiology: Report Reviewed by me
Labs: Labs Reviewed by me
--- NOTE | 2023-11-09 10:49 | W.PN.CARDCBS ---
Today's Communication / Plan
-
Cont IV heparin to coumadin bridge. INR goal 2.5-3 given mech MVR and AVR.
Coumadin 6 mg PO X November 08
Impression / Plan
-
PCP: Dr. Hendricks
Residential Concierge: Dr. SHANNON Mcintyre
Impression:
s/p cholecystecomy 11/06/2023
s/p Septic shock, resolved
Acute cholangitis
choledocholithiasis s/p ERCP w/ sphincterectomy and placement of stent in common bile duct
Hx sustained monomorphic ventricular tachycardia
Chronic amiodarone therapy
Medtronic DC ICD 07/2021
Nonobstructive CAD by cath 07/2021
Coronary aneurysms are unchanged angiographically from cath in 2009
Paroxysmal atrial fibrillation/atrial flutter
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
Chronic Coumadin anticoagulation (goal INR 2.5-3.5)
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
PAD with h/o iliac stent 2005
Type 2 diabetes
COPD
orthostatic hypotension
PVCs
HTN
HLD
INOCENCIO on CPAP
depression
schizophrenia
h/o bladder cancer s/p TURBT and cystolitholapaxy 2009
spinal stenosis
h/o large bowel resection 2000 in setting of diverticulitis per pt
Charcot joint
anemia
h/o epistaxis
Echo 11/02/2023: EF 50% mild cLVH, thickened mechanical MVR w/ peak/mean gradients 12/7 mmHg, mechanical AVR w/ peak/mean gradients 18/10 mmHg, mild possible paravalvular AI, mild TR, estimated PAP 30 mmHg
Plan:
-Presented with septic shock in the setting of acute choledocholithiasis. s/p ERCP w/ stent placement in common bile duct.
Remains compensated from cardiac standpoint s/p cholecystectomy 11/06/2023
Recent cardiac catheterization 07/2021 revealed coronary aneurysms with no obstructive coronary disease.
Recent echo reviewed and EF is stable from november 01 with well functioning [facility] MVR and AVR [facility]
Remains SR
Cont IV heparin to coumadin bridge. [facility]
Coumadin 6 mg PO X 1 November 08
Cont to monitor H/H and INR
HR and bp remain stable
Pt has known h/o VT status post Medtronic ICD in 2021: Device interrogation last on October 26, 2023 in the office. Normal function and good battery life. No atrial fibrillation. He does have slow VT and VT detection settings were decreased to 140
bpm. From March to October he had 8 episodes of slow VT which were asymptomatic and terminated by ATP. He has never had any shocks. His most recent episode of VT was October 03, 2023. Continue to follow on telemetry perioperatively.
HPI: Sharif is a 77 year old male with PMH of nonobstructive CAD, ICD, paroxysmal atrial fibrillation, atrial flutter, NSVT, mechanical MVR/AVR, PAD, Type 2 DM, HTN, HLD, COPD, INOCENCIO, and bladder cancer who presented to [facility] for evaluation after a
fall. He was in septic shock on arrival and was noted to have acute transaminitis and was diagnosed with acute cholangitis. He was found to have choledocholithiasis and underwent ERCP with placement of stent in the common bile duct. He was then seen
by general surgery and plan is for eventual cholecystectomy. Timing is TBD. Cardiology consulted for preop evaluation. Patient reports he has been feeling well from a cardiac standpoint and denies any chest pain, palpitations, or SOB currently. He
has history of mechanical MVR/AVR and his coumadin has been on hold, bridging with heparin. INR pending this AM. Echo was completed 11/01 and showed EF stable at 50% with stable valves. At this time he notes his only complaint is mild abdominal pain
when he presses on his stomach. He has had no fevers. BP and HR are stable.
Progress Note - Residential Concierge
Subjective
Date of Service: November 09, 2023
Pt seen and examined. No complaints. No chest pain or shortness of breath.
Objective
Labs:
11/09/23 05:43
11/08/23 06:22
Labs
Hgb 9.9 g/dL (13.0-18.0) L 11/09/23 05:43
Hct 30.4 % (39.0-52.0) L 11/09/23 05:43
Plt Count 166 10^3/uL (130-400) 11/09/23 05:43
PT 16.0 Sec (11.4-14.6) H 11/09/23 05:43
INR 1.27 11/09/23 05:43
APTT 109.8 Sec (23.4-35.0) H 11/09/23 05:43
Sodium 136 mmol/L (135-145) 11/08/23 06:22
Potassium 4.8 mmol/L (3.5-5.1) 11/08/23 06:22
BUN 32 mg/dl (9-20) H 11/08/23 06:22
Creatinine 1.4 mg/dL (0.7-1.3) H 11/08/23 06:22
Glucose 123 mg/dl (70-99) H 11/08/23 06:22
Vital Signs and I&O:
Vital Signs
Temp Pulse Resp BP Pulse Ox
98.7 F 62 18 144/64 97
11/09/23 07:05 11/09/23 07:05 11/09/23 07:05 11/09/23 07:05 11/09/23 07:05
Vital Signs
Temp Pulse Resp BP Pulse Ox
98.7 F 62 18 144/64 97
11/09/23 07:05 11/09/23 07:05 11/09/23 07:05 11/09/23 07:05 11/09/23 07:05
Intake & Output
11/07/23 11/08/23 11/09/23 11/10/23
06:59 06:59 06:59 06:59
Intake Total 920 / 920 1901 / 1901 1236 / 1236
Output Total 1200 / 1200 1000 / 1000 2325 / 2325
Balance -280 / -280 901 / 901 -1089 / -1089
Physical Exam
Physical Exam
General: No acute distress, AAOX3
Neck: Negative JVD
Heart: Regular, Negative S3 positive S1/S2, Negative S4, No murmur
Lungs: CTA b/l, negative wheezes/rales/rhonchi
Abd: Positive BS, NT/ND, neg rebound/rigidity/guarding
Ext: Negative cyanosis/clubbing/edema
Neuro: nonfocal
--- NOTE | 2023-11-09 10:49 | CM ---
Addendum entered by Zee Castillo 11/09/23 12:44:
Met with patient at bedside; agreeable with discharge plan
Plan: discharge to home with home health services when medically stable
Original Note:
Case Management Consult completed; home health referral was received by CHERRI; per liaison it was completed and accepted
[2023-11-09 12:16] LABS: Glucose - Point of Care 141 mg/dl (70-99)
[2023-11-09 17:11] LABS: Glucose - Point of Care 172 mg/dl (70-99)
[2023-11-09] MEDS: NOVOLOG FLEXPEN-LOW RESISTANCE 1 UNITS SC (17:11)
[2023-11-09] MEDS: FLORASTOR 250 MG PO (17:12)
[2023-11-09] MEDS: COUMADIN 6 MG PO (18:40)
[2023-11-09 21:10] LABS: Glucose - Point of Care 219 mg/dl (70-99)
[2023-11-09] MEDS: PROSCAR 5 MG PO (21:10)
[2023-11-09] MEDS: PACERONE 200 MG PO (21:10)
[2023-11-09] MEDS: PEPCID 40 MG PO (21:10)
[2023-11-09] MEDS: MELATONIN 10 MG PO (21:10)
[2023-11-09] MEDS: RISPERDAL 2 MG PO (21:10)
[2023-11-09] MEDS: LANTUS 0.100000000000000006 UNITS SC (21:11)
[2023-11-09] MEDS: ELAVIL 100 MG PO (21:11)
[2023-11-09] MEDS: TOPROL XL PO (22:08)
[2023-11-10] VITALS (7 sets, daily range): BP systolic 133–154; BP diastolic 59–74; PULSE 61; BMI 30.3
[2023-11-10] MEDS: HEPARIN 25000 UNITS/250 ML IV ×2 (00:17→22:25)
[2023-11-10] MEDS: UNASYN IV ×4 (02:46→21:04)
[2023-11-10 05:32] LABS: Hematocrit 32.3 % (39.0-52.0); Hemoglobin 10.4 g/dL (13.0-18.0); Mean Corp Hgb Conc. 32.2 g/dL (33.0-37.0); Mean Corpuscular Hgb 32.9 pg (27.0-31.0); Mean Corpuscular Volume 102.2 fL (80.0-94.0); Mean Platelet Volume 10.8 fL (7.4-10.4); Platelet Count 180 10^3/uL (130-400); Red Blood Cell Count 3.16 10^6/uL (4.70-6.10); Red Cell Dist. Width 15.9 % (11.5-14.5); White Blood Cell Count 9.3 10^3/uL (4.8-10.8)
[2023-11-10 05:39] LABS: PT 18.2 Sec (11.4-14.6)
[2023-11-10 05:42] LABS: APTT 132.4 Sec (23.4-35.0)
[2023-11-10 06:13] LABS: ALT (SGPT) 76 U/L (0-50); AST (SGOT) 29 U/L (17-59); Albumin 2.9 g/dl (3.5-5.0); Alkaline Phosphatase 159 U/L (38-126); Blood Urea Nitrogen 26 mg/dl (9-20); Calcium 8.8 mg/dl (8.4-10.2); Carbon Dioxide 22 mmol/L (22-30); Chloride 106 mmol/L (98-107); Estimated Creatinine Clearance 57 ml/min; Glucose 143 mg/dl (70-99); Potassium 4.4 mmol/L (3.5-5.1); Sodium 135 mmol/L (135-145); Total Bilirubin 0.7 mg/dl (0.2-1.3); Total Protein 5.7 g/dl (6.3-8.2); eGFR > 60.00
[2023-11-10 07:58] LABS: Glucose - Point of Care 139 mg/dl (70-99)
[2023-11-10] MEDS: NOVOLOG FLEXPEN-LOW RESISTANCE SC ×2 (08:09→13:07)
[2023-11-10] MEDS: TYLENOL 325 MG PO (09:00)
[2023-11-10] MEDS: MIRALAX 17 GRAMS PO (09:01)
--- NOTE | 2023-11-10 09:08 | W.PN.HOSP.TC ---
Today's Communication/Plan
-
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
wants to chat with cardiology about this first.
would give first dose of Lovenox this evening so next dose wouldn't be due in middle of the night
Assessment / Plan
Assessment / Plan
pt is a 77 year old male
Septic shock with lactic acidosis--resolved
E. coli cholangitis, choledocholithiasis
Bacteremia with blood culture 10/30 positive for E. coli, Kleb pneumonia, Enterococcus and 10/31 positive for Klebsiella; blood cultures from 11/01 clear
-required pressors
-apprec GI/surgery
-s/p ERCP and EUS with sphincterotomy and plastic stent placed in CBD 11/01/23
-now s/p lap [place] 11/05
-s/p IV Zosyn - change to IV Unasyn - continue antibiotics through at least 11/13; when ready for DC will change to oral Augmentin
-Outpatient follow-up with Dr. Barber in 6 weeks, scheduled on 12/17 @ 10 AM
CAD-
Paroxysmal afib/aneurysms/valve replacement
-coumadin now resumed post procedures
-IV heparin gtt resumed - continue bridging; patient wants to talk to cardiology about Lovenox injections
-continue RECRUITMENT MANAGER metoprolol
-RECRUITMENT MANAGER Amiodarone
GERD-
-RECRUITMENT MANAGER Pepcid resume
IDDM--cont lantus 10 units SC-
-ISS
-hold RECRUITMENT MANAGER metformin
Essential Hypertension--
-RECRUITMENT MANAGER metoprolol
SANKET-
-bladder scan
-urine studies
Hyperlipidemia--Hold rosuvastatin due to elevated LFTs; improving - repeat CMP next week
Schizophrenia--Continue risperidone
hypocalcemia/anemia/thrombocytopenia-- lab error as blood drawn above IVF infusion--repeat normal
DVT prophylaxis--IV heparin gtt
Code status -- FULL CODE
Anticipated Discharge: 24 - 48 hours
Subjective/Interval History
-
Date of Service: November 10, 2023
feeling well
surprised INR is only 1.5
Objective Data
-
Labs:
Laboratory Results
11/10/23 11/10/23
04:35 13:55
WBC 9.3
Hgb 10.4 L
Hct 32.3 L
Plt Count 180
PT 18.2 H
INR 1.50
APTT 132.4 H Pending
Sodium 135
Potassium 4.4
Chloride 106
Carbon Dioxide 22
BUN 26 H
Creatinine 1.2
Glucose 143 H
Calcium 8.8
Total Bilirubin 0.7
AST 29
ALT 76 H
Alkaline Phosphatase 159 H
Vital Signs:
Vital Signs
Temp Pulse Resp BP Pulse Ox
98.1 F 63 18 146/65 96
11/10/23 07:00 11/10/23 07:00 11/10/23 07:00 11/10/23 07:00 11/10/23 07:00
I&O
11/09/23 11/10/23 11/11/23
06:59 06:59 06:59
Intake Total 1236 / 1236 770 / 770
Output Total 2325 / 2325 2600 / 2600
Balance -1089 / -1089 -1830 / -1830
Review of Systems
-
History Source: Patient
All other systems: Reviewed and negative
Physical Exam
-
General: Well Developed, Well Nourished and No Apparent Distress
HEENT: Normocephalic and Atraumatic
Respiratory: Clear to Auscultation; Negative Wheezes or Rhonchi
Cardiac: Regular Rhythm, S1/S2 and Murmur (click)
GI: Soft, Nondistended, Normal Bowel Sounds, Tender (minimal RUQ) and Other (incisions c/d/i)
Musculoskeletal: No Clubbing, No Cyanosis and No Edema
Neuro: Awake and Alert
Psych: Calm
Data Reviewed
-
Diagnostic Radiology: Report Reviewed by me
Labs: Labs Reviewed by me
--- NOTE | 2023-11-10 09:25 | W.PN.CARDCBS ---
Addendum entered and electronically signed by Tanja Brantley DO 11/10/23 13:11:
I saw and examined the patient.
The Extruding Department Supervisor's note was reviewed and I agree with the note.
Comment: Patient seen and examined this morning. He is reporting right-sided flank pain and had a headache this morning. Headache seems to be resolving. He also has noted some weakness on his right side since surgery; tolerated breakfast this
morning. No chest pain or pressure.
General: Lying supine. Awake alert and oriented x 3 on room air
HEENT: Slight left facial droop; patient does not recall having this however is not currently wearing dentures. I did call hospitalist, Dr. Shankar to evaluate.
Heart: Regular. Positive S1-S2. [place] clip of known mechanical MVR/AVR. No rub. Device intact
Lungs: CTA b/l, negative wheezes/rales/rhonchi
Abd: Distended positive bowel sounds. Mild tenderness without rebound right side
Ext: No edema
Plan:
Presented 10/31/2023 with septic shock in the setting of acute choledocholithiasis.
-s/p ERCP w/ stent placement in common bile duct. LFTs continue to improve
-s/p cholecystectomy 11/06/2023
Abdominal pain this morning without nausea or vomiting
-Defer to surgery
Recent cardiac catheterization 07/2021 revealed coronary aneurysms with no obstructive coronary disease.
Recent echo reviewed and EF is stable from November 01 with well functioning [facility] MVR and AVR [facility]
-Remains SR/paced rhythm with occasional PVCs on tele.
-INR 1.5 on 11/10/23
-Received Coumadin 4 mg on 11/06, 11/07 and 6 mg 11/09/23.
- Cont IV heparin to coumadin bridge. INR goal 2.5-3 given [facility] MVR and AVR.
Coumadin 6 mg PO X 1 November 09
-Discussed Lovenox bridge. Would prefer pt remain hospitalized and continue oral load with Coumadin rather going home with Lovenox bridge
-Cont to monitor H/H and INR; Hgb stable 10.4
-Discussed facial asymmetry with hospitalist and with patient. Will continue to assess neurologic status; defer to medicine
-HR and bp remain stable
Original Note:
Today's Communication / Plan
-
Continue Heparin gtt until INR at goal of 2.5-3
Give Coumadin 6mg 11/09
Would prefer pt not go home with Lovenox bridge
Impression / Plan
-
PCP: Dr. Hendricks
Process Planner: Dr. SHANNON Mcintyre
Impression:
s/p cholecystecomy 11/06/2023
s/p Septic shock, resolved
Acute cholangitis
choledocholithiasis s/p ERCP w/ sphincterectomy and placement of stent in common bile duct
Hx sustained monomorphic ventricular tachycardia
Chronic amiodarone therapy
Medtronic DC ICD 07/2021
Nonobstructive CAD by cath 07/2021
Coronary aneurysms are unchanged angiographically from cath in 2009
Paroxysmal atrial fibrillation/atrial flutter
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
Chronic Coumadin anticoagulation (goal INR 2.5-3.5)
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
PAD with h/o iliac stent 2005
Type 2 diabetes
COPD
orthostatic hypotension
PVCs
HTN
HLD
INOCENCIO on CPAP
depression
schizophrenia
h/o bladder cancer s/p TURBT and cystolitholapaxy 2009
spinal stenosis
h/o large bowel resection 2000 in setting of diverticulitis per pt
Charcot joint
anemia
h/o epistaxis
Echo 11/02/2023: EF 50% mild cLVH, thickened mechanical MVR w/ peak/mean gradients 12/7 mmHg, mechanical AVR w/ peak/mean gradients 18/10 mmHg, mild possible paravalvular AI, mild TR, estimated PAP 30 mmHg
Plan:
Presented 10/31/2023 with septic shock in the setting of acute choledocholithiasis. s/p ERCP w/ stent placement in common bile duct. LFTs continue to improve
Remains compensated from cardiac standpoint s/p cholecystectomy 11/06/2023
Recent cardiac catheterization 07/2021 revealed coronary aneurysms with no obstructive coronary disease.
Recent echo reviewed and EF is [facility] from November 01 [facility]
Remains SR/paced rhythm with occasional PVCs on tele.
Mech MVR and AVR [facility]
INR 1.5 on 11/10/23
Got Coumadin 4 mg on 11/06, 11/07 and 6 mg 11/09/23.
Cont IV heparin to coumadin bridge. INR goal 2.5-3 given mech MVR and AVR.
Coumadin 6 mg PO X 1 November 09
Discussed Lovenox bridge. Would prefer pt remain hospitalized and continue oral load with Coumadin rather going home with Lovenox bridge
Cont to monitor H/H and INR; Hgb stable 10.4
HR and bp remain stable
Pt has known h/o VT status post Medtronic ICD in 2021: Device interrogation last on October 26, 2023 in the office. Normal function and good battery life. No atrial fibrillation. He does have slow VT and VT detection settings were decreased to 140
bpm. From March to October he had 8 episodes of slow VT which were asymptomatic and terminated by ATP. He has never had any shocks. His most recent episode of VT was October 03, 2023. Continue to follow on telemetry perioperatively.
HPI: Sharif is a 77 year old male with PMH of nonobstructive CAD, ICD, paroxysmal atrial fibrillation, atrial flutter, NSVT, mechanical MVR/AVR, PAD, Type 2 DM, HTN, HLD, COPD, INOCENCIO, and bladder cancer who presented to [facility] for evaluation after a
fall. He was in septic shock on arrival and was noted to have acute transaminitis and was diagnosed with acute cholangitis. He was found to have choledocholithiasis and underwent ERCP with placement of stent in the common bile duct. He was then seen
by general surgery and plan is for eventual cholecystectomy. Timing is TBD. Cardiology consulted for preop evaluation. Patient reports he has been feeling well from a cardiac standpoint and denies any chest pain, palpitations, or SOB currently. He
has history of mechanical MVR/AVR and his coumadin has been on hold, bridging with heparin. INR pending this AM. Echo was completed 11/01 and showed EF stable at 50% with stable valves. At this time he notes his only complaint is mild abdominal pain
when he presses on his stomach. He has had no fevers. BP and HR are stable.
Progress Note - Process Planner
Subjective
Date of Service: November 10, 2023
Patient seen and examined. Patient sitting up in bed. Notes right-sided abdominal discomfort worse with certain movements or taking deep breaths.
Objective
Labs:
11/10/23 04:35
11/10/23 04:35
Labs
Hgb 10.4 g/dL (13.0-18.0) L 11/10/23 04:35
Hct 32.3 % (39.0-52.0) L 11/10/23 04:35
Plt Count 180 10^3/uL (130-400) 11/10/23 04:35
PT 18.2 Sec (11.4-14.6) H 11/10/23 04:35
INR 1.50 11/10/23 04:35
APTT 132.4 Sec (23.4-35.0) H 11/10/23 04:35
Sodium 135 mmol/L (135-145) 11/10/23 04:35
Potassium 4.4 mmol/L (3.5-5.1) 11/10/23 04:35
BUN 26 mg/dl (9-20) H 11/10/23 04:35
Creatinine 1.2 mg/dL (0.7-1.3) 11/10/23 04:35
Glucose 143 mg/dl (70-99) H 11/10/23 04:35
Vital Signs and I&O:
Vital Signs
Temp Pulse Resp BP Pulse Ox
98.1 F 63 18 146/65 96
11/10/23 07:00 11/10/23 07:00 11/10/23 07:00 11/10/23 07:00 11/10/23 07:00
Vital Signs
Temp Pulse Resp BP Pulse Ox
98.1 F 63 18 146/65 96
11/10/23 07:00 11/10/23 07:00 11/10/23 07:00 11/10/23 07:00 11/10/23 07:00
Intake & Output
11/08/23 11/09/23 11/10/23 11/11/23
06:59 06:59 06:59 06:59
Intake Total 1901 / 1901 1236 / 1236 770 / 770
Output Total 1000 / 1000 2325 / 2325 2600 / 2600
Balance 901 / 901 -1089 / -1089 -1830 / -1830
Physical Exam
Physical Exam
GEN: No distress, awake, Ox3, sitting up in bed
HEENT: supple, anicteric, mmm
LUNGS: CTA, no wheezes/rales
CV: Reg, S1/S2, audible click of mechanical valves, no murmur
ABD: soft, BS+, tender on palpation right upper and lower quadrant; laparoscopic incisions well-approximated without evidence of infection
EXT: No edema, clubbing or cyanosis
NEURO: Gross non-focal
SKIN: No rash, warm, dry, pain
[2023-11-10] MEDS: ULTRAM 25 MG PO (10:20)
--- NOTE | 2023-11-10 12:24 | CM ---
Monitoring INR and adjusting anticoagulants. Discharge Plan of Care: Home with [facility] and PT/OT. If goes home on Lovenox need to contact [facility].
[2023-11-10 13:05] LABS: Glucose - Point of Care 143 mg/dl (70-99)
[2023-11-10 14:11] LABS: APTT 85.5 Sec (23.4-35.0)
[2023-11-10 18:35] LABS: Glucose - Point of Care 209 mg/dl (70-99)
[2023-11-10] MEDS: NOVOLOG FLEXPEN-LOW RESISTANCE 2 UNITS SC (18:46)
[2023-11-10] MEDS: COUMADIN 6 MG PO (18:46)
[2023-11-10] MEDS: FLORASTOR 250 MG PO (18:47)
[2023-11-10] MEDS: RISPERDAL 2 MG PO (19:47)
[2023-11-10 20:06] LABS: APTT 97.5 Sec (23.4-35.0)
[2023-11-10] MEDS: LANTUS 0.100000000000000006 UNITS SC (21:04)
[2023-11-10] MEDS: ELAVIL 100 MG PO (21:04)
[2023-11-10] MEDS: PROSCAR 5 MG PO (21:05)
[2023-11-10] MEDS: MELATONIN 10 MG PO (21:05)
[2023-11-10] MEDS: PEPCID 40 MG PO (21:05)
[2023-11-10] MEDS: TOPROL XL 50 MG PO (21:05)
[2023-11-10] MEDS: PACERONE 200 MG PO (21:05)
[2023-11-10 21:14] LABS: Glucose - Point of Care 188 mg/dl (70-99)
[2023-11-11] VITALS (7 sets, daily range): BP systolic 120–147; BP diastolic 54–81; BMI 30.6
[2023-11-11] MEDS: UNASYN IV ×4 (03:12→20:07)
[2023-11-11 06:10] LABS: Hematocrit 31.1 % (39.0-52.0); Hemoglobin 10.2 g/dL (13.0-18.0); Mean Corp Hgb Conc. 32.8 g/dL (33.0-37.0); Mean Corpuscular Volume 100.6 fL (80.0-94.0); Mean Platelet Volume 10.7 fL (7.4-10.4); Platelet Count 181 10^3/uL (130-400); Red Blood Cell Count 3.09 10^6/uL (4.70-6.10); Red Cell Dist. Width 15.9 % (11.5-14.5); White Blood Cell Count 9.8 10^3/uL (4.8-10.8)
[2023-11-11 06:17] LABS: INR 1.76; PT 20.3 Sec (11.4-14.6)
[2023-11-11 06:20] LABS: APTT 136.1 Sec (23.4-35.0)
[2023-11-11 07:07] LABS: Glucose - Point of Care 144 mg/dl (70-99)
[2023-11-11] MEDS: NOVOLOG FLEXPEN-LOW RESISTANCE SC (07:46)
[2023-11-11] MEDS: MIRALAX 17 GRAMS PO (08:15)
--- NOTE | 2023-11-11 09:39 | W.PN.CARDCBS ---
Today's Communication / Plan
-
Overall feels well. LFTs continue to improve.
Will give Coumadin 6 mg today and continue IV heparin.
Hopefully INR will be close to 2.5 in AM.
Continue amiodarone and antibiotics.
Impression / Plan
-
PCP: Dr. Hendricks
Spot Washer: Dr. SHANNON Mcintyre
Impression:
s/p cholecystecomy 11/06/2023
s/p Septic shock, resolved
Acute cholangitis
choledocholithiasis s/p ERCP w/ sphincterectomy and placement of stent in common bile duct
Hx sustained monomorphic ventricular tachycardia
Chronic amiodarone therapy
Medtronic DC ICD 07/2021
Nonobstructive CAD by cath 07/2021
Coronary aneurysms are unchanged angiographically from cath in 2009
Paroxysmal atrial fibrillation/atrial flutter
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
Chronic Coumadin anticoagulation (goal INR 2.5-3.5)
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
PAD with h/o iliac stent 2005
Type 2 diabetes
COPD
orthostatic hypotension
PVCs
HTN
HLD
INOCENCIO on CPAP
depression
schizophrenia
h/o bladder cancer s/p TURBT and cystolitholapaxy 2009
spinal stenosis
h/o large bowel resection 2000 in setting of diverticulitis per pt
Charcot joint
anemia
h/o epistaxis
Echo 11/02/2023: EF 50% mild cLVH, thickened mechanical MVR w/ peak/mean gradients 12/7 mmHg, mechanical AVR w/ peak/mean gradients 18/10 mmHg, mild possible paravalvular AI, mild TR, estimated PAP 30 mmHg
Plan:
Presented 10/31/2023 with septic shock in the setting of acute choledocholithiasis. s/p ERCP w/ stent placement in common bile duct. LFTs continue to improve
Remains compensated from cardiac standpoint s/p cholecystectomy 11/06/2023
Recent cardiac catheterization 07/2021 revealed coronary aneurysms with no obstructive coronary disease.
Recent echo reviewed and EF is stable from November 01 with well functioning mech MVR and AVR [facility]
Remains SR/paced rhythm with occasional PVCs on tele.
Mech MVR and AVR [facility]
INR 1.76 on 11/11/23
Got Coumadin 4 mg on 11/06, 11/07 and 6 mg 11/09/23.
Cont IV heparin to coumadin bridge. INR goal 2.5-3 given mech MVR and AVR.
Coumadin 6 mg PO X 1 November 10
Pt would prefer pt remain hospitalized and continue oral load with Coumadin rather going home with Lovenox bridge
Cont to monitor H/H and INR; Hgb stable 10.4
HR and bp remain stable
Pt has known h/o VT status post Medtronic ICD in 2021: Device interrogation last on October 26, 2023 in the office. Normal function and good battery life. No atrial fibrillation. He does have slow VT and VT detection settings were decreased to 140
bpm. From March to October he had 8 episodes of slow VT which were asymptomatic and terminated by ATP. He has never had any shocks. His most recent episode of VT was October 03, 2023. Continue to follow on telemetry perioperatively.
HPI: Sharif is a 77 year old male with PMH of nonobstructive CAD, ICD, paroxysmal atrial fibrillation, atrial flutter, NSVT, mechanical MVR/AVR, PAD, Type 2 DM, HTN, HLD, COPD, INOCENCIO, and bladder cancer who [facility]. He was in septic shock on arrival and was noted to have acute transaminitis and was diagnosed with acute cholangitis. He was found to have choledocholithiasis and underwent ERCP with placement of stent in the common bile duct. He was then seen
by general surgery and plan is for eventual cholecystectomy. Timing is TBD. Cardiology consulted for preop evaluation. Patient reports he has been feeling well from a cardiac standpoint and denies any chest pain, palpitations, or SOB currently. He
has history of mechanical MVR/AVR and his coumadin has been on hold, bridging with heparin. INR pending this AM. Echo was completed 11/01 and showed EF stable at 50% with stable valves. At this time he notes his only complaint is mild abdominal pain
when he presses on his stomach. He has had no fevers. BP and HR are stable.
Progress Note - Spot Washer
Subjective
Date of Service: November 11, 2023
Denies chest pains or shortness of breath.
Objective
Labs:
11/11/23 05:59
11/10/23 04:35
Labs
Hgb 10.2 g/dL (13.0-18.0) L 11/11/23 05:59
Hct 31.1 % (39.0-52.0) L 11/11/23 05:59
Plt Count 181 10^3/uL (130-400) 11/11/23 05:59
PT 20.3 Sec (11.4-14.6) H 11/11/23 05:59
INR 1.76 11/11/23 05:59
APTT Cancelled 11/11/23 12:30
Sodium 135 mmol/L (135-145) 11/10/23 04:35
Potassium 4.4 mmol/L (3.5-5.1) 11/10/23 04:35
BUN 26 mg/dl (9-20) H 11/10/23 04:35
Creatinine 1.2 mg/dL (0.7-1.3) 11/10/23 04:35
Glucose 143 mg/dl (70-99) H 11/10/23 04:35
Vital Signs and I&O:
Vital Signs
Temp Pulse Resp BP Pulse Ox
98.3 F 61 16 142/68 95
11/11/23 07:15 11/11/23 07:15 11/11/23 07:15 11/11/23 07:15 11/11/23 07:15
Vital Signs
Temp Pulse Resp BP Pulse Ox
98.3 F 61 16 142/68 95
11/11/23 07:15 11/11/23 07:15 11/11/23 07:15 11/11/23 07:15 11/11/23 07:15
Intake & Output
11/09/23 11/10/23 11/11/23 11/12/23
06:59 06:59 06:59 06:59
Intake Total 1236 / 1236 770 / 770 1460 / 1460
Output Total 2325 / 2325 2600 / 2600 3025 / 3025
Balance -1089 / -1089 -1830 / -1830 -1565 / -1565
Physical Exam
Physical Exam
GEN: No distress, awake, Ox3
HEENT: supple, anicteric, mmm
LUNGS: CTA, no wheezes/rales
CV: Reg, S1/S2, 1/6 syst LSB, + clicks
ABD: soft, BS+, NT/ND
EXT: No edema
NEURO: Gross non-focal
SKIN: No rash
--- NOTE | 2023-11-11 10:34 | W.PN.HOSP.TC ---
Today's Communication/Plan
-
continue heparin bridging with coumadin
daily INR
appreciate cardiology
repeat CMP tomorrow AM
trial simethicone for abdominal pain
Assessment / Plan
Assessment / Plan
pt is a 77 year old male
Septic shock with lactic acidosis--resolved
E. coli cholangitis, choledocholithiasis
Bacteremia with blood culture 10/30 positive for E. coli, Kleb pneumonia, Enterococcus and 10/31 positive for Klebsiella; blood cultures from 11/01 clear
-required pressors
-apprec GI/surgery
-s/p ERCP and EUS with sphincterotomy and plastic stent placed in CBD 11/01/23
-now s/p lap [place] 11/05
-s/p IV Zosyn - change to IV Unasyn - continue antibiotics through at least 11/13; when ready for DC will change to oral Augmentin
-Outpatient follow-up with Dr. Barber in 6 weeks, scheduled on 12/17 @ 10 AM
-continue with some post-op abdominal pain but not severe. no fevers or elevated WBC. will continue to monitor
CAD-
Paroxysmal afib/aneurysms/valve replacement
-coumadin now resumed post procedures
-IV heparin gtt resumed - continue bridging; per cardiology, patient is not a good candidate for home Lovenox injections
-continue EMT/DISPATCHER metoprolol
-EMT/DISPATCHER Amiodarone
GERD-
-EMT/DISPATCHER Pepcid resume
IDDM--cont lantus 10 units SC-
-ISS
-hold EMT/DISPATCHER metformin
Essential Hypertension--
-EMT/DISPATCHER metoprolol
SANKET-
-bladder scan
-urine studies
-renal function back to baseline
Hyperlipidemia--Hold rosuvastatin due to elevated LFTs; improving - repeat CMP next week
Schizophrenia--Continue risperidone
hypocalcemia/anemia/thrombocytopenia-- lab error as blood drawn above IVF infusion--repeat normal
DVT prophylaxis--IV heparin gtt
Code status -- FULL CODE
PT/OT --> eventual HH
Anticipated Discharge: > 48 hours
Subjective/Interval History
-
Date of Service: November 11, 2023
patient has some abdominal pain
not worse after eating
thinks it's gas
better than how it was initially post-op
Objective Data
-
Labs:
Laboratory Results
11/11/23 11/11/23 11/11/23
05:59 12:30 13:30
WBC 9.8
Hgb 10.2 L
Hct 31.1 L
Plt Count 181
PT 20.3 H
INR 1.76
APTT 136.1 H Cancelled Pending
Vital Signs:
Vital Signs
Temp Pulse Resp BP Pulse Ox
98.3 F 61 16 142/68 95
11/11/23 07:15 11/11/23 07:15 11/11/23 07:15 11/11/23 07:15 11/11/23 07:15
I&O
11/10/23 11/11/23 11/12/23
06:59 06:59 06:59
Intake Total 770 / 770 1460 / 1460
Output Total 2600 / 2600 3025 / 3025
Balance -1830 / -1830 -1565 / -1565
Review of Systems
-
History Source: Patient
All other systems: Reviewed and negative
Physical Exam
-
General: Well Developed, Well Nourished and No Apparent Distress
HEENT: Normocephalic and Atraumatic
Respiratory: Clear to Auscultation; Negative Wheezes or Rhonchi
Cardiac: Regular Rhythm, S1/S2 and Murmur (click)
GI: Soft, Nondistended, Normal Bowel Sounds, Tender (minimal RUQ) and Other (incisions c/d/i)
Musculoskeletal: No Clubbing, No Cyanosis and No Edema
Neuro: Awake and Alert
Psych: Calm
Data Reviewed
-
Diagnostic Radiology: Report Reviewed by me
Labs: Labs Reviewed by me
[2023-11-11 11:28] LABS: Glucose - Point of Care 177 mg/dl (70-99)
[2023-11-11] MEDS: NOVOLOG FLEXPEN-LOW RESISTANCE 1 UNITS SC ×2 (11:33→17:44)
[2023-11-11 14:32] LABS: APTT 82.1 Sec (23.4-35.0)
[2023-11-11 17:29] LABS: Glucose - Point of Care 169 mg/dl (70-99)
[2023-11-11] MEDS: FLORASTOR 250 MG PO (17:44)
[2023-11-11] MEDS: COUMADIN 6 MG PO (18:11)
[2023-11-11] MEDS: RISPERDAL 2 MG PO (20:07)
[2023-11-11 20:27] LABS: APTT 113.9 Sec (23.4-35.0)
[2023-11-11] MEDS: MELATONIN 10 MG PO (21:02)
[2023-11-11] MEDS: ELAVIL 100 MG PO (21:02)
[2023-11-11] MEDS: ULTRAM 25 MG PO (21:02)
[2023-11-11] MEDS: PACERONE 200 MG PO (21:03)
[2023-11-11] MEDS: PROSCAR 5 MG PO (21:03)
[2023-11-11] MEDS: LANTUS 0.100000000000000006 UNITS SC (21:03)
[2023-11-11] MEDS: TOPROL XL 50 MG PO (21:03)
[2023-11-11] MEDS: PEPCID 40 MG PO (21:03)
[2023-11-11 21:12] LABS: Glucose - Point of Care 204 mg/dl (70-99)
[2023-11-11] MEDS: HEPARIN 25000 UNITS/250 ML IV (23:21)
[2023-11-12] MEDS: UNASYN IV ×2 (02:37→08:00)
[2023-11-12 03:06] LABS: APTT 113.9 Sec (23.4-35.0)
[2023-11-12 03:45] VITALS: BP 129/63
[2023-11-12 05:07] LABS: Hematocrit 30.5 % (39.0-52.0); Hemoglobin 10.2 g/dL (13.0-18.0); Mean Corp Hgb Conc. 33.4 g/dL (33.0-37.0); Mean Corpuscular Hgb 33.2 pg (27.0-31.0); Mean Corpuscular Volume 99.3 fL (80.0-94.0); Mean Platelet Volume 10.3 fL (7.4-10.4); Platelet Count 210 10^3/uL (130-400); Red Blood Cell Count 3.07 10^6/uL (4.70-6.10); Red Cell Dist. Width 16.2 % (11.5-14.5); White Blood Cell Count 8.7 10^3/uL (4.8-10.8)
[2023-11-12 05:35] LABS: ALT (SGPT) 56 U/L (0-50); AST (SGOT) 25 U/L (17-59); Albumin 2.9 g/dl (3.5-5.0); Alkaline Phosphatase 132 U/L (38-126); Blood Urea Nitrogen 25 mg/dl (9-20); Calcium 8.8 mg/dl (8.4-10.2); Carbon Dioxide 23 mmol/L (22-30); Chloride 107 mmol/L (98-107); Estimated Creatinine Clearance 56 ml/min; Glucose 134 mg/dl (70-99); Potassium 4.4 mmol/L (3.5-5.1); Sodium 136 mmol/L (135-145); Total Bilirubin 0.6 mg/dl (0.2-1.3); Total Protein 5.9 g/dl (6.3-8.2); eGFR > 60.00
[2023-11-12 06:00] VITALS: BMI 30.4
[2023-11-12 07:05] VITALS: BP 119/68
[2023-11-12 07:55] LABS: Glucose - Point of Care 140 mg/dl (70-99)
[2023-11-12] MEDS: NOVOLOG FLEXPEN-LOW RESISTANCE SC (07:59)
[2023-11-12] MEDS: MIRALAX 17 GRAMS PO (07:59)
[2023-11-12 10:22] LABS: INR 2.29; PT 25.1 Sec (11.4-14.6)
[2023-11-12 10:24] LABS: APTT 80.1 Sec (23.4-35.0)
--- NOTE | 2023-11-12 10:48 | W.PN.HOSP.TC ---
Today's Communication/Plan
-
see plan
Assessment / Plan
Assessment / Plan
pt is a 77 year old male
Septic shock with lactic acidosis--resolved
E. coli cholangitis, choledocholithiasis
Bacteremia with blood culture 10/30 positive for E. coli, Kleb pneumonia, Enterococcus and 10/31 positive for Klebsiella; blood cultures from 11/01 clear
-required pressors
-apprec GI/surgery
-s/p ERCP and EUS with sphincterotomy and plastic stent placed in CBD 11/01/23
-now s/p lap [place] 11/05
-s/p IV Zosyn - change to IV Unasyn - continue antibiotics through 11/13 (confirmed plan with ID); will change to Augmentin today
-Outpatient follow-up with Dr. Barber in 6 weeks, scheduled on 12/17 @ 10 AM
-continue with some post-op abdominal pain but not severe. no fevers or elevated WBC and liver enzymes trending down. will continue to monitor
CAD-
Paroxysmal afib/aneurysms/valve replacement
-coumadin now resumed post procedures
-IV heparin gtt resumed - continue bridging; per cardiology, patient is not a good candidate for home Lovenox injections
-continue DIRECTOR FURNITURE metoprolol
-DIRECTOR FURNITURE Amiodarone
-will resume home dose coumadin this evening; several days of higher dosing should catch up by tomorrow
GERD-
-DIRECTOR FURNITURE Pepcid resume
IDDM--cont lantus 10 units SC-
-ISS
-hold DIRECTOR FURNITURE metformin
Essential Hypertension--
-DIRECTOR FURNITURE metoprolol
SANKET-
-bladder scan
-urine studies
-renal function back to baseline
Hyperlipidemia--Hold rosuvastatin due to elevated LFTs; improving - repeat CMP next week
Schizophrenia--Continue risperidone
hypocalcemia/anemia/thrombocytopenia-- lab error as blood drawn above IVF infusion--repeat normal
DVT prophylaxis--IV heparin gtt
Code status -- FULL CODE
PT/OT --> eventual HH
Anticipated Discharge: 24 - 48 hours
Subjective/Interval History
-
Date of Service: November 12, 2023
feeling well
eating and drinking well
continue with mild abdominal pain relieved with Tramadol
Objective Data
-
Labs:
Laboratory Results
11/12/23 11/12/23 11/12/23
02:48 04:47 06:00
WBC 8.7
Hgb 10.2 L
Hct 30.5 L
Plt Count 210
PT Cancelled
INR Cancelled
APTT 113.9 H
Sodium 136
Potassium 4.4
Chloride 107
Carbon Dioxide 23
BUN 25 H
Creatinine 1.2
Glucose 134 H
Calcium 8.8
Total Bilirubin 0.6
AST 25
ALT 56 H
Alkaline Phosphatase 132 H
11/12/23
09:55
WBC
Hgb
Hct
Plt Count
PT 25.1 H
INR 2.29
APTT 80.1 H
Sodium
Potassium
Chloride
Carbon Dioxide
BUN
Creatinine
Glucose
Calcium
Total Bilirubin
AST
ALT
Alkaline Phosphatase
Vital Signs:
Vital Signs
Temp Pulse Resp BP Pulse Ox
98.0 F 61 17 119/68 97
11/12/23 07:05 11/12/23 07:05 11/12/23 07:05 11/12/23 07:05 11/12/23 07:05
I&O
11/11/23 11/12/23 11/13/23
06:59 06:59 06:59
Intake Total 1460 / 1460 1760 / 1760
Output Total 3025 / 3025 1700 / 1700
Balance -1565 / -1565 60 / 60
Review of Systems
-
History Source: Patient
All other systems: Reviewed and negative
Physical Exam
-
General: Well Developed, Well Nourished and No Apparent Distress
HEENT: Normocephalic and Atraumatic
Respiratory: Clear to Auscultation; Negative Wheezes or Rhonchi
Cardiac: Regular Rhythm, S1/S2 and Murmur (click)
GI: Soft, Nondistended, Normal Bowel Sounds, Tender (minimal RUQ) and Other (incisions c/d/i)
Musculoskeletal: No Clubbing, No Cyanosis and No Edema
Neuro: Awake and Alert
Psych: Calm
Data Reviewed
-
Diagnostic Radiology: Report Reviewed by me
Labs: Labs Reviewed by me
[2023-11-12 11:40] VITALS: BP 139/72
[2023-11-12] MEDS: AUGMENTIN 875 MG/125 MG 1 TABLET PO ×2 (12:11→20:20)
[2023-11-12] MEDS: NOVOLOG FLEXPEN-LOW RESISTANCE 1 UNITS SC ×2 (12:11→17:38)
[2023-11-12 12:15] LABS: Glucose - Point of Care 150 mg/dl (70-99)
--- NOTE | 2023-11-12 12:46 | CM ---
CM reviewed chart.
Discharge dispo home with [facility] and family support.
If pt should dc on lovenox please consult CM to alert [facility].
CM to follow and assist.
[2023-11-12 15:00] VITALS: BP 127/69
--- NOTE | 2023-11-12 15:10 | W.PN.UPDATE ---
Update Note
Progress Note Update
Cont IV Heparin to coumadin bridge.
INR close to goal of 2.5-3.
Primary service ordered outpt Coumadin dose for today dose.
[2023-11-12 17:05] LABS: APTT 88.7 Sec (23.4-35.0)
[2023-11-12 17:12] LABS: Glucose - Point of Care 150 mg/dl (70-99)
[2023-11-12] MEDS: FLORASTOR 250 MG PO (17:38)
[2023-11-12] MEDS: COUMADIN 2 MG PO (17:39)
[2023-11-12 19:30] VITALS: BP 146/60
[2023-11-12] MEDS: RISPERDAL 2 MG PO (20:20)
[2023-11-12] MEDS: TOPROL XL 50 MG PO (22:05)
[2023-11-12] MEDS: ELAVIL 100 MG PO (22:05)
[2023-11-12] MEDS: MELATONIN 10 MG PO (22:05)
[2023-11-12 22:06] LABS: Glucose - Point of Care 247 mg/dl (70-99)
[2023-11-12] MEDS: PEPCID 40 MG PO (22:07)
[2023-11-12] MEDS: PACERONE 200 MG PO (22:07)
[2023-11-12] MEDS: PROSCAR 5 MG PO (22:08)
[2023-11-12] MEDS: ULTRAM 25 MG PO (22:08)
[2023-11-12] MEDS: LANTUS 0.100000000000000006 UNITS SC (22:10)
[2023-11-12 23:30] VITALS: BP 137/67
[2023-11-13 03:30] VITALS: BP 133/67; BMI 30.4
[2023-11-13 05:10] VITALS: BMI 30.4
[2023-11-13 05:21] LABS: Hematocrit 30.4 % (39.0-52.0); Hemoglobin 10.1 g/dL (13.0-18.0); Mean Corp Hgb Conc. 33.2 g/dL (33.0-37.0); Mean Corpuscular Volume 99.3 fL (80.0-94.0); Mean Platelet Volume 10.4 fL (7.4-10.4); Platelet Count 233 10^3/uL (130-400); Red Blood Cell Count 3.06 10^6/uL (4.70-6.10); Red Cell Dist. Width 15.9 % (11.5-14.5); White Blood Cell Count 8.3 10^3/uL (4.8-10.8)
[2023-11-13 05:35] LABS: INR 2.65; PT 28.2 Sec (11.4-14.6)
[2023-11-13 05:37] LABS: APTT 93.3 Sec (23.4-35.0)
[2023-11-13 05:43] LABS: ALT (SGPT) 54 U/L (0-50); AST (SGOT) 28 U/L (17-59); Alkaline Phosphatase 141 U/L (38-126); Blood Urea Nitrogen 29 mg/dl (9-20); Calcium 9.1 mg/dl (8.4-10.2); Carbon Dioxide 23 mmol/L (22-30); Chloride 105 mmol/L (98-107); Estimated Creatinine Clearance 52 ml/min; Glucose 143 mg/dl (70-99); Potassium 4.8 mmol/L (3.5-5.1); Sodium 136 mmol/L (135-145); Total Bilirubin 0.5 mg/dl (0.2-1.3); Total Protein 6.1 g/dl (6.3-8.2); eGFR 55.88
[2023-11-13 06:00] VITALS: BMI 30.3
[2023-11-13 08:16] LABS: Glucose - Point of Care 166 mg/dl (70-99)
[2023-11-13] MEDS: AUGMENTIN 875 MG/125 MG 1 TABLET PO (08:26)
[2023-11-13] MEDS: NOVOLOG FLEXPEN-LOW RESISTANCE 1 UNITS SC (08:27)
[2023-11-13] MEDS: MIRALAX 17 GRAMS PO (08:27)
[2023-11-13] MEDS: ULTRAM 25 MG PO (08:27)
[2023-11-13 08:40] VITALS: BP 114/67
--- NOTE | 2023-11-13 11:15 | CM ---
Patient seen at bedside with physician. Patient completed the paperwork of the IMM and form placed on chart. Patient present and indicated that she would provide transportation. Patient asked for VN for assistance with PT/OT. Patient
for discharge home today. CM will continue to follow for discharge planning needs.
Plan; home with [facility] referral.
--- NOTE | 2023-11-13 11:31 | W.PN.HOSP.TC ---
Today's Communication/Plan
-
d/c
Assessment / Plan
Assessment / Plan
pt is a 77 year old male
Septic shock with lactic acidosis--resolved
E. coli cholangitis, choledocholithiasis
Bacteremia with blood culture 10/30 positive for E. coli, Kleb pneumonia, Enterococcus and 10/31 positive for Klebsiella; blood cultures from 11/01 clear
-required pressors
-apprec GI/surgery
-s/p ERCP and EUS with sphincterotomy and plastic stent placed in CBD 11/01/23
-now s/p lap [place] 11/05
-s/p IV Zosyn - change to IV Unasyn - continue antibiotics through 11/13 (confirmed plan with ID); will change to Augmentin today
-Outpatient follow-up with Dr. Barber in 6 weeks, scheduled on 12/17 @ 10 AM
-continue with some post-op abdominal pain but not severe. no fevers or elevated WBC and liver enzymes trending down. will continue to monitor
CAD-
Paroxysmal afib/aneurysms/valve replacement
-coumadin now resumed post procedures
-IV heparin gtt resumed - continue bridging; per cardiology, patient is not a good candidate for home Lovenox injections --INR therapeutic
-continue INFECTION PREVENTIONIST metoprolol
-INFECTION PREVENTIONIST Amiodarone
GERD-
-INFECTION PREVENTIONIST Pepcid resume
IDDM--cont lantus 10 units SC-
-ISS
-hold INFECTION PREVENTIONIST metformin
Essential Hypertension--
-INFECTION PREVENTIONIST metoprolol
SANKET-
-bladder scan
-urine studies
-renal function back to baseline
Hyperlipidemia--Hold rosuvastatin due to elevated LFTs; improving - repeat CMP next week
Schizophrenia--Continue risperidone
hypocalcemia/anemia/thrombocytopenia-- lab error as blood drawn above IVF infusion--repeat normal
DVT prophylaxis--IV heparin gtt
Code status -- FULL CODE
PT/OT --> eventual HH
Anticipated Discharge: Today
Subjective/Interval History
-
Date of Service: November 13, 2023
pt ready for d/c--INR 2.65
Objective Data
-
Labs:
Laboratory Results
11/13/23
04:44
WBC 8.3
Hgb 10.1 L
Hct 30.4 L
Plt Count 233
PT 28.2 H
INR 2.65
APTT 93.3 H
Sodium 136
Potassium 4.8
Chloride 105
Carbon Dioxide 23
BUN 29 H
Creatinine 1.3
Glucose 143 H
Calcium 9.1
Total Bilirubin 0.5
AST 28
ALT 54 H
Alkaline Phosphatase 141 H
Vital Signs:
max temp for 24 hours
11/13/23
08:40
Temp 98.2 F
Vital Signs
Temp Pulse Resp BP Pulse Ox
98.2 F 61 18 114/67 97
11/13/23 08:40 11/13/23 08:40 11/13/23 08:40 11/13/23 08:40 11/13/23 08:40
I&O
11/12/23 11/13/23 11/14/23
06:59 06:59 06:59
Intake Total 1760 / 1760 1200 / 1200
Output Total 1700 / 1700 1050 / 1050
Balance 60 / 60 150 / 150
Review of Systems
-
All other systems: Reviewed and negative
Physical Exam
-
General: Well Developed, Well Nourished and No Apparent Distress
HEENT: Normocephalic and Atraumatic
Respiratory: Clear to Auscultation; Negative Wheezes or Rhonchi
Cardiac: Regular Rhythm, S1/S2 and Murmur (click)
GI: Soft, Nontender, Nondistended and Normal Bowel Sounds
Musculoskeletal: No Clubbing, No Cyanosis and No Edema
Neuro: Awake and Alert
[2023-11-13 11:33] VITALS: BP 113/75
--- NOTE | 2023-11-13 12:36 | W.PN.CARDCBS ---
Today's Communication / Plan
-
stable for d/c from cardiac standpoint
Impression / Plan
-
PCP: Dr. Hendricks
Filter Changing Technician: Dr. SHANNON Mcintyre
Impression:
s/p cholecystecomy 11/06/2023
s/p Septic shock, resolved
Acute cholangitis
choledocholithiasis s/p ERCP w/ sphincterectomy and placement of stent in common bile duct
Hx sustained monomorphic ventricular tachycardia
Chronic amiodarone therapy
Medtronic DC ICD 07/2021
Nonobstructive CAD by cath 07/2021
Coronary aneurysms are unchanged angiographically from cath in 2009
Paroxysmal atrial fibrillation/atrial flutter
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
Chronic Coumadin anticoagulation (goal INR 2.5-3.5)
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
PAD with h/o iliac stent 2005
Type 2 diabetes
COPD
orthostatic hypotension
PVCs
HTN
HLD
INOCENCIO on CPAP
depression
schizophrenia
h/o bladder cancer s/p TURBT and cystolitholapaxy 2009
spinal stenosis
h/o large bowel resection 2000 in setting of diverticulitis per pt
Charcot joint
anemia
h/o epistaxis
Echo 11/02/2023: EF 50% mild cLVH, thickened mechanical MVR w/ peak/mean gradients 12/7 mmHg, mechanical AVR w/ peak/mean gradients 18/10 mmHg, mild possible paravalvular AI, mild TR, estimated PAP 30 mmHg
Plan:
Presented 10/31/2023 with septic shock in the setting of acute choledocholithiasis. s/p ERCP w/ stent placement in common bile duct. LFTs continue to improve
Remains compensated from cardiac standpoint s/p cholecystectomy 11/06/2023
Recent cardiac catheterization 07/2021 revealed coronary aneurysms with no obstructive coronary disease.
Recent echo reviewed and EF is stable from November 01 with well functioning [facility] MVR and AVR [facility] [place]
Remains SR/paced rhythm with occasional PVCs on tele.
HR and bp stable.
[facility] MVR and AVR [facility] [place], INR now therapeutic. Cont outpt coumadin.
INR goal 2.5-3.
Outpt follow up to be arranged.
Discussed with family at bedside
Pt has known h/o VT status post Medtronic ICD in 2021: Device interrogation last on October 26, 2023 in the office. Normal function and good battery life. No atrial fibrillation. He does have slow VT and VT detection settings were decreased to 140
bpm. From March to October he had 8 episodes of slow VT which were asymptomatic and terminated by [facility]. He has never had any shocks. His most recent episode of VT was October 03, 2023. Continue to follow on telemetry perioperatively.
HPI: Sharif is a 77 year old male with PMH of nonobstructive CAD, ICD, paroxysmal atrial fibrillation, atrial flutter, NSVT, mechanical MVR/AVR, PAD, Type 2 DM, HTN, HLD, COPD, INOCENCIO, and bladder cancer who presented to [facility] for evaluation after a
fall. He was in septic shock on arrival and was noted to have acute transaminitis and was diagnosed with acute cholangitis. He was found to have choledocholithiasis and underwent ERCP with placement of stent in the common bile duct. He was then seen
by general surgery and plan is for eventual cholecystectomy. Timing is TBD. Cardiology consulted for preop evaluation. Patient reports he has been feeling well from a cardiac standpoint and denies any chest pain, palpitations, or SOB currently. He
has history of mechanical MVR/AVR and his coumadin has been on hold, bridging with heparin. INR pending this AM. Echo was completed 11/01 and showed EF stable at 50% with stable valves. At this time he notes his only complaint is mild abdominal pain
when he presses on his stomach. He has had no fevers. BP and HR are stable.
Progress Note - Filter Changing Technician
Subjective
Date of Service: November 13, 2023
Pt seen and examined. No complaints. No chest pain or shortness of breath.
Objective
Labs:
11/13/23 04:44
11/13/23 04:44
Labs
Hgb 10.1 g/dL (13.0-18.0) L 11/13/23 04:44
Hct 30.4 % (39.0-52.0) L 11/13/23 04:44
Plt Count 233 10^3/uL (130-400) 11/13/23 04:44
PT 28.2 Sec (11.4-14.6) H 11/13/23 04:44
INR 2.65 11/13/23 04:44
APTT 93.3 Sec (23.4-35.0) H 11/13/23 04:44
Sodium 136 mmol/L (135-145) 11/13/23 04:44
Potassium 4.8 mmol/L (3.5-5.1) 11/13/23 04:44
BUN 29 mg/dl (9-20) H 11/13/23 04:44
Creatinine 1.3 mg/dL (0.7-1.3) 11/13/23 04:44
Glucose 143 mg/dl (70-99) H 11/13/23 04:44
Vital Signs and I&O:
Vital Signs
Temp Pulse Resp BP Pulse Ox
97.5 F 63 16 113/75 100
11/13/23 11:33 11/13/23 11:33 11/13/23 11:33 11/13/23 11:33 11/13/23 11:33
Vital Signs
Temp Pulse Resp BP Pulse Ox
97.5 F 63 16 113/75 100
11/13/23 11:33 11/13/23 11:33 11/13/23 11:33 11/13/23 11:33 11/13/23 11:33
Intake & Output
11/11/23 11/12/23 11/13/23 11/14/23
06:59 06:59 06:59 06:59
Intake Total 1460 / 1460 1760 / 1760 1200 / 1200
Output Total 3025 / 3025 1700 / 1700 1050 / 1050
Balance -1565 / -1565 60 / 60 150 / 150
Physical Exam
Physical Exam
General: No acute distress, AAOX3
Neck: Negative JVD
Heart: Regular, Negative S3 positive S1/S2, Negative S4, No murmur
Lungs: CTA b/l, negative wheezes/rales/rhonchi
Abd: Positive BS, NT/ND, neg rebound/rigidity/guarding
Ext: Negative cyanosis/clubbing/edema
Neuro: nonfocal
[2023-11-13] MEDS: NOVOLOG FLEXPEN-LOW RESISTANCE SC (12:44)
--- NOTE | 2023-11-15 06:53 | W.DCSUMMARY ---
Discharge Summary
Discharge Data
Date of Admission: 10/31/23
Date of Discharge: 11/13/23
-
Pending Results: No
Hospital Course
Primary care physician : Driss Hendricks
Principal Discharge diagnosis : Septic shock with lactic acidosis due to Escherichia coli cholangitis with choledocholithiasis
Chronic Discharge diagnosis : Coronary artery disease, gastroesophageal reflux disease, type 2 diabetes mellitus insulin requiring, essential hypertension, acute kidney injury resolved, hyperlipidemia, history of schizophrenia,
hypocalcemia/anemia/thrombocytopenia due to lab error, paroxysmal atrial fibrillation with mechanical valve replacement (MVR/AVR)
Hospital Course : Patient was a 77-year-old male with multiple medical issues who presented after a fall. He fell forward hitting his head while was going to the restroom. He has a mechanical valve replacement with defibrillator and had been on
Coumadin for 20 years. Patient's daughter stated he was not feeling well since the Monday prior to admission. He reported decreased appetite and fatigue. Patient's color was off to her and he looked pale. He denied any blood in the stool.
Workup in the emergency department found him to have common bile duct dilation with a questionable ampullary lesion and sepsis. Patient was admitted.
Problem # 1: Septic shock with lactic acidosis due to Escherichia coli cholangitis with choledocholithiasis. Patient was admitted and went to the intensive care unit. He was seen in consultation by the impact hammer operator, GI, interventional GI, general
surgery, cardiology, and ID. Patient was found to have blood cultures positive on October 30 for Escherichia coli, Klebsiella pneumoniae and Enterococcus. They remain positive on October 31 for Klebsiella. From November 01 on cultures were negative. He did
require pressors. He had endoscopic ultrasound and ERCP with sphincterotomy and plastic stent placed in the common bile duct on November 01, 2023. He then underwent his laparoscopic cholecystectomy on November 06, 2023. Patient was initially started on
Zosyn and Vanco. These were converted to IV Unasyn and eventually to Augmentin through November 14, 2023. Patient will have an outpatient follow-up with Dr. Barber in 6 weeks, as well as his general surgeon in approximately 2 weeks.
Problem #2: Paroxysmal atrial fibrillation with mechanical valve replacement. Due to his history of mechanical valve, Coumadin was not reversed but instead held. Once INR dropped below 2.5, IV heparin was started as a bridge. After his surgery,
patient required bridging again with IV heparin. He stayed in the hospital until his INR was therapeutic. Metoprolol was held on admission due to need for pressors. Eventually he was restarted on metoprolol and his amiodarone. He was seen in
consultation by cardiology. Patient's INR was therapeutic at discharge. He will follow-up with Coumadin clinic as directed.
Problem #3: All other medical issues. These include Coronary artery disease, gastroesophageal reflux disease, type 2 diabetes mellitus insulin requiring, essential hypertension, acute kidney injury resolved, hyperlipidemia, history of
schizophrenia, hypocalcemia/anemia/thrombocytopenia. These medical issues were stable during his hospitalization. Medications were continued as able.
Patient is stable for discharge home at this time. If there are any questions regarding this dictation or his hospital stay, please not hesitate to call. Our office number is [phone].
Time for discharge 39 minutes.
Important imaging findings :
ABDOMINAL/PELVIC CT SCAN IMPRESSION:
1. No significant acute abnormality identified in the abdomen or pelvis, as described above.
2. Diffuse common bile duct dilatation with questionable ampullary lesion. Recommend outpatient workup with dedicated MRI/MRCP abdomen without and with gadolinium contrast, versus ERCP.
DOPPLER US IMPRESSION:
Duplex evaluation of the upper abdominal vasculature is within normal limits.
Cholelithiasis as well as sludge. No evidence for gallbladder wall thickening or pericholecystic edema, and the patient has a negative sonographic Ibarra's sign.
Common bile duct measures up to 8.8 mm, which is considered mildly dilated. Limited visualization of the common bile duct with no evidence for bile duct calculus.
Hepatomegaly with diffuse fatty ratio of the liver. No evidence for a focal hepatic mass lesion.
The pancreas is unable to be adequately visualized. The upper abdominal aorta and the upper abdominal IVC are unable to be adequately visualized.
Procedure findings :
ERCP FINDINGS and IMPRESSION:
Common bile duct has been cannulated in a retrograde fashion. For further information, please see the operative report.
INTRAOP CHOLANGIOGRAM FINDINGS:
Intraoperative cholangiogram demonstrates sequential contrast filling of the remnant cystic duct and biliary tree. Normal caliber biliary tree with no gross filling defects appreciated. There likely is some gas within the intrahepatic ducts.
Partially imaged aortic stent graft.
Discharge Plan
-
Patient Disposition: Home with Home Care
Discharge Diagnosis/Procedures: Septic shock with lactic acidosis due to Escherichia coli cholangitis and choledocholithiasis status post ERCP/EUS with sphincterotomy and plastic stent placed/laparoscopic cholecystectomy, coronary artery disease,
gastroesophageal reflux disease, paroxysmal atrial fibrillation, insulin-dependent diabetes mellitus, essential hypertension, acute kidney injury, hyperlipidemia, schizophrenia, hypocalcemia/anemia/thrombocytopenia due to lab error
Condition: Good
Diet: Diabetic, Carb Controlled
Activity: No strenuous activity
Driving Restrictions: Not until seen by your Dr
Bathing Restrictions: OK to Shower
Blood Work: pt/INR on Monday--results to coumadin clinic
Other Services: VN, PT and OT
Specialty Instructions: Weigh Daily- Call MD for wt gain/loss 3 lbs overnight/5 lbs in 1 week
Activity Restrictions/Additional Instructions:
Instructions following Laparoscopic cholecystectomy
Please call [phone] if you have any questions or concerns after your surgery.
Wound Care:
Your incisions are covered with skin glue which will come off on it�s own in 5-10 days.
It is ok to shower the day after your surgery. Do not scrub the incisions, let soap and water wash over them and pat dry.
� Bruising around your incisions is normal.
� Using ice packs will help minimize this swelling.
� No swimming or soaking incisions for 1 week.
� Your stitches will dissolve and do not need to be removed.
Urinary retention:
If you are unable to urinate 6-8 hours after your surgery, please call [phone] to discuss further management.
Activity:
No heavy lifting more than 15 pounds for the next 3 weeks, then you may gradually lift heavier objects as tolerated by discomfort. Otherwise activity as tolerated by your comfort level.
Pain Management:
Use Tylenol, ibuprofen and ice packs to treat your pain.
� You may take 650 milligrams of Tylenol (Max 3 grams per day) every 6 hours, and 600 mg of ibuprofen also every 6 hours. (you can alternate them every 3 hours)
� You may use an ice pack to your incision as needed.
� If you still have pain not controlled by these measures, take your prescription pain medication as prescribed.
Medications:
You may resume your home medications.
Y
Bowel Medications:
Prescription pain medication can make you constipated. If you take this medication, also take colace 100 mg twice daily (this is over the counter). If this is not sufficient, you may take Miralax (polyethylene glycol) to help move your bowels.
Diet:
After your procedure, there are no dietary restrictions. You may notice loose stools for up to 4 weeks after surgery with fatty meals, if this is the case you may have to adjust your diet as needed.
Driving restrictions:
No driving if you are taking prescription pain medication or if you think your normal reaction time and attentiveness has been slowed by your surgery.
Things to Look out for:
Worsening Abdominal pain, redness or drainage from incision
Call Doctor for:
Please call if you notice worsening redness or drainage from incision(s) lasting longer than 5 days after your surgery, any foul-smelling drainage from the incision, pain not controlled by pain medications, persistent nausea and vomiting, or for any
fevers greater than 101.3 F. The number for questions/concerns is [phone]
Follow-up:
Follow-up appointment will be scheduled with your surgeon in 3-4 weeks. Please call prior to your appointment if you have any questions or concerns. [phone]
Referrals:
Arpita Chawla PA-C [Specified Professional Personl] - 12/13/23 9:40 am (You have cardiology follow up with Arpita Chawla PA-C on December 12 at 9:40 am. If you are unable to make this please call [phone] to reschedule)
Driss Hendricks Jr., DO [Family Provider] - in less than 1 week
Sharona Mckeon NP [Specified Professional Personl] -
(sleep clinic in 4 weeks
need to confirm adequate response to PAP therapy)
Alessio Emanuel MD [Active] - in two weeks
Glenny Padron PA-C [Specified Professional Personl] - 12/27/23 11:30 am
Additional Discharge Medication Instructions: Follow-up with the Coumadin clinic
Prescriptions:
New
amoxicillin-pot clavulanate 875-125 mg Tablet
1 tab PO BID Qty: 3 0RF
tramadol 50 mg Tablet
25 mg PO Q6HPRN PRN (Reason: severe pain) Qty: 10 0RF
Continued
metoprolol succinate 50 MG tablet extended release 24 hr
50 mg PO HS
famotidine 40 MG tablet
40 mg PO HS
amitriptyline 50 MG tablet
100 mg PO HS
risperidone 2 MG tablet
2 mg PO HS
ascorbic acid (vitamin C) [Vitamin C] 500 MG tablet
1,000 mg PO DAILY
magnesium oxide 500 MG tablet
400 mg PO HS
B-complex with vitamin C 1 CAPLET tablet
1 cap PO PURCELL
cholecalciferol (vitamin D3) 2,000 UNITS tablet
2,000 units PO SUWE
multivitamin with folic acid [Tab-A-David] 1 TABLET tablet
1 tab PO DAILY
finasteride 5 MG tablet
5 mg PO HS
lecithin 518 mg Capsule
518 mg PO DAILY
Hold Instructions: Resume on 09/21/22.
amiodarone [Pacerone] 200 MG tablet
200 mg PO HS
coenzyme Q10 [CoQ-10] 100 mg Capsule
100 mg PO DAILY
Hold Instructions: Resume on 09/21/22.
rosuvastatin 5 mg Tablet
5 mg PO HS
melatonin 10 mg Tablet
10 mg PO HS Qty: 0 0RF
warfarin [Jantoven] 2 MG tablet
2 mg PO QPM Qty: 1 0RF
metformin 500 mg Tablet Extended Release 24 Hr
500 mg PO DAILY
Levemir U-100 Insulin 100 unit/mL Solution
10 unit SC DAILY
PreserVision AREDS 2,148 mcg-113 mg-45 mg-17.4mg Tablet
1 tab PO BID
sennosides [senna] 8.6 mg tablet
17.2 mg PO HS
acetaminophen [Acetaminophen Extra Strength] 500 mg tablet
1,000 mg PO BIDPRN PRN (Reason: headaches)
docusate sodium 100 mg capsule
100 mg PO DAILY
Saccharomyces boulardii [Florastor] 250 mg capsule
250 mg PO QPM
Metamucil
Discharge Orders:
Discharge Patient (As Directed); Ordered 11/13/23
Ordered By: Luz Marina Suh
Discharge Date and Time
Discharge Date/Time: 11/13/23 14:08
Print Language: TELUGU
== END 2023-11-13 14:08 | disposition home health service (06) | DRG 853 ==
LOC: 2 SOUTH 12:11
PROVIDERS: Internal Medicine; Internal Medicine Gastroenterology; Nuclear Medicine Nuclear Cardiology; Nurse Practitioner Primary Care; Physician Assistant; Registered Nurse; Student in an Organized Health Care Education/Training Program; Surgery; ADMITTING PHYSICIAN Internal Medicine; CONSULT PHYSICIAN Internal Medicine; CONSULT PHYSICIAN Internal Medicine Critical Care Medicine; CONSULT PHYSICIAN Surgery; EMERGENCY PHYSICIAN Emergency Medicine; FAMILY PHYSICIAN Family Medicine; OTHER PHYSICIAN Internal Medicine Cardiovascular Disease
PROC: 0F798DZ Dilation of Common Bile Duct with Intraluminal Device, Via Natural or Artificial Opening Endoscopic (ICD-10-PCS; 2023-11-01)
PROC: 0DJ08ZZ Inspection of Upper Intestinal Tract, Via Natural or Artificial Opening Endoscopic (ICD-10-PCS; 2023-11-01)
PROC: BF111ZZ Fluoroscopy of Biliary and Pancreatic Ducts using Low Osmolar Contrast (ICD-10-PCS; 2023-11-01)
PROC: 5A09357 Assistance with Respiratory Ventilation, Less than 24 Consecutive Hours, Continuous Positive Airway Pressure (ICD-10-PCS; 2023-11-02)
PROC: BF141ZZ Fluoroscopy of Gallbladder, Bile Ducts and Pancreatic Ducts using Low Osmolar Contrast (ICD-10-PCS; 2023-11-06)
PROC: 0FT44ZZ Resection of Gallbladder, Percutaneous Endoscopic Approach (ICD-10-PCS; 2023-11-06)
DX: A41.9 Sepsis, unspecified organism (principal); R65.21 Severe sepsis with septic shock; I48.92 Unspecified atrial flutter; N17.9 Acute kidney failure, unspecified; Q87.40 Marfan syndrome, unspecified; K80.64 Calculus of gallbladder and bile duct with chronic cholecystitis without obstruction; M25.561 Pain in right knee; M25.562 Pain in left knee; W01.0XXA Fall on same level from slipping, tripping and stumbling without subsequent striking against object, initial encounter; Y93.01 Activity, walking, marching and hiking; Y92.003 Bedroom of unspecified non-institutional (private) residence as the place of occurrence of the external cause; E11.40 Type 2 diabetes mellitus with diabetic neuropathy, unspecified; F32.A Depression, unspecified; G47.33 Obstructive sleep apnea (adult) (pediatric); I12.9 Hypertensive chronic kidney disease with stage 1 through stage 4 chronic kidney disease, or unspecified chronic kidney disease; I25.10 Atherosclerotic heart disease of native coronary artery without angina pectoris; D69.6 Thrombocytopenia, unspecified; I48.0 Paroxysmal atrial fibrillation; E11.51 Type 2 diabetes mellitus with diabetic peripheral angiopathy without gangrene; E11.22 Type 2 diabetes mellitus with diabetic chronic kidney disease; R74.01 Elevation of levels of liver transaminase levels; K21.9 Gastro-esophageal reflux disease without esophagitis; N40.1 Benign prostatic hyperplasia with lower urinary tract symptoms; R33.8 Other retention of urine; E11.65 Type 2 diabetes mellitus with hyperglycemia; B96.20 Unspecified Escherichia coli [E. coli] as the cause of diseases classified elsewhere; B96.1 Klebsiella pneumoniae [K. pneumoniae] as the cause of diseases classified elsewhere; K59.00 Constipation, unspecified; D64.9 Anemia, unspecified; K66.0 Peritoneal adhesions (postprocedural) (postinfection); I95.1 Orthostatic hypotension; R15.9 Full incontinence of feces; F20.9 Schizophrenia, unspecified; I71.40 Abdominal aortic aneurysm, without rupture, unspecified; G24.01 Drug induced subacute dyskinesia; Z82.49 Family history of ischemic heart disease and other diseases of the circulatory system; Z82.5 Family history of asthma and other chronic lower respiratory diseases; Z95.2 Presence of prosthetic heart valve; Z87.891 Personal history of nicotine dependence; Z95.810 Presence of automatic (implantable) cardiac defibrillator; Z79.01 Long term (current) use of anticoagulants; Z86.79 Personal history of other diseases of the circulatory system; Z95.5 Presence of coronary angioplasty implant and graft; Z95.820 Peripheral vascular angioplasty status with implants and grafts; Z90.49 Acquired absence of other specified parts of digestive tract; Z11.52 Encounter for screening for COVID-19; Z86.73 Personal history of transient ischemic attack (TIA), and cerebral infarction without residual deficits; Z85.51 Personal history of malignant neoplasm of bladder; Z87.19 Personal history of other diseases of the digestive system; Z79.4 Long term (current) use of insulin; Z88.5 Allergy status to narcotic agent
CPT/HCPCS: 88304; 70450; 71045; 74177; 74300; 74330; 76000; 76700; 80053; 80143; 80179; 81003; 81015; 82550; 82570; 82607; 82746; 82962; 83036; 83605; 83690; 83735; 84100; 84300; 85014; 85025; 85027; 85610; 85730; 86704; 86705; 86706; 86708; 86709; 86803; 86850; 86900; 86901; 87040; 87070; 87077; 87086; 87149; 87186; 87205; 87340; 87502; 87811; 93005; 93306; 93975; 94660; 96361; 96365; 97116; 97162; 97167; 97530; 97535; 99291; A4300; C1769; C2625; Q9967

== ENCOUNTER → 2023-11-18 09:11 | Outpatient (REF) | payer MEDICARE, SELFPAY ==
[2023-11-18 10:24] LABS: ALT (SGPT) 46 U/L (0-50); AST (SGOT) 37 U/L (17-59); Albumin 3.9 g/dl (3.5-5.0); Alkaline Phosphatase 151 U/L (38-126); Blood Urea Nitrogen 39 mg/dl (9-20); Calcium 9.4 mg/dl (8.4-10.2); Carbon Dioxide 23 mmol/L (22-30); Chloride 107 mmol/L (98-107); Glucose 117 mg/dl (70-99); Potassium 4.8 mmol/L (3.5-5.1); Sodium 143 mmol/L (135-145); Total Bilirubin 0.6 mg/dl (0.2-1.3); Total Protein 7.2 g/dl (6.3-8.2); eGFR 43.56
== END ==
LOC: REG 09:11
PROVIDERS: ATTENDING PHYSICIAN Registered Nurse
DX: A41.9 Sepsis, unspecified organism (principal); Z90.49 Acquired absence of other specified parts of digestive tract
CPT/HCPCS: 36415; 80053

== ENCOUNTER → 2023-11-28 08:10 | Outpatient (REF) | payer MEDICARE, SELFPAY ==
[2023-11-28 10:07] LABS: % Basophils 0.8 % (0-2); % Eosinophils 2.3 % (0-6); % Immature Granulocytes 1.9 % (0-0.5); % Lymphocytes 12.6 % (20.5-51.1); % Monocytes 6.4 % (1.7-9.3); Absolute Basophils 0.1 10^3/uL (0-0.2); Absolute Eosinophils 0.2 10^3/uL (0-0.7); Absolute Immature Granulocytes 0.2 10^3/uL (0-0.05); Absolute Lymphocytes 1.1 10^3/uL (1.2-3.4); Absolute Monocytes 0.6 10^3/uL (0.1-0.6); Absolute Neutrophils 6.5 10^3/uL (1.4-6.5); Hematocrit 35.8 % (39.0-52.0); Hemoglobin 12.1 g/dL (13.0-18.0); Mean Corp Hgb Conc. 33.8 g/dL (33.0-37.0); Mean Corpuscular Hgb 33.5 pg (27.0-31.0); Mean Corpuscular Volume 99.2 fL (80.0-94.0); Mean Platelet Volume 11.2 fL (7.4-10.4); Nucleated Red Blood Cells % 0 % (-); Platelet Count 175 10^3/uL (130-400); Red Blood Cell Count 3.61 10^6/uL (4.70-6.10); Red Cell Dist. Width 16.9 % (11.5-14.5); White Blood Cell Count 8.6 10^3/uL (4.8-10.8)
[2023-11-28 10:16] LABS: ALT (SGPT) 47 U/L (0-50); AST (SGOT) 39 U/L (17-59); Albumin 3.7 g/dl (3.5-5.0); Alkaline Phosphatase 108 U/L (38-126); Blood Urea Nitrogen 33 mg/dl (9-20); Calcium 9.1 mg/dl (8.4-10.2); Carbon Dioxide 20 mmol/L (22-30); Chloride 106 mmol/L (98-107); Glucose 206 mg/dl (70-99); Potassium 4.3 mmol/L (3.5-5.1); Sodium 135 mmol/L (135-145); Total Bilirubin 0.6 mg/dl (0.2-1.3); Total Protein 6.8 g/dl (6.3-8.2); eGFR 55.53
== END ==
LOC: REG 08:10
PROVIDERS: ATTENDING PHYSICIAN Family Medicine
DX: R42 Dizziness and giddiness (principal); I95.1 Orthostatic hypotension
CPT/HCPCS: 36415; 80053; 85025

== ENCOUNTER 2024-02-22 06:15 | Day surgery (SDC) | payer MEDICARE, SELFPAY ==
[2024-02-22 11:25] VITALS: BMI 30.3
[2024-02-22 11:26] VITALS: BP 137/77; BMI 30.3
[2024-02-22 11:44] LABS: Glucose - Point of Care 141 mg/dl (70-99)
[2024-02-22 13:12] VITALS: BP 97/62
[2024-02-22 13:15] VITALS: BP 102/78
[2024-02-22 13:30] VITALS: BP 142/71
[2024-02-22 13:45] VITALS: BP 148/66
== END 2024-02-22 14:37 | disposition home or self-care (01) ==
LOC: GI 06:15
PROVIDERS: ATTENDING PHYSICIAN Internal Medicine Gastroenterology
DX: Z09 Encounter for follow-up examination after completed treatment for conditions other than malignant neoplasm (principal); Z45.89 Encounter for adjustment and management of other implanted devices
CPT/HCPCS: 43247; 82962

== ENCOUNTER → 2024-03-16 09:37 | Outpatient (REF) | payer MEDICARE, SELFPAY ==
[2024-03-16 11:12] LABS: % Basophils 0.6 % (0-2); % Eosinophils 2.6 % (0-6); % Immature Granulocytes 1.6 % (0-0.5); % Lymphocytes 17.1 % (20.5-51.1); % Monocytes 8.4 % (1.7-9.3); % Neutrophils 69.7 % (42.2-75.2); Absolute Eosinophils 0.2 10^3/uL (0-0.7); Absolute Immature Granulocytes 0.1 10^3/uL (0-0.05); Absolute Lymphocytes 1.1 10^3/uL (1.2-3.4); Absolute Monocytes 0.5 10^3/uL (0.1-0.6); Absolute Neutrophils 4.5 10^3/uL (1.4-6.5); Hematocrit 37.1 % (39.0-52.0); Hemoglobin 12.4 g/dL (13.0-18.0); Mean Corp Hgb Conc. 33.4 g/dL (33.0-37.0); Mean Corpuscular Hgb 33.6 pg (27.0-31.0); Mean Corpuscular Volume 100.5 fL (80.0-94.0); Nucleated Red Blood Cells % 0 % (-); Platelet Count 142 10^3/uL (130-400); Red Blood Cell Count 3.69 10^6/uL (4.70-6.10); Red Cell Dist. Width 15.2 % (11.5-14.5); White Blood Cell Count 6.4 10^3/uL (4.8-10.8)
[2024-03-16 11:35] LABS: ALT (SGPT) 94 U/L (0-50); AST (SGOT) 53 U/L (17-59); Alkaline Phosphatase 115 U/L (38-126); Blood Urea Nitrogen 24 mg/dl (9-20); Calcium 9.1 mg/dl (8.4-10.2); Carbon Dioxide 24 mmol/L (22-30); Chloride 104 mmol/L (98-107); Glucose 165 mg/dl (70-99); HDL Cholesterol 29 mg/dl; LDL Cholesterol, Calculated 54 mg/dl; Potassium 4.7 mmol/L (3.5-5.1); Sodium 140 mmol/L (135-145); Total Bilirubin 0.5 mg/dl (0.2-1.3); Total Cholesterol 135 mg/dl (50-199); Total Protein 6.7 g/dl (6.3-8.2); Triglyceride 263 mg/dl (10-149); Very Low Density Lipoprotein 52 mg/dl (0-30); eGFR > 60.00
[2024-03-16 13:41] LABS: Glycohemoglobin (HgbA1c) 6.9 % (4.0-5.6)
== END ==
LOC: REG 09:37
PROVIDERS: ATTENDING PHYSICIAN Family Medicine
DX: N18.31 Chronic kidney disease, stage 3a (principal); E11.22 Type 2 diabetes mellitus with diabetic chronic kidney disease; E78.00 Pure hypercholesterolemia, unspecified; R53.83 Other fatigue
CPT/HCPCS: 36415; 80053; 80061; 83036; 85025

== ENCOUNTER → 2024-04-24 08:45 | Outpatient (REF) | payer MEDICARE, SELFPAY | LOC: RAD 08:45 | PROVIDERS: ATTENDING PHYSICIAN Surgery Vascular Surgery; FAMILY PHYSICIAN Family Medicine | DX: I71.40 Abdominal aortic aneurysm, without rupture, unspecified (principal) | CPT/HCPCS: 76770 ==

== ENCOUNTER 2024-05-16 10:37 | Outpatient (RCR) | payer MEDICARE, SELFPAY | END 2024-05-16 23:59 | disposition home or self-care (01) | LOC: RPT 10:37 | PROVIDERS: ATTENDING PHYSICIAN Orthopaedic Surgery; FAMILY PHYSICIAN Family Medicine | DX: M17.0 Bilateral primary osteoarthritis of knee (principal); Z73.6 Limitation of activities due to disability; R26.2 Difficulty in walking, not elsewhere classified; M62.81 Muscle weakness (generalized) | CPT/HCPCS: 97110; 97161 ==

== ENCOUNTER → 2024-05-16 11:52 | Outpatient (REF) | payer MEDICARE, SELFPAY ==
[2024-05-16 12:42] LABS: % Basophils 0.6 % (0-2); % Eosinophils 1.9 % (0-6); % Immature Granulocytes 1.4 % (0-0.5); % Lymphocytes 14.1 % (20.5-51.1); % Monocytes 9.3 % (1.7-9.3); % Neutrophils 72.7 % (42.2-75.2); Absolute Eosinophils 0.1 10^3/uL (0-0.7); Absolute Immature Granulocytes 0.1 10^3/uL (0-0.05); Absolute Monocytes 0.7 10^3/uL (0.1-0.6); Absolute Neutrophils 5.3 10^3/uL (1.4-6.5); Hematocrit 39.3 % (39.0-52.0); Hemoglobin 12.5 g/dL (13.0-18.0); Mean Corp Hgb Conc. 31.8 g/dL (33.0-37.0); Mean Corpuscular Hgb 33.1 pg (27.0-31.0); Mean Platelet Volume 10.9 fL (7.4-10.4); Nucleated Red Blood Cells % 0 % (-); Platelet Count 140 10^3/uL (130-400); Red Blood Cell Count 3.78 10^6/uL (4.70-6.10); Red Cell Dist. Width 15.4 % (11.5-14.5); White Blood Cell Count 7.2 10^3/uL (4.8-10.8)
[2024-05-16 14:28] LABS: ALT (SGPT) 112 U/L (0-50); AST (SGOT) 68 U/L (17-59); Albumin 4.1 g/dl (3.5-5.0); Alkaline Phosphatase 117 U/L (38-126); Blood Urea Nitrogen 33 mg/dl (9-20); Calcium 9.1 mg/dl (8.4-10.2); Carbon Dioxide 26 mmol/L (22-30); Chloride 103 mmol/L (98-107); Glucose 153 mg/dl (70-99); Potassium 4.8 mmol/L (3.5-5.1); Sodium 141 mmol/L (135-145); Total Bilirubin 0.5 mg/dl (0.2-1.3); Total Protein 6.9 g/dl (6.3-8.2); eGFR 50.81
[2024-05-16 14:50] LABS: Glycohemoglobin (HgbA1c) 7.4 % (4.0-5.6)
[2024-05-16 14:58] LABS: TSH 3.36 uIU/ml (0.47-4.68)
[2024-05-16 15:17] LABS: Vitamin B12 931 pg/ml (239-931)
== END ==
LOC: RAD 11:52
PROVIDERS: ATTENDING PHYSICIAN Internal Medicine Cardiovascular Disease; FAMILY PHYSICIAN Family Medicine
DX: Z01.818 Encounter for other preprocedural examination (principal); E11.22 Type 2 diabetes mellitus with diabetic chronic kidney disease; E64.9 Sequelae of unspecified nutritional deficiency; E53.8 Deficiency of other specified B group vitamins; E11.9 Type 2 diabetes mellitus without complications; Z79.899 Other long term (current) drug therapy
CPT/HCPCS: 36415; 71046; 80053; 82607; 82728; 83036; 84443; 85025

== ENCOUNTER 2024-05-28 14:23 | Outpatient (RCR) | payer MEDICARE, SELFPAY | END 2024-06-05 13:02 | disposition home or self-care (01) | LOC: RPT 14:23 | PROVIDERS: ATTENDING PHYSICIAN Orthopaedic Surgery; FAMILY PHYSICIAN Family Medicine | DX: M17.0 Bilateral primary osteoarthritis of knee (principal); Z73.6 Limitation of activities due to disability; R26.2 Difficulty in walking, not elsewhere classified; M62.81 Muscle weakness (generalized) | CPT/HCPCS: 97110 ==

== ENCOUNTER 2024-05-30 14:43 | Inpatient (IN) | payer MEDICARE, SELFPAY ==
[2024-05-30] VITALS (11 sets, daily range): BP systolic 141–187; BP diastolic 66–84; BMI 31.0; BMI 30.3
--- NOTE | 2024-05-30 09:39 | ED.GENMED ---
History of Present Illness
General
Chief Complaint: AICD Problem
Source: patient, records, spouse and physician
Exam Limitations: none
Time Seen by Provider: 05/30/24 09:25
Nursing documentation reviewed up to this point in time: agreed with
History of Present Illness
History of Present Illness:
78-year-old male with a past medical history as documented presents to the ER with his for evaluation of palpitations and ICD firing. Patient reports that 05/28 he was resting on the couch and he felt his AICD fired. He reports that since then
he has had intermittent episodes of palpitations. He says he has had occasional associated dizziness but no syncope. No chest pain. No significant shortness of breath. Had his device remotely interrogated and was referred to the ER for recurrent
VT. He currently says that he feels mildly dizzy but no other symptoms. Reports compliance with all medications. His primary tail worker is Dr. Mcintyre.
Past History
Past History
ED Past Medical History: Arrthythmia (Atrial fib/flutter), CAD, Cancer (bladder), HTN, Hypercholesterolemia, NIDDM, Valvular disease (/MR), Psychiatric (schizophrenia, Depression) and Other (AAA, GI bleeding, PVD, Diabetic neuropathy, TIA, Tardive
Dyskinesia, Sleep apnea, Diverticulitis, C-diff)
ED Past Surgical History: Bowel resection, Cardiac (Aortic and Mitral VR, Stent, Pacer/defibulator), Urological (Bladder cancer with resection) and Other (AAA, partial colectomy, bladder CA resection, Hernia, Aortic and iliac stent, Cataracts, )
Social History
Tobacco: Former smoker
Alcohol: None
Drug: None
Personal:
Living: with family
Family History
Family History: Other (Father with MA, mother with COPD)
Review of Systems
Review of Systems
All Other Systems: ROS reviewed and negative except as documented in HPI and ROS
Constitutional: Denies fever
Respiratory: Denies trouble breathing
Cardiac: Reports palpitations; Denies chest pain or syncope
ABD/GI: Denies abdominal pain, nausea or vomiting
Neurological: Reports dizzy; Denies headache
Phy Exam
Physical Exam
Physical Exam:
General: Awake, alert, oriented x3; no acute distress
Head: Normocephalic, atraumatic
Eyes: Conjunctiva normal
Throat: Airway intact, handling secretions
Neck: Trachea midline, no JVD
Lungs: Clear to auscultation bilaterally, no wheezing, rales, rhonchi
Heart: Regular rate and rhythm, systolic murmur
Abd: Soft, non distended, nontender
Neuro: No gross deficits
Extremities: No edema in extremities, warm and well-perfused
Scores
Heart Failure Risk
Heart Failure Risk Score: Not Applicable
Heart Score for Chest Pain Patients
STEMI patient?: Not applicable
Withdrawal Assessment of Alcohol
Withdrawal Assessment Completed?: Not applicable
Course
Orders/Labs/Results
Orders:
Orders
05/30/24 09:10
EKG [Electrocardiogram (*1)] Urgent
Reason for Study: Bradycardia / Tachycardia
EKG- Treatment ONCE
05/30/24 09:38
CARDIOLOGY CONSULT Urgent
Consulting Provider: Yann Carbone
Was physician already notified: Yes
05/30/24 10:03
Complete Blood Count/With Diff Urgent
Comprehensive Metabolic Panel Urgent
Magnesium Urgent
05/30/24 10:53
Add On- LAB Routine
Tests Added?: troponin
05/30/24 11:03
Troponin I Routine
Abnormal Lab Results
05/30/24
10:03
RBC 3.77 L 10^6/uL
(4.70-6.10)
Hgb 12.8 L g/dL
(13.0-18.0)
Hct 38.2 L %
(39.0-52.0)
MCV 101.3 H fL
(80.0-94.0)
MCH 34.0 H pg
(27.0-31.0)
RDW 15.4 H %
(11.5-14.5)
MPV 11.3 H fL
(7.4-10.4)
Abs Immat Gran (auto) 0.1 H 10^3/uL
(0-0.05)
Absolute Lymphs (auto) 0.8 L 10^3/uL
(1.2-3.4)
Immature Gran % 1.3 H %
(0-0.5)
Neutrophils % 75.7 H %
(42.2-75.2)
Lymphocytes % 12.2 L %
(20.5-51.1)
BUN 30 H mg/dl
(9-20)
Glucose 273 H mg/dl
(70-99)
ALT 87 H U/L
(0-50)
05/30/24 10:03
05/30/24 10:03
Vital Signs
Initial and Last Documented VS:
Initial Vital Signs
Temp Pulse Resp BP Pulse Ox
36.4 C 65 18 157/82 100
05/30/24 09:20 05/30/24 09:20 05/30/24 09:20 05/30/24 09:20 05/30/24 09:20
Last Documented Vital Signs
Temp Pulse Resp BP Pulse Ox
36.4 C 60 20 141/68 98
05/30/24 09:20 05/30/24 10:45 05/30/24 10:45 05/30/24 09:42 05/30/24 10:45
MDM/Problems Addressed
Differential Diagnosis Includes:
Ventricular tachycardia
MDM/Problems Addressed:
78-year-old male presents to the emergency room for evaluation of ventricular tachycardia requiring AICD shock and multiple episodes of ATP. Device interrogation reviewed�47 episodes of ventricular tachycardia since 05/28 requiring 1 shock and
multiple instances of antitachycardia pacing. Feels well here. Mildly hypertensive but otherwise normal vitals. Labs were sent off including a CBC and a CMP which were significant only for some hyperglycemia without signs of DKA. Case discussed
with cardiology for consultation. Will monitor on telemetry.
Chronic conditions affecting care:
CAD, valvular disease and history of ventricular tachycardia
Acute Exacerbation and/or Progression of Chronic Illness:
Acutely hypertensive
Acute Exacerbation and/or Progression of Chronic Illness: HTN
*Pulse Oximetry
Patient hypoxic: no
*EKG
Interpreted by ED Provider?: Yes
Heart Rate: 67
Rate: normal
Rhythm: other (Atrial paced with occasional PVCs)
Interval: first degree heart block
*Critical Care Note
Total Time (30-74mins, 75-104mins- exclusive of procedures): Not Applicable
Data Reviewed
Review of Other/Old Records Reveals: Labs and Records
Source: patient, records, spouse and physician (Referring physician called ahead)
Patient Management
Discussion with other providers: Assistant [employer] (Discussed with cardiology)
ED Attending Note
-
Portions of this chart may have been created with voice recognition software.� Occasional wrong word or��sound alike� substitutions may have occurred due to the inherent limitations of voice recognition software.
Discharge Plan
Departure
Prescriptions:
No Action
metoprolol succinate 50 MG tablet extended release 24 hr
25 mg PO HS
famotidine 40 MG tablet
40 mg PO HS
amitriptyline 50 MG tablet
75 mg PO HS
risperidone 2 MG tablet
2 mg PO HS
ascorbic acid (vitamin C) [Vitamin C] 500 MG tablet
1,000 mg PO DAILY
magnesium oxide 500 MG tablet
400 mg PO HS
B-complex with vitamin C 1 CAPLET tablet
1 cap PO PURCELL
cholecalciferol (vitamin D3) 2,000 UNITS tablet
2,000 units PO SUWE
multivitamin with folic acid [Tab-A-David] 1 TABLET tablet
1 tab PO DAILY
lecithin 518 mg Capsule
518 mg PO DAILY
amiodarone [Pacerone] 200 MG tablet
200 mg PO HS
rosuvastatin 5 mg Tablet
5 mg PO HS
melatonin 10 mg Tablet
10 mg PO HS Qty: 0 0RF
warfarin [Jantoven] 2 MG tablet
2 mg PO QPM Qty: 1 0RF
metformin 500 mg Tablet Extended Release 24 Hr
500 mg PO DAILY
Levemir U-100 Insulin 100 unit/mL Solution
10 unit SC DAILY
PreserVision AREDS 2,148 mcg-113 mg-45 mg-17.4mg Tablet
1 tab PO BID
zinc acetate 50 mg (zinc) Capsule
50 mg PO DAILY
finasteride [Proscar] 5 mg Tablet
5 mg PO QPM
ofloxacin 0.3 % Drops
3 drp RIGHT EYE Q2H
Rx Instructions:
take only on surgery days 05/29/24 and 05/30/24
inulin-sorbitol 2 gram Tablet,Chewable
1 tab PO DAILY
Referrals:
Driss Hendricks Jr., DO [Family Provider] -
Interventions
Interventions:
*Risk Screen - Suicide Last Done: 05/30/24 09:20
*General Assessment Last Done: 05/30/24 09:20
ED- Fall Risk Assessment Last Done: 05/30/24 09:55
*ED COVID-19 Vaccine History Last Done: 05/30/24 09:20
ED- Cardiac Assessment Last Done: 05/30/24 09:55
Discharge Date and Time
Print Language: BULGARIAN
[2024-05-30 10:30] LABS: % Basophils 0.4 % (0-2); % Eosinophils 2.1 % (0-6); % Immature Granulocytes 1.3 % (0-0.5); % Lymphocytes 12.2 % (20.5-51.1); % Monocytes 8.3 % (1.7-9.3); % Neutrophils 75.7 % (42.2-75.2); Absolute Eosinophils 0.1 10^3/uL (0-0.7); Absolute Immature Granulocytes 0.1 10^3/uL (0-0.05); Absolute Lymphocytes 0.8 10^3/uL (1.2-3.4); Absolute Monocytes 0.6 10^3/uL (0.1-0.6); Absolute Neutrophils 5.1 10^3/uL (1.4-6.5); Hematocrit 38.2 % (39.0-52.0); Hemoglobin 12.8 g/dL (13.0-18.0); Mean Corp Hgb Conc. 33.5 g/dL (33.0-37.0); Mean Corpuscular Volume 101.3 fL (80.0-94.0); Mean Platelet Volume 11.3 fL (7.4-10.4); Nucleated Red Blood Cells % 0 % (-); Platelet Count 140 10^3/uL (130-400); Red Blood Cell Count 3.77 10^6/uL (4.70-6.10); Red Cell Dist. Width 15.4 % (11.5-14.5); White Blood Cell Count 6.7 10^3/uL (4.8-10.8)
[2024-05-30 10:48] LABS: ALT (SGPT) 87 U/L (0-50); AST (SGOT) 56 U/L (17-59); Alkaline Phosphatase 120 U/L (38-126); Blood Urea Nitrogen 30 mg/dl (9-20); Carbon Dioxide 27 mmol/L (22-30); Chloride 103 mmol/L (98-107); Estimated Creatinine Clearance 56 ml/min; Glucose 273 mg/dl (70-99); Magnesium 2.3 mg/dl (1.6-2.3); Potassium 4.7 mmol/L (3.5-5.1); Sodium 138 mmol/L (135-145); Total Bilirubin 0.5 mg/dl (0.2-1.3); Total Protein 6.7 g/dl (6.3-8.2); eGFR > 60.00
[2024-05-30 11:41] LABS: Troponin I < 0.012 ng/ml
--- NOTE | 2024-05-30 11:41 | CON.CAR ---
Addendum entered and electronically signed by Norma Recio PA-C 05/30/24 12:44:
reviewed with EP. do not feel strongly about repeat ischemic evaluation, trop negative. will plan to increase amiodarone to 200mg TID and add mexiletine 150mg BID, following LFTs and QTc. given mechanical valves not great options for VT ablation.
could be considered for stereotactic radiation.
Addendum entered and electronically signed by Yann Carbone MD 05/30/24 12:22:
I saw and examined the patient.
The WOOL WASHER FEEDER or PA's note was reviewed and I agree with the note.
Comment: General: Well developed, well nourished in NAD.
Neck: Supple, no JVD, HJR, carotids +2 B/L, no bruits bilaterally.
Heart: Non displaced PMI, RRR, no murmurs, No S3, S4, no rubs.
Lungs: scattered rhonchi
Abdomen: Normal bowel sounds, soft, non-tender, non-distended.
Extremities: No clubbing, cyanosis or edema bilaterally.
Neuro: Grossly nonfocal, awake, alert and oriented x3.
Sharif has a history of nonischemic cardiomyopathy status post ICD, mechanical MVR and AVR, PAD, diabetes, hypertension, COPD, bladder cancer. He presented to the ER if AICD shock and multiple ATP maneuvers for V. tach. He does have chronic
dyspnea and dizziness and had cut his Toprol in half in the past
Will discuss with EP. May need consider ischemic evaluation. If cath is consider will need to hold Coumadin. Consider stress testing as catheterization 2021 with nonobstructive CAD. Likely increase beta-sharad and consider increasing amiodarone
after discussion with EP
Addendum entered and electronically signed by Norma Recio PA-C 05/30/24 12:01:
check INR. may need to hold coumadin if plan for inpatient ischemic evaluation.
Original Note:
Consultation
Consultation Request
Date/Time Consultation Performed: 05/30/24
Requesting Provider: Dr. Diallo
Performing Provider: Norma Recio PA-C for Dr. Carbone
Reason for Consultation: VT storm
Medical History
-
Chief Complaint: VT
History of Present Illness:
Sharif (goes by Demario) is a 78 year old male with PMH of nonobstructive CAD, Medtronic ICD, paroxysmal atrial fibrillation, atrial flutter, NSVT, mechanical MVR/AVR, PAD, Type 2 DM, HTN, HLD, COPD, INOCENCIO, and bladder cancer who presents to [facility] today
upon referral of our office due to device alert for ICD shock and 41 episodes of VT treated with ATP starting 12 PM. He reported some chest pressure on Monday evening as well as some palpitations and dizziness however does not recall getting
shocked. He reports he has been very stressed/anxious about his upcoming knee replacement surgery scheduled for 06/05/24. He denies recent dietary changes. Does report within the last 6 months he cut his metoprolol in half due to dizziness and also
increased his elavil from 50mg to 75mg HS. Aside from the brief chest pressure noted 12/PM no other chest discomfort. Denies SOB, LE edema, weight gain. Remains on amiodarone 200mg daily. Last ischemic evaluation was cath in 2021 with
nonobstructive CAD.
PMH:
h/o sustained monomorphic ventricular tachycardia
Chronic amiodarone therapy
Nonobstructive CAD by cath 07/2021
Coronary aneurysms are unchanged angiographically from cath in 2009
Medtronic DC ICD 07/2021
Paroxysmal atrial fibrillation/atrial flutter
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
Chronic Coumadin anticoagulation (goal INR 2.5-3.5)
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
PAD with h/o iliac stent 2005
Type 2 diabetes
COPD
orthostatic hypotension
PVCs
HTN
HLD
INOCENCIO on CPAP
depression
schizophrenia
h/o bladder cancer s/p TURBT and cystolitholapaxy 2009
spinal stenosis
h/o large bowel resection 2000 in setting of diverticulitis per pt
Charcot joint
anemia
h/o epistaxis
Past Medical History
Past Medical History: Other (In HPI)
Past Surgical History: Bowel Resection, Cardiac (mechanical MVR/AVR 2001, ICD implant 2021) and Other (inguinal hernia, TURBT, AAA repair, cataract surgery, R JESSICA)
Social History
Tobacco: Former Smoker
Alcohol: None
Drug: None
Personal:
Living: With Family
Employment: Retired
Family History
Family History: CAD and Cancer
Allergies / Home Medications
Allergy/AdvReac Type Severity Reaction Status Date / Time
codeine [Codeine] Allergy Itching Verified 05/30/24 09:23
acetaminophen [From Tylenol] AdvReac liver Verified 05/30/24 09:23
problems
�Medication �Instructions �Recorded �Confirmed �Type
B-complex with vitamin C 1 cap PO PURCELL Supplement 04/22/21 05/30/24 History
amitriptyline 50 mg tablet 75 mg PO HS Mental Health/sleep 04/22/21 05/30/24 History
ascorbic acid (vitamin C) 500 mg 1,000 mg PO DAILY Supplement 04/22/21 05/30/24 History
tablet (Vitamin C)
cholecalciferol (vitamin D3) 50 2,000 units PO SUWE Supplement 04/22/21 05/30/24 History
mcg (2,000 unit) tablet
famotidine 40 mg tablet 40 mg PO HS Gastrointestinal issue 04/22/21 05/30/24 History
magnesium oxide 400 mg PO HS Supplement 04/22/21 05/30/24 History
metoprolol succinate 50 mg 25 mg PO HS Blood pressure 04/22/21 05/30/24 History
tablet,extended release 24 hr
multivitamin with folic acid 400 1 tab PO DAILY Supplement 04/22/21 05/30/24 History
mcg tablet (Tab-A-David)
risperidone 2 mg tablet 2 mg PO HS Mental Health 04/22/21 05/30/24 History
amiodarone 200 mg tablet (Pacerone) 200 mg PO HS Arrhythmia 01/10/22 05/30/24 History
lecithin 518 mg capsule 518 mg PO DAILY Supplement 01/10/22 05/30/24 History
rosuvastatin 5 mg tablet 5 mg PO HS High cholesterol 09/02/22 05/30/24 History
melatonin 10 mg tablet 10 mg PO HS Sleep #0 tabs 09/15/22 05/30/24 Rx
warfarin 2 mg tablet (Jantoven) 2 mg PO QPM Blood clot 09/16/22 05/30/24 Rx
prevention/tx #1 tab
insulin detemir U-100 100 unit/mL 10 unit SC DAILY Diabetes 10/31/23 05/30/24 History
subcutaneous solution (Levemir
U-100 Insulin)
metformin 500 mg tablet,extended 500 mg PO DAILY Diabetes 10/31/23 05/30/24 History
release 24 hr
vitamins A,C,L-delv-vmmjuy 2,148 1 tab PO BID Supplement 10/31/23 05/30/24 History
mcg-113 mg-45 mg-17.4 mg tablet
(PreserVision AREDS)
finasteride 5 mg tablet (Proscar) 5 mg PO QPM 02/22/24 05/30/24 History
zinc acetate 50 mg (zinc) capsule 50 mg PO DAILY 02/22/24 05/30/24 History
inulin-sorbitol 2 gram chewable 1 tab PO DAILY 05/30/24 05/30/24 History
tablet
ofloxacin 0.3 % eye drops 3 drp RIGHT EYE Q2H 05/30/24 05/30/24 History
Review of Systems
-
History Source: Patient and Family
All other systems: Negative unless noted
Physical Exam
Vital Signs
Temp Pulse Resp BP Pulse Ox
97.6 F 65 19 148/74 98
05/30/24 09:20 05/30/24 11:00 05/30/24 11:00 05/30/24 11:00 05/30/24 11:00
Lab Results
05/30/24 10:03
05/30/24 10:03
Physical Exam
General: No Apparent Distress and Comfortable
HEENT: Normocephalic, Anicteric and Moist Mucous Membranes
Respiratory: Clear and Non Labored Respirations
Cardiac: S1/S2, Regular Rhythm and Other (valve click)
GI: Soft, Non Tender, Non Distended and Normal Bowel Sounds
Musculoskeletal: No Clubbing, No Cyanosis and No Edema
Skin: Warm and Dry
Neuro: AO x 3
Impression / Plan
-
PCP: Dr. Hendricks
Tanker Driver: Dr. SHANNON Mcintyre
Impression:
Presentation with VT storm (ICD shock and 41 episodes of VT requiring ATP)
History of sustained monomorphic ventricular tachycardia
Chronic amiodarone therapy
Medtronic DC ICD 07/2021
Nonobstructive CAD by cath 07/2021
Coronary aneurysms are unchanged angiographically from cath in 2009
Paroxysmal atrial fibrillation/atrial flutter
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
Chronic Coumadin anticoagulation (goal INR 2.5-3.5)
History of AAA s/p endograft with persistent type [address] 11/2018, with open AAA repair (revision from previous endovascular repair) 08/01/19
PAD with h/o iliac stent 2005
Type 2 diabetes
COPD
orthostatic hypotension
PVCs
HTN
HLD
INOCENCIO on CPAP
depression
schizophrenia
History of bladder cancer s/p TURBT and cystolitholapaxy 2009
spinal stenosis
History of large bowel resection 2000 in setting of diverticulitis per pt
Cholangitis with choledocholithiasis s/p ERCP w/ sphincterectomy and placement of stent in common bile duct, then s/p cholecystectomy 11/06/2023
Charcot joint
anemia
h/o epistaxis
OA with plan for L TKA 06/05/24
Echo 11/02/2023: EF 50% mild cLVH, thickened mechanical MVR w/ peak/mean gradients 12/7 mmHg, mechanical AVR w/ peak/mean gradients 18/10 mmHg, mild possible paravalvular AI, mild TR, estimated PAP 30 mmHg
Plan:
-He presents with VT storm�1 ICD shock and 41 episodes of VT requiring ATP since 12 PM
-Likely will need increase in amiodarone dosing, currently on 200 mg daily
-In a paced rhythm at present on telemetry
-Patient and are convinced VT related to increased stress and anxiety from upcoming left TKA planned for 06/05/2024. They would not like to move forward with knee replacement at this time. We discussed that based on his current arrhythmia
issues, he would be unable to proceed with procedure as planned on 06/05.
-K and mag levels stable
-Check echo, last from 10/2023 with results as above
-Check troponin
-Check TSH
-Continue beta-sharad, patient states he did decrease dose in the last 6 months due to dizziness
-Last ischemic evaluation was 2021 with nonobstructive coronary disease, may need repeat
-Will review case with EP
-Discussed with patient and at bedside
Data Reviewed
-
EKG: Tracing Personally Visualized and interpreted
Medical Tests (Nuc Med, Echo etc): Report Reviewed by me
Labs: Labs Reviewed by me
Old Records: Reviewed
[2024-05-30 12:33] LABS: INR 2.88; PT 30.6 Sec (11.4-14.6)
[2024-05-30] MEDS: PACERONE 200 MG PO ×3 (13:20→22:23)
[2024-05-30 13:38] LABS: TSH Reflex To Free T4 3.34 uIU/ml (0.47-4.68)
--- NOTE | 2024-05-30 14:16 | CARDSERVLU ---
Echocardiogram with [facility] completed after protocol screening completed. Allergies verified.
Patent IV site: _Right arm median cubital AC 20 G PC____
IV site flushed with 0.9% NaCl pre and post administration.
Diluted bolus method utilized to enhance visualization of ventricular medina.
Total volume given: __3__ mL
Patient tolerated all procedures well without complications.
--- NOTE | 2024-05-30 14:24 | HPS.HSE ---
Family Physician
-
Family Physician: Driss Hendricks Jr.
Chief Complaint
-
AICD shocks at home
History of Present Illness
78M HX NICM status post ICD, mechanical MVR and AVR, PAD, diabetes, hypertension, COPD, bladder cancer
Seen at ER pw f AICD shock and multiple ATP maneuvers for V. tach. per Card
HX chronic dyspnea and dizziness and had cut his Toprol in half in the past
Patient received called from behavior analyst this morning that Defif fired.
- reports rapid heart beats for last 2 days
- per ER attd : VT requiring AICD shock and ATP over past few days.
- DC cards consulted by ER
@ ER:
s/p PO Amiodarone loading 200mg PO then tid
s/p Mexilettine 150 BID
Medical History
Past Medical History
Past Medical History: Reports Arrhythmia
Additional Past Medical History:
Arrthythmia (Atrial fib/flutter), CAD, Cancer (bladder), HTN, Hypercholesterolemia, NIDDM, Valvular disease (/MR), Psychiatric (schizophrenia, Depression) and Other (AAA, GI bleeding, PVD, Diabetic neuropathy, TIA, Tardive Dyskinesia, Sleep apnea,
Diverticulitis, C-diff), aortic aneurysm
Past Surgical History: Reports Cardiac and Orthopedic
Additional Past Surgical History:
Bowel resection, Cardiac (Aortic and Mitral VR, Stent, Pacer/defibulator), Urological (Bladder cancer with resection) and Other (AAA, partial colectomy, bladder CA resection, Hernia, Aortic and iliac stent, Cataracts, )
Social History
Tobacco: Former Smoker
Alcohol: None
Drug: None
Personal:
Living: With Family
Employment: Retired
Family History
Family History: Not pertinent
Allergies / Home Medications
Allergies reflects when Allergies were last updated in [facility].
Home Medications with original date entered in [facility]
Allergy/Medication List:
codiene - rash
Review of Systems
-
Constitutional: Reports No Symptoms
EENT: Reports No Symptoms
Respiratory: Reports No Symptoms
Cardiac: Reports See HPI
Abdomen/GI: Reports No Symptoms
: Reports No Symptoms
Musculoskeletal: Reports No Symptoms
Skin: Reports No Symptoms
Neurological: Reports No Symptoms
Endocrine: Reports No Symptoms
Hematologic/Lymphatic: Reports No Symptoms
Psych: Reports No Symptoms
Physical Exam
Vital Signs
Vital Signs
Temp Pulse Resp BP Pulse Ox
97.6 F 60 13 152/70 99
05/30/24 09:20 05/30/24 13:30 05/30/24 13:30 05/30/24 13:20 05/30/24 13:30
Physical Exam
General: Other (Pale, mild drowsiness but alert and oriented)
HEENT: NormoCephalic and Anicteric
Cardiac: S1/S2 and Murmur (Systolic murmur with a click)
GI: Soft, Normal Bowel Sounds and Tender (Mild tenderness on the right side of the abdomen)
Skin: Other (Pale)
Neuro: Alert, Oriented and Other (Drowsy)
Psych: Calm
Laboratory Results
-
05/30/24 10:03
05/30/24 10:03
Laboratory Results
PT 30.6 Sec (11.4-14.6) H 05/30/24 10:00
INR 2.88 05/30/24 10:00
Total Bilirubin 0.5 mg/dl (0.2-1.3) 05/30/24 10:03
AST 56 U/L (17-59) 05/30/24 10:03
ALT 87 U/L (0-50) H 05/30/24 10:03
Alkaline Phosphatase 120 U/L (38-126) 05/30/24 10:03
Troponin I Cancelled 05/30/24 11:03
Data Reviewed
-
Diagnostic Radiology: Report Reviewed by me
Lab Data: Labs Reviewed by me
Old Records: Reviewed
Impression/Plan
-
Reviewed VS:
Vital Signs
Temp Pulse Resp BP Pulse Ox
97.6 F 60 13 152/70 99
05/30/24 09:20 05/30/24 13:30 05/30/24 13:30 05/30/24 13:20 05/30/24 13:30
Abnormal Lab Results
05/30/24 05/30/24
10:00 10:03
RBC 3.77 L
Hgb 12.8 L
Hct 38.2 L
MCV 101.3 H
MCH 34.0 H
RDW 15.4 H
MPV 11.3 H
Abs Immat Gran (auto) 0.1 H
Absolute Lymphs (auto) 0.8 L
Immature Gran % 1.3 H
Neutrophils % 75.7 H
Lymphocytes % 12.2 L
PT 30.6 H
BUN 30 H
Glucose 273 H
ALT 87 H
ASSESSMENT & PLAN
OSH AICD shock VT storm (ICD shock and 41 episodes of VT requiring ATP)
HX sustained monomorphic VT
On Chronic amiodarone therapy
Medtronic DC ICD 07/2021
Of note: HX chronic dyspnea and dizziness and had decresed Toprol in half in the past
- s/p PO Amiodarone loading 200mg PO then tid
- s/p Mexiletine 150 BID at ER
- Pending EP Evaluation
- May need consider ischemic evaluation per [facility] card -
- If cath is consider will need to hold Coumadin- defer to Card
- [facility] card consulted (reviewed consultation)
Nonobstructive CAD by cath 07/2021
Coronary aneurysms are unchanged angiographically from cath in 2009
- Await EP evaluation to evaluate to consider ischemic evaluation per [facility] card -
Paroxysmal atrial fibrillation/atrial flutter
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
- on Chronic Coumadin anticoagulation (goal INR 2.5-3.5)
- daily INR
- Defer to Card ref to hold Coumadin or what not
T2M
-hold metformin
- add ISS low
Other problems:
History of AAA s/p endograft with persistent type [address] 11/2018, with open AAA repair (revision from previous endovascular repair) 08/01/19
PAD with h/o iliac stent 2005
Type 2 diabetes
COPD
orthostatic hypotension
PVCs
HTN
HLD
INOCENCIO on CPAP
depression
schizophrenia
History of bladder cancer s/p TURBT and cystolitholapaxy 2009
spinal stenosis
History of large bowel resection 2000 in setting of diverticulitis per pt
Cholangitis with choledocholithiasis s/p ERCP w/ sphincterectomy and placement of stent in common bile duct, then s/p cholecystectomy 11/06/2023
Charcot joint
anemia
h/o epistaxis
OA with plan for L TKA 06/05/24
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
Full code
IVU
[2024-05-30 15:54] LABS: Glucose - Point of Care 147 mg/dl (70-99)
[2024-05-30] MEDS: NOVOLOG FLEXPEN-LOW RESISTANCE SC (16:01)
[2024-05-30] MEDS: OCUFLOX 3 DROP RIGHT EYE ×2 (16:37→18:23)
--- NOTE | 2024-05-30 16:44 | PTCARENOTE ---
Rec'd pt from ED. AOx3. Tele- SR w/ occ. A- pacing. HR 60s. Assessment completed as documented. BP 164/84. During admission questions w/ pt sitting up and answering questions, pt w/ run of VT 150s then paced out (strip in chart). When asked if pt
felt any different, pt reports only feeling a little pressure in chest. Pt educated to use call dooley for assistance. Currently in bed; call dooley w/in reach.
--- NOTE | 2024-05-30 16:50 | CM ---
Chart reviewed. Patient is independent of ADLS, lives with his in a [address], [place] and [facility] [place]. Plan is for the patient to return home. CM to follow
[2024-05-30] MEDS: COUMADIN 2 MG PO (18:22)
[2024-05-30] MEDS: PROSCAR 5 MG PO (18:23)
[2024-05-30] MEDS: MEXITIL 150 MG PO (19:37)
[2024-05-30] MEDS: OCUFLOX 2 DROP RIGHT EYE (19:37)
[2024-05-30 21:48] LABS: Glucose - Point of Care 253 mg/dl (70-99)
[2024-05-30] MEDS: MAGNESIUM OXIDE 500 MG PO (22:22)
[2024-05-30] MEDS: CRESTOR 5 MG PO (22:23)
[2024-05-30] MEDS: ELAVIL 75 MG PO (22:23)
[2024-05-30] MEDS: TOPROL XL 25 MG PO (22:23)
[2024-05-30] MEDS: PEPCID 20 MG PO (22:23)
[2024-05-30] MEDS: OCUFLOX RIGHT EYE (22:23)
[2024-05-30] MEDS: MELATONIN 10 MG PO (22:23)
[2024-05-31] VITALS (9 sets, daily range): BP systolic 93–163; BP diastolic 56–85; PULSE 60–67; BMI 30.3
[2024-05-31] MEDS: OCUFLOX RIGHT EYE (00:42)
--- NOTE | 2024-05-31 03:00 | PTCARENOTE ---
Pt received at change of shift. SR on tele with occasional Apacing and PVCs, HR 60s. No runs of VT noted since beginning of shift at 1900. Pt voiding in urinal at bedside. Uses rolling walker for ambulating, and compliant with ringing for
assistance to get OOB. Denies CP and SOB. Call dooley within reach.
[2024-05-31 05:15] LABS: INR 2.44; PT 26.9 Sec (11.4-14.6)
[2024-05-31 05:26] LABS: ALT (SGPT) 83 U/L (0-50); AST (SGOT) 54 U/L (17-59); Albumin 3.6 g/dl (3.5-5.0); Alkaline Phosphatase 103 U/L (38-126); Blood Urea Nitrogen 24 mg/dl (9-20); Calcium 8.9 mg/dl (8.4-10.2); Carbon Dioxide 27 mmol/L (22-30); Chloride 103 mmol/L (98-107); Estimated Creatinine Clearance 66 ml/min; Glucose 186 mg/dl (70-99); Potassium 4.4 mmol/L (3.5-5.1); Sodium 138 mmol/L (135-145); Total Bilirubin 0.5 mg/dl (0.2-1.3); Total Protein 6.3 g/dl (6.3-8.2); eGFR > 60.00
--- NOTE | 2024-05-31 07:56 | W.PN.HOSP.TC ---
Addendum entered and electronically signed by Arnold Mccain MD 05/31/24 15:53:
orthostatic +
-start compression stokcings
-start abd bidner
Addendum entered and electronically signed by Arnold Mccain MD 05/31/24 15:50:
VTStorm and with ICD shock multiple time
--remains symptomatic with dizziness
-On tele
-Amio tid dosing, QTc 477, repeat EKG in the AM
-Mexilitietine started
-Per cards/EP no ischemic eval and able to abalate given mech MVR/AVR
--Potential candiate for steroeotatcic radiation therapy
-BB dose reduce 6months ago due to dizziness
-Keep K >4, Mg >2
Mechanical AVR/MVR
-Continue goal inr of 2.5-3.5
-Outpatient Valve clinic follow up
Type 2 DM
-Accuchecks
-SSI
-Long and shoet acting insulin
-BG 140-180
-CCDiet
Gerd
-Continue H2 sharad
HLD
-Cotninue statin
ANiety/Depression
-Continue anxiolytics and antidresspants
Original Note:
Today's Communication/Plan
-
Continue Ventricular Tachycardia management per cardiology.
Continue all other home medication regimen.
Assessment / Plan
Assessment / Plan
Assessment-
78-year-old male presents to the ER after his AICD went off multiple times beginning Monday night and his remote pacemaker interrogation revealed Vtach and multiple ATP maneuvers. Admitted to the hospital for V. tach management.
Plan-
Ventricular tachycardia-
S/p AICD shock VT storm (ICD shock and 41 episodes of VT requiring ATP in the last 48 hours)
Device-Medtronic DC ICD-placed on July 2021. Patient is on chronic amiodarone therapy.
Loading dose was given in the ER with amiodarone and patient was also started on mexiletine.
Also status post mexiletine in the ER, currently patient is on mexiletine.
Continue mexiletine, increase amiodarone dose to 400 3 times daily per cardiology.
Patient is not a candidate for
Cardiology on board, appreciate cardiology management.
no ischemic evaluation as per [place] cardiology, as patient's most recent ischemic evaluation in 2021 is negative.
Echo on 05/30/24 - EF 50 to 55%. TSH within normal limits, troponin negative, potassium and magnesium greater than 4, greater than 2 respectively.
EKG in the a.m. today-a paced rhythm with prolonged AV conduction. QRS widening and repolarization abnormality with LVH.
Mechanical mitral valve, aortic valve replacement at [facility] 2 years ago.
Paroxysmal atrial fibrillation and atrial flutter.
Continue warfarin per cardiology.
Goal INR-2.5-3.5.
INR today 2.44. Will continue to monitor INR.
Essential HTN -
Continue to Colixil 25 mg.
Type 2 diabetes mellitus-
Home medication regimen on hold
Currently on Lantus 10 units and sliding scale low resistance, overnight lower assistance requirement-2 units.
Continue monitoring blood sugars before meals.
Hypomagnesemia-
Magnesium supplementation
Melatonin for sleep
Hyperlipidemia-
Rosuvastatin 5mg PO HS.
GERD
Famotidine
Anxiety/depression-
On home medication amitriptyline
DVT prophylaxis-warfarin
CODE STATUS full code.
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
History of AAA s/p endograft with persistent type [address] 11/2018, with open AAA repair (revision from previous endovascular repair) 08/01/19
PAD with h/o iliac stent 2005
COPD
orthostatic hypotension
INOCENCIO on CPAP
schizophrenia
History of bladder cancer s/p TURBT and cystolitholapaxy 2009
spinal stenosis
History of large bowel resection 2000 in setting of diverticulitis per pt
Cholangitis with choledocholithiasis s/p ERCP w/ sphincterectomy and placement of stent in common bile duct, then s/p cholecystectomy 11/06/2023
Charcot joint
anemia
h/o epistaxis
OA with plan for L TKA 06/05/24
Anticipated Discharge: 24 - 48 hours
Subjective/Interval History
-
Date of Service: May 31, 2024
Overnight patient felt his defibrillator go off once around 7 PM. Otherwise he denies having any chest pain, dizziness, shortness of breath, palpitations,
Objective Data
-
Labs:
Laboratory Results
05/31/24
04:44
PT 26.9 H
INR 2.44
Sodium 138
Potassium 4.4
Chloride 103
Carbon Dioxide 27
BUN 24 H
Creatinine 1.0
Glucose 186 H
Calcium 8.9
Total Bilirubin 0.5
AST 54
ALT 83 H
Alkaline Phosphatase 103
Vital Signs:
Vital Signs
Temp Pulse Resp BP Pulse Ox
97.5 F 62 20 163/85 98
05/31/24 04:45 05/31/24 04:34 05/31/24 04:45 05/31/24 04:34 05/31/24 04:45
I&O
05/30/24 05/31/24 06/01/24
06:59 06:59 06:59
Output Total 600 / 600
Balance -600 / -600
Review of Systems
-
History Source: Patient
Constitutional: Reports No Symptoms
EENT: Reports No Symptoms Reported
Respiratory: Reports No Symptoms
Cardiac: Reports Other ([place] defibrillator go off yesterday night.)
Abdomen/GI: Reports No Symptoms
Breast: Reports No Symptoms
Genitourinary: Reports No Symptoms
Musculoskeletal: Reports No Symptoms
Skin: Reports No Symptoms
Neuro: Reports No Symptoms
Hematologic / Lymphatic: Reports No Symptoms
Physical Exam
-
General: Comfortable
HEENT: Moist Mucous Membranes
Respiratory: Clear to Auscultation; Negative Wheezes, Rales, Rhonchi or Crackles
Cardiac: Regular Rhythm and S1/S2; Negative Murmur, Rub or Gallop
GI: Soft, Nontender, Nondistended and Normal Bowel Sounds
Musculoskeletal: No Clubbing, No Cyanosis and No Edema
Skin: Warm
Neuro: Awake, Alert and No Motor Deficits
Psych: Calm
Data Reviewed
-
Medical Tests (Nuc Med, Echo etc): Image personally visualized and interpreted, Report Reviewed by me and Discussed with Physician
Labs: Labs Reviewed by me and Discussed with Physician
Old Records: Reviewed
[2024-05-31] MEDS: LANTUS 0.1 UNITS SC (08:18)
[2024-05-31] MEDS: MEXITIL 150 MG PO ×2 (08:18→19:31)
[2024-05-31] MEDS: PACERONE 200 MG PO (08:18)
[2024-05-31 08:19] LABS: Glucose - Point of Care 213 mg/dl (70-99)
--- NOTE | 2024-05-31 10:12 | W.PN.CARDCBS ---
Addendum entered and electronically signed by Norma Recio PA-C 05/31/24 17:01:
called and updated patient's via telephone.
Addendum entered and electronically signed by Adelfo Martinez DO 05/31/24 16:28:
I saw and examined the patient.
The Leather Softener's note was reviewed and I agree with the note.
Comment:
Patient seen and examined's morning. No acute events overnight. Patient noted 10 episodes of sustained VT requiring ATP therapy with return to normal rhythm/APVS/APVP. In discussion with patient, he denied episodes of chest pain, shortness of
breath, palpitations, lightheadedness, dizziness, near-syncope, syncope, or weakness. During the episodes requiring ATP, he denies any symptoms as well. No shocks delivered overnight.
EKG AP/VS occasional PVC; 61 bpm QT/QTc 474/477 ms QRS duration 148 ms setting of LVH
A/P as below
Plan increase amiodarone to 400 mg 3 times daily and monitor on telemetry/daily EKG for QT monitoring
Continue mexiletine 150 BID
Would likely monitor over weekend and if remains arrhythmia free, would plan taper and DC home
Patient with very complex anatomy due to mechanical aortic/mitral valves with prior sternotomy and not likely a candidate for endocardial or epicardial VT RFA
Therefore, would favor medical therapy for now; another possible intervention could be cardiac SBRT (cardiac radioablation); further discussion would need to be done in office
Original Note:
Today's Communication / Plan
-
increase amio
follow QTc
follow on tele
Impression / Plan
-
PCP: Dr. Hendricks
Loss Prevention Agent: Dr. SHANNON Mcintyre
Impression:
Presentation with VT storm (ICD shock and 41 episodes of VT requiring ATP)
History of sustained monomorphic ventricular tachycardia
Chronic amiodarone therapy
Medtronic DC ICD 07/2021
Nonobstructive CAD by cath 07/2021
Coronary aneurysms are unchanged angiographically from cath in 2009
Paroxysmal atrial fibrillation/atrial flutter
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
Chronic Coumadin anticoagulation (goal INR 2.5-3.5)
History of AAA s/p endograft with persistent type [address] 11/2018, with open AAA repair (revision from previous endovascular repair) 08/01/19
PAD with h/o iliac stent 2005
Type 2 diabetes
COPD
orthostatic hypotension
PVCs
HTN
HLD
INOCENCIO on CPAP
depression
schizophrenia
History of bladder cancer s/p TURBT and cystolitholapaxy 2009
spinal stenosis
History of large bowel resection 2000 in setting of diverticulitis per pt
Cholangitis with choledocholithiasis s/p ERCP w/ sphincterectomy and placement of stent in common bile duct, then s/p cholecystectomy 11/06/2023
Charcot joint
anemia
h/o epistaxis
OA with plan for L TKA 06/05/24
Echo 11/02/2023: EF 50% mild cLVH, thickened mechanical MVR w/ peak/mean gradients 12/7 mmHg, mechanical AVR w/ peak/mean gradients 18/10 mmHg, mild possible paravalvular AI, mild TR, estimated PAP 30 mmHg
ECHO 05/30/24: EF 50 to 55%, mild concentric LVH, mechanical mitral valve with peak/mean gradients 8/3 mmHg, mechanical aortic valve with peak/mean gradients 12/7 mmHg, trace AR, trace TR, PAP 15 to 20 mmHg
Plan:
-He presented with VT storm�1 ICD shock and 41 episodes of VT requiring ATP since 12/3 PM
-discussed with EP 05/30 and increased amiodarone from 200mg daily to 200mg TID and added mexiletine 150mg BID.
-overnight noted to have ~10 VT episodes requiring ATP. will increase amiodarone to 400mg TID. QTc stable by EKG this AM. continue mexiletine 150mg BID
-currently apaced on review of tele with occasional PVCs
-K/mag stable
-echo stable compared to prior
-trop negative. ischemic eval from 2021 with nonobstructive CAD
-TSH WNL
-Continue beta-sharad, patient states he did decrease dose in the last 6 months due to dizziness
-not felt to be good candidate for VT ablation given [place] MVR/AVR. could be considered for stereotactic radiation therapy
-Discussed with nursing
Progress Note - Loss Prevention Agent
Subjective
Date of Service: May 31, 2024
reports some palpitations last evening however then slept well overnight
Objective
Labs:
05/30/24 10:03
05/31/24 04:44
Labs
Hgb 12.8 g/dL (13.0-18.0) L 05/30/24 10:03
Hct 38.2 % (39.0-52.0) L 05/30/24 10:03
Plt Count 140 10^3/uL (130-400) 05/30/24 10:03
PT 26.9 Sec (11.4-14.6) H 05/31/24 04:44
INR 2.44 05/31/24 04:44
Sodium 138 mmol/L (135-145) 05/31/24 04:44
Potassium 4.4 mmol/L (3.5-5.1) 05/31/24 04:44
BUN 24 mg/dl (9-20) H 05/31/24 04:44
Creatinine 1.0 mg/dL (0.7-1.3) 05/31/24 04:44
Glucose 186 mg/dl (70-99) H 05/31/24 04:44
Troponins
05/30/24 05/30/24
10:00 11:03
Troponin I < 0.012 Cancelled
Vital Signs and I&O:
Vital Signs
Temp Pulse Resp BP Pulse Ox
97.5 F 61 20 155/75 98
05/31/24 04:45 05/31/24 08:18 05/31/24 04:45 05/31/24 08:18 05/31/24 04:45
Vital Signs
Temp Pulse Resp BP Pulse Ox
97.5 F 61 20 155/75 98
05/31/24 04:45 05/31/24 08:18 05/31/24 04:45 05/31/24 08:18 05/31/24 04:45
Intake & Output
05/29/24 05/30/24 05/31/24 06/01/24
07:59 07:59 07:59 07:59
Output Total 600 / 600 575 / 575
Balance -600 / -600 -575 / -575
Physical Exam
Physical Exam
GEN: No distress, awake, alert, oriented x3
HEENT: supple, anicteric, mmm, eomi
LUNGS: CTA B/L, no wheezes/rales
CV: Reg, S1/S2, mech valve click
ABD: soft, BS+, NT/ND
EXT: No cyanosis, clubbing, edema
NEURO: Gross non-focal
SKIN: Warm, pink, dry. No rash
[2024-05-31 12:42] LABS: Glucose - Point of Care 206 mg/dl (70-99)
[2024-05-31] MEDS: NOVOLOG FLEXPEN-LOW RESISTANCE SC (13:04)
[2024-05-31] MEDS: NOVOLOG FLEXPEN-LOW RESISTANCE 2 UNITS SC (13:04)
--- NOTE | 2024-05-31 13:50 | CM ---
Chart reviewed. Patient is independent of ADLS, lives with his in a [address], [facility], ambulates with a RW and ambulates with a SPC. Patient is not interested in VN. Plan is for the patient to return home. CM to follow
[2024-05-31] MEDS: PACERONE 400 MG PO ×2 (17:07→23:02)
[2024-05-31 17:08] LABS: Glucose - Point of Care 268 mg/dl (70-99)
[2024-05-31] MEDS: NOVOLOG FLEXPEN-LOW RESISTANCE 3 UNITS SC (17:08)
[2024-05-31] MEDS: PROSCAR 5 MG PO (17:12)
[2024-05-31] MEDS: COUMADIN 2 MG PO (17:12)
--- NOTE | 2024-05-31 17:15 | PTCARENOTE ---
pt continues to be paced on the monitor, hr in the 60s, vss. pt offers no complaints at this time. pt educated on plan of care and pt verbalized understanding. call dooley within reach.
[2024-05-31] MEDS: MELATONIN 10 MG PO (23:01)
[2024-05-31] MEDS: TOPROL XL 25 MG PO (23:01)
[2024-05-31] MEDS: PEPCID 20 MG PO (23:01)
[2024-05-31] MEDS: MAGNESIUM OXIDE 500 MG PO (23:01)
[2024-05-31] MEDS: CRESTOR 5 MG PO (23:02)
[2024-05-31] MEDS: ELAVIL 75 MG PO (23:02)
[2024-05-31 23:08] LABS: Glucose - Point of Care 203 mg/dl (70-99)
[2024-06-01] VITALS (7 sets, daily range): BP systolic 121–146; BP diastolic 64–79; BMI 30.3
--- NOTE | 2024-06-01 03:00 | PTCARENOTE ---
Pt remains A paced on tele with HR 60. Denies CP and SOB. Pt AAOx3 but forgettful at times, rings appropriately for assistance. Ambulating with x1 assist and rolling walker. Can make needs known. Call dooley within reach.
[2024-06-01 06:06] LABS: INR 2.28; PT 25.2 Sec (11.4-14.6)
[2024-06-01 07:58] LABS: Glucose - Point of Care 182 mg/dl (70-99)
[2024-06-01] MEDS: LANTUS 0.1 UNITS SC (08:32)
[2024-06-01] MEDS: NOVOLOG FLEXPEN-LOW RESISTANCE 1 UNITS SC (08:32)
[2024-06-01] MEDS: PACERONE 400 MG PO ×3 (08:33→22:02)
[2024-06-01] MEDS: MEXITIL 150 MG PO ×2 (08:33→19:40)
--- NOTE | 2024-06-01 11:08 | W.PN.CARDCBS ---
Addendum entered and electronically signed by Cj Andrew MD 06/01/24 11:45:
I saw and examined the patient.
The Waffle Machine Operator's note was reviewed and I agree with the note.
Comment: Briefly, 78-year-old man past medical history of nonobstructive CAD and prior mechanical AVR/MVR who presents in VT storm after multiple ICD shocks at home
Amiodarone dose increased to 400 mg TID
Mexiletine initiated as well
Continued on home beta-sharad
VT has been quiescent overnight with these medication changes
Patient is resting comfortably in bed, no cardiac complaints at this time
Echo with preserved left ventricular systolic function, no significant change from prior
Maintain electrolytes K > 4 and Mg > 2
Continue to monitor on telemetry
Original Note:
Today's Communication / Plan
-
continue amiodarone 400mg TID and mexiletine 150mg Q8H
no VT overnight
follow QTc
Impression / Plan
-
PCP: Dr. Hendricks
Computer Hardware Technician: Dr. SHANNON Mcintyre
Impression:
Presentation with VT storm (ICD shock and 41 episodes of VT requiring ATP)
History of sustained monomorphic ventricular tachycardia
Chronic amiodarone therapy
Medtronic DC ICD 07/2021
Nonobstructive CAD by cath 07/2021
Coronary aneurysms are unchanged angiographically from cath in 2009
Paroxysmal atrial fibrillation/atrial flutter
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
Chronic Coumadin anticoagulation (goal INR 2.5-3.5)
History of AAA s/p endograft with persistent type [address] 11/2018, with open AAA repair (revision from previous endovascular repair) 08/01/19
PAD with h/o iliac stent 2005
Type 2 diabetes
COPD
orthostatic hypotension
PVCs
HTN
HLD
INOCENCIO on CPAP
depression
schizophrenia
History of bladder cancer s/p TURBT and cystolitholapaxy 2009
spinal stenosis
History of large bowel resection 2000 in setting of diverticulitis per pt
Cholangitis with choledocholithiasis s/p ERCP w/ sphincterectomy and placement of stent in common bile duct, then s/p cholecystectomy 11/06/2023
Charcot joint
anemia
h/o epistaxis
OA with plan for L TKA 06/05/24
Echo 11/02/2023: EF 50% mild cLVH, thickened mechanical MVR w/ peak/mean gradients 12/7 mmHg, mechanical AVR w/ peak/mean gradients 18/10 mmHg, mild possible paravalvular AI, mild TR, estimated PAP 30 mmHg
ECHO 05/30/24: EF 50 to 55%, mild concentric LVH, mechanical mitral valve with peak/mean gradients 8/3 mmHg, mechanical aortic valve with peak/mean gradients 12/7 mmHg, trace AR, trace TR, PAP 15 to 20 mmHg
Plan:
-He presented with VT storm�1 ICD shock and 41 episodes of VT requiring ATP since 12/3 PM
-No VT overnight. Remains in a paced rhythm on review of tele with stable QTc by review of 06/01 EKG. Continue amiodarone at higher dose of 400 mg 3 times daily with mexiletine 150 mg twice daily overnight. If remains without recurrence of VT,
would plan for decrease to Amio 200 mg twice daily with mexiletine 150 mg twice daily and can likely discharge to home
-echo stable compared to prior
-trop negative. ischemic eval from 2021 with nonobstructive CAD
-TSH WNL
-Continue beta-sharad, patient states he did decrease dose in the last 6 months due to dizziness
-not felt to be good candidate for VT ablation given [facility] MVR/AVR. could be considered for stereotactic radiation therapy
Progress Note - Computer Hardware Technician
Subjective
Date of Service: June 01, 2024
No issues overnight.
Objective
Labs:
05/30/24 10:03
05/31/24 04:44
Labs
Hgb 12.8 g/dL (13.0-18.0) L 05/30/24 10:03
Hct 38.2 % (39.0-52.0) L 05/30/24 10:03
Plt Count 140 10^3/uL (130-400) 05/30/24 10:03
PT 25.2 Sec (11.4-14.6) H 06/01/24 05:20
INR 2.28 06/01/24 05:20
Sodium 138 mmol/L (135-145) 05/31/24 04:44
Potassium 4.4 mmol/L (3.5-5.1) 05/31/24 04:44
BUN 24 mg/dl (9-20) H 05/31/24 04:44
Creatinine 1.0 mg/dL (0.7-1.3) 05/31/24 04:44
Glucose 186 mg/dl (70-99) H 05/31/24 04:44
Troponins
05/30/24 05/30/24
10:00 11:03
Troponin I < 0.012 Cancelled
Vital Signs and I&O:
Vital Signs
Temp Pulse Resp BP Pulse Ox
97.9 F 60 14 145/74 96
06/01/24 07:00 06/01/24 07:21 06/01/24 07:00 06/01/24 07:21 06/01/24 07:00
Vital Signs
Temp Pulse Resp BP Pulse Ox
97.9 F 60 14 145/74 96
06/01/24 07:00 06/01/24 07:21 06/01/24 07:00 06/01/24 07:21 06/01/24 07:00
Intake & Output
05/30/24 05/31/24 06/01/24 06/02/24
07:59 07:59 07:59 07:59
Intake Total 480 / 480
Output Total 600 / 600 1075 / 1075 400 / 400
Balance -120 / -120 -1075 / -1075 -400 / -400
Physical Exam
Physical Exam
GEN: No distress, awake, alert, oriented x3
HEENT: supple, anicteric, mmm, eomi
LUNGS: CTA B/L, no wheezes/rales
CV: Reg, S1/S2, mech valve click
ABD: soft, BS+, NT/ND
EXT: No cyanosis, clubbing, edema
NEURO: Gross non-focal
SKIN: Warm, pink, dry. No rash
[2024-06-01 11:15] LABS: Glucose - Point of Care 218 mg/dl (70-99)
[2024-06-01] MEDS: NOVOLOG FLEXPEN-LOW RESISTANCE 2 UNITS SC ×2 (12:41→17:29)
--- NOTE | 2024-06-01 14:27 | W.PN.HOSP.TC ---
Today's Communication/Plan
-
dc dependent on cardilogy recs
Assessment / Plan
Assessment / Plan
Physical Exam
NAD, resting comfortably in bed
Scleral anicteric
Moist mucous membranes
No JVD
CTA bilateral
Normal S1-S2 lalo clicl rusb
Soft nontender nondistended bowel sounds active
No peripheral pitting edema
Moves extremities spontaneously
AAOx3
VTStorm and with ICD shock multiple time
--remains symptomatic with dizziness
-On tele
-Amio tid dosing, QTc 477, repeat EKG in the AM
--amio now inceased to 400mg TID
-Mexilitietine started
-Per cards/EP no ischemic eval and able to abalate given mech MVR/AVR
--Potential candiate for steroeotatcic radiation therapy
-BB dose reduce 6months ago due to dizziness
-Keep K >4, Mg >2
Mechanical AVR/MVR
-Continue goal inr of 2.5-3.5
-Outpatient Valve clinic follow up
Type 2 DM
-Accuchecks
-SSI
-Long and shoet acting insulin
-BG 140-180
-CCDiet
Gerd
-Continue H2 sharad
HLD
-Cotninue statin
ANiety/Depression
-Continue anxiolytics and antidresspants
Orthostatic +
-compression stocking and abd binder
Anticipated Discharge: > 48 hours
Subjective/Interval History
-
Date of Service: June 01, 2024
seen and examined. no new complaints. no acute ovenright events
feeling better
improved vt activity on tele
Objective Data
-
Labs:
Laboratory Results
06/01/24
05:20
PT 25.2 H
INR 2.28
Vital Signs:
Vital Signs
Temp Pulse Resp BP Pulse Ox
97.8 F 60 16 126/71 98
06/01/24 11:12 06/01/24 13:00 06/01/24 11:12 06/01/24 10:58 06/01/24 11:12
I&O
05/31/24 06/01/24 06/02/24
06:59 06:59 06:59
Intake Total 480 / 480 480 / 480
Output Total 600 / 600 1075 / 1075 400 / 400
Balance -600 / -600 -595 / -595 80 / 80
[2024-06-01] MEDS: PROSCAR 5 MG PO (17:24)
[2024-06-01] MEDS: COUMADIN 2 MG PO (17:24)
[2024-06-01 17:30] LABS: Glucose - Point of Care 239 mg/dl (70-99)
[2024-06-01] MEDS: MAGNESIUM OXIDE 500 MG PO (21:08)
[2024-06-01] MEDS: CRESTOR 5 MG PO (21:08)
[2024-06-01] MEDS: PEPCID 20 MG PO (21:09)
[2024-06-01] MEDS: TOPROL XL 25 MG PO (21:09)
[2024-06-01] MEDS: MELATONIN 10 MG PO (21:09)
[2024-06-01] MEDS: ELAVIL 75 MG PO (21:10)
[2024-06-01 21:22] LABS: Glucose - Point of Care 191 mg/dl (70-99)
[2024-06-02] VITALS (11 sets, daily range): BP systolic 88–161; BP diastolic 56–82; BMI 30.4
--- NOTE | 2024-06-02 01:57 | PTCARENOTE ---
Pt. mostly A-paced with very occasional AV pacing, no runs VT so far this shift. Thigh high SCD's placed per order. Pt. sleeping.
[2024-06-02 04:11] LABS: INR 2.45; PT 26.6 Sec (11.4-14.6)
[2024-06-02 07:10] LABS: Glucose - Point of Care 208 mg/dl (70-99)
[2024-06-02] MEDS: NOVOLOG FLEXPEN-LOW RESISTANCE 2 UNITS SC ×3 (07:52→17:07)
[2024-06-02] MEDS: PACERONE 400 MG PO ×3 (07:53→22:54)
[2024-06-02] MEDS: MEXITIL 150 MG PO ×2 (07:53→20:44)
[2024-06-02] MEDS: LANTUS 0.1 UNITS SC (07:53)
--- NOTE | 2024-06-02 09:41 | PTCARENOTE ---
The patient is aaox3. Vital signs are stable, 97% on RA. A-pacing is noted on the monitor. He has no complaints of SOB, pain, dizziness, or lightheadedness. Abdominal binder placed on the patient.
--- NOTE | 2024-06-02 10:49 | W.PN.CARDCBS ---
Today's Communication / Plan
-
No ventricular ectopy on telemetry overnight
Stable for discharge on increased dose of amiodarone and with addition of mexiletine
Impression / Plan
-
PCP: Dr. Hendricks
Daycare Director: Dr. SHANNON Mcintyre
Impression:
Presentation with VT storm (ICD shock and 41 episodes of VT requiring ATP)
History of sustained monomorphic ventricular tachycardia
Chronic amiodarone therapy
Medtronic DC ICD 07/2021
Nonobstructive CAD by cath 07/2021
Coronary aneurysms are unchanged angiographically from cath in 2009
Paroxysmal atrial fibrillation/atrial flutter
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
Chronic Coumadin anticoagulation (goal INR 2.5-3.5)
History of AAA s/p endograft with persistent type [address] 11/2018, with open AAA repair (revision from previous endovascular repair) 08/01/19
PAD with h/o iliac stent 2005
Type 2 diabetes
COPD
orthostatic hypotension
PVCs
HTN
HLD
INOCENCIO on CPAP
depression
schizophrenia
History of bladder cancer s/p TURBT and cystolitholapaxy 2009
spinal stenosis
History of large bowel resection 2000 in setting of diverticulitis per pt
Cholangitis with choledocholithiasis s/p ERCP w/ sphincterectomy and placement of stent in common bile duct, then s/p cholecystectomy 11/06/2023
Charcot joint
anemia
h/o epistaxis
OA with plan for L TKA 06/05/24
Echo 11/02/2023: EF 50% mild cLVH, thickened mechanical MVR w/ peak/mean gradients 12/7 mmHg, mechanical AVR w/ peak/mean gradients 18/10 mmHg, mild possible paravalvular AI, mild TR, estimated PAP 30 mmHg
ECHO 05/30/24: EF 50 to 55%, mild concentric LVH, mechanical mitral valve with peak/mean gradients 8/3 mmHg, mechanical aortic valve with peak/mean gradients 12/7 mmHg, trace AR, trace TR, PAP 15 to 20 mmHg
Plan:
-Presented with VT storm�1 ICD shock and 41 episodes of VT requiring ATP since 12/3 PM
-echo stable compared to prior
-trop negative. ischemic eval from 2021 with nonobstructive CAD
-TSH WNL
-Ventricular ectopy was quiescent again overnight on telemetry
-On discharge plan to transition to Amio 200 mg twice daily with mexiletine 150 mg twice daily
-Continue beta-sharad
Stable for discharge from my perspective
Outpatient cardiology follow-up has been arranged
Discussed with hospitalist
Cardiac meds on discharge:
Amio 200 mg twice daily
Mexiletine 150 mg twice daily
Metoprolol succinate 25mg daily
Rosuvastatin 5mg daily
Warfarin 2mg daily
Progress Note - Daycare Director
Subjective
Date of Service: June 02, 2024
No acute overnight events. Patient is resting comfortably in bed. No chest discomfort, shortness of breath or palpitations. No ICD shocks overnight. Telemetry reviewed, no ventricular ectopy seen.
Objective
Labs:
05/30/24 10:03
05/31/24 04:44
Labs
Hgb 12.8 g/dL (13.0-18.0) L 05/30/24 10:03
Hct 38.2 % (39.0-52.0) L 05/30/24 10:03
Plt Count 140 10^3/uL (130-400) 05/30/24 10:03
PT 26.6 Sec (11.4-14.6) H 06/02/24 03:17
INR 2.45 06/02/24 03:17
Sodium 138 mmol/L (135-145) 05/31/24 04:44
Potassium 4.4 mmol/L (3.5-5.1) 05/31/24 04:44
BUN 24 mg/dl (9-20) H 05/31/24 04:44
Creatinine 1.0 mg/dL (0.7-1.3) 05/31/24 04:44
Glucose 186 mg/dl (70-99) H 05/31/24 04:44
Troponins
05/30/24 05/30/24
10:00 11:03
Troponin I < 0.012 Cancelled
Vital Signs and I&O:
Vital Signs
Temp Pulse Resp BP Pulse Ox
97.5 F 60 20 132/67 95
06/02/24 07:03 06/02/24 07:05 06/02/24 07:03 06/02/24 07:05 06/02/24 07:05
Vital Signs
Temp Pulse Resp BP Pulse Ox
97.5 F 60 20 132/67 95
06/02/24 07:03 06/02/24 07:05 06/02/24 07:03 06/02/24 07:05 06/02/24 07:05
Intake & Output
05/31/24 06/01/24 06/02/24 06/03/24
06:59 06:59 06:59 06:59
Intake Total 480 / 480 720 / 720
Output Total 600 / 600 1075 / 1075 2100 / 2100
Balance -600 / -600 -595 / -595 -1380 / -1380
Physical Exam
Physical Exam
Gen: NAD, AAOx3
HEENT: NC/AT, sclera anicteric
Neck: No JVD
CV: RRR, mechanical s1/s2
Lungs: CTAB
Abd: S/ND
Ext: No LE edema
Skin: Warm, dry
Neuro: Non-focal
[2024-06-02 11:29] LABS: Glucose - Point of Care 219 mg/dl (70-99)
--- NOTE | 2024-06-02 15:19 | W.PN.HOSP.TC ---
Today's Communication/Plan
-
Awaiting for his outpatient pharmacy to get mexitil 150mg BID.
-Script has been sent to his pharamcy already, just needs to be filled and currently out of stock
-please call ashia aiken to get update of stock
Assessment / Plan
Assessment / Plan
Physical Exam
NAD, resting comfortably in bed
Scleral anicteric
Moist mucous membranes
No JVD
CTA bilateral
Normal S1-S2 lalo clicl rusb
Soft nontender nondistended bowel sounds active
No peripheral pitting edema
Moves extremities spontaneously
AAOx3
VTStorm and with ICD shock multiple time
--remains symptomatic with dizziness
-On tele
-Amio tid dosing, QTc 477, repeat EKG in the AM
--amio now inceased to 400mg TID, PER Cardiology AMIO dosing for home should be 200mg TID
-Mexilitietine started
-Per cards/EP no ischemic eval and able to abalate given mech MVR/AVR
--Potential candiate for steroeotatcic radiation therapy
-BB dose reduce 6months ago due to dizziness
-Keep K >4, Mg >2
Mechanical AVR/MVR
-Continue goal inr of 2.5-3.5
-Outpatient Valve clinic follow up
Type 2 DM
-Accuchecks
-SSI
-Long and shoet acting insulin
-BG 140-180
-CCDiet
Gerd
-Continue H2 sharad
HLD
-Cotninue statin
ANiety/Depression
-Continue anxiolytics and antidresspants
Orthostatic +
-compression stocking and abd binder
Anticipated Discharge: Within 24 hours
Subjective/Interval History
-
Date of Service: June 02, 2024
seen and examned. no new comapints. no acute ovenright events
Objective Data
-
Labs:
Laboratory Results
06/02/24
03:17
PT 26.6 H
INR 2.45
Vital Signs:
Vital Signs
Temp Pulse Resp BP Pulse Ox
97.4 F 60 20 127/69 97
06/02/24 11:24 06/02/24 11:26 06/02/24 11:24 06/02/24 11:26 06/02/24 11:24
I&O
06/01/24 06/02/24 06/03/24
06:59 06:59 06:59
Intake Total 480 / 480 720 / 720
Output Total 1075 / 1075 2100 / 2100
Balance -595 / -595 -1380 / -1380
[2024-06-02] MEDS: TYLENOL 650 MG PO (15:20)
[2024-06-02 16:45] LABS: Glucose - Point of Care 236 mg/dl (70-99)
[2024-06-02] MEDS: PROSCAR 5 MG PO (17:07)
[2024-06-02] MEDS: COUMADIN 2 MG PO (17:07)
[2024-06-02 21:31] LABS: Glucose - Point of Care 251 mg/dl (70-99)
[2024-06-02] MEDS: TOPROL XL 25 MG PO (22:54)
[2024-06-02] MEDS: PEPCID 20 MG PO (22:54)
[2024-06-02] MEDS: ELAVIL 75 MG PO (22:54)
[2024-06-02] MEDS: CRESTOR 5 MG PO (22:54)
[2024-06-02] MEDS: MELATONIN 10 MG PO (22:54)
[2024-06-02] MEDS: MAGNESIUM OXIDE 500 MG PO (22:54)
--- NOTE | 2024-06-03 00:42 | PTCARENOTE ---
Patient remains atrial paced on fork lift truck operator; Patient denies pain, shortness of breath, palpitations, and/or dizziness at this time; Abdominal binder in place; Lower extremity TONG wraps remain in place, patient requesting to keep them on
overnight; Call dooley within reach; Plan of care ongoing
[2024-06-03 02:10] VITALS: BP 162/96
[2024-06-03 02:17] VITALS: BMI 30.2
[2024-06-03 02:18] VITALS: BP 157/67
[2024-06-03 07:09] LABS: Glucose - Point of Care 209 mg/dl (70-99)
[2024-06-03] MEDS: NOVOLOG FLEXPEN-LOW RESISTANCE 2 UNITS SC ×2 (08:03→12:50)
[2024-06-03] MEDS: LANTUS 0.1 UNITS SC (08:04)
[2024-06-03] MEDS: PACERONE 400 MG PO (08:04)
[2024-06-03] MEDS: MEXITIL 150 MG PO (08:04)
[2024-06-03 08:06] VITALS: BP 163/81
--- NOTE | 2024-06-03 08:12 | W.PN.HOSP.TC ---
Today's Communication/Plan
-
Continue mexiletine
Continue amiodarone at 400 3 times daily. But at discharge plan to change amiodarone to 200 3 times daily.
Continue cholesterol-lowering diet.
Assessment / Plan
Assessment / Plan
Assessment-
78-year-old male presents to the ER after his AICD went off multiple times beginning Monday night and his remote pacemaker interrogation revealed Vtach and multiple ATP maneuvers. Admitted to the hospital for V. tach management.
Plan-
Ventricular tachycardia-
S/p AICD shock VT storm (ICD shock and 41 episodes of VT requiring ATP in the last 48 hours)
Device-Medtronic DC ICD-placed on July 2021. Patient is on chronic amiodarone therapy.
Loading dose was given in the ER with amiodarone and patient was also started on mexiletine.
Also status post mexiletine in the ER, currently patient is on mexiletine.
Continue mexiletine, increase amiodarone dose to 400 3 times daily per cardiology.
Cardiology wants amiodarone home dose to be 203 times daily. Patient is waiting mexiletine supply from pharmacy.
Patient is not a candidate for
Cardiology on board, appreciate cardiology management.
no ischemic evaluation as per [facility], as patient's most recent ischemic evaluation in 2021 is negative.
Echo on 05/30/24 - EF 50 to 55%. TSH within normal limits, troponin negative, potassium and magnesium greater than 4, greater than 2 respectively.
EKG in the a.m. today-a paced rhythm with prolonged AV conduction. QRS widening and repolarization abnormality with LVH.
Mechanical mitral valve, aortic valve replacement at [facility] 2 years ago.
Paroxysmal atrial fibrillation and atrial flutter.
Continue warfarin per cardiology.
Goal INR-2.5-3.5.
INR on 06/02-2.45. Will continue to monitor INR.
Orthostatic vitals positive
Abdominal binders and compression stockings to help with orthostatic.
Essential HTN -
Continue to Colixil 25 mg.
Type 2 diabetes mellitus-
Home medication regimen on hold
Currently on Lantus 10 units and sliding scale low resistance, overnight lower assistance requirement-2 units.
Continue monitoring blood sugars before meals.
Hypomagnesemia-
Magnesium supplementation
Melatonin for sleep
Hyperlipidemia-
Rosuvastatin 5mg PO HS.
GERD
Famotidine
Anxiety/depression-
On home medication amitriptyline
DVT prophylaxis-warfarin
CODE STATUS full code.
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
History of AAA s/p endograft with persistent type [address] 11/2018, with open AAA repair (revision from previous endovascular repair) 08/01/19
PAD with h/o iliac stent 2005
COPD
orthostatic hypotension
INOCENCIO on CPAP
schizophrenia
History of bladder cancer s/p TURBT and cystolitholapaxy 2009
spinal stenosis
History of large bowel resection 2000 in setting of diverticulitis per pt
Cholangitis with choledocholithiasis s/p ERCP w/ sphincterectomy and placement of stent in common bile duct, then s/p cholecystectomy 11/06/2023
Charcot joint
anemia
h/o epistaxis
OA with plan for L TKA 06/05/24
Anticipated Discharge: Today
Subjective/Interval History
-
Date of Service: June 03, 2024
No symptoms overnight.
Objective Data
-
Vital Signs:
Vital Signs
Temp Pulse Resp BP Pulse Ox
97.8 F 62 18 157/67 97
06/03/24 02:10 06/03/24 06:00 06/03/24 02:10 06/03/24 02:18 06/03/24 02:10
I&O
06/02/24 06/03/24 06/04/24
06:59 06:59 06:59
Intake Total 720 / 720
Output Total 2099 / 2099 975 / 975
Balance -1380 / -1380 -975 / -975
Review of Systems
-
History Source: Patient
Constitutional: Reports No Symptoms
EENT: Reports No Symptoms Reported
Respiratory: Reports No Symptoms
Cardiac: Reports No Symptoms
Abdomen/GI: Reports No Symptoms
Genitourinary: Reports No Symptoms
Musculoskeletal: Reports No Symptoms
Skin: Reports No Symptoms
Neuro: Reports No Symptoms
Endocrine: Reports No Symptoms
Hematologic / Lymphatic: Reports No Symptoms
Allergy / Immunology: Reports No Symptoms
Physical Exam
-
General: No Apparent Distress and Comfortable
HEENT: Moist Mucous Membranes and PERRLA
Respiratory: Clear to Auscultation; Negative Wheezes, Rales or Rhonchi
Cardiac: Regular Rhythm and S1/S2; Negative Murmur, Rub, JVD, HJR or Gallop
GI: Soft, Nontender, Nondistended and Normal Bowel Sounds
Musculoskeletal: No Clubbing, No Cyanosis and No Edema
Skin: Warm
Neuro: Awake and Alert
Psych: Calm
--- NOTE | 2024-06-03 10:44 | W.PN.CARDCBS ---
Addendum entered and electronically signed by Yann Carbone MD 06/03/24 11:20:
I saw and examined the patient.
The INFORMATION TECHNOLOGY AUDIT MANAGER or PA's note was reviewed and I agree with the note.
Comment: General: Well developed, well nourished in NAD.
Neck: Supple, no JVD, HJR, carotids +2 B/L, no bruits bilaterally.
Heart: Non displaced PMI, RRR, no murmurs, No S3, S4, no rubs.
Lungs: Scattered rhonchi
Extremities: No clubbing, cyanosis or edema bilaterally.
Neuro: Grossly nonfocal, awake, alert and oriented x3.
No further VT. Stable cardiology status for discharge of mexiletine as available at patient's pharmacy. Follow-up has been arranged.
Original Note:
Today's Communication / Plan
-
CM checking that his pharmacy has his mexiletine in stock
Coumadin clinic updated
Can probably go home today if he can get mexiletine Rx filled. He was scheduled for TKA and this might need to be delayed
57 min face to face and coordination of care
Impression / Plan
-
PCP: Dr. Hendricks
Process Excellence Manager: Dr. SHANNON Mcintyre
Impression:
Presentation with VT storm (ICD shock and 41 episodes of VT requiring ATP)
History of sustained monomorphic ventricular tachycardia
Chronic amiodarone therapy
[employer] DC ICD 07/2021
Nonobstructive CAD by cath 07/2021
Coronary aneurysms are unchanged angiographically from cath in 2009
Paroxysmal atrial fibrillation/atrial flutter
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
Chronic Coumadin anticoagulation (goal INR 2.5-3.5)
History of AAA s/p endograft with persistent type [address] 11/2018, with open AAA repair (revision from previous endovascular repair) 08/01/19
PAD with h/o iliac stent 2005
Type 2 diabetes
COPD
orthostatic hypotension
PVCs
HTN
HLD
INOCENCIO on CPAP
depression
schizophrenia
History of bladder cancer s/p TURBT and cystolitholapaxy 2009
spinal stenosis
History of large bowel resection 2000 in setting of diverticulitis per pt
Cholangitis with choledocholithiasis s/p ERCP w/ sphincterectomy and placement of stent in common bile duct, then s/p cholecystectomy 11/06/2023
Charcot joint
anemia
h/o epistaxis
OA with plan for L TKA 06/05/24
Echo 11/02/2023: EF 50% mild cLVH, thickened mechanical MVR w/ peak/mean gradients 12/7 mmHg, mechanical AVR w/ peak/mean gradients 18/10 mmHg, mild possible paravalvular AI, mild TR, estimated PAP 30 mmHg
Echo 05/30/24: EF 50 to 55%, mild concentric LVH, mechanical mitral valve with peak/mean gradients 8/3 mmHg, mechanical aortic valve with peak/mean gradients 12/7 mmHg, trace AR, trace TR, PAP 15 to 20 mmHg
Plan:
-Patient with VT storm on admission that included 1 AICD shock prior to admission and 41 episodes of VT treated with ATP all since 05/28/24.
-Patient was taking amiodarone 200 mg daily prior to admission and was loaded with amiodarone 400 mg TID this admission for a total of 4.2 grams additional PO loading as of 06/03/24 AM. Patient should take amiodarone 200 mg PO BID upon d/c to home.
-New to mexiletine 150 mg BID this admission. Patient's pharmacy did not have mexiletine in stock over the weekend. I called [facility] case mgmt team and they are going to talk with patient's pharmacy to be sure mexiletine is in stock.
-Outpatient dose of Toprol XL 25 mg HS has been continued.
-Troponin undetectable
-Patient had nonobstructive CAD by cath 2021
-EF stable by echo without new WMA
-Patient is chronically on warfarin for h/o mechanical valves. INRs managed by [facility] using a home INR machine and INR goal is 2.5 to 3. Patient was scheduled to start a Lovenox bridge on 05/31/24 for planned TKA, but then had VT and was
admitted.
-INR is 2.45 on 06/02/24. Cont warfarin 2 mg daily. [facility] Coumadin clinic updated by me
-Patient is stable for d/c from a cardiac perspective and scheduled to see us in the office 06/17/24 to discuss stereotactic radiation for recurrent VT/VT storm
Progress Note - Process Excellence Manager
Subjective
Date of Service: June 03, 2024
Feels well, no chest pain or palpitations
Objective
Labs:
05/30/24 10:03
05/31/24 04:44
Labs
Hgb 12.8 g/dL (13.0-18.0) L 05/30/24 10:03
Hct 38.2 % (39.0-52.0) L 05/30/24 10:03
Plt Count 140 10^3/uL (130-400) 05/30/24 10:03
PT 26.6 Sec (11.4-14.6) H 06/02/24 03:17
INR 2.45 06/02/24 03:17
Sodium 138 mmol/L (135-145) 05/31/24 04:44
Potassium 4.4 mmol/L (3.5-5.1) 05/31/24 04:44
BUN 24 mg/dl (9-20) H 05/31/24 04:44
Creatinine 1.0 mg/dL (0.7-1.3) 05/31/24 04:44
Glucose 186 mg/dl (70-99) H 05/31/24 04:44
Vital Signs and I&O:
Vital Signs
Temp Pulse Resp BP Pulse Ox
98.1 F 62 18 157/67 96
06/03/24 07:24 06/03/24 06:00 06/03/24 07:24 06/03/24 02:18 06/03/24 07:24
Vital Signs
Temp Pulse Resp BP Pulse Ox
98.1 F 62 18 157/67 96
06/03/24 07:24 06/03/24 06:00 06/03/24 07:24 06/03/24 02:18 06/03/24 07:24
Intake & Output
06/01/24 06/02/24 06/03/24 06/04/24
06:59 06:59 06:59 06:59
Intake Total 480 / 480 720 / 720 480 / 480
Output Total 1075 / 1075 2100 / 2100 975 / 975 550 / 550
Balance -595 / -595 -1380 / -1380 -975 / -975 -70 / -70
Physical Exam
Physical Exam
GEN: AAOx3
HEENT: MMM, wearing glasses
LUNGS: RA, no audible wheeze
CV: A paced on tele.
ABD: ND
EXT: No edema B/L
NEURO: Gross non-focal
SKIN: No rash
[2024-06-03 11:55] VITALS: BP 130/62
[2024-06-03 12:42] LABS: Glucose - Point of Care 203 mg/dl (70-99)
--- NOTE | 2024-06-03 12:59 | W.PN.UPDATE ---
Update Note
Progress Note Update
I saw and evaluated the patient. I reviewed the resident�s note and agree with findings and plan as documented in the resident�s note.
Patient denies chest pain or shortness of breath.
Gen: NAD, AAOx3.
Eyes: EOMI, PERRLA, no scleral icterus.
Neck: supple.
CV: RRR, +S1/S2
Resp: CTAB, no rales, wheezes, or rhonchi.
Abd: +BS, soft, NT, ND
Skin: No rashes.
Neuro: CN 2-12 intact, non-focal.
Psych: Normal mood and affect.
VT storm with multiple ICD shocks:
-pt was placed on Amio 400mg TID and started on mexiletine
-Per cards/EP, no ischemic eval or ability to ablate given mech MVR/AVR
-Potential candidate for stereotactic radiation therapy
-Medically cleared by cardiology for discharge on mexiletine/amiodarone
Other problems:
Mechanical AVR/MVR: cont coumadin with goal INR 2.5-3.5
DM2: cont Lantus/SSI/accuchecks
GERD: change to Protonix
HLD: cont statin
Anxiety/Depression: cont Elavil
Orthostatic hypotension: Cont compression stockings and abd binder
Medically cleared for d/c. Case discussed with cardiology.
Total time spent on d/c = 35 min. This included today's physical exam, progress note, review of laboratory and diagnostic data, preparation of discharge documents and prescriptions, and discussions about the pt's hospital course and discharge plan
with the patient and other medical sales consultant involved in the patient's care.
--- NOTE | 2024-06-03 13:27 | W.DCSUMMARY ---
Addendum entered and electronically signed by Boy Hooker MD 06/03/24 14:50:
Read, reviewed, and agree. See same day progress note for additional details.
Original Note:
Discharge Summary
Discharge Data
Date of Admission: 05/30/24
Date of Discharge: 06/03/24
-
Pending Results: No
Hospital Course
Assessment-
78-year-old male presents to the ER after his AICD went off multiple times beginning Monday night and his remote pacemaker interrogation revealed Vtach and multiple ATP maneuvers. Admitted to the hospital for V. tach management.
Hospital Course -
During patient's 4-day hospital course, patient was started on mexiletine and loaded with amiodarone in the ER after he came in for VT storm (ICD shock, and 41 episodes of VT requiring ATP in the last 48 hours before admission on 05/30/2024), and
received an echocardiogram. Patient's echocardiogram showed an ejection fraction of 50 to 55% with no significant changes in the echo results compared to the one that he had in 2023. As patient has mechanical mitral valve and aortic valve
replacement done, and is on Coumadin, he was not a candidate for cardiac ablation. But cardiology did consider stereotactic radiation therapy as an alternate option and wanted to discuss it with the patient on outpatient basis. Patient's most
recent ischemic evaluation was done in 2021 which is negative his TSH levels were checked normal limits, potassium and magnesium are greater than 4 and 2 respectively during the hospital course. His INR was also trended during the hospital stay,
and his least INR recorded during the hospital stay was 2.28, however patient's INR is in therapeutic range during most of the hospital time. Patient was also found to be orthostatic, and he was given compression socks and abdominal banding to help
alleviate his dizziness.
Rest of the patient's home meds were continued at the same dose.
His amiodarone 200 mg twice daily was changed to amiodarone 200 mg 3 times daily, however in hospital he received amiodarone 400 mg 3 times daily.
Mexiletine 150 twice daily is added to his medication regimen.
Workup-
Abnormal (paradoxical) septal motion consistent with postoperative status.
LV ejection fraction is 50-55% by Cabrales's method of discs.
ICD wire seen in right ventricle.
Indexed LA volume is severely abnormal (> 48 mL/m2).
Mechanical prosthetic mitral valve.
Peak/mean gradients across the mitral valve are 8/3 mmHg.
No mitral regurgitation is seen.
Peak/mean gradients across the aortic valve are 12/7 mmHg.
Trace aortic regurgitation.
Trace tricuspid regurgitation.
Estimated pulmonary artery pressure of 15-20 mmHg assuming a right atrial
pressure of 3 mmHg.
No pericardial effusion.
Stable from 11/02/2023
Discharge Plan
-
Patient Disposition: Home (Routine Discharge)
Discharge Diagnosis/Procedures: Ventricular Tachycardia storm
Condition: Good
Diet: Diabetic, Carb Controlled
Activity: As tolerated
Driving Restrictions: As prior to admission
Bathing Restrictions: None
Blood Work: CBC, BMP, and INR in 2 days, script from PCP
Instructions: Ventricular Tachycardia (DC)
Referrals:
Driss Hendricks Jr., DO [Family Provider] -
Valeria Groves CRNP [Specified Professional Personl] - 06/17/24 9:40 am (You have a cardiology follow-up appointment at the [facility]. Please call with questions)
Additional Discharge Medication Instructions: -Increase your dose of amiodarone to 200 mg twice a day
-Start taking mexiletine (Mexitil) 150 mg twice a day, this is an additional medication to help with ventricular tachycardia (VT).
-Continue taking warfarin (Coumadin) 2 mg once a day. Check an INR on 06/04/24 and [facility] from the [facility]in [facility] will call you with instructions. You are no longer following the previous plans for a Lovenox bridge.
Prescriptions:
New
mexiletine 150 mg Capsule
150 mg PO BID 30 Days Qty: 60 0RF
amiodarone 200 mg Tablet
200 mg PO BID 30 Days Qty: 60 0RF
pantoprazole [Protonix] 40 mg tablet,delayed release (DR/EC)
40 mg PO DAILY Qty: 30 0RF
Continued
metoprolol succinate 50 MG tablet extended release 24 hr
25 mg PO HS
amitriptyline 50 MG tablet
75 mg PO HS
ascorbic acid (vitamin C) [Vitamin C] 500 MG tablet
1,000 mg PO DAILY
magnesium oxide 500 MG tablet
400 mg PO HS
B-complex with vitamin C 1 CAPLET tablet
1 cap PO PURCELL
cholecalciferol (vitamin D3) 2,000 UNITS tablet
2,000 units PO SUWE
multivitamin with folic acid [Tab-A-David] 1 TABLET tablet
1 tab PO DAILY
lecithin 518 mg Capsule
518 mg PO DAILY
rosuvastatin 5 mg Tablet
5 mg PO HS
melatonin 10 mg Tablet
10 mg PO HS Qty: 0 0RF
warfarin [Jantoven] 2 MG tablet
2 mg PO QPM Qty: 1 0RF
metformin 500 mg Tablet Extended Release 24 Hr
500 mg PO DAILY
Levemir U-100 Insulin 100 unit/mL Solution
10 unit SC DAILY
PreserVision AREDS 2,148 mcg-113 mg-45 mg-17.4mg Tablet
1 tab PO BID
zinc acetate 50 mg (zinc) Capsule
50 mg PO DAILY
finasteride [Proscar] 5 mg Tablet
5 mg PO QPM
ofloxacin 0.3 % Drops
3 drp RIGHT EYE Q2H
Rx Instructions:
take only on surgery days 05/29/24 and 05/30/24
inulin-sorbitol 2 gram Tablet,Chewable
1 tab PO DAILY
Held
risperidone 2 MG tablet
2 mg PO HS
Hold Instructions: Resume on 06/26/24. Please see outpatietn felt hanger and family provider before resuming, will need repeat ekg to assess qtc
Discontinued
famotidine 40 MG tablet
40 mg PO HS
amiodarone [Pacerone] 200 MG tablet
200 mg PO HS
Discharge Orders:
Discharge Patient (As Directed); Ordered 06/03/24
Ordered By: Boy Hooker
Care Plan Goals
Care Plan Goals:
Problem: Readiness for enhanced knowledge related to diagnosis and treatment plan
Goal: Understand your diagnosis and treatment plan needs, including medications if applicable.
Instructions: Know your diagnosis, underlying causes and treatment plan options, including medications if applicable. Consult with your health care team to learn about your diagnosis and treatment plan, including medications if applicable.
Discharge Date and Time
Print Language: UKRAINIAN
[2024-06-03 15:02] VITALS: BP 137/66
--- NOTE | 2024-06-03 16:09 | CM ---
dc plans remian home when medically stable.
--- NOTE | 2024-06-03 16:22 | PTCARENOTE ---
d/c instructions read to pt and pts , both verbalized understanding. iv and tele removed. pt left w/ belongings from room and scripts. pt left via wheelchair w/ pt.
== END 2024-06-03 15:00 | disposition home or self-care (01) | DRG 309 ==
LOC: IVU 14:43
PROVIDERS: Physician Assistant; Student in an Organized Health Care Education/Training Program; ADMITTING PHYSICIAN Internal Medicine; ATTENDING PHYSICIAN Internal Medicine; CONSULT PHYSICIAN Internal Medicine Cardiovascular Disease; EMERGENCY PHYSICIAN Emergency Medicine; FAMILY PHYSICIAN Family Medicine
DX: I47.20 Ventricular tachycardia, unspecified (principal); I42.8 Other cardiomyopathies; Z87.891 Personal history of nicotine dependence; I48.92 Unspecified atrial flutter; I48.0 Paroxysmal atrial fibrillation; Z79.01 Long term (current) use of anticoagulants; E11.40 Type 2 diabetes mellitus with diabetic neuropathy, unspecified
CPT/HCPCS: 80053; 82962; 83735; 84443; 84484; 85025; 85610; 93005; 93306; 97162; 99285; Q9950

== ENCOUNTER → 2024-06-06 10:35 | Outpatient (REF) | payer MEDICARE, SELFPAY ==
[2024-06-06 11:33] LABS: ALT (SGPT) 102 U/L (0-50); AST (SGOT) 59 U/L (17-59); Albumin 4.4 g/dl (3.5-5.0); Alkaline Phosphatase 147 U/L (38-126); Blood Urea Nitrogen 32 mg/dl (9-20); Calcium 8.9 mg/dl (8.4-10.2); Carbon Dioxide 29 mmol/L (22-30); Chloride 102 mmol/L (98-107); Glucose 278 mg/dl (70-99); Potassium 4.4 mmol/L (3.5-5.1); Sodium 139 mmol/L (135-145); Total Bilirubin 0.5 mg/dl (0.2-1.3); Total Protein 7.2 g/dl (6.3-8.2); eGFR 50.81
[2024-06-06 11:36] LABS: % Basophils 0.8 % (0-2); % Eosinophils 1.9 % (0-6); % Immature Granulocytes 1.7 % (0-0.5); % Lymphocytes 13.8 % (20.5-51.1); % Monocytes 8.1 % (1.7-9.3); % Neutrophils 73.7 % (42.2-75.2); Absolute Basophils 0.1 10^3/uL (0-0.2); Absolute Eosinophils 0.2 10^3/uL (0-0.7); Absolute Immature Granulocytes 0.1 10^3/uL (0-0.05); Absolute Lymphocytes 1.2 10^3/uL (1.2-3.4); Absolute Monocytes 0.7 10^3/uL (0.1-0.6); Absolute Neutrophils 6.2 10^3/uL (1.4-6.5); Hematocrit 41.9 % (39.0-52.0); Hemoglobin 13.6 g/dL (13.0-18.0); Mean Corp Hgb Conc. 32.5 g/dL (33.0-37.0); Mean Corpuscular Hgb 33.6 pg (27.0-31.0); Mean Corpuscular Volume 103.5 fL (80.0-94.0); Mean Platelet Volume 11.3 fL (7.4-10.4); Nucleated Red Blood Cells % 0 % (-); Platelet Count 155 10^3/uL (130-400); Red Blood Cell Count 4.05 10^6/uL (4.70-6.10); Red Cell Dist. Width 15.6 % (11.5-14.5); White Blood Cell Count 8.4 10^3/uL (4.8-10.8)
[2024-06-06 11:37] LABS: INR 2.76; PT 29.6 Sec (11.4-14.6)
[2024-06-06 13:34] LABS: Vitamin B12 904 pg/ml (239-931)
== END ==
LOC: REG 10:35
PROVIDERS: ATTENDING PHYSICIAN Internal Medicine Cardiovascular Disease; FAMILY PHYSICIAN Family Medicine
DX: R89.9 Unspecified abnormal finding in specimens from other organs, systems and tissues (principal); E87.8 Other disorders of electrolyte and fluid balance, not elsewhere classified; R73.09 Other abnormal glucose; Z09 Encounter for follow-up examination after completed treatment for conditions other than malignant neoplasm; E11.22 Type 2 diabetes mellitus with diabetic chronic kidney disease; N18.31 Chronic kidney disease, stage 3a; Z79.899 Other long term (current) drug therapy
CPT/HCPCS: 36415; 80053; 82607; 82728; 85025; 85610

== ENCOUNTER → 2024-06-17 10:30 | Outpatient (REF) | payer MEDICARE, SELFPAY ==
[2024-06-17 11:50] LABS: ALT (SGPT) 99 U/L (0-50); AST (SGOT) 71 U/L (17-59); Albumin 4.5 g/dl (3.5-5.0); Alkaline Phosphatase 104 U/L (38-126); Blood Urea Nitrogen 28 mg/dl (9-20); Calcium 9.2 mg/dl (8.4-10.2); Carbon Dioxide 26 mmol/L (22-30); Chloride 100 mmol/L (98-107); Glucose 200 mg/dl (70-99); Magnesium 2.3 mg/dl (1.6-2.3); Potassium 4.6 mmol/L (3.5-5.1); Sodium 134 mmol/L (135-145); Total Protein 7.4 g/dl (6.3-8.2); eGFR > 60.00
[2024-06-17 12:17] LABS: TSH 3.89 uIU/ml (0.47-4.68)
== END ==
LOC: REG 10:30
PROVIDERS: ATTENDING PHYSICIAN Nurse Practitioner; FAMILY PHYSICIAN Family Medicine
DX: I47.20 Ventricular tachycardia, unspecified (principal); E78.00 Pure hypercholesterolemia, unspecified
CPT/HCPCS: 36415; 80053; 83735; 84443

== ENCOUNTER → 2024-07-13 08:46 | Outpatient (REF) | payer MEDICARE, SELFPAY ==
[2024-07-13 10:12] LABS: ALT (SGPT) 77 U/L (0-50); AST (SGOT) 44 U/L (17-59); Albumin 3.9 g/dl (3.5-5.0); Alkaline Phosphatase 106 U/L (38-126); Lipase 69 U/L (23-300); Total Bilirubin 0.5 mg/dl (0.2-1.3); Total Protein 6.6 g/dl (6.3-8.2)
== END ==
LOC: REG 08:46
PROVIDERS: ATTENDING PHYSICIAN Specialist; FAMILY PHYSICIAN Family Medicine
DX: R10.13 Epigastric pain (principal)
CPT/HCPCS: 36415; 80076; 83690

== ENCOUNTER → 2024-07-22 08:07 | Outpatient (REF) | payer MEDICARE, SELFPAY ==
[2024-07-22 09:14] LABS: % Basophils 0.7 % (0-2); % Eosinophils 1.8 % (0-6); % Lymphocytes 13.9 % (20.5-51.1); % Monocytes 8.6 % (1.7-9.3); Absolute Basophils 0.1 10^3/uL (0-0.2); Absolute Eosinophils 0.2 10^3/uL (0-0.7); Absolute Immature Granulocytes 0.1 10^3/uL (0-0.05); Absolute Lymphocytes 1.1 10^3/uL (1.2-3.4); Absolute Monocytes 0.7 10^3/uL (0.1-0.6); Absolute Neutrophils 6.1 10^3/uL (1.4-6.5); Hematocrit 42.3 % (39.0-52.0); Hemoglobin 13.7 g/dL (13.0-18.0); Mean Corp Hgb Conc. 32.4 g/dL (33.0-37.0); Mean Corpuscular Hgb 32.8 pg (27.0-31.0); Mean Corpuscular Volume 101.2 fL (80.0-94.0); Mean Platelet Volume 11.1 fL (7.4-10.4); Nucleated Red Blood Cells % 0.2 % (-); Platelet Count 165 10^3/uL (130-400); Red Blood Cell Count 4.18 10^6/uL (4.70-6.10); Red Cell Dist. Width 15.9 % (11.5-14.5); White Blood Cell Count 8.2 10^3/uL (4.8-10.8)
[2024-07-22 09:38] LABS: Glycohemoglobin (HgbA1c) 6.9 % (4.0-5.6)
[2024-07-22 09:54] LABS: ALT (SGPT) 77 U/L (0-50); AST (SGOT) 43 U/L (17-59); Alkaline Phosphatase 108 U/L (38-126); Blood Urea Nitrogen 30 mg/dl (9-20); Calcium 9.4 mg/dl (8.4-10.2); Carbon Dioxide 26 mmol/L (22-30); Chloride 98 mmol/L (98-107); Glucose 187 mg/dl (70-99); HDL Cholesterol 32 mg/dl; LDL Cholesterol, Calculated 51 mg/dl; Potassium 4.6 mmol/L (3.5-5.1); Sodium 135 mmol/L (135-145); Total Bilirubin 0.6 mg/dl (0.2-1.3); Total Cholesterol 120 mg/dl (50-199); Total Protein 6.8 g/dl (6.3-8.2); Triglyceride 188 mg/dl (10-149); Very Low Density Lipoprotein 37 mg/dl (0-30); eGFR 50.81
== END ==
LOC: REG 08:07
PROVIDERS: ATTENDING PHYSICIAN Family Medicine
DX: E11.22 Type 2 diabetes mellitus with diabetic chronic kidney disease (principal); N18.31 Chronic kidney disease, stage 3a; E78.00 Pure hypercholesterolemia, unspecified; R53.83 Other fatigue
CPT/HCPCS: 36415; 80053; 80061; 83036; 85025

== ENCOUNTER → 2024-09-26 09:52 | Outpatient (REF) | payer MEDICARE, SELFPAY ==
[2024-09-26 10:23] LABS: % Basophils 0.6 % (0-2); % Eosinophils 1.6 % (0-6); % Lymphocytes 12.5 % (20.5-51.1); % Monocytes 8.1 % (1.7-9.3); % Neutrophils 76.2 % (42.2-75.2); Absolute Basophils 0.1 10^3/uL (0-0.2); Absolute Eosinophils 0.1 10^3/uL (0-0.7); Absolute Immature Granulocytes 0.1 10^3/uL (0-0.05); Absolute Lymphocytes 1.1 10^3/uL (1.2-3.4); Absolute Monocytes 0.7 10^3/uL (0.1-0.6); Absolute Neutrophils 6.9 10^3/uL (1.4-6.5); Hematocrit 41.7 % (39.0-52.0); Hemoglobin 13.7 g/dL (13.0-18.0); Mean Corp Hgb Conc. 32.9 g/dL (33.0-37.0); Mean Corpuscular Hgb 33.3 pg (27.0-31.0); Mean Corpuscular Volume 101.5 fL (80.0-94.0); Mean Platelet Volume 10.4 fL (7.4-10.4); Nucleated Red Blood Cells % 0 % (-); Platelet Count 141 10^3/uL (130-400); Red Blood Cell Count 4.11 10^6/uL (4.70-6.10)
[2024-09-26 10:46] LABS: NT-proBNP 322 pg/ml
[2024-09-26 10:47] LABS: ALT (SGPT) 104 U/L (0-50); AST (SGOT) 59 U/L (17-59); Albumin 4.2 g/dl (3.5-5.0); Alkaline Phosphatase 140 U/L (38-126); Blood Urea Nitrogen 29 mg/dl (9-20); Calcium 9.2 mg/dl (8.4-10.2); Carbon Dioxide 30 mmol/L (22-30); Chloride 102 mmol/L (98-107); Glucose 211 mg/dl (70-99); Magnesium 2.3 mg/dl (1.6-2.3); Potassium 4.8 mmol/L (3.5-5.1); Sodium 140 mmol/L (135-145); Total Bilirubin 0.7 mg/dl (0.2-1.3); Total Protein 7.4 g/dl (6.3-8.2); eGFR > 60.00
[2024-09-26 11:15] LABS: TSH 4.34 uIU/ml (0.47-4.68)
== END ==
LOC: REG 09:52
PROVIDERS: ATTENDING PHYSICIAN Internal Medicine Cardiovascular Disease; FAMILY PHYSICIAN Family Medicine; REFERRING PHYSICIAN Nurse Practitioner
DX: I47.20 Ventricular tachycardia, unspecified (principal); I25.10 Atherosclerotic heart disease of native coronary artery without angina pectoris; I95.1 Orthostatic hypotension; I10 Essential (primary) hypertension; E11.22 Type 2 diabetes mellitus with diabetic chronic kidney disease; N18.31 Chronic kidney disease, stage 3a; D64.9 Anemia, unspecified; Z79.899 Other long term (current) drug therapy
CPT/HCPCS: 36415; 71046; 80053; 82728; 83735; 83880; 84443; 85025

== ENCOUNTER → 2024-11-14 08:57 | Outpatient (REF) | payer MEDICARE, SELFPAY ==
[2024-11-14 12:16] LABS: Urine Albumin 1+ (Neg - Trace); Urine Bilirubin Negative (Negative); Urine Character Clear (Clear); Urine Color Yellow; Urine Glucose 4+ (Negative); Urine Ketone Negative (Negative); Urine Leukocyte Negative (Negative); Urine Nitrite Negative (Negative); Urine Occult Blood Negative (Negative); Urine Urobilinogen Negative (Neg - 1+); Urine pH 6.5 (5.0-9.0)
[2024-11-14 12:24] LABS: % Basophils 0.8 % (0-2); % Eosinophils 1.3 % (0-6); % Immature Granulocytes 1.3 % (0-0.5); % Lymphocytes 13.7 % (20.5-51.1); % Monocytes 7.4 % (1.7-9.3); % Neutrophils 75.5 % (42.2-75.2); Absolute Basophils 0.1 10^3/uL (0-0.2); Absolute Eosinophils 0.1 10^3/uL (0-0.7); Absolute Immature Granulocytes 0.1 10^3/uL (0-0.05); Absolute Lymphocytes 1.1 10^3/uL (1.2-3.4); Absolute Monocytes 0.6 10^3/uL (0.1-0.6); Hematocrit 40.2 % (39.0-52.0); Hemoglobin 12.9 g/dL (13.0-18.0); Mean Corp Hgb Conc. 32.1 g/dL (33.0-37.0); Mean Corpuscular Hgb 32.6 pg (27.0-31.0); Mean Corpuscular Volume 101.5 fL (80.0-94.0); Mean Platelet Volume 11.4 fL (7.4-10.4); Nucleated Red Blood Cells % 0 % (-); Platelet Count 155 10^3/uL (130-400); Red Blood Cell Count 3.96 10^6/uL (4.70-6.10); Red Cell Dist. Width 15.2 % (11.5-14.5); White Blood Cell Count 7.9 10^3/uL (4.8-10.8)
[2024-11-14 12:35] LABS: ALT (SGPT) 165 U/L (0-50); AST (SGOT) 92 U/L (17-59); Alkaline Phosphatase 153 U/L (38-126); Blood Urea Nitrogen 30 mg/dl (9-20); Carbon Dioxide 27 mmol/L (22-30); Chloride 103 mmol/L (98-107); Glucose 370 mg/dl (70-99); HDL Cholesterol 27 mg/dl; LDL Cholesterol, Calculated 42 mg/dl; Potassium 4.7 mmol/L (3.5-5.1); Sodium 137 mmol/L (135-145); Total Bilirubin 0.5 mg/dl (0.2-1.3); Total Cholesterol 117 mg/dl (50-199); Triglyceride 240 mg/dl (10-149); Very Low Density Lipoprotein 48 mg/dl (0-30); eGFR > 60.00
[2024-11-14 13:07] LABS: Glycohemoglobin (HgbA1c) 8.8 % (4.0-5.6)
[2024-11-14 15:05] LABS: Urine Amorphous Seen; Urine Squamous Cell 0-2 /LPF (Few)
[2024-11-14 15:06] LABS: Urine Red Blood Cell 0-2 /HPF (0-2); Urine White Cell 0-2 /HPF (0-5)
== END ==
LOC: HWRAD 08:57
PROVIDERS: ATTENDING PHYSICIAN Family Medicine
DX: R53.83 Other fatigue (principal); G47.09 Other insomnia; R51.9 Headache, unspecified; E11.22 Type 2 diabetes mellitus with diabetic chronic kidney disease; N18.31 Chronic kidney disease, stage 3a; R35.0 Frequency of micturition; D64.9 Anemia, unspecified
CPT/HCPCS: 36415; 70450; 80053; 80061; 81003; 81015; 82728; 83036; 85025; 87086

== ENCOUNTER → 2024-11-21 08:22 | Outpatient (REF) | payer MEDICARE, SELFPAY ==
[2024-11-21 11:34] LABS: ALT (SGPT) 131 U/L (0-50); AST (SGOT) 64 U/L (17-59); Albumin 4.1 g/dl (3.5-5.0); Alkaline Phosphatase 131 U/L (38-126); Blood Urea Nitrogen 24 mg/dl (9-20); Calcium 8.9 mg/dl (8.4-10.2); Carbon Dioxide 25 mmol/L (22-30); Chloride 100 mmol/L (98-107); Glucose 342 mg/dl (70-99); Potassium 4.5 mmol/L (3.5-5.1); Sodium 135 mmol/L (135-145); Total Bilirubin 0.7 mg/dl (0.2-1.3); Total Protein 7.1 g/dl (6.3-8.2); eGFR 55.53
== END ==
LOC: REG 08:22
PROVIDERS: ATTENDING PHYSICIAN Internal Medicine Cardiovascular Disease; FAMILY PHYSICIAN Family Medicine
DX: I47.20 Ventricular tachycardia, unspecified (principal); R79.89 Other specified abnormal findings of blood chemistry
CPT/HCPCS: 36415; 80053

== ENCOUNTER → 2024-12-13 06:50 | Outpatient (REF) | payer MEDICARE, SELFPAY ==
[2024-12-13 08:11] LABS: ALT (SGPT) 117 U/L (0-50); AST (SGOT) 51 U/L (17-59); Alkaline Phosphatase 133 U/L (38-126); Blood Urea Nitrogen 30 mg/dl (9-20); Calcium 9.1 mg/dl (8.4-10.2); Carbon Dioxide 25 mmol/L (22-30); Chloride 105 mmol/L (98-107); Glucose 269 mg/dl (70-99); Potassium 4.6 mmol/L (3.5-5.1); Sodium 136 mmol/L (135-145); Total Bilirubin 0.6 mg/dl (0.2-1.3); eGFR > 60.00
== END ==
LOC: REG 06:50
PROVIDERS: ATTENDING PHYSICIAN Internal Medicine Cardiovascular Disease; FAMILY PHYSICIAN Family Medicine
DX: I10 Essential (primary) hypertension (principal); R74.01 Elevation of levels of liver transaminase levels
CPT/HCPCS: 36415; 80053

== ENCOUNTER → 2024-12-23 07:32 | Outpatient (REF) | payer MEDICARE, SELFPAY | LOC: WOUND 07:32 | PROVIDERS: ATTENDING PHYSICIAN Surgery; FAMILY PHYSICIAN Family Medicine | DX: E11.621 Type 2 diabetes mellitus with foot ulcer (principal); L97.422 Non-pressure chronic ulcer of left heel and midfoot with fat layer exposed; R26.9 Unspecified abnormalities of gait and mobility; I73.9 Peripheral vascular disease, unspecified; E11.22 Type 2 diabetes mellitus with diabetic chronic kidney disease; N18.31 Chronic kidney disease, stage 3a; E11.40 Type 2 diabetes mellitus with diabetic neuropathy, unspecified; Z79.01 Long term (current) use of anticoagulants; Z45.02 Encounter for adjustment and management of automatic implantable cardiac defibrillator | CPT/HCPCS: 99203 ==

== ENCOUNTER → 2025-01-08 13:58 | Outpatient (REF) | payer MEDICARE, SELFPAY ==
[2025-01-08 15:40] LABS: INR 2.38; PT 26.4 Sec (11.4-14.6)
== END ==
LOC: REG 13:58
PROVIDERS: ATTENDING PHYSICIAN Internal Medicine Cardiovascular Disease; FAMILY PHYSICIAN Family Medicine
DX: Z79.01 Long term (current) use of anticoagulants (principal); I48.92 Unspecified atrial flutter
CPT/HCPCS: 36415; 85610

== ENCOUNTER → 2025-01-29 09:34 | Outpatient (REF) | payer MEDICARE, SELFPAY ==
[2025-01-29 11:00] LABS: ALT (SGPT) 108 U/L (0-50); AST (SGOT) 61 U/L (17-59); Albumin 4.1 g/dl (3.5-5.0); Alkaline Phosphatase 135 U/L (38-126); Blood Urea Nitrogen 26 mg/dl (9-20); Calcium 9.1 mg/dl (8.4-10.2); Carbon Dioxide 23 mmol/L (22-30); Chloride 106 mmol/L (98-107); Glucose 230 mg/dl (70-99); Potassium 4.7 mmol/L (3.5-5.1); Sodium 136 mmol/L (135-145); Total Protein 7.1 g/dl (6.3-8.2); eGFR > 60.00
== END ==
LOC: REG 09:34
PROVIDERS: ATTENDING PHYSICIAN Internal Medicine Cardiovascular Disease; FAMILY PHYSICIAN Family Medicine
DX: I10 Essential (primary) hypertension (principal); R74.01 Elevation of levels of liver transaminase levels
CPT/HCPCS: 36415; 80053

== ENCOUNTER → 2025-03-03 13:30 | Outpatient (REF) | payer MEDICARE, SELFPAY | LOC: RAD 13:30 | PROVIDERS: ATTENDING PHYSICIAN Internal Medicine Cardiovascular Disease; FAMILY PHYSICIAN Family Medicine | DX: I47.20 Ventricular tachycardia, unspecified (principal); Z79.899 Other long term (current) drug therapy | CPT/HCPCS: 71046 ==

== ENCOUNTER → 2025-04-07 07:25 | Outpatient (REF) | payer MEDICARE, SELFPAY ==
[2025-04-07 09:24] LABS: Hematocrit 40.3 % (39.0-52.0); Hemoglobin 12.9 g/dL (13.0-18.0); Mean Corp Hgb Conc. 32.0 g/dL (33.0-37.0); Mean Corpuscular Volume 105.2 fL (80.0-94.0); Nucleated Red Blood Cells % 0 % (-); Platelet Count 176 10^3/uL (130-400); Red Cell Dist. Width 16.3 % (11.5-14.5)
[2025-04-07 10:09] LABS: ALT (SGPT) 98 U/L (0-50); AST (SGOT) 53 U/L (17-59); Albumin 4.0 g/dl (3.5-5.0); Alkaline Phosphatase 106 U/L (38-126); Blood Urea Nitrogen 26 mg/dl (9-20); Calcium 9.0 mg/dl (8.4-10.2); Carbon Dioxide 23 mmol/L (22-30); Chloride 107 mmol/L (98-107); Glucose 171 mg/dl (70-99); HDL Cholesterol 28 mg/dl; LDL Cholesterol, Calculated 113 mg/dl; Potassium 4.6 mmol/L (3.5-5.1); Sodium 139 mmol/L (135-145); Total Protein 7.3 g/dl (6.3-8.2); Very Low Density Lipoprotein 42 mg/dl (0-30); eGFR > 60.00
== END ==
LOC: REG 07:25
PROVIDERS: ATTENDING PHYSICIAN Internal Medicine Cardiovascular Disease; FAMILY PHYSICIAN Family Medicine
DX: E78.00 Pure hypercholesterolemia, unspecified (principal); I10 Essential (primary) hypertension; R79.89 Other specified abnormal findings of blood chemistry; E11.22 Type 2 diabetes mellitus with diabetic chronic kidney disease; N18.31 Chronic kidney disease, stage 3a; D64.9 Anemia, unspecified
CPT/HCPCS: 36415; 80053; 80061; 82248; 85025

== ENCOUNTER 2025-04-20 18:42 | Emergency (ER) | payer MEDICARE, SELFPAY ==
[2025-04-20 18:44] VITALS: BP 143/93
[2025-04-20 19:33] LABS: Hematocrit 40.1 % (39.0-52.0); Hemoglobin 13.6 g/dL (13.0-18.0); Mean Corp Hgb Conc. 33.9 g/dL (33.0-37.0); Mean Corpuscular Volume 100.8 fL (80.0-94.0); Nucleated Red Blood Cells % 0 % (-); Platelet Count 163 10^3/uL (130-400); Red Cell Dist. Width 15.8 % (11.5-14.5)
[2025-04-20 19:56] LABS: ALT (SGPT) 102 U/L (0-50); AST (SGOT) 60 U/L (17-59); Albumin 4.5 g/dl (3.5-5.0); Alkaline Phosphatase 113 U/L (38-126); Blood Urea Nitrogen 24 mg/dl (9-20); Calcium 9.5 mg/dl (8.4-10.2); Carbon Dioxide 24 mmol/L (22-30); Chloride 105 mmol/L (98-107); Glucose 76 mg/dl (70-99); Potassium 4.9 mmol/L (3.5-5.1); Sodium 137 mmol/L (135-145); Total Protein 7.6 g/dl (6.3-8.2); eGFR 55.19
[2025-04-20 21:30] VITALS: BMI 30.7
[2025-04-20 21:37] VITALS: BP 153/79
[2025-04-20 22:07] LABS: Urine Character Clear (Clear)
[2025-04-20 22:13] LABS: Urine Red Blood Cell 0-2 /HPF (0-2)
--- NOTE | 2025-04-20 23:09 | ED.GENMED ---
History of Present Illness
General
Chief Complaint: Change in Mental Status
Source: patient
Exam Limitations: none
Time Seen by Provider: 04/20/25 23:04
Nursing documentation reviewed up to this point in time: agreed with
History of Present Illness
History of Present Illness:
79-year-old male with past medical history of schizophrenia, abdominal aortic aneurysm, hypertension, lipidemia, insulin dependent diabetes, depression, bladder cancer, presents to the ER today with concerns of altered mental status. Daughter is
present with patient and reports that for the past 4 days, patient has had increasing memory issues and has had increasing hallucinations. Patient has a long history of schizophrenia and has been seeing a psychiatrist for many years. Patient
himself states that usually his symptoms are under better control however the past few days he started to have some visual hallucinations. Of note, he reports that he saw his psychiatrist online around a week or 2 his medications adjustment but he
is unsure which medications were adjusted. He lives with his at home who is a nurse and helps to manage his medication and care. Daughter was concerned that UTI could be contributing to the symptoms. Patient has no history of recurrent UTIs.
Memory issues have been ongoing. No history of recent head or neck trauma. Patient has no other symptoms he is having today of the past few days. He denies fevers or chills, chest pain, shortness of breath, abdominal pain,dizziness,
lightheadedness, syncopal episodes, increased urinary frequency, burning with urination, pelvic pain, flank pain, nausea or vomiting. Patient does take coumadin and called his coumadin clinic trying to order a pizza. He also asked his daughter if
she graduated college yet, desptie being out of college for many years.
Past History
Past History
ED Past Medical History: Arrthythmia (Atrial fib/flutter), CAD, Cancer (bladder), HTN, Hypercholesterolemia, NIDDM, Valvular disease (/MR), Psychiatric (schizophrenia, Depression) and Other (AAA, GI bleeding, PVD, Diabetic neuropathy, TIA, Tardive
Dyskinesia, Sleep apnea, Diverticulitis, C-diff)
ED Past Surgical History: Bowel resection, Cardiac (Aortic and Mitral VR, Stent, Pacer/defibulator), Urological (Bladder cancer with resection) and Other (AAA, partial colectomy, bladder CA resection, Hernia, Aortic and iliac stent, Cataracts, )
Social History
Tobacco: Former smoker
Alcohol: None
Drug: None
Personal:
Living: with family
Family History
Family History: Other (Father with AL, mother with COPD)
Review of Systems
Review of Systems
All Other Systems: ROS reviewed and negative except as documented in HPI and ROS
Phy Exam
Physical Exam
Physical Exam:
General: Patient is well appearing and in no acute distress; non-toxic
Skin: Warm and dry, no rashes or lesions
Head: Normocephalic, atraumatic
Eyes: Sclera non-icteric. EOMs intact.
Cardiac: Regular rate and rhythm, no murmurs
Peripheral Vascular: No lower extremity swelling or edema
Pulm: Normal respiratory effort, no wheezes, rales, or rhonchi
Abdomen: No abdominal tenderness to palpation, no palpable masses
Neuro: CN II-XII intact, no focal neurologic deficits. Normal heel to hayes. Oriented x3.
Psychiatric: Appropriate mood and affect. Admits to occassional visual hallucinations. Denies auditory and tactile hallucinations.
Course
Orders/Labs/Results
Orders:
Orders
04/20/25 18:48
Electrocardiogram (*1) Urgent
Reason for Study: Fatigue / Weakness
04/20/25 18:49
CT Head W/o Iv Contrast Urgent
Comment:
Reason For Exam: confusion
EKG- Treatment ONCE
04/20/25 19:12
Complete Blood Count/With Diff Urgent
Comprehensive Metabolic Panel Urgent
Folate Urgent
Comment: ADD ON
Free T4 Urgent
TSH Reflex To Free T4 Urgent
Comment: ADD ON
04/20/25 22:01
Urinalysis Reflex To Culture Urgent
Date Specimen was Collected: 04/20/25
Time Specimen was Collected: 21:59
Urine Microscopic Reflex Cult Urgent
04/20/25 23:11
Add On- LAB Urgent
Tests Added?: tsh reflex t4
04/20/25 23:28
Add On- LAB Urgent
Tests Added?: thiamine, folic acid
04/20/25 23:45
Alcohol Urgent
Prothrombin Time Urgent
Vitamin B1, Whole Blood [S] Routine
Abnormal Lab Results
04/20/25 04/20/25 04/20/25
19:12 22:01 23:45
RBC 3.98 L 10^6/uL
(4.70-6.10)
MCV 100.8 H fL
(80.0-94.0)
MCH 34.2 H pg
(27.0-31.0)
RDW 15.8 H %
(11.5-14.5)
MPV 11.3 H fL
(7.4-10.4)
Abs Immat Gran (auto) 0.1 H 10^3/uL
(0-0.05)
Absolute Monos (auto) 0.8 H 10^3/uL
(0.1-0.6)
Immature Gran % 0.9 H %
(0-0.5)
PT 22.0 H Sec
(11.4-14.6)
BUN 24 H mg/dl
(9-20)
AST 60 H U/L
(17-59)
ALT 102 H U/L
(0-50)
Folate > 20.0 H ng/ml
(2.76-20)
TSH (Reflex) 8.11 H uIU/ml
(0.47-4.68)
Urine Bacteria (Reflex) Few A
(Negative)
Urine Albumin (Reflex) 2+ A
(Neg - Trace)
04/20/25 19:12
04/20/25 19:12
Vital Signs
Initial and Last Documented VS:
Initial Vital Signs
Temp Pulse Resp BP Pulse Ox
97.7 F 67 16 143/93 97
04/20/25 18:44 04/20/25 18:44 04/20/25 18:44 04/20/25 18:44 04/20/25 18:44
Last Documented Vital Signs
Temp Pulse Resp BP Pulse Ox
97.7 F 75 25 153/79 99
04/20/25 18:44 04/20/25 22:15 04/20/25 22:15 04/20/25 21:37 04/20/25 23:10
MDM/Problems Addressed
Differential Diagnosis Includes:
ddx include schizophrenia, dementia, schizoaffective disorder, urinary tract infection, medication side effect, polypharmacy, vitamin deficiency, intracerebral hemorrhage with supratherapeutic INR
MDM/Problems Addressed:
79-year-old male past medical history of V. tach ICD in place, A-fib on Coumadin, CAD, insulin-dependent diabetes, depression, schizophrenia, who presents to the ER today with concerns of visual hallucinations and increased confusion per daughter.
Patient lives at home with his . Patient denies dizziness, lightheadedness, chest pain, abdominal pain, pelvic pain, urinary frequency or burning, fevers or chills.
On my evaluation, patient is afebrile well-appearing in no acute distress. He is alert and oriented x 3. He has normal speech. He has no sensory deficits. He has normal [id number]-[id number] bilaterally. He has no abdominal tenderness.
ECG review, there are some PVCs noted. They do not want to stay for pacemaker evaluation. Patient was here in May 2024 for ventricular tachycardia years ago and his medications were just adjusted, and his AICD was firing appropriately.
Labs reviewed, no white count, he is slightly microcytic, I did add on vitamin B-12 and folate testing. Will check INR. Slightly elevated BUN to creatinine ratio. AST elevated although not far from baseline, ALT is always elevated. Normal total
bilirubin. Lab work at baseline. Urinalysis shows no signs concerning for infection. CT shows no acute abnormality. Daughter is requesting to be discharged home since work-up here unremarkable. Daughter does not believe that patient poses a risk
to himself at home at reports that his is a former nurse and his transportation officer. I did offer hospital admission for in person psychiatrist consult and further work-up
I also offered crisis consult.
I also offered patient to stay to see case management to assess for possible placement and possible home nursing care but daughter does not feel this to be necessary at this time.
Daughter reports that she would prefer to follow-up with patient's psychiatrist tomorrow. I think this is reasonable. Patient and family would prefer to be called with INR results if abnormal. Patient stable for discharge. Suspect symptoms
related to underlying schizophrenia versus developing dementia. Discussed strict return precautions.
Chronic conditions affecting care:
Schizophrenia, hypertension hyperlipidemia,, insulin-dependent diabetes, CAD, defibrillator
*Pulse Oximetry
SaO2: 99
Oxygen Mode of Delivery: Room air
Patient hypoxic: no
*Critical Care Note
Total Time (30-74mins, 75-104mins- exclusive of procedures): Not Applicable
Data Reviewed
Review of Other/Old Records Reveals: Records (Reviewed discharge summary from 06/03/2024)
Source: patient and records
ED Attending Note
-
Portions of this chart may have been created with voice recognition software.� Occasional wrong word or��sound alike� substitutions may have occurred due to the inherent limitations of voice recognition software.
Discharge Plan
Departure
Patient Disposition: Home (Routine Discharge)
Date of Disposition: 04/20/25
Time of Disposition: 23:32
Patient with high blood pressure during this ER visit?: Yes
Condition: Good
Discharge Problem:
Altered mental status
Instructions: Altered Mental Status (DC), BLOOD PRESSURE
Prescriptions:
No Action
metoprolol succinate 50 MG tablet extended release 24 hr
25 mg PO HS
amitriptyline 50 MG tablet
75 mg PO HS
risperidone 2 MG tablet
2 mg PO HS
ascorbic acid (vitamin C) [Vitamin C] 500 MG tablet
1,000 mg PO DAILY
magnesium oxide 500 MG tablet
400 mg PO HS
B-complex with vitamin C 1 CAPLET tablet
1 cap PO PURCELL
cholecalciferol (vitamin D3) 2,000 UNITS tablet
2,000 units PO SUWE
multivitamin with folic acid [Tab-A-David] 1 TABLET tablet
1 tab PO DAILY
lecithin, soy 518 mg Capsule
518 mg PO DAILY
rosuvastatin 5 mg Tablet
5 mg PO HS
melatonin 10 mg Tablet
10 mg PO HS Qty: 0 0RF
warfarin [Jantoven] 2 MG tablet
2 mg PO QPM Qty: 1 0RF
metformin 500 mg Tablet Extended Release 24 Hr
500 mg PO DAILY
Levemir U-100 Insulin 100 unit/mL Solution
10 unit SC DAILY
PreserVision AREDS 2,148 mcg-113 mg-45 mg-17.4mg Tablet
1 tab PO BID
zinc acetate 50 mg (zinc) Capsule
50 mg PO DAILY
finasteride [Proscar] 5 mg Tablet
5 mg PO QPM
ofloxacin 0.3 % Drops
3 drp RIGHT EYE Q2H
Rx Instructions:
take only on surgery days 05/29/24 and 05/30/24
inulin-sorbitol 2 gram Tablet,Chewable
1 tab PO DAILY
mexiletine 150 mg Capsule
150 mg PO BID 30 Days Qty: 60 0RF
amiodarone 200 mg Tablet
200 mg PO BID 30 Days Qty: 60 0RF
pantoprazole [Protonix] 40 mg tablet,delayed release (DR/EC)
40 mg PO DAILY Qty: 30 0RF
Referrals:
Driss Hendricks Jr., DO [Family Provider, Internal Medicine]
Activity Restrictions/Additional Instructions:
You will receive a call regarding INR levels, and if you are B12 vitamin deficient.
Please follow up with your primary care provider, please call your psychiatrist tomorrow to schedule a follow-up appointment. As discussed, your urinalysis looked clear and your CAT scan of the head showed no acute intracranial abnormality.
PLEASE RETURN TO THE ER SHOULD YOU DEVELOP HEADACHES, FEVERS OR CHILLS, ABDOMINAL PAIN, CHEST PAIN, BURNING WITH URINATION, WEAKNESS IN ONE-SIDED BODY VERSUS OTHER, SPEECH CHANGES, DIFFICULTY AMBULATING, NUMBNESS OR TINGLING, OR ANY OTHER SIGNS OR
SYMPTOMS WORRISOME TO YOU.
Interventions
Interventions:
*Risk Screen - Suicide Last Done: 04/20/25 18:44
*General Assessment Last Done: 04/20/25 18:44
*Neglect/Abuse Screening Last Done: 04/20/25 18:44
*ED- Fall Risk Assessment Last Done: 04/20/25 23:50
*ED COVID-19 Vaccine History Last Done: 04/20/25 23:50
*ED Influenza Vaccine History Last Done: 04/20/25 23:50
*Nursing Disposition Last Done: 04/21/25 00:05
ED- Pulmonary Assessment Last Done: 04/20/25 21:39
ED-Psychological Assessment Last Done: 04/21/25 00:05
ED- Neurological Assessment Last Done: 04/20/25 21:39
ED- Cardiac Assessment Last Done: 04/20/25 21:39
ED Swallowing Screen Last Done: 04/20/25 21:38
Discharge Date and Time
Discharge Date/Time: 04/21/25 00:06
Print Language: GREEK
[2025-04-21 00:05] LABS: INR 1.91; PT 22.0 Sec (11.4-14.6)
[2025-04-21 01:13] LABS: Folate > 20.0 ng/ml (2.76-20)
[2025-04-23 18:11] LABS: Vitamin B1, Whole Blood 206 nmol/L (70-180)
== END 2025-04-21 00:06 | disposition home or self-care (01) ==
LOC: EMR 18:42
PROVIDERS: Physician Assistant; Student in an Organized Health Care Education/Training Program; EMERGENCY PHYSICIAN Emergency Medicine; FAMILY PHYSICIAN Family Medicine
DX: R41.82 Altered mental status, unspecified (principal); I49.3 Ventricular premature depolarization; F20.9 Schizophrenia, unspecified; E10.51 Type 1 diabetes mellitus with diabetic peripheral angiopathy without gangrene; E10.40 Type 1 diabetes mellitus with diabetic neuropathy, unspecified; I25.10 Atherosclerotic heart disease of native coronary artery without angina pectoris; I48.91 Unspecified atrial fibrillation; I08.0 Rheumatic disorders of both mitral and aortic valves; I10 Essential (primary) hypertension; E78.00 Pure hypercholesterolemia, unspecified; G47.30 Sleep apnea, unspecified; F32.A Depression, unspecified; Z79.01 Long term (current) use of anticoagulants; Z79.4 Long term (current) use of insulin; Z79.84 Long term (current) use of oral hypoglycemic drugs; Z86.73 Personal history of transient ischemic attack (TIA), and cerebral infarction without residual deficits; Z95.810 Presence of automatic (implantable) cardiac defibrillator; Z95.5 Presence of coronary angioplasty implant and graft; Z87.891 Personal history of nicotine dependence; Z85.51 Personal history of malignant neoplasm of bladder; Z86.19 Personal history of other infectious and parasitic diseases; Z82.49 Family history of ischemic heart disease and other diseases of the circulatory system
CPT/HCPCS: 99284; 70450; 80053; 81003; 81015; 82077; 82746; 84425; 84439; 84443; 85025; 85610; 93005

== ENCOUNTER → 2025-04-21 09:09 | Outpatient (REF) | payer MEDICARE, SELFPAY ==
[2025-04-21 10:41] LABS: ALT (SGPT) 87 U/L (0-50); AST (SGOT) 52 U/L (17-59); Albumin 4.3 g/dl (3.5-5.0); Alkaline Phosphatase 108 U/L (38-126); Blood Urea Nitrogen 25 mg/dl (9-20); Calcium 8.9 mg/dl (8.4-10.2); Carbon Dioxide 20 mmol/L (22-30); Chloride 103 mmol/L (98-107); Glucose 161 mg/dl (70-99); Potassium 4.9 mmol/L (3.5-5.1); Sodium 135 mmol/L (135-145); Total Protein 7.3 g/dl (6.3-8.2); eGFR 55.19
[2025-04-21 10:56] LABS: Microalb - Urine Creatinine 70.300 mg/dl
[2025-04-21 11:00] LABS: Microalbumin, Random Urine 1.9 mg/dl (0.6-1.7)
[2025-04-21 14:20] LABS: Glycohemoglobin (HgbA1c) 6.3 % (4.0-5.9)
== END ==
LOC: REG 09:09
PROVIDERS: ATTENDING PHYSICIAN Nurse Practitioner Family; FAMILY PHYSICIAN Family Medicine
DX: E11.65 Type 2 diabetes mellitus with hyperglycemia (principal)
CPT/HCPCS: 36415; 80053; 82043; 82570; 83036

== ENCOUNTER → 2025-04-24 13:58 | Outpatient (REF) | payer MEDICARE, SELFPAY ==
[2025-04-24 14:50] LABS: Urine Character Clear (Clear)
[2025-04-24 14:54] LABS: Hematocrit 38.5 % (39.0-52.0); Hemoglobin 12.5 g/dL (13.0-18.0); Mean Corp Hgb Conc. 32.5 g/dL (33.0-37.0); Mean Corpuscular Volume 106.4 fL (80.0-94.0); Nucleated Red Blood Cells % 0 % (-); Platelet Count 159 10^3/uL (130-400); Red Cell Dist. Width 15.8 % (11.5-14.5)
[2025-04-24 14:58] LABS: INR 1.51; PT 18.7 Sec (11.4-14.6)
[2025-04-24 14:59] LABS: APTT 32.9 Sec (23.4-35.0)
[2025-04-24 15:18] LABS: Urine Red Blood Cell 0-2 /HPF (0-2); Urine White Cell 0-2 /HPF (0-5)
[2025-04-24 15:22] LABS: ALT (SGPT) 86 U/L (0-50); AST (SGOT) 55 U/L (17-59); Albumin 4.2 g/dl (3.5-5.0); Alkaline Phosphatase 108 U/L (38-126); Blood Urea Nitrogen 26 mg/dl (9-20); Calcium 8.9 mg/dl (8.4-10.2); Carbon Dioxide 21 mmol/L (22-30); Chloride 104 mmol/L (98-107); Glucose 137 mg/dl (70-99); HDL Cholesterol 28 mg/dl; LDL Cholesterol, Calculated 98 mg/dl; Potassium 4.4 mmol/L (3.5-5.1); Sodium 136 mmol/L (135-145); Total Protein 7.1 g/dl (6.3-8.2); Very Low Density Lipoprotein 37 mg/dl (0-30); eGFR 50.49
== END ==
LOC: REG 13:58
PROVIDERS: ATTENDING PHYSICIAN Family Medicine
DX: R79.89 Other specified abnormal findings of blood chemistry (principal); E11.22 Type 2 diabetes mellitus with diabetic chronic kidney disease; N18.31 Chronic kidney disease, stage 3a; D64.9 Anemia, unspecified; E78.00 Pure hypercholesterolemia, unspecified; R79.1 Abnormal coagulation profile; R41.82 Altered mental status, unspecified
CPT/HCPCS: 36415; 80053; 80061; 81003; 81015; 85025; 85610; 85730; 87086

== ENCOUNTER → 2025-04-28 08:08 | Outpatient (REF) | payer MEDICARE, SELFPAY | LOC: DHVS 08:08 | PROVIDERS: ATTENDING PHYSICIAN Surgery Vascular Surgery | DX: I71.40 Abdominal aortic aneurysm, without rupture, unspecified (principal) | CPT/HCPCS: 76770 ==

== ENCOUNTER → 2025-04-29 08:06 | Outpatient (REF) | payer MEDICARE, SELFPAY ==
[2025-04-29 09:20] LABS: INR 2.06; PT 23.4 Sec (11.4-14.6)
== END ==
LOC: REG 08:06
PROVIDERS: ATTENDING PHYSICIAN Internal Medicine Cardiovascular Disease; FAMILY PHYSICIAN Family Medicine
DX: Z79.01 Long term (current) use of anticoagulants (principal); Z95.2 Presence of prosthetic heart valve
CPT/HCPCS: 36415; 85610

== ENCOUNTER → 2025-05-08 08:25 | Outpatient (REF) | payer MEDICARE, SELFPAY ==
[2025-05-08 09:52] LABS: INR 3.00; PT 31.5 Sec (11.4-14.6)
== END ==
LOC: REG 08:25
PROVIDERS: ATTENDING PHYSICIAN Internal Medicine Cardiovascular Disease; FAMILY PHYSICIAN Family Medicine
DX: Z79.01 Long term (current) use of anticoagulants (principal); I48.0 Paroxysmal atrial fibrillation
CPT/HCPCS: 36415; 85610

== ENCOUNTER → 2025-05-16 08:09 | Outpatient (REF) | payer MEDICARE, SELFPAY ==
[2025-05-16 09:35] LABS: Urine Character Clear (Clear)
[2025-05-16 09:36] LABS: Hematocrit 40.0 % (39.0-52.0); Hemoglobin 13.2 g/dL (13.0-18.0); Mean Corp Hgb Conc. 33.0 g/dL (33.0-37.0); Mean Corpuscular Volume 103.1 fL (80.0-94.0); Nucleated Red Blood Cells % 0 % (-); Platelet Count 196 10^3/uL (130-400); Red Cell Dist. Width 15.7 % (11.5-14.5)
[2025-05-16 09:41] LABS: Urine Red Blood Cell 0-2 /HPF (0-2); Urine White Cell 0-2 /HPF (0-5)
[2025-05-16 10:02] LABS: Glycohemoglobin (HgbA1c) 5.9 % (4.0-5.9)
[2025-05-16 10:18] LABS: ALT (SGPT) 76 U/L (0-50); AST (SGOT) 48 U/L (17-59); Albumin 4.4 g/dl (3.5-5.0); Alkaline Phosphatase 111 U/L (38-126); Blood Urea Nitrogen 27 mg/dl (9-20); Calcium 9.1 mg/dl (8.4-10.2); Carbon Dioxide 23 mmol/L (22-30); Chloride 104 mmol/L (98-107); Glucose 189 mg/dl (70-99); HDL Cholesterol 30 mg/dl; LDL Cholesterol, Calculated 94 mg/dl; Potassium 4.6 mmol/L (3.5-5.1); Sodium 136 mmol/L (135-145); Total Protein 7.6 g/dl (6.3-8.2); Very Low Density Lipoprotein 31 mg/dl (0-30); eGFR 50.49
[2025-05-16 11:18] LABS: Folate 19.6 ng/ml (2.76-20); Vitamin B12 890 pg/ml (239-931)
== END ==
LOC: REG 08:09
PROVIDERS: ATTENDING PHYSICIAN Nurse Practitioner Family; FAMILY PHYSICIAN Family Medicine
DX: R79.89 Other specified abnormal findings of blood chemistry (principal); E11.22 Type 2 diabetes mellitus with diabetic chronic kidney disease; N18.31 Chronic kidney disease, stage 3a; D64.9 Anemia, unspecified; E78.00 Pure hypercholesterolemia, unspecified; E53.8 Deficiency of other specified B group vitamins; Z13.29 Encounter for screening for other suspected endocrine disorder; R41.82 Altered mental status, unspecified
CPT/HCPCS: 36415; 80053; 80061; 81003; 81015; 82607; 82746; 83036; 84439; 84443; 85025; 87077; 87086

== ENCOUNTER → 2025-05-26 10:02 | Outpatient (REF) | payer MEDICARE, SELFPAY ==
[2025-05-26 11:06] LABS: INR 2.88; PT 30.4 Sec (11.4-14.6)
== END ==
LOC: REG 10:02
PROVIDERS: ATTENDING PHYSICIAN Internal Medicine Cardiovascular Disease; FAMILY PHYSICIAN Family Medicine
DX: Z79.01 Long term (current) use of anticoagulants (principal); I48.0 Paroxysmal atrial fibrillation
CPT/HCPCS: 36415; 85610

== ENCOUNTER → 2025-06-02 08:26 | Outpatient (REF) | payer MEDICARE, SELFPAY ==
[2025-06-02 08:58] LABS: INR 2.65; PT 28.5 Sec (11.4-14.6)
[2025-06-02 08:59] LABS: APTT 40.7 Sec (23.4-35.0)
== END ==
LOC: REG 08:26
PROVIDERS: ATTENDING PHYSICIAN Internal Medicine Cardiovascular Disease; FAMILY PHYSICIAN Family Medicine
DX: Z79.01 Long term (current) use of anticoagulants (principal)
CPT/HCPCS: 36415; 85610; 85730